=== PATIENT | female | born 1955 | race Caucasian/White ===

== ENCOUNTER → 2017-09-19 06:44 | Outpatient (CLI) | payer BC, SELFPAY ==
--- NOTE | 2017-09-19 10:00 | ECHOCS_ITS ---
Reason For Study: chest pain Procedure This was a 2D Doppler, Color Flow transthoracic echocardiogram. The exam was of poor technical quality due to body habitus. The study was technically difficult. Contrast injection was performed. Exam performed in department. Left Ventricle Normal LV size. Sigmoid septum. Left ventricular systolic function is normal. The estimated ejection fraction is 65 %. Transmitral doppler flow suggestive of impaired relaxation of left ventricle. No regional wall motion abnormalities noted. Right Ventricle Normal RV size. Normal systolic function. Atria The left atrium is mildly enlarged. Normal right atrium. No doppler evidence for ASD. Mitral Valve There is mild to moderate mitral annular calcification. Extension of the mitral annular calcification onto the posterior mitral valve leaflet. Trivial mitral valve insufficiency. Tricuspid Valve Normal tricuspid valve. Trivial tricuspid valve insufficiency. Right ventricular systolic pressure estimated to be 22 mmHg. Aortic Valve Trisinus/trileaflet aortic valve. Mild focal aortic valve calcification. Pulmonic Valve The pulmonic valve is not well visualized. Great Vessels Normal sized aortic root. Pericardium/Pleural No pericardial effusion. Medication Definity0.2ml given slow IV push to enhance endocardial definition. MMode/2D Measurements & Calculations LVIDd: 4.0 cm IVSd: 1.1 cm Ao root diam: 2.7 cm LVIDs: 3.0 cm LVPWd: 1.1 cm LA dimension: 3.8 cm RVDd: 2.8 cm FS: 25.1 % LAV(MOD-bp): 49.0 ml LA A4 area: 17.4 cm2 RA A4 area: 13.7 cm2 LAV(MOD-bp) Indexed: 24.3 ml/m2 LAV(MOD-sp2): 52.5 ml LAV(MOD-sp4): 45.1 ml Doppler Measurements & Calculations MV E max christian: 70.6 cm/sec Lat Peak E' Christian: 9.3 cm/sec Med Peak E' Christian: 9.0 cm/sec MV A max christian: 100.5 cm/sec E/E' lat: 7.6 E/E' med: 7.8 MV E/A: 0.70 Ao V2 max: 157.5 cm/sec LV V1 max: 118.4 cm/sec PA V2 max: 130.3 cm/sec Ao max P.9 mmHg LV V1 max P.6 mmHg TR max christian: 220.4 cm/sec TR max P.4 mmHg Interpretation Summary The study was technically difficult. Contrast injection was performed. Left ventricular systolic function is normal. The estimated ejection fraction is 65 %. Sigmoid septum. The left atrium is mildly enlarged. There is mild to moderate mitral annular calcification. Extension of the mitral annular calcification onto the posterior mitral valve leaflet. Trivial mitral valve insufficiency. Trivial tricuspid valve insufficiency. Mild focal aortic valve calcification. Right ventricular systolic pressure estimated to be 22 mmHg. Transmitral doppler flow suggestive of impaired relaxation of left ventricle Ordering Physician: Srinath Conteh Referring Physician: Srinath Conteh Performed By: Bhumi Pineda, CORNELIUSCS, RVT
--- NOTE | 2017-09-19 16:33 | STRESSREP ---
Stress Test Report Date: 09/19/2017 Procedure: Exercise tolerance test/nuclear imaging study Indications: Chest pain Consent: Per the patient Procedure: The patient exercised on a Vaibhav protocol for 9 minutes completing stage III achieving a peak heart rate of 148 bpm (93% predicted maximal heart rate) with a peak blood pressure 182/70 mmHg and a peak MET capacity of 10 METs. The baseline ECG demonstrated normal sinus rhythm. The peak exercise ECG demonstrated no obvious ECG changes. There was a rare PVC/ventricular couplet during exercise. The functional capacity was considered good. The patient had no complaint of chest discomfort during exercise or recovery. The examination was discontinued secondary to completion of protocol. Impression: 1. Technically adequate (percent predicted maximal heart rate greater than 85%) exercise tolerance test 2. Peak exercise ECG with no obvious ECG changes 3. Rare PVCs/ventricular couplet during exercise 4. Nuclear images pending Myocardial perfusion imaging study: Technique: The patient was injected with 14.4 mCi of technetium 99m Cardiolite and subsequently rest SPECT Cardiolite nuclear imaging was obtained in the horizontal long, vertical long, and short axis views. The patient exercised on a Vaibhav protocol for 9 minutes completing stage III achieving a peak heart rate of 148 bpm (93% predicted maximal heart rate) with a peak blood pressure 182/70 mmHg and a peak MET capacity of 10 METs. The patient was injected with 44.7 mCi of technetium 99m Cardiolite and subsequently stress SPECT Cardiolite nuclear imaging was obtained in the horizontal long, vertical long, and short axis views. A gated Cardiolite study at peak stress was obtained. Interpretation: Rest and stress SPECT cardio light nuclear imaging demonstrate, status post realignment, normalization, and attenuation correction, relative uniform tracer uptake and myocardial perfusion appearing within normal limits. There is end systolic thickening and brightening. The gated Cardiolite study demonstrates myocardial thickening and inward wall motion. The reported LVEF is 75%. Impression: 1. Rest and stress SPECT current nuclear imaging demonstrating relative uniform tracer uptake and myocardial perfusion appearing within normal limits. 2. The gated Cardiolite study reports an LVEF of 75%. This note was generated with Tarisa software. Every effort was made to ensure accuracy, however, computerized laceworker mistakes may persist.
--- NOTE | 2017-09-19 16:40 | STRESSREP_ITS ---
Stress Test Report Date: 09/19/2017 Procedure: Exercise tolerance test/nuclear imaging study Indications: Chest pain Consent: Per the patient Procedure: The patient exercised on a Vaibhav protocol for 9 minutes completing stage III achieving a peak heart rate of 148 bpm (93% predicted maximal heart rate) with a peak blood pressure 182/70 mmHg and a peak MET capacity of 10 METs. The baseline ECG demonstrated normal sinus rhythm. The peak exercise ECG demonstrated no obvious ECG changes. There was a rare PVC/ventricular couplet during exercise. The functional capacity was considered good. The patient had no complaint of chest discomfort during exercise or recovery. The examination was discontinued secondary to completion of protocol. Impression: 1. Technically adequate (percent predicted maximal heart rate greater than 85% ) exercise tolerance test 2. Peak exercise ECG with no obvious ECG changes 3. Rare PVCs/ventricular couplet during exercise 4. Nuclear images pending Myocardial perfusion imaging study: Technique: The patient was injected with 14.4 mCi of technetium 99m Cardiolite and subsequently rest SPECT Cardiolite nuclear imaging was obtained in the horizontal long, vertical long, and short axis views. The patient exercised on a Vaibhav protocol for 9 minutes completing stage III achieving a peak heart rate of 148 bpm (93% predicted maximal heart rate) with a peak blood pressure 182/70 mmHg and a peak MET capacity of 10 METs. The patient was injected with 44.7 mCi of technetium 99m Cardiolite and subsequently stress SPECT Cardiolite nuclear imaging was obtained in the horizontal long, vertical long, and short axis views. A gated Cardiolite study at peak stress was obtained. Interpretation: Rest and stress SPECT cardio light nuclear imaging demonstrate, status post realignment, normalization, and attenuation correction, relative uniform tracer uptake and myocardial perfusion appearing within normal limits. There is end systolic thickening and brightening. The gated Cardiolite study demonstrates myocardial thickening and inward wall motion. The reported LVEF is 75%. Impression: 1. Rest and stress SPECT current nuclear imaging demonstrating relative uniform tracer uptake and myocardial perfusion appearing within normal limits. 2. The gated Cardiolite study reports an LVEF of 75%. This note was generated with Tripology software. Every effort was made to ensure accuracy, however, computerized soil conservation technician mistakes may persist.
== END ==
PROVIDERS: Family Provider Internal Medicine; PCP Internal Medicine; Visit Provider Internal Medicine Cardiovascular Disease
DX: R07.9 Chest pain, unspecified (principal)
CPT/HCPCS: 78452; 93017; 93306; A9500; Q9957; A4216; C8929

== ENCOUNTER → 2017-10-09 15:58 | Outpatient (CLI) | payer BC, SELFPAY ==
--- NOTE | 2017-10-09 16:07 | MRI_ITS ---
STUDY: MRI RIGHT SHOULDER REASON FOR EXAM: Right shoulder pain for 4 months, no specific injury. TECHNIQUE: Standardized fat and water weighted pulse sequences were obtained in all 3 orthogonal planes. COMPARISON: None. FINDINGS: There is mild supraspinatus tendinosis (T2 coronal images 10, 11) without discrete tendon tear. Normal infraspinatus tendon. Normal subscapularis tendon. Normal teres minor tendon. Normal supraspinatus muscle. Normal infraspinatus muscle. Normal subscapularis muscle. Normal teres minor muscle. Normal glenohumeral articulation. Normal humeral head and visualized proximal humerus. Normal biceps labral complex. There is mild tendinosis of the intracapsular long biceps tendon (T2 sagittal images 12, 13) without discrete tendon tear. Normal labrum. Normal capsulo- ligamentous complex. There is mild acromioclavicular arthrosis with mild capsular thickening effacing the subacromial fat (T2 sagittal image 15). There is a Type II morphology (curved), with a neutral orientation. There is a small volume of fluid in the anterior subacromial-subdeltoid bursa (proton-density axial images 3, 4). Normal visualized coracohumeral and coracoacromial ligaments. Normal deltoid muscle. Normal trapezius muscle. MRI/Upper Ext Joint Only(Routine) IMPRESSION: Mild supraspinatus tendinosis without demonstrated rotator cuff tear. Mild tendinosis of the long biceps tendon without demonstrated tear of the long biceps tendon. Mild acromioclavicular arthrosis. Mild subacromial-subdeltoid bursitis. Electronically Signed: Micheal Tripathi MD at 7:53 EST Tel , Service support ,
== END ==
PROVIDERS: Family Provider Internal Medicine; PCP Internal Medicine
DX: M75.41 Impingement syndrome of right shoulder (principal); S46.111A Strain of muscle, fascia and tendon of long head of biceps, right arm, initial encounter; X58.XXXA Exposure to other specified factors, initial encounter
CPT/HCPCS: 73221

== ENCOUNTER → 2017-10-25 08:52 | Outpatient (CLI) | payer BC, SELFPAY ==
--- NOTE | 2017-10-25 08:53 | HPBI_ITS ---
MAMMOGRAPHY - BILATERAL SCREENING REASON FOR EXAM: Female, 62 years old. Routine annual screening examination. PERTINENT HISTORY: Sister with breast cancer. Grandmother with breast cancer. TECHNIQUE: Digital bilateral breast patti (3D mammographic acquisition) in the CC and MLO projections. 2-D mediolateral oblique (MLO) and craniocaudad (CC) views of both breasts were obtained. CAD: Full Field Digital Mammography with Computer Added Detection was performed. COMPARISON: Comparison is made with prior study dated September 07, 2016 and January 23, 2013. FINDINGS: Breast Composition: The breasts are almost entirely fatty. There are no dominant masses or suspicious calcifications. Stable well-defined 6 mm nodule in the upper outer portion of the right breast. This most likely represents a small lymph node. No other significant abnormalities are identified. There has been no significant change since the prior study. HPBI/SCREENING MAMM (CAD), BILAT IMPRESSION: Stable bilateral screening mammogram. Yearly follow-up mammogram recommended. (A) ASSESSMENT CATEGORY: BIRADS Category 2: Benign. A letter regarding these results will be sent to the patient by the facility within 30 days. Approximately 10% of breast cancers are not detected by mammography. A normal mammogram should not delay biopsy of a clinically suspicious abnormality. [id number] Electronically Signed: Bryson Oliver MD at 12:26 EST Tel [phone], Service support ,
--- NOTE | 2017-10-25 09:13 | HPBD_ITS ---
STUDY: DUAL ENERGY X-RAY ABSORPTIOMETRY / DXA REASON FOR EXAM: Female, 62 years old. Early menopause. No loss of height. TECHNIQUE: Bone Mineral Density (BMD) measurements of lumbar spine and bilateral hips were obtained. COMPARISON: Comparison is made with prior study dated January 23, 2013. FINDINGS: Lumbar Spine (L1-L4): g/cm2 (1.024) / T-score (-1.3) / Z-score (0.1) Findings are suggestive of osteopenia with a moderate fracture risk. Left Femur Total: g/cm2 (1.179) / T-score (1.4) / Z-score (2.4) Left Femoral Neck: g/cm2 (1.111) / T-score (0.5) / Z-score (1.9) Right Femur Total: g/cm2 (1.143) / T-score (1.1) / Z-score (2.1) Right Femoral Neck: g/cm2 (1.135) / T-score (0.7) / Z-score (2.1) The T-Scores on the most recent prior examination were: Lumbar Spine (L1-L4): There has been worsening of bone density since the previous examination. Left Femur Total: which represents a worsening of 3.1%. Right Femur Total: which represents a worsening of 3.9%. HPBD/Dexa Bone Density Study (HP) IMPRESSION: The patient is considered osteopenic at the level of the lumbar spine as outlined below according to World Igor Organization (WHO) criteria with a moderate fracture risk. There has been worsening of bone density since the previous examination. Reference Information: The T-score is the number of standard deviations above or below the standard which is normal for young adults at their peak bone mineral density. The World Health Organization (WHO) interprets the T-scores as follows: Above -1 Normal bone density Between -1 and -2.5 Osteopenia Equal to / or below -2.5 Osteoporosis As a practical clinical guideline, osteopenia may be graded as follows: Mild -1 through -1.5 Moderate -1.6 through -2.0 Severe -2.1 through -2.4 The Z-score is the number of standard deviations above or below age-matched controls. A Z-score of less than -1.5 would be considered abnormal. References: 1. NIH Osteoporosis and Related Bone Diseases http://www.osteo.org 2. International Society for Clinical Densitometry http://www.iscd.org 3. National Osteoporosis Foundation http://www.nof.org Electronically Signed: Bryson Oliver MD at 15:45 EST Tel [phone], Service support ,
== END ==
PROVIDERS: Family Provider Internal Medicine; PCP Internal Medicine; Visit Provider Internal Medicine
DX: Z12.31 Encounter for screening mammogram for malignant neoplasm of breast (principal); Z78.0 Asymptomatic menopausal state
CPT/HCPCS: 77063; 77067; 77080

== ENCOUNTER 2018-01-16 13:23 | Emergency (ER) | payer BC, SELFPAY ==
[2018-01-16 13:25] VITALS: BP 159/99; PULSE 115; RESP 18; TEMP 36.8; O2SAT 97; BMI 34.7
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
[2018-01-16 14:53] VITALS: BP 161/87; PULSE 110
[2018-01-16 15:25] VITALS: BP 165/85; PULSE 109; RESP 16; O2SAT 98
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
[2018-01-16 15:35] VITALS: BP 151/89; PULSE 107; RESP 16; O2SAT 97
== END 2018-01-16 15:36 | disposition home or self-care (01) ==
PROVIDERS: Emergency Provider Emergency Medicine; Family Provider Internal Medicine; PCP Internal Medicine
DX: I10 Essential (primary) hypertension (principal); R00.0 Tachycardia, unspecified; E78.00 Pure hypercholesterolemia, unspecified; K50.90 Crohn's disease, unspecified, without complications; Z87.891 Personal history of nicotine dependence; Z79.891 Long term (current) use of opiate analgesic; Z79.899 Other long term (current) drug therapy
CPT/HCPCS: 71046; 99284; A4216

== ENCOUNTER → 2018-01-17 13:42 | Outpatient (CLI) | payer BC, SELFPAY ==
[2018-01-17 15:51] LABS: Absolute Lymphocyte Count 3.57 X10^3/ul (0.83-4.51); Basophil# 0.04 X10^3/uL; Basophil% 0.5 % (0-1); Eosinophil# 0.13 X10^3/uL; Eosinophils% 1.6 % (0-5); Hematocrit 46.9 % (37-47); Hemoglobin 15.8 g/dl (12.0-15.0); Lymphocyte # 3.57 X10^3/ul (4.0); Lymphocyte % 42.8 % (19-41); Mean Corp Hgb Conc 33.7 g/gl (32-36); Mean Corpuscular Volume 89.2 fL (81-99); Mean Platelet Vol. 9.7 fl (6.2-12.0); Monocyte# 0.64 X10^3/uL; Monocyte% 7.7 % (0-10); Neutrophil # 3.97 X10^3/uL (2.7-7.7); Neutrophil % 47.4 % (47-70); Platelet Count 275 K/mm3 (150-450); RBC Distribution Width CV 13.1 % (11.6-14.6); RBC Distribution Width SD 42.1 fl (35.1-43.9); Red Blood Count 5.26 M/mm3 (4.2-5.4); White Blood Count 8.4 K/mm3 (4.4-11.0)
[2018-01-17 16:04] LABS: POSITIVE COUNT NO; POSITIVE DIFFERENTIAL NO; POSITIVE MORPHOLOGY NO
[2018-01-17 16:27] LABS: AST(SGOT) 39 U/L (15-37); Alanine Aminotransfer ALT/SGPT 68 U/L (13-56); Albumin, Serum 3.9 g/dL (3.2-5.0); Alkaline Phosphatase 94 U/L (45-117); Anion Gap 11 (5-15); BUN 16 mg/dL (7-18); BUN/Creat Ratio 23.7 RATIO (10-20); Bilirubin, Direct 0.09 mg/dL (0.00-0.30); Calcium,Total 9.8 mg/dL (8.5-10.1); Chloride 107 mmol/L (98-107); Creatinine, Serum 0.67 mg/dL (0.55-1.02); EST Glomerular Filtration Rate 94 mL/min (>60); Est Glom Filt Rate - Afr Amer 114 mL/min (>60); Glucose 78 mg/dL (74-106); Potassium 3.6 mmol/L (3.5-5.1); Protein, Total 7.9 g/dL (6.4-8.2); Sodium Level 141 mmol/L (136-145)
[2018-01-21 03:06] LABS: QNTFERON TB Ag Minus Nil Value 0.14 IU/mL (.); QNTFERON TB Ag Value 0.18 IU/mL (.); QNTFERON TB Mitogen Value > 10.00 IU/mL (.); QNTFERON TB Nil Value 0.04 IU/mL (.)
[2018-01-21 08:49] LABS: Hep B Surface Antibodies Reactive (.); Hep C Antibodies 0.1 s/co ratio (0.0-0.9); QNTIFERON TB Gold Negative (Negative)
== END ==
PROVIDERS: Family Provider Internal Medicine; PCP Internal Medicine; Visit Provider Nurse Practitioner Family
DX: L40.0 Psoriasis vulgaris (principal); Z79.899 Other long term (current) drug therapy; L57.0 Actinic keratosis
CPT/HCPCS: 36415; 80048; 80076; 85025; 86480; 86706; 86803

== ENCOUNTER 2018-02-01 16:00 | Outpatient (RCR) | payer BC, SELFPAY ==
--- NOTE | 2017-11-21 14:22 | HP.PTEVAL_ITS ---
Patient's Visit Information VICKY ARAGON is a 62 year old F referred to Physical Therapy by Out of Town Doctor MONIQUE MARTINEZ MD with a diagnosis of ARTHRITIS OF R AC JT. R BICEPS RUPTURE. SUBACROMIAL IMPINGEMENT.. Date of Evaluation: 11/21/17 Physical Therapist: Stacy Rodrgiuez Cross - Visit Plan Frequency: 2x /Week Duration: 3 Months Plan: PHASE ONE SHOULDER REHAB AND NO AROM OF ELBOW UNTIL November. AROM OF CERVICAL SPINE, RIGHT WRIST AND HAND. PROM OF RIGHT SHOULDER AND ELBOW. WEAN FROM BRACE WHEN OK'D BY SURGEON. - Subjective Subjective: Diagnosis: Work/Leisure: CR[employer] WORK AT [employer]. 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 LIFTING UP TO ABOUT 20 LBS. A LOT OF REPETATIVE USE OF ARMS. BENDING AND TWISTING ARE INVOLVED TOO. HAS BEEN DOING THIS JOB ABOUT 22 YEARS. PATIENT PLANS TO RETURN TO THIS JOB. SHE HAS BEEN OFF WORK ABOUT 3 WEEKS AND HER TENTATIVE RTW DATE IS DEC 25 2017 ABLE. Disability: NO. Present symptoms: RIGHT ANTERIOR SHOULDER PAIN. RIGHT LATERAL SHOULDER PAIN AND IT HURTS IN THE BACK OF THE SHOULDER TOO. PATIENT REPORTS THEY ALSO RELEASED A TRIGGER THUMB LAST WEEK AND IT HURTS TOO. BASICALLY THE WHOLE SHOULDER HURTS. PATIENT DENIES NECK PAIN OTHER THAN WHERE THE SLING HITS HER NECK ON THE LEFT. DENIES FLO UE NUMBNESS OR TINGLING. Present since: PATIENT REPORTS A LONG HISTORY OF RIGHT SHOULDER PAIN OFF AND ON FOR YEARS BUT THEN SHE TORE HER BICEPS SOMETIME AROUND THE BEGINNING OF OCTOBER 2017. Pain Scale: WORST 8/10, LEAST 3/10. Currently: 4/10. Commenced as a result of: NO APPARENT REASON OTHER THAN THE DOG PULLING WHILE WALKING AND SWIMMING. Worse: ? IN THE SLING ALL THE TIME RIGHT NOW EXCEPT TO SHOWER. Better: ICE, RECLINER , PAIN MEDICINE. Disturbed sleep: YES. Previous history/Previous treatment: NO PRIOR SHOULDER PROCEEDURES BUT DID HAVE RIGHT SHOULDER INJECTIONS RECENTLY THAT ONLY HELPED TEMPORARILY. NO PT. NO CHIRO TREATMENTS ON SHOULDER. Dizziness: NO. Tinnitis: YES. Nausea: NO. Difficulty Swollowing: NO. Gait: NORMAL. Accidents: NO. Unexplained weight loss: NO. Imaging: PATIENT REPORTS THAT RIGHT SHOULDER IMAGING SINCE THE SURGERY AND PATIENT REPORTS THEY TOLD HER EVERYTING IS WHERE IT IS SUPPOSED TO BE. PMH: CRONES DZ , PSORIASIS. Recent major surgery: BOWEL RESECTION FOR CRONES. FLO KNEE SCOPES FOR TORN MENISCUS. OTHER: PATIENT IS RIGHT HAND DOMINANT. - Objective THIS PATIENT PRESENTS TO PT IN A RIGHT UE ABD SLING. SHE AMBULATES INDEP'LY WITHOUT ANY ASISTIVE DEVICES. SHE IS INDEP WITH TRANSFERS. SHE IS ABLE TO INDEP'LY DON AND DOFF SLING. SHE HAS FULL RIGHT WRIST AND HAND AROM. CERVICAL MVMT LOSS WITH AROM TESTING: FLEX - NIL, PRO - NIL, RET - MOD, EXT - MOD, FLO ROT - MIN, RIGHT SB - MIN, LEFT SB - MOD. PATIENT REPORTS A LITTLE BIT OF RIGHT NECK STRETCHING WITH LEFT SB BUT OTHERWISE NO INCREASED PAIN WITH AROM TESTING OF THE CERIVCAL SPINE. FULL PROM OF THE RIGHT ELBOW FLEX AND EXT. NO ACTIVE RIGHT ELBOW ROM TESTED PER ORDER. RIGHT SHOULDER PASSIVE FLEX TO ONLY 75 DEG TODAY IN LYING. FLO UE LIGHT TOUCH SENSATION IS INTACT AND SYMMETRICAL. PATIENT IS PLEASANT AND COOPERATIVE TO WORK WITH. - Goals Goal 1:: INCREASE FUNCTIONAL ROM OF RIGHT UE Goal Time Frame: 8-12 Weeks Goal 2:: INCREASE FUNCTIONAL STRENGTH OF RIGHT UE Goal Time Frame: 8-12 Weeks Goal 3:: IMPROVE REACHING, PUSHING, PULLING, LIFTING, FUNCTION OF THE RIGHT UE FOR SUCCESSFUL RETURN TO WORK. Goal Time Frame: 8-12 Weeks Goal 4:: INDEP HEP FOR CONTINUED IMPROVEMENT ONCE FORMAL PT CONCLUDES. Goal Time Frame: 8-12 Weeks - Rehabilitation Potential Rehabilitation Potential: Good - Anticipated Interventions Patient/Client Instruction: Educate patient on: Condition, Plan of Care, Risk Factors, Benefits of Fitness Program For the Purpose of:: To improve self management Therapeutic Exercise to Include: Postural training, Passive ROM, Active ROM, Scapular Strength/Stabilization For the Purpose of:: To decrease pain, To increase ROM Manual Therapy Techniques to Include: Soft tissue mobilization Comment: CERVICAL REGION For the Purpose of:: To decrease pain, To increase ROM, To improve nutrient delivery to tissue Cryotherapy (ice pack, ice massage): Yes - NECK AND SHOULDER For the Purpose of:: To decrease pain, To decrease swelling/inflammation Thank you for the opportunity to evaluate your patient. For Medicare and Medicare HMO plans, please review the plan of care and approve it. It will need to be FAXED BACK to us at [phone] for Medicare purposes. Please let me know if there are questions or concerns regarding this plan of care. Physician Signature: Date:
--- NOTE | 2018-03-25 12:52 | HP.PT.NRP ---
HP - Discharge Summary (1) - Patient Information VICKY ARAGON was seen in my office for initial evaluation on 11/21/17. The following Plan of Care was established for this patient: Initial Frequency: 2x /Week Initial Duration: 3 Months - Anticipated Interventions Patient/Client Instruction: Educate patient on: Condition, Plan of Care, Risk Factors, Benefits of Fitness Program For the Purpose of:: To improve self management Therapeutic Exercise to Include: Postural training, Passive ROM, Active ROM, Scapular Strength/Stabilization For the Purpose of:: To decrease pain, To increase ROM Manual Therapy Techniques to Include: Soft tissue mobilization Comment: CERVICAL REGION For the Purpose of:: To decrease pain, To increase ROM, To improve nutrient delivery to tissue Cryotherapy (ice pack, ice massage): Yes - NECK AND SHOULDER For the Purpose of:: To decrease pain, To decrease swelling/inflammation This patient was last seen in our office 02/01/18. Pertinent comments regarding their Physical therapy will appear below: This patient has not returned to Physical Therapy and is appropriate to return to MD for further follow-up as needed. At this point I will be discontinuing this patient from physical therapy. I would be happy to see this patient again in the future if found appropriate by the physician. Thank you! Stacy Johnson
== END 2018-02-01 19:00 | disposition home or self-care (01) ==
LOC: PT 16:00
PROVIDERS: Family Provider Internal Medicine; PCP Internal Medicine
DX: M19.011 Primary osteoarthritis, right shoulder (principal); S46.111D Strain of muscle, fascia and tendon of long head of biceps, right arm, subsequent encounter; M75.41 Impingement syndrome of right shoulder
CPT/HCPCS: 97014; 97110; 97140; 97162; 97164; 97530; G0283

== ENCOUNTER → 2018-03-05 09:46 | Outpatient (CLI) | payer BC, SELFPAY ==
[2018-03-05 12:18] LABS: Absolute Lymphocyte Count 2.26 X10^3/ul (0.83-4.51); Basophil# 0.06 X10^3/uL; Eosinophil# 0.14 X10^3/uL; Eosinophils% 2.3 % (0-5); Hematocrit 48.1 % (37-47); Lymphocyte # 2.26 X10^3/ul (4.0); Lymphocyte % 37.7 % (19-41); Mean Corp Hgb Conc 33.3 g/gl (32-36); Mean Corpuscular Hgb 30.4 pg (27.0-32.0); Mean Corpuscular Volume 91.4 fL (81-99); Mean Platelet Vol. 10.8 fl (6.2-12.0); Monocyte# 0.58 X10^3/uL; Monocyte% 9.7 % (0-10); Neutrophil # 2.96 X10^3/uL (2.7-7.7); Neutrophil % 49.3 % (47-70); Platelet Count 253 K/mm3 (150-450); RBC Distribution Width CV 14.4 % (11.6-14.6); RBC Distribution Width SD 46.6 fl (35.1-43.9); Red Blood Count 5.26 M/mm3 (4.2-5.4)
[2018-03-05 12:23] LABS: POSITIVE COUNT NO; POSITIVE DIFFERENTIAL NO; POSITIVE MORPHOLOGY NO
[2018-03-05 12:38] LABS: AST(SGOT) 41 U/L (15-37); Alanine Aminotransfer ALT/SGPT 82 U/L (13-56); Albumin, Serum 3.8 g/dL (3.2-5.0); Alkaline Phosphatase 80 U/L (45-117); Anion Gap 9 (5-15); BUN 11 mg/dL (7-18); BUN/Creat Ratio 14.6 RATIO (10-20); Calcium,Total 9.6 mg/dL (8.5-10.1); Chloride 104 mmol/L (98-107); Creatinine, Serum 0.76 mg/dL (0.55-1.02); EST Glomerular Filtration Rate 82 mL/min (>60); Est Glom Filt Rate - Afr Amer 100 mL/min (>60); Globulin 3.7 g/dL (2.2-4.2); Glucose 91 mg/dL (74-106); Potassium 4.1 mmol/L (3.5-5.1); Protein, Total 7.5 g/dL (6.4-8.2); Sodium Level 140 mmol/L (136-145)
== END ==
PROVIDERS: Family Provider Internal Medicine; PCP Internal Medicine
DX: K50.90 Crohn's disease, unspecified, without complications (principal); K21.9 Gastro-esophageal reflux disease without esophagitis
CPT/HCPCS: 36415; 80053; 85025

== ENCOUNTER 2018-08-03 08:18 | Emergency (ER) | payer BC, SELFPAY ==
[2018-08-03 08:19] VITALS: BP 196/83; PULSE 105; RESP 20; TEMP 36.6; O2SAT 97; BMI 34.2
[2018-08-03 08:26] VITALS: O2SAT 98
--- NOTE | 2018-08-03 08:44 | CT_ITS ---
STUDY: CTA CHEST REASON FOR EXAM: Female, 63 years old. Left-sided chest pain with radiation. History of aortic dissection. RADIATION DOSAGE (If Supplied By Facility): CTDIvol = ( 15.56 ) mGy, DLP = ( 1158.50 ) mGycm TECHNIQUE: The examination was performed with the intravenous administration of 75 ml of Isovue 370 contrast material. Post-processing of the angiographic images was performed, with multiplanar reformation and 3D reconstruction. Individualized dose optimization techniques were used for this CT. COMPARISON: None. FINDINGS: Small benign-appearing bilateral axillary lymph nodes. Normal enhancement of the main pulmonary artery and right and left pulmonary arteries. Normal enhancement of the bilateral peripheral pulmonary arteries. There is no demonstrated pulmonary embolism. Normal thoracic aorta and visualized great vessels. There is no demonstrated aortic dissection. Normal heart and pericardium. There are visualized mediastinal lymph nodes, which are within normal size limits, and with normal morphology. Normal hilar regions. Normal visualized trachea and bronchi. The lungs are well expanded. Normal pulmonary parenchyma. Normal pleura. Normal chest wall structures. Normal osseous structures. Fatty infiltration of the liver. CT/CTA Chest W/WO Contrast IMPRESSION: Normal CTA chest examination, without a demonstrated pulmonary embolism or arterial dissection. Electronically Signed: Bryson Oliver MD at 9:47 EST Tel [phone], Service support ,
--- NOTE | 2018-08-03 08:44 | CT_ITS ---
STUDY: CTA CHEST REASON FOR EXAM: Female, 63 years old. Left-sided chest pain with radiation. History of aortic dissection. RADIATION DOSAGE (If Supplied By Facility): CTDIvol = ( 15.56 ) mGy, DLP = ( 1158.50 ) mGycm TECHNIQUE: The examination was performed with the intravenous administration of 75 ml of Isovue 370 contrast material. Post-processing of the angiographic images was performed, with multiplanar reformation and 3D reconstruction. Individualized dose optimization techniques were used for this CT. COMPARISON: None. FINDINGS: Small benign-appearing bilateral axillary lymph nodes. Normal enhancement of the main pulmonary artery and right and left pulmonary arteries. Normal enhancement of the bilateral peripheral pulmonary arteries. There is no demonstrated pulmonary embolism. Normal thoracic aorta and visualized great vessels. There is no demonstrated aortic dissection. Normal heart and pericardium. There are visualized mediastinal lymph nodes, which are within normal size limits, and with normal morphology. Normal hilar regions. Normal visualized trachea and bronchi. The lungs are well expanded. Normal pulmonary parenchyma. Normal pleura. Normal chest wall structures. Normal osseous structures. Fatty infiltration of the liver. CT/CTA Abdomen W/WO Contrast IMPRESSION: Normal CTA chest examination, without a demonstrated pulmonary embolism or arterial dissection. Electronically Signed: Bryson Oliver MD at 9:47 EST Tel [phone], Service support ,
--- NOTE | 2018-08-03 08:44 | EKG12_ITS ---
Test Reason : CHEST PAIN Blood Pressure : / mmHG Vent. Rate : 100 BPM Atrial Rate : 100 BPM P-R Int : 150 ms QRS Dur : 086 ms QT Int : 372 ms P-R-T Axes : 050 029 053 degrees QTc Int : 479 ms Normal sinus rhythm Normal ECG Confirmed by WILLIAM DIAZ MD ([id number]), senior editor SEVEN SCHMIDT ([id number]) on 08/08/2018 3:35:07 PM Referred By: DC Confirmed By:WILLIAM DIAZ MD
--- NOTE | 2018-08-03 08:49 | ED.VISSUMM ---
- ER Visit Summary Date of Service: 08/03/18 Chief Complaint: Chest pain History of Present Illness: The patient is a 63 F with chest pain that the patient noticed this morning when getting ready for work. The pain has been constant. It feels like a pressure and she has noted palpitations. The pain started to radiate down to her left groin after about an hour and a half. She never had this before. Denies any other abdominal pains or GI symptoms. Denies any urinary symptoms. Denies any respiratory symptoms. No recent illnesses. No history of heart disease, PE, or dissection. She had a stress test about a year ago that she says was normal. She had a cath a long time ago that she said was okay. Non-smoker. Physical Examination: Blood pressure 196/83 and heart rate 105. Otherwise vitals unremarkable. Afebrile. Alert and oriented. No acute distress. Skin appears normal. Heart regular. Lungs clear. Abdomen soft and nontender. Back is nontender. Extremities unremarkable. No edema. No tenderness. Test Results: EKG showed sinus rhythm at a rate of 100. No sign of acute ischemia or infarction pattern. Laboratory studies and urinalysis pending. We will also check CTA to evaluate her aorta. Emergency Department Course and Treatment: Patient was placed on a monitor. She declined pain medicine. Will hold aspirin at this point as we evaluate her aorta. Will recheck her blood pressure. Hemoglobin 15.8, otherwise CBC normal. BUN 20 otherwise metabolic panel normal. Urinalysis unremarkable. Troponin normal. CT showed no evidence of PE or dissection. I reevaluated the patient. Her blood pressure was 149/77. She had a mild pain still. I do not believe this is angina or ACS. She is low risk. She had a stress test within approximately the past year. It was unremarkable. Symptoms are very atypical. I explained that we could repeat her troponin or EKG. She declined. I believe this is reasonable. I believe she is appropriate for outpatient follow-up. She will check in with her doctor. She will use lcjk-eyw-txeyogr remedies for pain. Return if she has difficulty following up or has any new or different symptoms. Treatment Plan: As above Disposition: Discharge Impression: 1. Chest wall pain This note was generated with Palingenation software. It may contain incorrect words, spelling, and punctuation that were not noted in review of the chart prior to signing ED Disposition - Plan for ED Patient: Chief Complaint: Chest Pain Referrals: Yuki Wilson DO [Primary Care Provider] -
[2018-08-03] MEDS: 0.9% Normal Saline 1,000 ML 1000 ML IV (08:57)
[2018-08-03 09:10] LABS: Bacteria 0 SEEN /hpf (None Seen); Mucous, Urine 0 SEEN /hpf (<or=2+); Red Blood Cells-Urine 0 SEEN /hpf (0-5); Squamous Epithelial Cells - UA 0 SEEN /hpf (5-10)
[2018-08-03 09:12] LABS: Color, Urine Yellow (Yellow); Glucose, Dipstick Normal (Normal); Ketone-Dipstick Negative (Negative); Leukocyte Esterase-Dipstick 100 /ul (Negative); Nitrite-Dipstick Negative (Negative); Occult Blood-Urine Negative /ul (Negative); Protein-Dipstick Negative (Negative); Urine Bilirubin Dipstick Negative (Negative); Urine Clarity Clear (Clear); Urine Urobilinogen Normal (Normal)
[2018-08-03 09:12] LABS: Absolute Lymphocyte Count 3.62 X10^3/ul (0.83-4.51); Absolute Neutrophil Count 3.2 X10^3/uL (2.0-7.7); Basophil# 0.07 X10^3/uL; Basophil% 0.9 % (0-1); Eosinophil# 0.24 X10^3/uL; Hematocrit 45.6 % (37-47); Hemoglobin 15.8 g/dl (12.0-15.0); Lymphocyte # 3.62 X10^3/ul (4.0); Lymphocyte % 45.8 % (19-41); Mean Corp Hgb Conc 34.6 g/gl (32-36); Mean Corpuscular Hgb 31.1 pg (27.0-32.0); Mean Corpuscular Volume 89.8 fL (81-99); Mean Platelet Vol. 10.4 fl (6.2-12.0); Monocyte# 0.73 X10^3/uL; Monocyte% 9.2 % (0-10); Neutrophil # 3.23 X10^3/uL (2.7-7.7); Platelet Count 278 K/mm3 (150-450); RBC Distribution Width CV 12.9 % (11.6-14.6); RBC Distribution Width SD 42.2 fl (35.1-43.9); Red Blood Count 5.08 M/mm3 (4.2-5.4); White Blood Count 7.9 K/mm3 (4.4-11.0)
[2018-08-03 09:13] LABS: POSITIVE COUNT NO; POSITIVE DIFFERENTIAL NO; POSITIVE MORPHOLOGY NO
[2018-08-03 09:18] LABS: White Blood Cells 0-5 SEEN /hpf (0-5)
[2018-08-03 09:18] LABS: Anion Gap 7 (5-15); BUN 20 mg/dL (7-18); BUN/Creat Ratio 27.1 RATIO (10-20); Calcium,Total 9.3 mg/dL (8.5-10.1); Chloride 105 mmol/L (98-107); Creatinine, Serum 0.74 mg/dL (0.55-1.02); EST Glomerular Filtration Rate 85 mL/min (>60); Est Glom Filt Rate - Afr Amer 102 mL/min (>60); Estimated Creatinine Clearance 72.85 ml/min; Glucose 89 mg/dL (74-106); Sodium Level 139 mmol/L (136-145)
[2018-08-03 09:50] VITALS: BP 149/77; PULSE 64; RESP 16; O2SAT 99
--- NOTE | 2018-08-03 10:07 | ED.DEP ---
ED Disposition - Plan for ED Patient: Chief Complaint: Chest Pain Instructions: ED Chest Pain Atypical Unkn Cause Referrals: Yuki Wilson DO [Primary Care Provider] -
[2018-08-03 10:13] VITALS: BP 156/82; PULSE 74; RESP 15; O2SAT 97
--- OUTSIDE RECORDS SUMMARY | 2018-09-18 22:00 | XMS RPT_ITS ---
:1955 Author Organization [employer] Address [address] [place] [address] Phone Care Team Providers Name Role Phone Castillo LESTER, Fito Zhao Reason for Visit Reason For Visit Description Start Date Postop - subsequent visit Preliminary reason for visit data, not yet signed by the author as of right shoulder post Right shoulder arthroscopy with debridement of degenerative labral tear; Right shoulder arthroscopic distal clavicle excision; Right shoulder arthroscopic subacromial decompression with partial acromioplasty and coracoacromial ligament release; Right shoulder open subpectoral proximal biceps tenodesis; Right trigger thumb corticosteroid injection on 11/01/2017 Preliminary reason for visit data, not yet signed by the author as of Chief Complaint Chief Complaint Description Start Date right shoulder post Right shoulder arthroscopy with debridement of degenerative labral tear; Right shoulder arthroscopic distal clavicle excision; Right shoulder arthroscopic subacromial decompression with partial acromioplasty and coracoacromial ligament release; Right shoulder open subpectoral proximal biceps tenodesis; Right trigger thumb corticosteroid injection on 11/01/2017 Preliminary chief complaint data, not yet signed by the author as of Instructions Instruction Description Start Date Please follow-up with Primary Care Physician or Retail Branch Manager for treatment or adjustment of medication regarding elevated blood pressure.Patient advised to follow-up with Primary Care Physician for BMI management. Plan of Care Type Date Detail Appointment 10:30 AM Fito Chong MD, [address] [facility], [address], [place], [address], Patient education \[email or web address]\[email or web address].pdf Medications Medication Instructions Start Stop Generic Name ND Provider Date Date NORCO 5-325 MG Take 1-2 / HYDROCODONE-ANASTACIA 97289190006 Fito A TABS tablets by 20 TAMINOPHEN Castillo LESTER mouth every 4hrs as needed for pain ZOLOFT 100 MG One tablet / SERTRALINE HCL 46751420900 Inez TABS daily 07 Degarmo RT TRAMADOL HCL 50 One tablet as / TRAMADOL HCL 82189810240 Inez MG TABS needed for pain 17 Degarmo RT METHOTREXATE take 2.5mg / METHOTREXATE 20838728057 Inez TABS Monday morning, 29 SODIUM TABS Degarmo RT 2.5mg Monday evening, 2.5mg Monday morning VOLTAREN 1 % apply liberally / DICLOFENAC 64600511739 Inez GEL to hand three 28 SODIUM Degarmo RT times daily as needed for pain HUMIRA 40 inject 0.8ml / ADALIMUMAB 33180941024 Fito A MG/0.8ML PSKT every other 29 Castillo LESTER week Conditions or Problems Problem Name Problem Onset Status Entry Provider Comment Standard Annotate Code Date Date Description 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 Fito A Arthritis of right (SNOMED 10/24 10/24 Castillo LESTER acromioclavicular acromioclavic CT) joint ular joint Rupture of 89604732 Active Fito A Rupture of tendon right long (SNOMED 09/19 09/19 Castillo LESTER of biceps, long head biceps CT) head tendon, initial encounter Subacromial 447413280 Active Fito A Subacromial impingement (SNOMED 09/19 09/19 Castillo LESTER impingement of right CT) shoulder Trigger 57848635 Active Fito A Snapping thumb finger of (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 Vital Signs Date Name Value Unit Description BMI (Body Mass 34.02 kg/m2 Body Mass Index Index) [Ratio] Preliminary vital sign data, not yet signed by the author as of BP Diastolic 87 mm[Hg] blood pressure, diastolic Preliminary vital sign data, not yet signed by the author as of BP Systolic 162 mm[Hg] blood pressure, systolic Preliminary vital sign data, not yet signed by the author as of Heart Rate 72 /min pulse rate E&M Preliminary vital sign data, not yet signed by the author as of Height 66 [in_us] height E&M Preliminary vital sign data, not yet signed by the author as of Height 168 cm height in centimeters E&M Preliminary vital sign data, not yet signed by the author as of Weight Measured 210 [lb_av] weight E&M Preliminary vital sign data, not yet signed by the author as of Weight Measured 95 kg weight in kilograms E&M Preliminary vital sign data, not yet signed by the author as of Results Date Name Value Unit Range Flag Description Office Visit: Postop - subsequent visit, Rm: MEDS REVIEW Done Documentation of current medications (procedure) Preliminary observation data, not yet signed by the author as of Preliminary observation data, not yet signed by the author as of [facility] Office Visit: Postop - 1st visit, Rm: MEDS REVIEW Done Documentation of current medications (procedure) Clinical Summary[facility] Procedures Code Procedure Name Date Entry Date [id number] Physical Therapy G8730 Pain assessment documented as positive - follow-up documented G8427 Current medications documented 1036F Tobacco screening was negative - non user G8417 BMI documented as above normal parameters - follow-up documented [id number] Patient Encounter Medications Administered No information available. Immunizations No information available. Advance Directives There may be information available, but it has not been provided by the sender. Assessments There may be information available, but it has not been provided by the sender. Review of Systems There may be information available, but it has not been provided by the sender. Family History There may be information available, but it has not been provided by the sender. History of Past Illness There may be information available, but it has not been provided by the sender. History of Present Illness There may be information available, but it has not been provided by the sender.
--- OUTSIDE RECORDS SUMMARY | 2018-09-18 22:00 | XMS RPT_ITS ---
:1955 Author Organization [email or web address] Address [address] [place] [address] Phone Care Team Providers Name Role Phone Castillo LESTER, Fito Rodriguez Unavailable Reason for Visit Reason For Visit Description Start Date Follow-up by complaint Preliminary reason for visit data, not yet signed by the author as of right shoulder Preliminary reason for visit data, not yet signed by the author as of Chief Complaint Chief Complaint Description Start Date right shoulder Preliminary chief complaint data, not yet signed by the author as of Instructions Instruction Description Start Date Patient advised to follow-up with Primary Care Physician for BMI management. Plan of Care Type Date Detail Appointment 03:00 PM Fito Chong MD, [address] [facility], [address], [place], [address], Medications Medication Instructions Start Stop Generic Name NDC Provider Date Date ZOLOFT 100 MG One tablet / SERTRALINE HCL 33196726110 Inez TABS daily 07 Degarmo RT TRAMADOL HCL 50 One tablet as / TRAMADOL HCL 88804571389 Inez MG TABS needed for pain 17 Degarmo RT METHOTREXATE take 2.5mg / METHOTREXATE 71412325493 Inez TABS Monday morning, 29 SODIUM TABS Degarmo RT 2.5mg Monday evening, 2.5mg Monday morning HUMIRA 40 inject 0.8ml / ADALIMUMAB 83586982878 Fito A MG/0.8ML PSKT every other 29 Castillo LESTER week Conditions or Problems Problem Name Problem Onset Status Entry Provider Comment Standard Annotate Code Date Date Description Arthritis of 911419988 Active Fito A Arthritis of right (SNOMED 10/24 10/24 Castillo LESTER acromioclavicular acromioclavic CT) joint ular joint Rupture of 63451143 Active Fito A Rupture of tendon right long (SNOMED 09/19 09/19 Castillo LESTER of biceps, long head biceps CT) head tendon, initial encounter Subacromial 023488263 Active Fito A Subacromial impingement (SNOMED 09/19 09/19 Castillo LESTER impingement of right CT) shoulder Trigger 40073224 Active Fito A Snapping thumb finger of (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/18 04/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 CT) Allergies, Adverse Reactions, Alerts Allergy Name Reaction Start Date Severity Status Provider Description 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 Richard LESTER Social History Concept Description Observation Name Observation Value Units Start Date Employment detail 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 Preliminary social history data, not yet signed by the author as of Vital Signs Date Name Value Unit Description BMI (Body Mass 34.02 kg/m2 Body Mass Index Index) [Ratio] Preliminary vital sign data, not yet signed by the author as of BP Diastolic 77 mm[Hg] blood pressure, diastolic Preliminary vital sign data, not yet signed by the author as of BP Systolic 139 mm[Hg] blood pressure, systolic Preliminary vital sign data, not yet signed by the author as of Heart Rate 61 /min pulse rate E&M Preliminary vital sign [...] Value Unit Range Flag Description Office Visit: Follow-up by renate, Rm: MEDS REVIEW Done Documentation of current medications (procedure) Preliminary observation data, not yet signed by the author as of Preliminary observation data, not yet signed by the author as of Clinical Summary: [facility] account number Procedures Code Procedure Name Date Entry Date G8731 Pain assessment documented as negative - follow-up not required G8427 Current medications documented 1036F Tobacco screening was negative - non user G8417 BMI documented as above normal parameters - follow-up documented G8783 Blood pressure within normal parameters - no follow-up required [id number] Patient Encounter Medications Administered No information available. [...]
--- OUTSIDE RECORDS SUMMARY | 2018-09-18 22:00 | XMS RPT_ITS ---
:11/26/1988 Author Organization [employer] Address [address] [place] [address] Phone Care Team Providers Name Role Phone Massiel WHEAT, Cass Gerardo Unavailable Reason for Visit Reason For Visit Description Start Date Postop - 1st visit Preliminary reason for visit data, not yet signed by the author as of left hand Preliminary reason for visit data, not yet signed by the author as of Chief Complaint Chief Complaint Description Start Date left hand Preliminary chief complaint data, not yet signed by the author as of Instructions Instruction Description Start Date Completed Plan of Care Type Date Detail Appointment 11:00 AM Cass Rankin PA-C, [address] [facility] [facility], [place], [address], Pending order XR HAND 3+ VWS-LT Patient education \cps-[email or web address]\[email or web address]\[email or web address] [id number] Medications Medication Instructions Start Stop Generic NDC Provider Date Date Name BACTRIM DS Take 1 tab by SULFAMETHO [id number] Cass C 800-160 MG mouth twice a XAZOLE-TRI DiBartolomeo TABS day METHOPRIM PA-C OXYCODONE-ACET Take one tab OXYCODONE- [id number] Cass Gerardo AMINOPHEN every 6 hours 0 ACETAMINOP DiBartolomeo 5-325 MG TABS for pain HEN PA-C Conditions or Problems Problem Name Problem Onset Status Entry Provider Comment Standard Annotate Code Date Date Description Laceration 731157174 Active Cass Gerardo Muscle and epl of extensor (SNOMED 11/28 11/28 DiBartolomeo tendon laceration muscle and CT) PA-C injury left thumb tendon of thumb at wrist and hand level Laceration 398219450 Active Cass Gerardo Laceration index EDC without (SNOMED 11/28 11/28 DiBartolomeo of hand and EIP foreign body CT) PA-C laceration of unspecified finger without damage to nail, subsequent encounter Laceration 356314085 Active Cass Gerardo Laceration index EDC without (SNOMED 11/28 11/28 DiBartolomeo of hand and EIP foreign body CT) PA-C laceration of left hand, subsequent encounter Open 009730294 Active Cass Gerardo Open MPJ displaced (SNOMED 11/28 11/28 DiBartolomeo fracture interarticul fracture of CT) PA-C thumb ar open neck of metacarpal fracture first neck from saw metacarpal injury bone of left hand, initial encounter Open 109593921 Active Cass Gerardo Open traumatic displaced (SNOMED 11/28 11/28 DiBartolomeo fracture of interarticul fracture of CT) PA-C proximal ar MPJ open proximal phalanx of fracture phalanx of index finger left index finger, initial encounter Contact with 866633451 Active Cass Gerardo Injury due left powered saw (SNOMED 11/28 11/28 DiBartolomeo to machinery as cause of CT) PA-C accidental injury Allergies, Adverse Reactions, Alerts Observed no known allergies at Social History Concept Description Observation Name Observation Value Units Start Date Alcohol use ETOH USE No Preliminary social history data, not yet signed by the author as of Current some day SMOK STATUS current someday smoker smoker Preliminary social history data, not yet signed by the author as of Details of drug DRUG USE No misuse behavior Preliminary social history data, not yet signed by the author as of Employment 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 Preliminary social history data, not yet signed by the author as of Vital Signs Date Name Value Unit Description BMI (Body Mass 24.48 kg/m2 Body Mass Index Index) [Ratio] Preliminary vital sign data, not yet signed by the author as of BP Diastolic 63 mm[Hg] blood pressure, diastolic Preliminary vital sign data, not yet signed by the author as of BP Systolic 130 mm[Hg] blood pressure, systolic Preliminary vital sign data, not yet signed by the author as of Heart Rate 98 /min pulse rate E&M Preliminary vital sign data, not yet signed by the author as of Height 70 [in_us] height E&M Preliminary vital sign data, not yet signed by the author as of Height 178 cm height in centimeters E&M Preliminary vital sign data, not yet signed by the author as of Weight Measured 170 [lb_av] weight E&M Preliminary vital sign data, not yet signed by the author as of Weight Measured 77 kg weight in kilograms E&M Preliminary vital sign data, not yet signed by the author as of Results Date Name Value Unit Range Flag Description Office Visit: Postop - 1st visit, Rm: MEDS REVIEW Done Documentation of current medications (procedure) Preliminary observation data, not yet signed by the author as of Preliminary observation data, not yet signed by the author as of SMOK STATUS current someday Tobacco smoker smoking status NHIS Preliminary observation data, not yet signed by the author as of Clinical Summary: Scanned History Summary DEP EXERCISE No data entered by patient, exercise history OPIATEFREQ per dayper weekper frequency of use monthper year of opiates (heroin or non-prescribed opioid pain medications) OTHDRUGHX_OB less than once Other drug use hx DEP DRUG USE No data entered by patient, drug (of abuse) use DEP ETOH USE No data entered by patient, alcohol (ethanol or ETOH) use DEP CIGAR SM less than 1 cigar per Data entered by week patient cigar smoking [place] 3 Floors housing unit size (asthma environmental history, housing) (from single family to don't know) [place] House Housing Type: apartment, house, chcf, trailer, none #DEP CHLDRN Yes Number of dependent children DEP SH MAST data entered by patient, social history, marital status 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 Employed data entered by patient, Employer Name 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 A/D Unknown brother(s) of patient alive or SISTERS PM ArthritisDiabetes - medical history non-insulin of patient's dependentOsteoporosis sister DEP DAD [facility] Diabetes - non-insulin data entered by dependent patient, father's medical history FATHER A/D father of patient is alive or DEP MOM PM High blood pressure data entered by patient, mother's medical history MOTHER A/D Alive mother of patient is alive or DEP SURGERY Hand surgery Data entered by patient, history of past surgeries Clinical Summary: Scanned ROS Summary ROS: Denies genitourinary review of systems, E&M ROS: GI Denies ROS gastrointestinal E&M ROS ENDO Denies endocrine ROS ROS:MUSCSKEL Denies ROS musculoskeletal E&M ROS: PSYCH Denies ROS psychiatric E&M ROS HEME Denies ROS hematologic/lymphatic E&M ROS SKIN Denies ROS skin E&M ROS ENT COMM Dentures ROS ENT comment ROS ENT Complains ROS ENT E&M ROS:GENERAL Denies ROS general E&M ROS: NEURO Denies ROS neurological E&M ROS:PULMON Denies ROS pulmonary E&M ROS: CARDIAC Denies ROS cardiovascular E&M Clinical Summary: [facility] SOP account number Procedures Code Procedure Name Date Entry Date G8731 Pain assessment documented as negative - follow-up not required G8427 Current medications documented [id number] Tobacco screening or cessation counseling not performed - unknown reason G8420 BMI documented within normal parameters - no follow-up plan is required G8783 Blood pressure within normal parameters - no follow-up required [facility]-[id number] Patient Encounter Medications Administered No information available. [...]
--- OUTSIDE RECORDS SUMMARY | 2018-09-18 22:01 | XMS RPT_ITS | Continuity of Care Document ---
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 Instruction: Educate patient on: Condition, Plan of Care, Risk Factors, Benefits of Fitness Program For the Purpose of:: To improve self management Therapeutic Exercise to Include: Postural training, Passive ROM, Active ROM, Scapular Strength/Stabilization For the Purpose of:: To decrease pain, To increase ROM Manual Therapy Techniques to Include: Soft tissue mobiliza tion Comment: CERVICAL REGION For the Purpose of:: To decrease pain, To increase ROM, To improve nutrient delivery to tissue Cryotherapy (ice pack, ice massage): Yes - NECK AND SHOULDER For the Purpose of:: To decrease pain, To decrease swelling/inflammation Thank you for the opportunity to evaluate your patient. For Medicare and Medicare HMO plans, please review the plan of care and approve it. It will need to be FAXED BACK to us at [phone] for Medicare purposes. Please let me know if there are questions or concerns regarding this plan of care. Physician Signature: Date: <Electronically signed by Stacy Johnson PT, Cert. MDT> 11/21/17 1422 CC: Yuki Wilson DO; OUT OF TOWN DOCTOR DT: 11/05 DAVIDE Signed For Medicare only, by signing this I certify the plan of care. Physicians Signature Date 25-Oct-2017 Dexa Bone Density Study (HP) Result: Comments: See Note; NOTES: [facility] Imaging Services [address] [place] [address] Dexa Bone Density Study (HP) MR#: [id number] Acct: [id number] Name: PAU ARAGON Rep #: [id number] : 1955 F 62 From: Bryson Oliver MD PCP: Yuki Wilson DO Status: [facility] CLI Study: Dexa Bone Density Study (HP) Date of Exam: 10/25/17 Exam# [id number] Ordering Dr: Terri Wilson DO STUDY: DUAL ENERGY X-RAY ABSORPTIOMETRY / DXA REASON FOR EXAM: Female, 62 years old. Early menopause. No loss of height. TECHNIQUE: Bone Mineral Density (BMD) measurements of lumbar spine and bilateral hips were obtained. COMPARISON: Comparison is made with prior study dated January 23, 2013. FINDINGS: Lumbar Spine (L1-L4): g/cm2 (1.024) / T-score (-1.3) / Z-score (0.1) Findings are suggestive of osteopenia with a moderate fracture risk. Left Femur Total: g/cm2 (1.179) / T-score (1.4) / Z-score (2.4) Left Femoral Neck: g/cm2 (1.111) / T-score (0.5) / Z-s core (1.9) Right Femur Total: g/cm2 (1.143) / T-score (1.1) / Z-score (2.1) Right Femoral Neck: g/cm2 (1.135) / T-score (0.7) / Z-score (2.1) The T-Scores on the most recent prior examination were: Aster mbar Spine (L1-L4): There has been worsening of bone density since the previous examination. Left Femur Total: which represents a worsening of 3.1%. Right Femur Total: which represents a worsening of 3 .9%. HPBD/Dexa Bone Density Study (HP) IMPRESSION: The patient is considered osteopenic at the level of the lumbar spine as outlined below accord ing to World Igor Organization (WHO) criteria with a moderate fracture risk. There has been worsening of bone density since the previous examination. Reference Inf ormation: The T-score is the number of standard deviations above or below the standard which is normal for young adults at their peak bone mineral density. The World Health Organization (WHO) interprets the T-scores as follows: Above -1 Normal bone density Between -1 and -2.5 Osteopenia Equal to / or below -2.5 Osteoporosis As a practical clinical guideline, osteopenia may be graded as follows: Mild -1 through -1.5 Moderate -1.6 through -2.0 Severe -2.1 through -2.4 The Z-score is the number of standard deviations above or below age-matched controls. A Z- score of less than -1.5 would be considere d abnormal. References: 1. NIH Osteoporosis and Related Bone Diseases http://www.osteo.org 2. International Society for Clinical Densitometry http://www.iscd.org 3. National Osteoporosis Foundation htt p://www.nof.org Electronically Signed: Bryson Oliver MD at 15:45 EST Tel [phone], Service support , CC: Yuki Wilson DO Customer Support Analyst: Signed 25-Oct-2017 SCREENING MAMM (CAD), BILAT Result: Comments: See Note; NOTES: [facility] Imaging Services [address] [place] [address] SCREENING MAMM (CAD), BILAT MR#: [id number] Acct: [id number] Name: PAU ARAGON Rep #: [id number] : 1955 F 62 From: Bryson Oliver MD PCP: Yuki Wilson DO Status: REG CLI Study: SCREENING MAMM (CAD), BILAT Date of Exam: 10/25/17 Exam# [id number] Ordering Dr: Yuki Wilson DO MAMMOGRAPHY - BILATERAL SCREENING REASON FOR EXAM: Female, 62 years old. Routine annual screening examination. PERTINENT HISTORY: Sister with breast cancer. Grandmother with breast cancer. TECH NIQUE: Digital bilateral breast patti (3D mammographic acquisition) in the CC and MLO projections. 2-D mediolateral oblique (MLO) and craniocaudad (CC) views of both breasts were obtained. CAD: Full Fiel d Digital Mammography with Computer Added Detection was performed. COMPARISON: Comparison is made with prior study dated September 07, 2016 and January 23, 2013. FINDINGS : Breast Composition: The breasts are almost entirely fatty. There are no dominant masses or suspicious calcifications. Stable well-defined 6 mm nodule in the upper outer portion of the right breast. T his most likely represents a small lymph node. No other significant abnormalities are identified. There has been no significant change since the prior study. HPBI/SCREENING MAMM (CAD), BILAT IMPRESSION: Stable bilateral screening mammogram. Yearly follow-up mammogram recommended. (A) ASSESSMENT CATEGORY: BI RADS Category 2: Benign. A letter regarding these results will be sent to the patient by the facility within 30 days. Approximately 10% of breast cancers are not detected by mammography. A normal mammo gram should not delay biopsy of a clinically suspicious abnormality. [id number] Electronically Signed: Bryson Oliver MD at 12:26 EST Tel [phone], Service support , Fax CC: Yuki Wilson DO Customer Support Analyst: Signed 09-Oct-2017 Upper Ext Joint Only(Routine) Result: Comments: See Note; NOTES: [facility] Imaging Services [address] [place] [address] Upper Ext Joint Only(Routine) MR#: [id number] Acct: [id number] Name: PAU ARAGON Rep #: [id number] : 1955 F 62 From: Micheal Tripathi MD PCP: Yuki Wilson DO Status: REG CLI Study: Upper Ext Joint Only(Routine) Date of Exam: 10/09/17 Exam# [id number] Ordering Dr: MONIQUE MARTINEZ STUDY: MRI RIGHT SHOULDER REASON FOR EXAM: Right shoulder pain for 4 months, no specific injury. TECHNIQUE: Standardized fat and water weighted pulse sequences were obtained in all 3 orthogonal planes . COMPARISON: None. FINDINGS: There is mild supraspinatus tendinosis (T2 coronal images 10, 11) without discrete tendon tear. Normal infraspinatus tendon. Normal armenta bscapularis tendon. Normal teres minor tendon. Normal supraspinatus muscle. Normal infraspinatus muscle. Normal subscapularis muscle. Normal teres minor muscle. Normal glenohumeral articulation. Irene l humeral head and visualized proximal humerus. Normal biceps labral complex. There is mild tendinosis of the intracapsular long biceps tendon (T2 sagittal images 12, 13) without discrete tendon tear. N ormal labrum. Normal capsulo- ligamentous complex. There is mild acromioclavicular arthrosis with mild capsular thickening effacing the subacromial fat (T2 sagittal image 15). There is a Type II morpho logy (curved), with a neutral orientation. There is a small volume of fluid in the anterior subacromial-subdeltoid bursa (proton-density axial images 3, 4). Normal visualized coracohumeral and coracoac romial ligaments. Normal deltoid muscle. Normal trapezius muscle. MRI/Upper Ext Joint Only(Routine) IMPRESSION: Mild supraspinatus tendinosis wi thout demonstrated rotator cuff tear. Mild tendinosis of the long biceps tendon without demonstrated tear of the long biceps tendon. Mild acromioclavicular arthrosis. Mild subacromial-subdeltoid burs itis. Electronically Signed: Micheal Tripathi MD at 7:53 EST Tel , Service support , CC: MONIQUE MARTINEZ; Yuki Wilson DO Customer Support Analyst: Signed 19-Sep-2017 Stress Report Result: Comments: See Note; NOTES: [facility] Cardiovascular Services [address] [place] [address] MR#: [id number] Acct: [id number] Name: PAU ARAGON Rep #: [id number] : [birth year] 62 From: Srinath Conteh MD Primary Care: Yuki Wilson DO Status: REG CLI Ordering Dr: Sex: F C Stress Test Report Date: 09/19/2017 Procedure: Exercise tolerance test/nuclear imaging study Indications: Chest pain Consent: Per the patient Procedure: The patient exercised on a Vaibhav protocol for 9 minutes completing stage III achieving a peak heart rate of 148 bpm (93% predicted maximal heart rate) with a peak blood pressure 182/70 mmHg and a peak MET capacity of 10 METs. The baseline ECG demonstrated normal sinus rhythm. The peak exercise ECG demonstrated no obvious ECG changes. Th ere was a rare PVC/ventricular couplet during exercise. The functional capacity was considered good. The patient had no complaint of chest discomfort during exercise or recovery. The examination was discontinued secondary to completion of protocol. Impression: 1. Technically adequate (percent predicted maximal heart rate greater than 85%) exercise tolerance test 2. Peak exercise ECG with no obvio us ECG changes 3. Rare PVCs/ventricular couplet during exercise 4. Nuclear images pending Myocardial perfusion imaging study: Technique: The patient was injected with 14.4 mCi of technetium 99m Cardi olite and subsequently rest SPECT Cardiolite nuclear imaging was obtained in the horizontal long, vertical long, and short axis views. The patient exercised on a Vaibhav protocol for 9 minutes completing stage III achieving a peak heart rate of 148 bpm (93% predicted maximal heart rate) with a peak blood pressure 182/70 mmHg and a peak MET capacity of 10 METs. The patient was injected with 44.7 mCi of t echnetium 99m Cardiolite and subsequently stress SPECT Cardiolite nuclear imaging was obtained in the horizontal long, vertical long, and short axis views. A gated Cardiolite study at peak stress was ob tained. Interpretation: Rest and stress SPECT cardio light nuclear imaging demonstrate, status post realignment, normalization, and attenuation correction, relative uniform tracer uptake and myocardia l perfusion appearing within normal limits. There is end systolic thickening and brightening. The gated Cardiolite study demonstrates myocardial thickening and inward wall motion. The reported LVEF is 7 5%. Impression: 1. Rest and stress SPECT current nuclear imaging demonstrating relative uniform tracer uptake and myocardial perfusion appearing within normal limits. 2. The gated Cardiolite study rep orts an LVEF of 75%. This note was generated with [employer] software. Every effort was made to ensure accuracy, however, computerized petroleum geologist mistakes may persist. 09/19/17 1640 &#6 0;Electronically signed by Srinath Conteh MD> Date Srinath Conteh MD CC: Yuki Wilson DO; Srinath Conteh MD Date Dictated: 09/19/171632 Abdirashid e Transcribed: 09/19/171632 Customer Support Analyst: PM Signed 19-Sep-2017 Echo, Complete w/ Contrast Result: Comments: See Note; NOTES: [facility] Cardiovascular Services [address] [place] [id number] Echo Complete W/ Contrast 09/19/17 0945 MR#: [id number] Acct: [id number] Name: PAU OVALLE Rep #: [id number] : 1955 62 From: Srinath Conteh MD Attending Dr: Srinath Conteh MD Status: REG CLI Ordering Dr: Srinath Conteh MD Date: 09/19/17 Location: [facility] Sex: F C Admitted: Reason For Study: chest pain Procedure This was a 2D Doppler, Color Flow transthoracic echocardiogram. The exam was of poor technical quality due to body habitus. The study was technically difficult. Contrast injection was performed. Exam performed in department. Left Ventricle Normal LV size. Sigmoid septum. Left ventricular systolic function is normal. The estimated ejection fraction is 65 %. Tr ansmitral doppler flow suggestive of impaired relaxation of left ventricle. No regional wall motion abnormalities noted. Right Ventricle Normal RV size. Normal systolic function. Atria The left atrium is mildly enlarged. Normal right atrium. No doppler evidence for ASD. Mitral Valve There is mild to moderate mitral annular calcification. Extension of the mitral annular calcification onto the engine repairer service ior mitral valve leaflet. Trivial mitral valve insufficiency. Tricuspid Valve Normal tricuspid valve. Trivial tricuspid valve insufficiency. Right ventricular systolic pressure estimated to be 22 mmHg. Aortic Valve Trisinus/trileaflet aortic valve. Mild focal aortic valve calcification. Pulmonic Valve The pulmonic valve is not well visualized. Great Vessels Normal sized aortic root. Pericardium/Pl eural No pericardial effusion. Medication Definity0.2ml given slow IV push to enhance endocardial definition. MMode/2D Measurements AND Calculations LVIDd: 4.0 cm IVSd: 1.1 cm Ao root diam: 2.7 cm LVI Ds: 3.0 cm LVPWd: 1.1 cm LA dimension: 3.8 cm RVDd: 2.8 cm FS: 25.1 % LAV(MOD-bp): 49.0 ml LA A4 area: 17.4 cm2 RA A4 ar ea: 13.7 cm2 LAV(MOD-bp) Indexed: 24.3 ml/m2 LAV(MOD-sp2): 52.5 ml LAV(MOD-sp4): 45.1 ml Doppler Measurements AND Calculations MV E max sherry: 70.6 cm/sec Lat Peak E' Sherry: 9.3 cm/sec Med Peak E' Sherry: 9.0 cm/sec MV A max sherry: 100.5 cm/sec E/E' lat: 7.6 E/E' med: 7.8 MV E/A: 0.70 Ao V2 max: 157.5 cm/sec LV V1 max: 118.4 cm/s ec PA V2 max: 130.3 cm/sec Ao max P.9 mmHg LV V1 max P.6 mmHg TR max sherry: 220.4 cm/sec TR max P.4 mmHg Int erpretation Summary The study was technically difficult. Contrast injection was performed. Left ventricular systolic function is normal. The estimated ejection fraction is 65 %. Sigmoid septum. The lef t atrium is mildly enlarged. There is mild to moderate mitral annular calcification. Extension of the mitral annular calcification onto the posterior mitral valve leaflet. Trivial mitral valve insuffici ency. Trivial tricuspid valve insufficiency. Mild focal aortic valve calcification. Right ventricular systolic pressure estimated to be 22 mmHg. Transmitral doppler flow suggestive of impaired relaxatio n of left ventricle Ordering Physician: Srinath Conteh Referring Physician: Srinath Conteh Perf ormed By: Bhumi Pineda, LIBRADO, RVT 09/19/17 1531 Date Srinath Conteh MD CC: Peyton Wilson DO; Srinath Conteh MD Date Dictated: 09/19/1745 Date Transcribed: 09/19/171531 Customer Support Analyst: Signed 30-Aug-2017 Cardiology Visit Report Result: Comments: See Note; NOTES: [address] [place] [address] OFFICE VISIT Date of Service: 08/30/17 MR#: [id number] Acct: [id number] Name: PAU ARAGON Rep #: [id number] : 1955 Provider: Srinath Conteh MD Age/Sex: 62/F [place] [facility] Status: Signed HPI Fatigue: Details: APU ARAGON, is a 62 F who presents to the office today for outpatient cardiovascular consultation. She had previously been evaluated by the [facility] with her last outpatient cardiovascular visit being on 12/02/2013. Thus it is been over 3 years since she has be en evaluated in the outpatient setting. Her graph as you recall she had undergone evaluation in the past for atypical chest discomfort she has had ECGs, transthoracic echocardiograms, exercise tolerance test, and diagnostic cardiac catheterizations. Her cardiac catheterization was performed in 2008 at which time her left ventricle was thought to be normal, her LVEF was 70%, her LAD had 10% stenosis, h er LCx and 10% stenosis, the RCA had 10-20% stenosis, and the intermediate ramus had 10-20% stenosis. She states since her last outpatient visit she has had recurrent intermittent discomforts. She desc ribes a chest pressure and burning sensation. It does not necessarily radiate out of her chest. It is not necessarily associated with shortness of breath/dyspnea, nausea, or emesis. She has had no hist ory of orthopnea or PND. There is been no near syncope or syncope. She states that she has had a history of feeling tired and fatigued at times. She also notes sometimes her lower extremities feel &amp ;#34;heavy even though she is not edematous. She requested reevaluation based upon her ongoing concerns. She had an ECG in the office today. She was noted to have sinus rhythm. She has border line low voltage QRS. She has no acute ECG findings. Intake Vital Signs08/30/17 Height 5 ft 6 in 08/30/17 Weight: 220 lb 5 oz 08/30/17 Body Mass Index (BMI) 35.5 08/30/17 Blood Pressure 144/72 Intak e Visit Reasons: Fatigue Allergies anti inflammatory medication Adverse Reaction (Unknown, Uncoded 08/30/17 14:18) Crohns Disease Medications TraMADol [Ultram (G)] 50 mg PO Q6H PRN PRN 08/08/14 [Hi story Confirmed 08/30/17] adalimumab 40 mg/0.8 mL subcutaneous syringe kit 40 mg SC Q2W 08/30/17 [History Confirmed 08/30/17] folic acid 1 mg tablet 1 mg PO QDAY 08/30/17 [History Confirmed 08/30/17] me thotrexate sodium 2.5 mg tablet 2.5 mg PO Q12H tab 08/30/17 [History Confirmed 08/30/17] minocycline 50 mg tablet 50 mg PO QDAY 08/30/17 [History Confirmed 08/30/17] sertraline 100 mg tablet 100 mg PO Q DAY tab 08/30/17 [History Confirmed 08/30/17] [facility] Medical History Hypotension (Acute) Fatigue (Acute) Hyperlipemia, mixed (Acute) Crohns disease (Acu te) Fibromyalgia (Acute) Psoriasis (Acute) RLS (restless legs syndrome) (Acute) GERD (gastroesophageal reflux disease) (Chronic) Surgical History H/O arthroscopy of right knee (Resolved) History of a rthroscopy of left knee (Resolved) History of bowel resection (Resolved) History of hysterectomy (Resolved) History of tonsillectomy (Resolved) Family History Father Myocardial infarction Mother Myocardial infarction Hypertension Social History Smoking Status: Former smoker alcohol intake: current substance use type: does not use ROS Const Con st: Positive for fatigue (Increased fatigue x 2 months, bilat legs have felt heavy); negative for weakness, weight gain, weight loss, frequent falls or excessive sweating Eyes Eyes: Negative for change in vision, blurry vision or transient loss of vision ENT ENT: Negative for dizziness, Negative for balance problems Cardio Chest Pain: Yes Frequency: other (occasional) Character: other (burning would g o with heartbeat) Onset: at rest Location: left chest Duration: minutes (couple minutes; intermittant) Exacerbation: rest Palpitations: Positive for No Edema: None Muscle aches with walking: None Resp R espiratory: Negative for SOB with activity or SOB at rest GI GI: Negative vomiting or vomiting blood/hematemesis : Negative for hematuria Musc Musc: Positive for muscle aches/ myalgia (frequent &am p;#34;cramping, like blood wasnt getting down bilat LE); negative for balance problems, muscle weakness or joint pain Skin Skin: Negative non-healing lesions or rash Neuro Neuro: Negative for w eakness, Negative for blurry vision, Negative for dizziness, Negative for lightheadedness, Negative for frequent falls, Negative for orthostatic symptoms Rolan Hematologic/Lymphatic: Negative for easy bl eeding Endo Endo: Positive for fatigue (Increased fatigue x 2 months, bilat legs have felt heavy); negative for excessive sweating Psych Psych: Negative for anxiety or depression Allergy Allergy/Immunol ogy: Negative for hives, Negative for rash Cardiology Exam Const Appearance: cooperative, healthy appearing, comfortable, no acute distress, well developed and well groomed Nutritional Appearance: ove rweit Orientation: alert, awake and oriented x3 Head Head: normal to inspection, normocephalic and atraumatic Ears: hearing grossly normal bilaterally Nose: external nose normal Face and Sinus: face s ymmetric Mouth: oral mucosae normal Teeth and gingiva: dentition normal Eyes General: appearance normal, both eyes and all related structures Eyelids: eyelids normal Conjunctivae: conjunctivae normal Pu pils: PERRL EOM: EOM intact bilaterally Neck Neck: normal visual inspection Carotids: normal carotid upstroke Chest Chest inspection: normal inspection of the chest and symmetric chest movement Ausculta tion: Bilateral: Clear to Auscultation Cardio Palpation: normal PMI Rate: regular rate Rhythm: regular rhythm Heart sounds: S1 normal and S2 normal GI GI: normal to inspection, bowel sounds present, sof t and no hepatosplenomegaly Neuro General: alert, awake and oriented x3 Skin Skin: no rashes or lesions noted Extremities Pulses: Normal: Right Radial Pulse, Left Radial Pulse Lower Extremity Edema: Non e: Bilateral Musculoskel RUE: tenderness (secondary to muscle injury) Psych Psychological: normal affect Assessment AND Plan 1. Chest pain R07.9 Plan At the present time her chest pain appears to be s omewhat atypical. She does not have all the classic features of classic underlying CAD of myocardial ischemia. However she is very concerned about her ongoing discomfort, etc. Thus it was felt reasonabl e she would be reassessed with a follow-up exercise tolerance test. Depending upon the findings she may or may not need further cardiovascular evaluation versus noncardiac evaluation. Orders Orders: 2. Fatigue R53.83 Plan She does have fatigue. Again it is unclear whether this is cardiovascular related. This will be assessed with an echocardiogram to assess her left ventricular wall motion and systol ic function. She will also have her exercise tolerance test/imaging study performed. Again depending upon the findings she may or may not need further cardiac evaluation. Orders Orders: 3. CAD (coronar y artery disease) I25.10 Plan She does have a history of CAD. In the past that was considered minimal. She should consider risk factor evaluation care as deemed appropriate. 4. Obesity E66.9 Plan Unfor tunately she remains overweight. She acknowledges this. She has been counseled on the need to adjust her diet and her activity level to try and bring her weight under better control. Plan Detail Additi onal Comments At the present time she will continue as noted above. Otherwise she will be scheduled for an outpatient visit approximately 1 year unless needed sooner. Thank you for allowing me to parti cipate in the care of your patient. Please don't hesitate to call if any issues arise. This note was generated using a voice recognition system and there may be incorrect words, spelling or punctuation that were not noted when reviewing the office note prior to saving. Follow Up 1 Year (PFM) 08/30/17 1714 <Electronically signed by Srinath Conteh MD> Date Srinath Conteh MD Cosigner Signature: Date (if applicable) CC: Yuki Wilson DO 30-Aug-2017 12 Lead EKG performed by BMS Result: Comments: See Note; NOTES: [facility] [address] [place] [address] 12 Lead EKG performed by [facility]MS 08/30/171415 MR#: [id number] Acct: [id number] Name: NEERAJ DovePAU Majano Rep #: [id number] : 1955 62 From: Srinath Conteh MD Attending Dr: rSinath Conteh MD Status: [facility] Ordering Dr: Srinath Conteh MD Date: 08/30/17 Location: [facility] [place] Sex: F C Admitted: BMS/12 Lead [place] [facility] [place] ECG Report Interpretation Sinus Rhythm Borderline low voltage QRSABNORMAL Electronically signed on 08/30/2017 at 17:51 by Srinath Conteh 08/30/17 1753 Date Srinath Conteh MD CC: Yuki Wilson DO Date Dictated: 08/30/171415 Date Transcribed: 08/30/171415 Customer Support Analyst: PM Signed 30-Aug-2017 12 Lead EKG performed by BMS Result: Comments: See Note; NOTES: [facility] [address] [place] [address] 12 Lead EKG [place] [facility] [place] 08/30/17 1416 MR#: [id number] Acct: [id number] Name: PAU NAVAS Rep #: [id number] : 1955 62 From: Srinath Conteh MD Attending Dr: Srinath Conteh MD Status: [facility] Ordering Dr: Srinath Conteh MD Date: 08/30/17 Location: [facility] [place] Sex: F C Admitted: BMS/12 [place] [facility] [place] Interpretation Sinus Rhythm Borderline low voltage QRSABNORMAL Electronically signed on 08/30/2017 at 17:51 by Srinath Conteh 09/06/17 1615 Date Srinath Conteh MD CC: Yuki Wilson DO Date Dictated: 08/30/171415 Date Transcribed: 08/30/171415 Customer Support Analyst: PM Signed 17-Jan-2017 Ribs Uni Min 3V w/PA Chest Result: Comments: See Note; NOTES: [facility] Imaging Services [address] [place] [address] Verdana 4d Ribs Uni Min 3V w/PA Chest MR#: [id number] Acct: [id number] Name: PAU ARAGON Rep #: [id number] : 1955 F 61 From: Carmina Henson MD PCP: Yuki Wilson DO Status: REG CLI Study: Ribs Uni Min 3V w/PA Chest Date of Exam: 01/17/17 Exam# [id number] Ordering Dr: Robin Dugan TIMBER ROBBER-C STUDY: X-RAY - UNILATERAL RIBS ( LEFT ) WITH CHEST REASON FOR EXAM: Female, 61 years old. Left anterior rib pain after falling. TECHNIQUE - RIBS: 4 view(s) of the ribs. TECHNIQUE - CHEST: 1 view COMPARISON: Prior ribs and chest radiograph of July 03, 2013 and a prior PA and lateral chest of April 27, 2016. FINDINGS - RIBS: Prior healed fractur es of the left fourth, fifth, sixth and seventh ribs. Negative for acute rib fracture. FINDINGS - CHEST: The lungs are clear and expanded. There is no demonstrated pleural abnormality. Normal size he art. Normal mediastinum and will. Normal visualized pulmonary arteries. Normal visualized aortic arch and descending thoracic aorta. Normal visualized thoracic spine. Normal visualized ribs, clavicles, and shoulders. There is no demonstrated abnormality of the visualized soft tissue structures of the upper abdomen. RAD/Ribs Uni Min 3V w/PA Ch est IMPRESSION: RIBS: Negative for acute rib fracture. Prior healed fractures of the fourth, fifth, sixth and seventh ribs. CHEST: Normal x-ray examination of the chest. Electronically Signed: Carmina Henson MD at 15:25 EDT , Service support , CC: Trixie Dugan; Yuki Wilson DO Customer Support Analyst: Signed 07-Sep-2016 SCREENING MAMM (CAD), BILAT Result: Comments: See Note; NOTES: [facility] Imaging Services [address] [place] [address] Verdana 4d SCREENING MAMM (CAD), BILAT MR#: [id number] Acct: [id number] Name: PAU ARAGON Rep #: [id number] : 1955 F 61 From: Bryson Oliver MD PCP: Yuki Wilson DO Status: [facility] CL Study: SCREENING MAMM (CAD), BILAT Date of Exam: 09/07/16 Exam# [id number] Ordering Dr: Yuki Ponce DO MAMMOGRAPHY - BILATERAL SCREENING REASON FOR EXAM: Female, 61 years old. Routine annual screening examination. PERTINENT HISTORY: Sister with breast cancer. Grandmother with breast ca ncer. TECHNIQUE: Digital bilateral breast patti (3D mammographic acquisition) in the CC and MLO projections. 2-D mediolateral oblique (MLO) and craniocaudad (CC) views of both breasts were obtained. CAD : Full Field Digital Mammography with Computer Added Detection was performed. COMPARISON: Comparison is made with prior study dated January 23, 2013 and December 07, 2010. FINDINGS: Breast Composition: The breasts are almost entirely fatty. There are no dominant masses or suspicious calcifications. There is a stable well-defined 4.6 mm nodule in the upper outer aspect o f the right breast. This most likely represents a small lymph node. No other significant abnormalities are identified. There has been no significant change since the prior study. HPBI/SCREENING MAMM (CAD), BILAT IMPRESSION: Stable bilateral screening mammogram. Yearly follow-up mammogram recommended. (A) SESSMENT CATEGORY: BIRADS Category 2: Benign. A letter regarding these results will be sent to the patient by the facility within 30 days. Approximately 10% of breast cancers are not detected by mammog carter. A normal mammogram should not delay biopsy of a clinically suspicious abnormality. [id number] Electronically Signed: Bryson Oliver MD at 14:52 EST Tel [phone], Service support , CC: Yuki Wilson DO Customer Support Analyst: Signed 27-Apr-2016 Chest PA and Lateral Result: Comments: See Note; NOTES: [facility] Imaging Services [address] [place] [address] Verdana 4d Chest PA and Lateral MR#: [id number] Acct: [id number] Name: PAU ARAGON Rep #: [id number] : 1955 F 61 From: Sheldon King MD PCP: Yuki Wilson DO Status: REG CLI Study: Chest PA and Lateral Date of Exam: 04/27/16 Exam# [id number] Ordering Dr: Valentin Cantu UDY: X-RAY CHEST REASON FOR EXAM: Female, 61 years old. History of pleurisy, cough TECHNIQUE: PA and lateral views of the chest. COMPARISON: 10/24/2013 FINDINGS: T he lungs are clear and expanded. There is no demonstrated pleural abnormality. There are no pleural effusions. Normal size heart. Normal mediastinum and will. Normal visualized pulmonary arteries. Norm al visualized aortic arch and descending thoracic aorta. Normal visualized thoracic spine. Normal visualized ribs, clavicles, and shoulders. There is no demonstrated abnormality of the visualized soft tissue structures of the upper abdomen. RAD/Chest PA and Lateral IMPRESSION: No active disease in the chest is demonstrated, with a stable appe arance overall. Electronically Signed: Anthony King MD at 6:21 EDT Tel , Service support [phone], CC: Valentin Cantu; Yuki Wilson DO Customer Support Analyst: Signed 09-May-2015 Discharge Instruction Result: Comments: See Note; NOTES: [facility] Medical Records Department [address] [place] [address] Discharge Instruction 05/07/15 0055 MR#: [id number] Acct: [id number] Name: PAU ARAGON Rep #: [id number] : 1955 60 From: Carl Ritter MD PCP: Yuki Wilson DO Status: DEP ER ED Disposition - Plan for ED Patient: Disposition: Home or Assisted Living Chief Complaint: Complaint Instructions: ED CYSTITIS, Female (Adult) Prescriptions: Nitrofurantoin Macrocrystals [Macrobid] 100 mg PO Q12 #14 capsule Phenazopyridine HCl [Pyridium] 200 mg PO BI D PRN PRN #10 tablet PRN Reason: Pain What to do if you have Problems For any increased pain, shortness of breath, bleeding, nausea or vomiting, chest pain, or any unexpected problems, contact y our doctor. Call [facility] ([phone]) or report to the closest Emergency Room. Call 911 if necessary. 05/09/15 1600 <Electronically signed by Carl Ritter MD> Date Carl Ritter MD Cosigner Signature (If Indicated): Date CC: Yuki Wilson DO 09-May-2015 Emergency Department Summary Result: Comments: See Note; NOTES: [facility] Medical Records Department [address] [place] [address] Emergency Department Summary MR#: [id number] Acct: [id number] Name: PAU NAVAS Rep #: [id number] : 1955 60 From: Carl Ritter MD PCP: Yuki Wilson DO Status: DEP ER DATE OF SERVICE: 05/07/2015 CHIEF COMPLAINT: Dysuria. MODE OF TRANSPORT: [employer] vehicle. HISTORY OF PRESENT ILLNESS: A 60-year-old female with a history of frequent UTIs and stated that she developed dysuria about 2 hours ago. She is having frequency and urgency without rolan turia. She denies any back pain. She does have a history of hysterectomy. PHYSICAL EXAMINATION: VITAL SIGNS: Reviewed. Afebrile. ABDOMEN: Completely benign. She is resting comfortably. EMERGENCY DEPARTMENT COURSE: At this time, I offered the patient a urinalysis, she declined this at this time. I think she likely has a clinical cystitis. She will be treated with Macrobid and Pyridium with fi rst doses in the Emergency Department. She understands she can return if her symptoms worsen despite treatment. DISPOSITION: Home. IMPRESSION: Cystitis, clinical diagnosis. Carl Ritter MD T: NTS JOB: [id number] 05/09/15 1600 <Electronically signed by Carl Ritter MD> Date Carl Ritter MD Cosigner Signa ture (If Indicated): Date CC: Yuki Wilson DO Date Dictated: 05/07/1556 Date Transcribed: 05/07/1556 Customer Support Analyst: Signed 06-May-2015 Echocardiogram Complete Result: Comments: See Note; NOTES: [facility] Cardiovascular Services [address] [place] [address] Echo Complete 05/06/15814 MR#: [id number] Acct: [id number] Name: Arturo ARAGON Rep #: [id number] : 1955 60 From: Newton Fields MD Attending Dr: Yuki Wilson DO Status: REG CLI Ordering Dr: Yuki Wilson DO Date: 05/06/15 Location: [facility] Sex: F C Admitted: Procedure This was a 2D Doppler, Color Flow transthoracic echocardiogram. Exam performed in department. Left Ventricle Normal size and thickness. The estimated ejection fraction is 65 %. No ja onal wall motion abnormalities noted. Right Ventricle Normal size and thickness. Normal systolic function. Atria Normal left atrium. Normal right atrium. Normal atrial septum. Mitral Valve The mitral valve is structurally normal. No prolapse or stenosis seen. Mild mitral annular calcification extending into the posterior leaflet. Tricuspid Valve Normal tricuspid valve. Trivial tricuspid valve insufficiency. Right ventricular systolic pressure estimated to be 28 mmHg. Aortic Valve Trisinus/trileaflet aortic valve. Mild diffuse aortic valve thickening. Pulmonic Valve Normal pulmo real valve. Great Vessels Normal aortic root. Normal arch. Normal inferior vena cava. Inferior vena cava collapse with sniff. Pericardium/Pleural No pericardial effusion. MMode/2D Measurements A ND Calculations LVIDd: 4.5 cm IVSd: 1.1 cm Ao root diam: 2.5 cm LAV(MOD-bp): 49.4 ml LVIDs: 2.4 cm LVPWd: 1.1 cm Ao root area: 5.1 cm2 LAV(MOD-bp) Indexed: 24.8 ml /m2 RVDd: 3.0 cm FS: 47.3 % LA dime nsion: 3.9 cm LAV(MOD-sp2): 41.2 ml LAV(MOD-sp4): 59.5 ml LA A4 area: 19.4 cm2 RA A4 area: 15.5 cm2 Doppler Arianne urements AND Calculations MV E max sherry: Lat Peak E' Sherry: Med Peak E' Sherry: Ao V2 max: 152.0 cm/sec 87.6 cm/sec 9.5 cm/sec 8.4 cm/sec Ao max P.2 mmHg MV A max sherry: 97.3 cm/sec MV E/A: 0.90 __ LV V1 max: 115.5 cm/sec PA V2 max: 103.8 cm/sec PI max sherry: 132.7 cm/sec TR max sherry: LV V1 max P.3 mmHg PA max P .3 mmHg PI max P.0 mmHg 237.0 cm/sec PI dec slope: TR max P.6 mmHg 109.3 cm/sec2 E/E' lat: 9.2 E/E' m ed: 10.4 Interpretation Summary The estimated ejection fraction is 65 %. Right ventricular systolic pressure estimated to be 28 mmHg. Compared to echo report dated 10/31/2013, no appreciable changes noted. Ordering Physician: Yuki Wilson Performed By: Bhumi Pineda RDCS, RVT Electro nically signed by: Newton Fields MD on 05/06/2015 12:58 PM 05/06/15 1258 Date Newton Fields MD CC: Yuki Wilson DO Date Dictated: 15 Date Transcribed: 05/06/15 1258 Customer Support Analyst: Signed 06-May-2015 Nuclear Stress Test - Treadmil Result: Comments: See Note; NOTES: [facility] Imaging Services [address] [place] [address] STRESS TEST REPORT 05/06/15 0942 MR#: [id number] Acct: [id number] Name: ОЛЬГА ARAGON Rep #: [id number] : 1955 60 From: Rodney Barrios MD Primary Care: Yuki Wilson DO Status: REG CLI Ordering Dr: Yuki Wilson DO Service Date: 05/06/15 Order Date: 05/06/15 Sex: F C DATE OF SERVICE: A 60-year-old lady with a history of chest pain. Resting EKG demonstrates sinus rhythm with a rate of 64 beats per minute. Normal intervals are noted. Resting blood pressure wa s 124/78. STRESS TEST: The patient exercised according to a regular Vaibhav protocol for a total duration of 9 minutes and 30 seconds. The maximum heart rate attained was 137 beats per minute, which was 85% of maximum predicted heart rate. The maximum workload attained was 10.9 METS. The patient maintained sinus rhythm throughout the recording. At rest, there were no ST or T-wave changes noted to suggest ischemia. At peak exercise, no ST or T-wave changes were noted to suggest ischemia. Resting blood pressure was 124/78 with a peak blood pressure of 154/72. No clinical angina was noted. HAYLEY CARDIAL PERFUSION PROTOCOL: 11.8 mCi of sestamibi was injected at rest. The patient exercised according to a regular Vaibhav protocol for a total duration of 9 minutes and 30 seconds and a workload of 1 0.9 METS. At peak exercise, 31.2 mCi of sestamibi was injected. Stress images were obtained. Stress and rest images were reconstructed and compared in the short axis, vertical long and horizontal lo ng axes. Gated images were also obtained. PERFUSION SPECT ANALYSIS: Review of the images demonstrated normal uptake of tracer noted in all areas of the myocardium. The resting images similarly demon strated normal uptake of tracer noted in all areas of the myocardium. No areas of reversibility are noted to suggest ischemia or previous infarct. GATED SPECT ANALYSIS: The gated ejection fraction is noted to be 81%. CONCLUSION: 1. Normal exercise myocardial perfusion stress test with no evidence of ischemia at a moderate workload. 2. Preserved ejection fraction. 3. Good exercise functional capacity. Rodney Barrios MD T: NTS JOB: [id number] 05/08/15 1813 <Electronically signed by Rodney Barrios MD> Date Rodney Barrios MD CC: Yuki Wilson DO Date Dictated: 05/06/15941 Date Transcribed: 05/06/15941 Customer Support Analyst: Signed 3-Sep-2015 ELECTROCARDIOGRAM, COMPLETE (ECG) ([id number]) Comments: nsr no acute changes Result: [MEASUREMENTS ANALYSIS] Date of Test: 04/23/2015 10:28:54; Heart Rate: 62; NJ Interval: 138; QRS: 88; QT Interval: 436; Corrected QT Interval (QTc): 439; P Wave [place]point: 54; QRS Wave [place]: 37; T Wave [place]: 47; Blood Pressure: 126/74 [ECG DIAGNOSTIC STATEMENTS] Date of Test: 04/23/2015 10:28:54; Summary: Sinus Rhythm WITHIN NORMAL LIMITS 08-Aug-2014 Emergency Department Summary Result: Comments: See Note; NOTES: [facility] Medical Records Department [address] [place] [address] Emergency Department Summary MR#: [id number] Acct: [id number] Name: PAU ARAGON Rep #: [id number] : 1955 59 From: Sergio Woodson MD PCP: Yuki Wilson DO Status: DEP ER DATE OF SERVICE: 08/08/2014 HISTORY OF PRESENT ILLNESS: The patient presents with dysuria , frequency, urgency and suprapubic pressure. She also complains of low back pain. Last UTI was remote. She denies fever, chills or night sweats. She does complain of nausea without vomiting. She duran s no other complaints. PHYSICAL EXAMINATION: Remarkable for suprapubic discomfort. Her exam otherwise is unremarkable. PLAN: UA is consistent with infection. Since the patient has symptoms and ur ine is consistent with infection, she was treated with Macrobid and Pyridium. Since she has not had a urinary tract infection in some time and has no history of diabetes, cultures are not indicate d. IMPRESSION: Acute cystitis. DISPOSITION: Discharge. MD Akin Aguirre C: Yuki Wilson DO T: NTS JOB: [id number] 08/08/14 0305 <Electronically signed by Sergio Woodson MD> Date Sergio Woodson MD CC: Yuki Wilson DO Date Dictated: 08/08/14 0146 Date Transcribed: 08/08/14145 Customer Support Analyst: Signed 04-Jul-2014 PT Discharge Summary Result: Comments: See Note; NOTES: [facility] [address] [place], [place] [address] Fax REHABILITATION SERVICES DISCHARGE SUMMARY MR#: [id number] Acct: [id number] Name: PAU ARAGON Rep #: [id number] : 1955 59 From: Alvaro Heard Referring Dr.: Yuki Wilson DO Status: REG RCR Eval Date: Dis charge Date: DATE OF SERVICE: REFERRING PHYSICIAN: Dr. Yuki Wilson. SUBJECTIVE: This 59-year-old female by the name of Pau Aragon who was born on 1955 was referred to physical therapy with diagnoses of neck pain, muscle spasm. The patient received a total number of 6 physical therapy sessions. She reports about 40-50 percent better overall. She states that she only has min imal pain 3-4/10 on pain scale. Our physical therapy treatment focused on manual therapy techniques to include soft tissue massage, cervical distraction, modalities, rotator cuff scapular strengtheni ng, stretching. At the time of discharge, the patient had a cervical range of motion that is minimal loss, range of motion of left shoulder with significant improvement with 150 degrees of shoulder flexion, abduction was 160 degrees, external rotation 90, internal rotation 80 degrees. Strength, manual muscle testing, rotator cuff was 4/5, infraspinatus, subscapularis, supraspinatus is 4-/5 slig ht weakness on the left side. Deltoid is 4-/5 without pain. At this point, the patient met her goals as far as independent with home program, decreasing her neck pain, increasing range of motion of her neck and shoulder, increasing her strength and function. At this point, she will be discharged from our care. She will continue with her exercises on her own. She plans to _, she may follow up with you before she leaves. At this point, she met her goals. Once again, thank you for this referral. Alvaro Heard, PT T: LEONIDES JOB: [id number] <Electronically signed by Alvaro Heard > 07/04/14 1053 CC: Signed 10-Jun-2014 Inital Evaluation - PT Result: Comments: See Note; NOTES: [facility] [address] [place], [place] [address] Fax REHABILITATION SERVICES INITIAL EVALUATION MR#: [id number] Acct: [id number] Name: PAU ARAGON Rep #: [id number] : 1955 59 From: Alvaro Heard Referring Dr.: Yuki Wilson DO Status: REG RCR Insurance: AN THEM Eval Date: DATE OF SERVICE: REFERRING PHYSICIAN: Dr. Yuki Wilson. SUBJECTIVE: This 59-year-old female by the name of Pau Aragon who was born on 1955 , was referred to [facility] therapy with diagnoses of neck pain, muscle spasms and left shoulder pain. This patient has a history of left shoulder pain about 2011, when she was involved in a skiing accident. She had consult ations Dr. Ramos, [facility], he did try physical therapy 3 years ago. As well currently, she has neck pain with spasms, tightness. She states that her shoulder pain mainly grossly greater anter ior 5- 10. It affects her mobility housework chores, ADLs, job demands. She complains of neck pain, symmetrical trapezius, scapular region. She does not describe any headaches. These symptoms are wo rse when she is bending or reading at work it increase to 10/10 as far as her shoulder strain with ADLs, functional activities above 90 degrees as well as job demands. Stretching and heat makes her s ymptoms better. Disturbs her sleep. Sleeps on her side, supine position, firm mattress. Dizziness, tinnitus, nausea, swelling negative. Upper limb is negative. Abnormality is negative. No abnormal ni ght pain or unexplained weight loss. She has no major accidents are no recent diagnostics. Last diagnostic MRI shoulder was done by Dr. Ramos over a year ago, had cortisone injection. The patient states that her goals are to be pain free, more range of motion, decreased strength. SOCIAL HISTORY: . VOCATION: She works at [employer]. 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 PAST MEDICAL HISTORY: Crohn's, osteoarthritis, colon resection, psoriasis, hysterectomy, tonsillectomy , arthroscopic bilateral knees, fibromyalgia. OBJECTIVE: POSTURE: The patient has rounded shoulders, head forward. PALPATION: Tenderness of the left upper trapezius, levator scapula, interscapular muscle group. NEUROLOGICAL: Denies numbness/tingling. Reflexes symmetrically elicited C5, C6 , C7. Myotomes intact. Range of motion of shoulder flexion left is 140 degrees, right is 170 degrees. Abduction left 140 degrees, right is 170 degrees, external rotation both 90 degrees, internal rotation left 75 degrees. Right is 80 degrees. The patient has end range pain with flexion, abduction as well as internal rotation. Her strength of upper extremities, right shoulder is grossly 4/5, comparison to the left sh oulder anterior deltoid 4-/5, lateral deltoid 3+/5, rotator cuff is 4-/5 except for subscapularis is 4/5. Biceps, triceps is 4/5, wrist flexion extensors 4/5. Melter Helper strength 35 pounds of pressure on the left, right is 42 pounds of pressure. Movement loss of cervical spine: Protrusion minimal loss, flexion minimal loss, retraction minimal loss, extension minimal to moderate loss. Side bend to t he right minimal loss, side bend to left is minimal loss. Rotation to the right minimal loss, left is minimal to moderate loss with pain. Repeated motion, flexion, no effect. Extension, no effect. Re traction increased tightness end range no worse afterwards. Rotation to the left increases pain, no worse on left side. SPECIAL TESTS: For the shoulder impingement x3 Neer Carcamo-Dale shoulder adduction. Her special tests cervical spine. Compression distraction negative. Quadrant test negative. ASSESSMENT: This patient appears to have derangement as well as some soft tissue tightness o f the upper trapezius, levator scapula as well as some postural deficits with a history of left shoulder impingement with weakness of her rotator cuff. The patient will benefit from skilled physica l therapy to address these impairments of weakness, strength and pain. PROBLEMS: 1. Decreased home exercise program. 2. Decreased posture. 3. Increased cervical pain. 4. Increase shoulder pain. 5. Decreased range of motion of left shoulder. 6. Decreased strength. 7. Decreased function. GOALS: 1. The patient will be independent with a home exercise program to self-manage symptoms. 2. The patient to have better sitting posture awareness. 3. The patient hard a time with job demands, ADLs with improvement of shoulder and neck pain. 4. The patient to decrease left shoulder pain by at l east 50% or greater to improve function with anything above 90 degrees for housework chores, ADLs, job demands. 5. The patient decreased patient to decrease neck pain by at least 50% or greater to improve function as well as sleeping postures. 6. The patient to improve range of motion of left shoulder flexion, abduction about 150 degrees or greater to improve function, especially with activiti es above 90 degrees for self-hygiene, ADLs, job demands. 7. The patient to increase strength of left shoulder by half a grade to improve function, especially rotator cuff, deltoid enabling the patie nt to use her arm for functional tasks above 90 degrees. 8. The patient to display the ability to use of left upper extremity for functional tasks as well as decreased neck pain with ADLs, housewor k chores. PLAN: Plan of care was discussed with the patient. Discussed with the patient basic anatomy of the shoulder and basic anatomy of the neck. We discussed with the patient extensively post ure, how it affects his neck and shoulder. Today, we provided the patient exercise program to include cervical retractions x10 repetitions every 2-3 hours followed by internal and external rotation w ith the orange Theraband, 2 sets of x10 repetition with handout provided. We also illustrated handouts with anatomy of shoulder, neck and back. We also illustrated the importance of posture, how it affects strength and function. We plan to see this patient twice a week for the next 4 weeks focusing on home exercise program, manual therapy techniques, posture exercise, posture training, rotator cuff, scapular strengthening, modalities. Alvaro Heard, PT T: LEONIDES JOB: [id number] <Electronically signed by Alvaro Heard > 06/10/14 1358 CC: Signed For Medicare only, by signing this I certify the plan of care. Physicians Signature Date Family History Unknown Family Member Name Dates Details Father Comments: MA, skin & bone cancer Status: Active Mother Comments: MA and HTN Status: Active Sister 1 Comments: Breast cancer Status: Active Social History Name Dates Details Non Drinker/No Alcohol Use Status: Active Non Smoker/No Tobacco Use Status: Active Tobacco use: Never smoker. Status: Active Smoking Status Name Dates Details Never smoker Vital Signs Date Test Result Details [id number] Pulse 89 /min Comments: Pattern: Regular Respiration Rate 18 /min Comments: Pattern: Unlabored O2 SAT 98 % Comments: Room air BP Systolic 142 mm[Hg] Comments: Patient Position: Sitting; Cuff Location: Left Arm; Cuff Size: Standard BP Diastolic 86 mm[Hg] Comments: Patient Position: Sitting; Cuff Location: Left Arm; Cuff Size: Standard Weight 222 lb Height 66 in Body Mass Index Calculated 35.83 kg/m2 Body Surface Area Calculated 2.09 m2 :20 Temperature 99.4 f Comments: Method: Temporal Pulse 97 /min Comments: Pattern: Regular Respiration Rate 18 /min Comments: Pattern: Unlabored O2 SAT 97 % Comments: Room air BP Systolic 142 mm[Hg] Comments: Patient Position: Sitting; Cuff Location: Left Arm; Cuff Size: Large BP Diastolic 84 mm[Hg] Comments: Patient Position: Sitting; Cuff Location: Left Arm; Cuff Size: Large Weight 222 lb Height 66 in Body Mass Index Calculated 35.83 kg/m2 Body Surface Area Calculated 2.09 m2 :28 Pulse 74 /min Comments: Pattern: Regular Respiration Rate 18 /min Comments: Pattern: Unlabored O2 SAT 95 % Comments: Room air BP Systolic 138 mm[Hg] Comments: Patient Position: Sitting; Cuff Location: Left Arm; Cuff Size: Large BP Diastolic 82 mm[Hg] Comments: Patient Position: Sitting; Cuff Location: Left Arm; Cuff Size: Large Weight 222 lb Height 66 in Body Mass Index Calculated 35.83 kg/m2 Body Surface Area Calculated 2.09 m2 :58 Pulse 91 /min Comments: Pattern: Regular Respiration Rate 18 /min Comments: Pattern: Unlabored O2 SAT 97 % Comments: Room air BP Systolic 122 mm[Hg] Comments: Patient Position: Sitting; Cuff Location: Left Arm; Cuff Size: Standard BP Diastolic 80 mm[Hg] Comments: Patient Position: Sitting; Cuff Location: Left Arm; Cuff Size: Standard Weight 209.5 lb Height 66 in Body Mass Index Calculated 33.81 kg/m2 Body Surface Area Calculated 2.04 m2 :51 Pulse 87 /min Comments: Pattern: Regular Respiration Rate 1 /min Comments: Pattern: Unlabored O2 SAT 98 % Comments: Room air BP Systolic 124 mm[Hg] Comments: Patient Position: Sitting; Cuff Location: Left Arm; Cuff Size: Large BP Diastolic 82 mm[Hg] Comments: Patient Position: Sitting; Cuff Location: Left Arm; Cuff Size: Large Weight 209.5 lb Height 66 in Body Mass Index Calculated 33.81 kg/m2 Body Surface Area Calculated 2.04 m2 :05 Pulse 84 /min Comments: Pattern: Regular Respiration Rate 18 /min Comments: Pattern: Unlabored O2 SAT 96 % Comments: Room air BP Systolic 138 mm[Hg] Comments: Patient Position: Sitting; Cuff Location: Left Arm; Cuff Size: Large BP Diastolic 90 mm[Hg] Comments: Patient Position: Sitting; Cuff Location: Left Arm; Cuff Size: Large Weight 209.5 lb Height 66 in Body Mass Index Calculated 33.81 kg/m2 Body Surface Area Calculated 2.04 m2 :52 Temperature 97 f Pulse 105 /min Comments: Pattern: Regular Respiration Rate 16 /min Comments: Pattern: Unlabored O2 SAT 98 % Comments: Room air BP Systolic 124 mm[Hg] Comments: Patient Position: Sitting; Cuff Location: Left Arm; Cuff Size: Standard BP Diastolic 80 mm[Hg] Comments: Patient Position: Sitting; Cuff Location: Left Arm; Cuff Size: Standard Weight 205.5 lb Height 66 in Body Mass Index Calculated 33.17 kg/m2 Body Surface Area Calculated 2.02 m2 :26 Pulse 92 /min Comments: Pattern: Regular Respiration Rate 18 /min Comments: Pattern: Unlabored O2 SAT 96 % Comments: Room air BP Systolic 122 mm[Hg] Comments: Patient Position: Sitting; Cuff Location: Left Arm; Cuff Size: Standard BP Diastolic 84 mm[Hg] Comments: Patient Position: Sitting; Cuff Location: Left Arm; Cuff Size: Standard Weight 203.375 lb Height 66 in Body Mass Index Calculated 32.83 kg/m2 Body Surface Area Calculated 2.01 m2 :19 Weight 192.5 lb Height 66 in Body Mass Index Calculated 31.07 kg/m2 Body Surface Area Calculated 1.97 m2 :49 Weight 192.5 lb Height 66 in Body Mass Index Calculated 31.07 kg/m2 Body Surface Area Calculated 1.97 m2 :38 Pulse 98 /min Comments: Pattern: Regular Respiration Rate 18 /min Comments: Pattern: Unlabored O2 SAT 98 % Comments: Room air BP Systolic 138 mm[Hg] Comments: Patient Position: Sitting; Cuff Location: Left Arm; Cuff Size: Large BP Diastolic 80 mm[Hg] Comments: Patient Position: Sitting; Cuff Location: Left Arm; Cuff Size: Large Weight 192.5 lb Height 66 in Body Mass Index Calculated 31.07 kg/m2 Body Surface Area Calculated 1.97 m2 :53 Pulse 75 /min Comments: Pattern: Regular Respiration Rate 18 /min Comments: Pattern: Unlabored O2 SAT 98 % Comments: Room air BP Systolic 122 mm[Hg] Comments: Patient Position: Sitting; Cuff Location: Left Arm; Cuff Size: Large BP Diastolic 70 mm[Hg] Comments: Patient Position: Sitting; Cuff Location: Left Arm; Cuff Size: Large Weight 192.5 lb Height 66 in Body Mass Index Calculated 31.07 kg/m2 Body Surface Area Calculated 1.97 m2 :13 Pulse 91 /min Comments: Pattern: Regular Respiration Rate 18 /min Comments: Pattern: Unlabored O2 SAT 97 % Comments: Room air BP Systolic 142 mm[Hg] Comments: Patient Position: Sitting; Cuff Location: Left Arm; Cuff Size: Large BP Diastolic 78 mm[Hg] Comments: Patient Position: Sitting; Cuff Location: Left Arm; Cuff Size: Large Weight 193.5 lb Height 66 in Body Mass Index Calculated 31.23 kg/m2 Body Surface Area Calculated 1.97 m2 :44 Pulse 68 /min Comments: Pattern: Regular Respiration Rate 18 /min Comments: Pattern: Unlabored O2 SAT 97 % Comments: Room air BP Systolic 122 mm[Hg] Comments: Patient Position: Sitting; Cuff Location: Left Arm; Cuff Size: Large BP Diastolic 80 mm[Hg] Comments: Patient Position: Sitting; Cuff Location: Left Arm; Cuff Size: Large Weight 192.5 lb Height 66 in Body Mass Index Calculated 31.07 kg/m2 Body Surface Area Calculated 1.97 m2 :09 Pulse 58 /min Comments: Pattern: Regular Respiration Rate 18 /min Comments: Pattern: Unlabored O2 SAT 98 % Comments: Room air BP Systolic 118 mm[Hg] Comments: Patient Position: Sitting; Cuff Location: Left Arm; Cuff Size: Large BP Diastolic 78 mm[Hg] Comments: Patient Position: Sitting; Cuff Location: Left Arm; Cuff Size: Large Weight 192.5 lb Height 66 in Body Mass Index Calculated 31.07 kg/m2 Body Surface Area Calculated 1.97 m2 :57 Pulse 73 /min Comments: Pattern: Regular Respiration Rate 20 /min Comments: Pattern: Unlabored O2 SAT 97 % Comments: Room air BP Systolic 128 mm[Hg] Comments: Patient Position: Sitting; Cuff Location: Left Arm; Cuff Size: Large BP Diastolic 88 mm[Hg] Comments: Patient Position: Sitting; Cuff Location: Left Arm; Cuff Size: Large Weight 204.125 lb Height 66 in Body Mass Index Calculated 32.95 kg/m2 Body Surface Area Calculated 2.02 m2 :22 Temperature 98.6 f Comments: Method: Oral Pulse 92 /min Comments: Pattern: Regular Respiration Rate 16 /min Comments: Pattern: Unlabored O2 SAT 97 % Comments: Room air BP Systolic 130 mm[Hg] Comments: Patient Position: Sitting; Cuff Location: Left Arm; Cuff Size: Standard BP Diastolic 80 mm[Hg] Comments: Patient Position: Sitting; Cuff Location: Left Arm; Cuff Size: Standard Weight 200 lb Height 66 in Body Mass Index Calculated 32.28 kg/m2 Body Surface Area Calculated 2 m2 :46 Pulse 68 /min Comments: Pattern: Regular Respiration Rate 18 /min Comments: Pattern: Unlabored O2 SAT 98 % Comments: Room air BP Systolic 130 mm[Hg] Comments: Patient Position: Sitting; Cuff Location: Left Arm; Cuff Size: Large BP Diastolic 80 mm[Hg] Comments: Patient Position: Sitting; Cuff Location: Left Arm; Cuff Size: Large Weight 200 lb Height 66 in Body Mass Index Calculated 32.28 kg/m2 Body Surface Area Calculated 2 m2 :24 Pulse 110 /min Comments: Pattern: Regular Respiration Rate 20 /min Comments: Pattern: Unlabored O2 SAT 98 % Comments: Room air BP Systolic 152 mm[Hg] Comments: Patient Position: Sitting; Cuff Location: Left Arm; Cuff Size: Large BP Diastolic 82 mm[Hg] Comments: Patient Position: Sitting; Cuff Location: Left Arm; Cuff Size: Large Weight 200.25 lb Height 66 in Body Mass Index Calculated 32.32 kg/m2 Body Surface Area Calculated 2 m2 :13 Temperature 97.2 f Comments: Method: Temporal Pulse 63 /min Comments: Pattern: Regular Respiration Rate 16 /min Comments: Pattern: Unlabored O2 SAT 98 % Comments: Room air BP Systolic 126 mm[Hg] Comments: Patient Position: Sitting; Cuff Location: Left Arm; Cuff Size: Standard BP Diastolic 74 mm[Hg] Comments: Patient Position: Sitting; Cuff Location: Left Arm; Cuff Size: Standard Weight 198 lb Height 66 in Body Mass Index Calculated 31.96 kg/m2 Body Surface Area Calculated 1.99 m2 :04 Temperature 98 f Comments: Method: Temporal Pulse 67 /min Comments: Pattern: Regular Respiration Rate 20 /min Comments: Pattern: Unlabored O2 SAT 99 % Comments: Room air BP Systolic 120 mm[Hg] Comments: Patient Position: Sitting; Cuff Location: Left Arm; Cuff Size: Standard BP Diastolic 78 mm[Hg] Comments: Patient Position: Sitting; Cuff Location: Left Arm; Cuff Size: Standard Weight 206 lb Height 66 in Body Mass Index Calculated 33.25 kg/m2 Body Surface Area Calculated 2.03 m2 :13 Pulse 97 /min Comments: Pattern: Regular Respiration Rate 20 /min Comments: Pattern: Unlabored O2 SAT 98 % Comments: Room air BP Systolic 158 mm[Hg] Comments: Patient Position: Sitting; Cuff Location: Left Arm; Cuff Size: Large BP Diastolic 82 mm[Hg] Comments: Patient Position: Sitting; Cuff Location: Left Arm; Cuff Size: Large Weight 206.3125 lb Height 66 in Body Mass Index Calculated 33.3 kg/m2 Body Surface Area Calculated 2.03 m2 :30 Pulse 73 /min Comments: Pattern: Regular Respiration Rate 18 /min Comments: Pattern: Unlabored O2 SAT 98 % Comments: Room air BP Systolic 122 mm[Hg] Comments: Patient Position: Sitting; Cuff Location: Left Arm; Cuff Size: Large BP Diastolic 70 mm[Hg] Comments: Patient Position: Sitting; Cuff Location: Left Arm; Cuff Size: Large Weight 203.1875 lb Height 66 in Body Mass Index Calculated 32.79 kg/m2 Body Surface Area Calculated 2.01 m2 :13 Pulse 100 /min Comments: Pattern: Regular Respiration Rate 18 /min Comments: Pattern: Unlabored O2 SAT 98 % Comments: Room air BP Systolic 128 mm[Hg] Comments: Patient Position: Sitting; Cuff Location: Left Arm; Cuff Size: Large BP Diastolic 70 mm[Hg] Comments: Patient Position: Sitting; Cuff Location: Left Arm; Cuff Size: Large Weight 201.4375 lb Height 66 in Body Mass Index Calculated 32.51 kg/m2 Body Surface Area Calculated 2.01 m2 :31 Temperature 99.6 f Comments: Method: Oral Pulse 80 /min Comments: Pattern: Regular Respiration Rate 20 /min O2 SAT 97 % Comments: Room air BP Systolic 122 mm[Hg] Comments: Patient Position: Sitting; Cuff Location: Left Arm; Cuff Size: Standard BP Diastolic 78 mm[Hg] Comments: Patient Position: Sitting; Cuff Location: Left Arm; Cuff Size: Standard Weight 208.0625 lb Height 66 in Body Mass Index Calculated 33.58 kg/m2 Body Surface Area Calculated 2.03 m2 :08 Pulse 60 /min Comments: Pattern: Regular Respiration Rate 18 /min Comments: Pattern: Unlabored BP Systolic 118 mm[Hg] Comments: Patient Position: Sitting; Cuff Location: Left Arm; Cuff Size: Large BP Diastolic 70 mm[Hg] Comments: Patient Position: Sitting; Cuff Location: Left Arm; Cuff Size: Large Weight 208.0625 lb Height 66 in Body Mass Index Calculated 33.58 kg/m2 Body Surface Area Calculated 2.03 m2 :39 Temperature 97 f Comments: Method: Oral Pulse 72 /min Comments: Pattern: Regular Respiration Rate 18 /min Comments: Pattern: Unlabored BP Systolic 124 mm[Hg] Comments: Patient Position: Sitting; Cuff Location: Left Arm; Cuff Size: Large BP Diastolic 82 mm[Hg] Comments: Patient Position: Sitting; Cuff Location: Left Arm; Cuff Size: Large Weight 203 lb Height 66 in Body Mass Index Calculated 32.76 kg/m2 Body Surface Area Calculated 2.01 m2 :51 Temperature 97.8 f Comments: Method: Tympanic Pulse 64 /min Comments: Pattern: Regular Respiration Rate 18 /min Comments: Pattern: Unlabored BP Systolic 122 mm[Hg] Comments: Patient Position: Sitting; Cuff Location: Left Arm; Cuff Size: Large BP Diastolic 80 mm[Hg] Comments: Patient Position: Sitting; Cuff Location: Left Arm; Cuff Size: Large Weight 203 lb Height 66 in Body Mass Index Calculated 32.76 kg/m2 Body Surface Area Calculated 2.01 m2 :36 Temperature 97.8 f Comments: Method: Oral Pulse 72 /min Comments: Pattern: Regular Respiration Rate 16 /min BP Systolic 126 mm[Hg] Comments: Patient Position: Sitting; Cuff Location: Left Arm; Cuff Size: Standard BP Diastolic 78 mm[Hg] Comments: Patient Position: Sitting; Cuff Location: Left Arm; Cuff Size: Standard Weight 198.375 lb Height 66 in Body Mass Index Calculated 32.02 kg/m2 Body Surface Area Calculated 1.99 m2 :56 Temperature 98.9 f Comments: Method: Oral Pulse 66 /min Comments: Pattern: Regular Respiration Rate 16 /min Comments: Pattern: Unlabored BP Systolic 118 mm[Hg] Comments: Patient Position: Sitting; Cuff Location: Left Arm; Cuff Size: Standard BP Diastolic 72 mm[Hg] Comments: Patient Position: Sitting; Cuff Location: Left Arm; Cuff Size: Standard Weight 198.375 lb Height 66 in Body Mass Index Calculated 32.02 kg/m2 Body Surface Area Calculated 1.99 m2 :20 Pulse 68 /min Comments: Pattern: Regular Respiration Rate 16 /min Comments: Pattern: Unlabored Weight 198.375 lb Height 66 in Body Mass Index Calculated 32.02 kg/m2 Body Surface Area Calculated 1.99 m2 :53 Temperature 98.9 f Comments: Method: Oral Pulse 78 /min Comments: Pattern: Regular Respiration Rate 16 /min Comments: Pattern: Unlabored BP Systolic 120 mm[Hg] Comments: Patient Position: Sitting; Cuff Location: Left Arm; Cuff Size: Standard BP Diastolic 72 mm[Hg] Comments: Patient Position: Sitting; Cuff Location: Left Arm; Cuff Size: Standard Weight 198.375 lb Height 66 in Body Mass Index Calculated 32.02 kg/m2 Body Surface Area Calculated 1.99 m2 :25 Pulse 64 /min Comments: Pattern: Regular Respiration Rate 16 /min Comments: Pattern: Unlabored BP Systolic 98 mm[Hg] Comments: Patient Position: Sitting; Cuff Location: Left Arm; Cuff Size: Large BP Diastolic 60 mm[Hg] Comments: Patient Position: Sitting; Cuff Location: Left Arm; Cuff Size: Large Weight 198.375 lb Height 66 in Body Mass Index Calculated 32.02 kg/m2 Body Surface Area Calculated 1.99 m2 :13 Temperature 97.8 f Comments: Method: Oral Pulse 60 /min Comments: Pattern: Regular Respiration Rate 18 /min Comments: Pattern: Unlabored BP Systolic 128 mm[Hg] Comments: Patient Position: Sitting; Cuff Location: Left Arm; Cuff Size: Large BP Diastolic 78 mm[Hg] Comments: Patient Position: Sitting; Cuff Location: Left Arm; Cuff Size: Large Weight 202 lb Height 66 in Body Mass Index Calculated 32.6 kg/m2 Body Surface Area Calculated 2.01 m2 :38 Temperature 98.5 f Comments: Method: Oral Pulse 68 /min Comments: Pattern: Regular Respiration Rate 20 /min Comments: Pattern: Unlabored BP Systolic 122 mm[Hg] Comments: Patient Position: Sitting; Cuff Location: Left Arm; Cuff Size: Large BP Diastolic 78 mm[Hg] Comments: Patient Position: Sitting; Cuff Location: Left Arm; Cuff Size: Large Weight 199.375 lb Height 66 in Body Mass Index Calculated 32.18 kg/m2 Body Surface Area Calculated 2 m2 :08 Respiration Rate 16 /min Comments: Pattern: Unlabored BP Systolic 120 mm[Hg] Comments: Patient Position: Sitting; Cuff Location: Left Arm; Cuff Size: Standard BP Diastolic 72 mm[Hg] Comments: Patient Position: Sitting; Cuff Location: Left Arm; Cuff Size: Standard Weight 194.5625 lb Height 66 in Body Mass Index Calculated 31.4 kg/m2 Body Surface Area Calculated 1.98 m2 :06 Temperature 97.3 f Comments: Method: Oral Pulse 66 /min Comments: Pattern: Regular Respiration Rate 17 /min O2 SAT 95 % Comments: Room air BP Systolic 128 mm[Hg] Comments: Patient Position: Sitting; Cuff Location: Left Arm; Cuff Size: Standard BP Diastolic 72 mm[Hg] Comments: Patient Position: Sitting; Cuff Location: Left Arm; Cuff Size: Standard Weight 194.5625 lb Height 66 in Body Mass Index Calculated 31.4 kg/m2 Body Surface Area Calculated 1.98 m2 :27 Temperature 97.3 f Comments: Method: Oral Pulse 68 /min Comments: Pattern: Regular Respiration Rate 16 /min Comments: Pattern: Unlabored O2 SAT 97 % Comments: Room air BP Systolic 120 mm[Hg] Comments: Patient Position: Sitting; Cuff Location: Left Arm; Cuff Size: Standard BP Diastolic 72 mm[Hg] Comments: Patient Position: Sitting; Cuff Location: Left Arm; Cuff Size: Standard Weight 194.5625 lb Height 66 in Body Mass Index Calculated 31.4 kg/m2 Body Surface Area Calculated 1.98 m2 :20 Temperature 98.2 f Comments: Method: Oral Pulse 68 /min Comments: Pattern: Regular Respiration Rate 20 /min Comments: Pattern: Unlabored BP Systolic 118 mm[Hg] Comments: Patient Position: Sitting; Cuff Location: Left Arm; Cuff Size: Large BP Diastolic 78 mm[Hg] Comments: Patient Position: Sitting; Cuff Location: Left Arm; Cuff Size: Large Weight 194.5625 lb Height 66 in Body Mass Index Calculated 31.4 kg/m2 Body Surface Area Calculated 1.98 m2 :15 Temperature 98.2 f Comments: Method: Oral Pulse 68 /min Comments: Pattern: Regular Respiration Rate 18 /min Comments: Pattern: Unlabored BP Systolic 122 mm[Hg] Comments: Patient Position: Sitting; Cuff Location: Left Arm; Cuff Size: Large BP Diastolic 78 mm[Hg] Comments: Patient Position: Sitting; Cuff Location: Left Arm; Cuff Size: Large Weight 195.5 lb Height 66 in Body Mass Index Calculated 31.55 kg/m2 Body Surface Area Calculated 1.98 m2 :57 Pulse 72 /min Comments: Pattern: Regular Respiration Rate 20 /min Comments: Pattern: Unlabored BP Systolic 118 mm[Hg] Comments: Patient Position: Sitting; Cuff Location: Left Arm; Cuff Size: Large BP Diastolic 64 mm[Hg] Comments: Patient Position: Sitting; Cuff Location: Left Arm; Cuff Size: Large Weight 201 lb Height 66 in Body Mass Index Calculated 32.44 kg/m2 Body Surface Area Calculated 2 m2 Head Circumference 0.00 cm :50 Pulse 72 /min Comments: Pattern: Regular Respiration Rate 20 /min Comments: Pattern: Unlabored BP Systolic 122 mm[Hg] Comments: Patient Position: Sitting; Cuff Location: Left Arm; Cuff Size: Large BP Diastolic 78 mm[Hg] Comments: Patient Position: Sitting; Cuff Location: Left Arm; Cuff Size: Large Weight 201 lb Height 66 in Body Mass Index Calculated 32.44 kg/m2 Body Surface Area Calculated 2 m2 Head Circumference 0.00 cm :13 Pulse 80 /min Comments: Pattern: Regular Respiration Rate 20 /min Comments: Pattern: Unlabored BP Systolic 138 mm[Hg] Comments: Patient Position: Sitting; Cuff Location: Left Arm; Cuff Size: Large BP Diastolic 82 mm[Hg] Comments: Patient Position: Sitting; Cuff Location: Left Arm; Cuff Size: Large Weight 201.0625 lb Height 66 in Body Mass Index Calculated 32.45 kg/m2 Body Surface Area Calculated 2 m2 Head Circumference 0.00 cm :20 Pulse 80 /min Comments: Pattern: Regular Respiration Rate 20 /min Comments: Pattern: Unlabored BP Systolic 122 mm[Hg] Comments: Patient Position: Sitting; Cuff Location: Left Arm; Cuff Size: Standard BP Diastolic 70 mm[Hg] Comments: Patient Position: Sitting; Cuff Location: Left Arm; Cuff Size: Standard Weight 181.3125 lb Height 66 in Body Mass Index Calculated 29.26 kg/m2 Body Surface Area Calculated 1.92 m2 Head Circumference 0.00 cm :01 Pulse 80 /min Comments: Pattern: Regular Respiration Rate 20 /min Comments: Pattern: Unlabored BP Systolic 118 mm[Hg] Comments: Patient Position: Sitting; Cuff Location: Left Arm; Cuff Size: Standard BP Diastolic 78 mm[Hg] Comments: Patient Position: Sitting; Cuff Location: Left Arm; Cuff Size: Standard Weight 183.25 lb Height 66 in Body Mass Index Calculated 29.58 kg/m2 Body Surface Area Calculated 1.93 m2 Head Circumference 0.00 cm :44 Pulse 60 /min Comments: Pattern: Regular Respiration Rate 18 /min Comments: Pattern: Unlabored BP Systolic 118 mm[Hg] Comments: Patient Position: Sitting; Cuff Location: Left Arm; Cuff Size: Standard BP Diastolic 68 mm[Hg] Comments: Patient Position: Sitting; Cuff Location: Left Arm; Cuff Size: Standard Weight 183.25 lb Height 66 in Body Mass Index Calculated 29.58 kg/m2 Body Surface Area Calculated 1.93 m2 Head Circumference 0.00 cm :56 Pulse 60 /min Comments: Pattern: Regular Respiration Rate 16 /min Comments: Pattern: Unlabored BP Systolic 118 mm[Hg] Comments: Patient Position: Sitting; Cuff Location: Left Arm; Cuff Size: Standard BP Diastolic 70 mm[Hg] Comments: Patient Position: Sitting; Cuff Location: Left Arm; Cuff Size: Standard Weight 183.25 lb Height 66 in Body Mass Index Calculated 29.58 kg/m2 Body Surface Area Calculated 1.93 m2 Head Circumference 0.00 cm :41 Pulse 64 /min Comments: Pattern: Regular Respiration Rate 16 /min Comments: Pattern: Unlabored BP Systolic 122 mm[Hg] Comments: Patient Position: Sitting; Cuff Location: Left Arm; Cuff Size: Standard BP Diastolic 68 mm[Hg] Comments: Patient Position: Sitting; Cuff Location: Left Arm; Cuff Size: Standard Weight 180.375 lb Height 66 in Body Mass Index Calculated 29.11 kg/m2 Body Surface Area Calculated 1.91 m2 Head Circumference 0.00 cm :37 Pulse 64 /min Comments: Pattern: Regular Respiration Rate 16 /min Comments: Pattern: Unlabored BP Systolic 124 mm[Hg] Comments: Patient Position: Sitting; Cuff Location: Left Arm; Cuff Size: Standard BP Diastolic 82 mm[Hg] Comments: Patient Position: Sitting; Cuff Location: Left Arm; Cuff Size: Standard Weight 180.3125 lb Height 66 in Body Mass Index Calculated 29.1 kg/m2 Body Surface Area Calculated 1.91 m2 Head Circumference 0.00 cm :14 Temperature 98.9 f Comments: Method: Undefined Pulse 88 /min Comments: Pattern: Regular Respiration Rate 16 /min Comments: Pattern: Undefined BP Systolic 132 mm[Hg] Comments: Patient Position: Undefined; Cuff Location: Undefined; Cuff Size: Undefined BP Diastolic 76 mm[Hg] Comments: Patient Position: Undefined; Cuff Location: Undefined; Cuff Size: Undefined Weight 0 lb Height 0 in Head Circumference 0.00 cm :36 Temperature 98.3 f Comments: Method: Undefined Pulse 72 /min Comments: Pattern: Regular Respiration Rate 16 /min Comments: Pattern: Undefined BP Systolic 118 mm[Hg] Comments: Patient Position: Sitting; Cuff Location: Left Arm; Cuff Size: Standard BP Diastolic 70 mm[Hg] Comments: Patient Position: Sitting; Cuff Location: Left Arm; Cuff Size: Standard Weight 193 lb Height 0 in Head Circumference 0.00 cm :10 Temperature 98.8 f Comments: Method: Undefined Pulse 72 /min Comments: Pattern: Regular Respiration Rate 16 /min Comments: Pattern: Undefined BP Systolic 140 mm[Hg] Comments: Patient Position: Sitting; Cuff Location: Left Arm; Cuff Size: Standard BP Diastolic 82 mm[Hg] Comments: Patient Position: Sitting; Cuff Location: Left Arm; Cuff Size: Standard Weight 191.3125 lb Height 0 in Head Circumference 0.00 cm Results Date Description Value Details :53 CBC W/Diff, Automated Comments: [facility] [id number] [place], [place], [id number] Absolute Lymph 2.26 {X10_3/ul} (Normal) Range: 0.83-4.51 Absolute Neut 3.0 {X10_3/uL} (Normal) Range: 2.0-7.7 IM GRAN % 0.000 % (Normal) Range: 0.0-0.9 Comments: IG% - Immature Granulocytes (promyelocytes, myelocytes andmetamyelocytes) > 1% indicates that a LEFT SHIFT is Present. BASO% 1.0 % (Normal) Range: 0-1 EO% 2.3 % (Normal) Range: 0-5 MONO% 9.7 % (Normal) Range: 0-10 LY% 37.7 % (Normal) Range: 19-41 NEUT% 49.3 % (Normal) Range: 47-70 MPV 10.8 fL (Normal) Range: 6.2-12.0 PLT 253 K/mm3 (Normal) Range: 150-450 RDW SD 46.6 fL (Abnormal) Range: 35.1-43.9 RDW CV 14.4 % (Normal) Range: 11.6-14.6 MCHC 33.3 {g/gl} (Normal) Range: 32-36 MCH 30.4 pg (Normal) Range: 27.0-32.0 MCV 91.4 fL (Normal) Range: 81-99 HCT 48.1 % (Abnormal) Range: 37-47 HGB 16.0 g/dL (Abnormal) Range: 12.0-15.0 RBC 5.26 {M/mm3} (Normal) Range: 4.2-5.4 WBC 6.0 K/mm3 (Normal) Range: 4.4-11.0 :53 Comprehensive Metabolic Profil Comments: [facility] [id number] [place], [place], [id number] GAP 9 (Normal) Range: 5-15 CO2 27.0 mmol/L (Normal) Range: 21.0-32.0 CL 104 mmol/L (Normal) Range: 98-107 K 4.1 mmol/L (Normal) Range: 3.5-5.1 NA 140 mmol/L (Normal) Range: 136-145 T BILI 0.50 mg/dL (Normal) Range: 0.20-1.00 ALT 82 U/L (Abnormal) Range: 13-56 ALK P 80 U/L (Normal) Range: 45-117 AST 41 U/L (Abnormal) Range: 15-37 CA 9.6 mg/dL (Normal) Range: 8.5-10.1 A/G 1.0 {RATIO} (Normal) Range: 0.9-2.4 GLOB 3.7 g/dL (Normal) Range: 2.2-4.2 ALB 3.8 g/dL (Normal) Range: 3.2-5.0 T PROT 7.5 g/dL (Normal) Range: 6.4-8.2 BUN/CRE 14.6 {RATIO} (Normal) Range: 10-20 EST GFR - AA 100 mL/min (Normal) Comments: GFR Calc EST GFR 82 mL/min (Normal) Comments: Non- GFR Calc CREAT,SERUM 0.76 mg/dL (Normal) Range: 0.55-1.02 Comments: The validity of the calculated GFR AND GFRAA in patients over70 years has not been determined. Clinical correlation isessential. BUN 11 mg/dL (Normal) Range: 7-18 GLU 91 mg/dL (Normal) Range: 74-106 Comments: Please note revised GLUCOSE reference range [id number]/2018. [id number] Basic Metabolic Profile (BMP) Comments: [facility] [id number] [place], [address] GAP 11 (Normal) Range: 5-15 CO2 23.0 mmol/L (Normal) Range: 21.0-32.0 CL 107 mmol/L (Normal) Range: 98-107 K 3.6 mmol/L (Normal) Range: 3.5-5.1 NA 141 mmol/L (Normal) Range: 136-145 CA 9.8 mg/dL (Normal) Range: 8.5-10.1 BUN/CRE 23.7 {RATIO} (Abnormal) Range: 10-20 EST GFR - AA 114 mL/min (Normal) Comments: GFR Calc EST GFR 94 mL/min (Normal) Comments: Non- GFR Calc CREAT,SERUM 0.67 mg/dL (Normal) Range: 0.55-1.02 Comments: The validity of the calculated GFR AND GFRAA in patients over70 years has not been determined. Clinical correlation isessential. BUN 16 mg/dL (Normal) Range: 7-18 GLU 78 mg/dL (Normal) Range: 74-106 Comments: Please note revised GLUCOSE reference range cszhldoxl49/02/2018. 27-Rni-186349:46 CBC W/Diff, Automated Comments: [facility] [address] [place], [place], [id number] Absolute Lymph 3.57 {X10_3/ul} (Normal) Range: 0.83-4.51 Absolute Neut 4.0 {X10_3/uL} (Normal) Range: 2.0-7.7 IM GRAN % 0.000 % (Normal) Range: 0.0-0.9 Comments: IG% - Immature Granulocytes (promyelocytes, myelocytes andmetamyelocytes) > 1% indicates that a LEFT SHIFT is Present. BASO% 0.5 % (Normal) Range: 0-1 EO% 1.6 % (Normal) Range: 0-5 MONO% 7.7 % (Normal) Range: 0-10 LY% 42.8 % (Abnormal) Range: 19-41 NEUT% 47.4 % (Normal) Range: 47-70 MPV 9.7 fL (Normal) Range: 6.2-12.0 PLT 275 K/mm3 (Normal) Range: 150-450 RDW SD 42.1 fL (Normal) Range: 35.1-43.9 RDW CV 13.1 % (Normal) Range: 11.6-14.6 MCHC 33.7 {g/gl} (Normal) Range: 32-36 MCH 30.0 pg (Normal) Range: 27.0-32.0 MCV 89.2 fL (Normal) Range: 81-99 HCT 46.9 % (Normal) Range: 37-47 HGB 15.8 g/dL (Abnormal) Range: 12.0-15.0 RBC 5.26 {M/mm3} (Normal) Range: 4.2-5.4 WBC 8.4 K/mm3 (Normal) Range: 4.4-11.0 79-Yda-015619:46 Hep B Surface Antibodies Comments: [facility] (refer to report for specific site)refer to report for address and phone number Hep B Ned AB Reactive (Normal) Comments: Non Reactive: Inconsistent with immunity, less than 10 mIU/mL Reactive: Consistent with immunity, greater than 9.9 mIU/mL 94-Fra-927176:46 Hepatitis C Antibodies Comments: [facility] (refer to report for specific site)refer to report for address and phone number HEP C AB 0.1 {s/co_ratio} (Normal) Range: 0.0-0.9 Comments: Negative: < 0.8 Indeterminate: 0.8 - 0.9 Positive: > 0.9 The CDC recommends that a positive HCV antibody result be followed up with a HCV Nucleic Acid Amplification test (356978).Performed at: [address] [id number] Director: Zack Jensen PhD, Phone: [phone] 25-Njt-479604:46 Liver Profile Comments: [facility] [address] [place], [place], [id number] D BILI 0.09 mg/dL (Normal) Range: 0.00-0.30 T BILI 0.70 mg/dL (Normal) Range: 0.20-1.00 ALT 68 U/L (Abnormal) Range: 13-56 ALK P 94 U/L (Normal) Range: 45-117 AST 39 U/L (Abnormal) Range: 15-37 GLOB 4.0 g/dL (Normal) Range: 2.2-4.2 ALB 3.9 g/dL (Normal) Range: 3.2-5.0 T PROT 7.9 g/dL (Normal) Range: 6.4-8.2 53-Ndm-682463:46 Quantiferon TB-Gold Comments: [facility] (refer to report for specific site)refer to report for address and phone number QFT TB INTER Comment (Normal) Comments: The QuantiFERON TB Gold (in Tube) assay is intended for useas an aid in the diagnosis of TB infection. Negativeresults suggest that there is no TB infection. In patientswith high suspicion of exposure, a negative test should berepeated. A positive test indicates infection withMycobacterium tuberculosis. Among individuals withouttuberculosis infection, a positive test may be due toexposure to M. [place] ii, M. szulgai or M. marinum. On theInternet, go to cdc.gov/tb for further details. QFT AG - NIL 0.14 {IU/mL} (Normal) QFT MITOGEN YUSUF > 10.00 {IU/mL} (Normal) QFT NIL VALUE 0.04 {IU/mL} (Normal) QFT TB AB VALUE 0.18 {IU/mL} (Normal) QFT TB POS CRIT Comment (Normal) Comments: To be considered positive a specimen should have a TB Agminus Nil value greater than or equal to 0.35 IU/mL and inaddition the TB Ag minus Nil value must be greater than orequal to 25% of the Nil value. There may be insufficientinformation in these values to differentiate between somenegative and some indeterminate test values. QFT TB GOLD Negative (Normal) Comments: The specimen received for QuantiFERON testing was incubatedby the ordering institution. Specific procedures outlinedin our Directory of Services and in the package insert forthe QuantiFERON Gold (In [facility]) test must be followed toenable for proper stimulation of cells for the productionof interferon gamma. 92-Xwv-[id number]:30 CBC W/Diff, Automated Comments: [facility] [address] [place], [place], [id number] Absolute Lymph 3.44 {X10_3/ul} (Normal) Range: 0.83-4.51 Absolute Neut 3.4 {X10_3/uL} (Normal) Range: 2.0-7.7 IM GRAN % 0.100 % (Normal) Range: 0.0-0.9 Comments: IG% - Immature Granulocytes (promyelocytes, myelocytes andmetamyelocytes) > 1% indicates that a LEFT SHIFT is Present. BASO% 1.0 % (Normal) Range: 0-1 EO% 2.1 % (Normal) Range: 0-5 MONO% 7.9 % (Normal) Range: 0-10 LY% 44.7 % (Abnormal) Range: 19-41 NEUT% 44.2 % (Abnormal) Range: 47-70 MPV 10.0 fL (Normal) Range: 6.2-12.0 PLT 266 K/mm3 (Normal) Range: 150-450 RDW SD 45.5 fL (Abnormal) Range: 35.1-43.9 RDW CV 13.4 % (Normal) Range: 11.6-14.6 MCHC 33.6 {g/gl} (Normal) Range: 32-36 MCH 31.7 pg (Normal) Range: 27.0-32.0 MCV 94.4 fL (Normal) Range: 81-99 HCT 44.1 % (Normal) Range: 37-47 HGB 14.8 g/dL (Normal) Range: 12.0-15.0 RBC 4.67 {M/mm3} (Normal) Range: 4.2-5.4 WBC 7.7 K/mm3 (Normal) Range: 4.4-11.0 42-Kre-410640:30 Comprehensive Metabolic Profil Comments: [facility] [address] [place], [address] GAP 9 (Normal) Range: 5-15 CO2 26.0 mmol/L (Normal) Range: 21.0-32.0 CL 107 mmol/L (Normal) Range: 98-107 K 3.8 mmol/L (Normal) Range: 3.5-5.1 Comments: Moderate Hemolysis, Result may be falsely increased. NA 142 mmol/L (Normal) Range: 136-145 T BILI 0.40 mg/dL (Normal) Range: 0.20-1.00 ALT 52 U/L (Normal) Range: 12-78 ALK P 114 U/L (Normal) Range: 45-117 AST 39 U/L (Abnormal) Range: 15-37 Comments: Moderate Hemolysis, Result may be falsely increased. CA 9.2 mg/dL (Normal) Range: 8.5-10.1 A/G 1.0 {RATIO} (Normal) Range: 0.9-2.4 GLOB 3.4 g/dL (Normal) Range: 2.2-4.2 ALB 3.5 g/dL (Normal) Range: 3.4-5.0 Comments: Please note revised Albumin AND Globulin reference rangeeffective 2017. T PROT 6.9 g/dL (Normal) Range: 6.4-8.2 BUN/CRE 16.3 {RATIO} (Normal) Range: 10-20 EST GFR - AA 102 mL/min (Normal) Comments: GFR Calc EST GFR 85 mL/min (Normal) Comments: Non- GFR Calc CREAT,SERUM 0.74 mg/dL (Normal) Range: 0.55-1.02 Comments: The validity of the calculated GFR AND GFRAA in patients over70 years has not been determined. Clinical correlation isessential. BUN 12 mg/dL (Normal) Range: 7-18 GLU 114 mg/dL (Abnormal) Range: 70-110 Comments: Fasting Glucose result from 110 to <126 mg/dLsuggests IMPAIRED HOMEOSTASIS per A.D.A. criteria. 16-Rif-158722:30 Quantiferon TB-Gold Comments: [facility] (refer to report for specific site)refer to report for address and phone number QFT TB INTER Comment (Normal) Comments: The QuantiFERON TB Gold (in Tube) assay is intended for useas an aid in the diagnosis of TB infection. Negativeresults suggest that there is no TB infection. In patientswith high suspicion of exposure, a negative test should berepeated. A positive test indicates infection withMycobacterium tuberculosis. Among individuals withouttuberculosis infection, a positive test may be due toexposure to M. [place] ii, M. szulgai or M. marinum. On theInternet, go to cdc.gov/tb for further details.Performed at: [address] [id number] Director: Zack Jensen PhD, Phone: [phone] QFT AG - NIL 0.04 {IU/mL} (Normal) QFT MITOGEN YUSUF > 10.00 {IU/mL} (Normal) QFT NIL VALUE 0.09 {IU/mL} (Normal) QFT TB AB VALUE 0.13 {IU/mL} (Normal) QFT TB POS CRIT Comment (Normal) Comments: To be considered positive a specimen should have a TB Agminus Nil value greater than or equal to 0.35 IU/mL and inaddition the TB Ag minus Nil value must be greater than orequal to 25% of the Nil value. There may be insufficientinformation in these values to differentiate between somenegative and some indeterminate test values. QFT TB GOLD Negative (Normal) Comments: The specimen received for QuantiFERON testing was incubatedby the ordering institution. Specific procedures outlinedin our Directory of Services and in the package insert forthe QuantiFERON Gold (In [facility]) test must be followed toenable for proper stimulation of cells for the productionof interferon gamma. :27 CBC W/Diff, Automated Comments: [facility] [address] [place], [place], [id number] Absolute Lymph 3.38 {X10_3/ul} (Normal) Range: 0.83-4.51 Absolute Neut 2.7 {X10_3/uL} (Normal) Range: 2.0-7.7 IM GRAN % 0.100 % (Normal) Range: 0.0-0.9 Comments: IG% - Immature Granulocytes (promyelocytes, myelocytes andmetamyelocytes) > 1% indicates that a LEFT SHIFT is Present. BASO% 0.8 % (Normal) Range: 0-1 EO% 4.1 % (Normal) Range: 0-5 MONO% 8.2 % (Normal) Range: 0-10 LY% 47.9 % (Abnormal) Range: 19-41 NEUT% 38.9 % (Abnormal) Range: 47-70 MPV 9.6 fL (Normal) Range: 6.2-12.0 PLT 263 K/mm3 (Normal) Range: 150-450 RDW SD 44.6 fL (Abnormal) Range: 35.1-43.9 RDW CV 13.1 % (Normal) Range: 11.6-14.6 MCHC 33.6 {g/gl} (Normal) Range: 32-36 MCH 31.2 pg (Normal) Range: 27.0-32.0 MCV 93.0 fL (Normal) Range: 81-99 HCT 43.8 % (Normal) Range: 37-47 HGB 14.7 g/dL (Normal) Range: 12.0-15.0 RBC 4.71 {M/mm3} (Normal) Range: 4.2-5.4 WBC 7.1 K/mm3 (Normal) Range: 4.4-11.0 :27 Comprehensive Metabolic Profil Comments: [facility] [address] [place], [place], [id number] GAP 7 (Normal) Range: 5-15 CO2 28.0 mmol/L (Normal) Range: 21.0-32.0 CL 105 mmol/L (Normal) Range: 98-107 K 4.6 mmol/L (Normal) Range: 3.5-5.1 NA 140 mmol/L (Normal) Range: 136-145 T BILI 0.40 mg/dL (Normal) Range: 0.20-1.00 ALT 36 U/L (Normal) Range: 12-78 ALK P 97 U/L (Normal) Range: 45-117 AST 24 U/L (Normal) Range: 15-37 CA 8.8 mg/dL (Normal) Range: 8.5-10.1 A/G 0.8 {RATIO} (Abnormal) Range: 0.9-2.4 GLOB 3.8 g/dL (Abnormal) Range: 2.3-3.5 ALB 3.2 g/dL (Abnormal) Range: 3.4-5.0 T PROT 7.0 g/dL (Normal) Range: 6.4-8.2 BUN/CRE 16.0 {RATIO} (Normal) Range: 10-20 EST GFR - AA 101 mL/min (Normal) Comments: GFR Calc EST GFR 83 mL/min (Normal) Comments: Non- GFR Calc CREAT,SERUM 0.75 mg/dL (Normal) Range: 0.55-1.02 Comments: The validity of the calculated GFR AND GFRAA in patients over70 years has not been determined. Clinical correlation isessential. BUN 12 mg/dL (Normal) Range: 7-18 GLU 87 mg/dL (Normal) Range: 70-110 :27 Lipid Profile Comments: [facility] [address] [place], [place], [id number] VLDL 38 mg/dL (Normal) Range: 5-40 LDL 74 mg/dL (Normal) Range: 0-130 HDL 60 mg/dL (Normal) Comments: The drugs N-Acetylcysteine and Metamizole may falsely deressthis assay. Reference Range HDL <40 mg/dL Low HDL Cholesterol HDL >or= 60 mg/dL High HDL Cholesterol TRIG 190 mg/dL (Normal) Comments: The drugs N-Acetylcysteine and Metamizole may falsely deressthis assay.Serum Triglycerides Reference Interval Normal <150 mg/dL Borderline high 150 - 199 mg/dL High 200 - 499 mg/dL Very High > or = 500 mg/dL CHOL 172 mg/dL (Normal) Comments: <200 mg/dL Desirable 200-240 mg/dL Borderline >240 mg/dL High Risk :27 Microalb:Creat Ratio,Random UR Comments: [facility] [address] [facility] [place], [place], [id number] MALB:CREAT 7.3 {mg/g_CRE} (Normal) MICROALBUMIN,UR 9.1 mg/L (Normal) UR CREAT 125.00 mg/dL (Normal) :27 Thyroid Stim Hormone (TSH) Comments: [facility] [address] [facility] [address] [place], [place], [address] TSH 2.09 {uIU/mL} (Normal) Range: 0.358-3.74 :27 Urinalysis, Complete Comments: How was Urine Obtained? [facility] [address] [facility] [address] [place], [place], [address] MUCUS, URINE 1+ {/hpf} (Normal) BACTERIA RARE {/hpf} (Normal) SQUAM EPI 0-5 SEEN {/hpf} (Normal) Range: 5-10 RBC-UA 0-5 SEEN {/hpf} (Normal) Range: 0-5 WBC 0-5 SEEN {/hpf} (Normal) Range: 0-5 LEUK ESTERASE 100 /ul (Abnormal) OCCULT BLOOD-UR Negative /ul (Normal) NITRITE UR Negative (Normal) UROBILI Normal mg/dL (Normal) PROT DIPSTX Negative mg/dL (Normal) pH UR 6.0 (Normal) Range: 5.0 - 8.0 SP.GR. DIPSTX 1.020 (Normal) Range: 1.002-1.030 KETONE UR Negative mg/dL (Normal) BILIRUBIN URINE Negative mg/dL (Normal) GLUCOSE, UR Normal mg/dL (Normal) CLARITY Sl. Cloudy (Normal) COLOR Yellow (Normal) :27 Vitamin B12 500 pg/mL (Normal) Comments: [facility] [address] [place], [address] Range: 211-911 :27 Vitamin D,25 Hydroxy Comments: [facility] [address] [place], [address] Vitamin D 25-OH 18.4 ng/mL (Normal) Comments: Vitamin D 25(OH) Status Range Deficiency <20 ng/mL (50nmol/L) Insuffciency 20 - 30 ng/mL (50 - 75 nmol/L) Sufficiency 30 - 100 ng/mL (75 - 250 nmol/L) Toxicity >100 ng/mL (>250 nmol/L) 65-Fxs-344205:51 HgA1C , Office (92356) HgA1C , Office 5.3 % (Normal) Range: 4.6 - 7.1 13-Ock-252705:04 VITAMIN B12 AND FOLATES Comments: PATIENT NOT FASTINGPERFORMED BY: [employer] [place] [id number] ([address]93) Folate (Folic Acid), Serum 11.6 ng/mL (Normal) Comments: A serum folate concentration of less than 3.1 ng/mL isconsidered to represent clinical deficiency. Vitamin B12 540 pg/mL (Normal) Range: 211-946 15-Lhb-175757:04 C-REACTIVE PROTEIN (65416) Comments: PATIENT NOT FASTINGPERFORMED BY: [employer] [address] [place] [id number] C-Reactive Protein, Quant 0.7 mg/L (Normal) Range: 0.0-4.9 :04 Sedimentation Rate-ESR (49710) Comments: PATIENT NOT FASTINGPERFORMED BY: [employer] [facility] [address] Labsbl[place] [id number] Sedimentation Rate-Westergren 4 mm/h (Normal) Range: 0-40 46-Fdo-287742:04 LDH (LD) (LACTATE DEHYDROGENASE) Comments: PATIENT NOT FASTINGPERFORMED BY: [facility]6370 [facility] [id number] (32635) LDH 171 [iU]/L (Normal) Range: 119-226 :04 FERRITIN (65637) Comments: PATIENT NOT FASTINGPERFORMED BY: [facility] HospitalQlzuev6750 [facility] [id number] Ferritin, Serum 83 ng/mL (Normal) Range: 15-150 95-Phh-700309:04 IRON BINDING CAPACITY (TIBC) Comments: PATIENT NOT FASTINGPERFORMED BY: [facility]6[address] [facility] [id number] (02254) Iron Saturation 28 % (Normal) Range: 15-55 Iron, Serum 79 ug/dL (Normal) Range: 27-139 UIBC 208 ug/dL (Normal) Range: 118-369 Iron Bind.Cap.(TIBC) 287 ug/dL (Normal) Range: 250-450 64-Rzh-433840:47 CBC W/Diff, Automated Comments: [facility] [address] [place], [place], [address] Absolute Lymph 2.46 {X10_3/ul} (Normal) Range: 0.83-4.51 Absolute Neut 2.1 {X10_3/uL} (Normal) Range: 2.0-7.7 IM GRAN % 0.200 % (Normal) Range: 0.0-0.9 Comments: IG% - Immature Granulocytes (promyelocytes, myelocytes andmetamyelocytes) > 1% indicates that a LEFT SHIFT is Present. BASO% 1.1 % (Abnormal) Range: 0-1 EO% 3.9 % (Normal) Range: 0-5 MONO% 12.4 % (Abnormal) Range: 0-10 LY% 44.1 % (Abnormal) Range: 19-41 NEUT% 38.3 % (Abnormal) Range: 47-70 MPV 9.9 fL (Normal) Range: 6.2-12.0 PLT 282 K/mm3 (Normal) Range: 150-450 RDW SD 48.8 fL (Abnormal) Range: 35.1-43.9 RDW CV 14.4 % (Normal) Range: 11.6-14.6 MCHC 32.7 {g/gl} (Normal) Range: 32-36 MCH 30.4 pg (Normal) Range: 27.0-32.0 MCV 93.1 fL (Normal) Range: 81-99 HCT 44.7 % (Normal) Range: 37-47 HGB 14.6 g/dL (Normal) Range: 12.0-15.0 RBC 4.80 {M/mm3} (Normal) Range: 4.2-5.4 WBC 5.6 K/mm3 (Normal) Range: 4.4-11.0 45-Puw-278293:47 Comprehensive Metabolic Profil Comments: [facility] [address] [place], [place], [address] GAP 8 (Normal) Range: 5-15 CO2 27.0 mmol/L (Normal) Range: 21.0-32.0 CL 103 mmol/L (Normal) Range: 98-107 K 4.0 mmol/L (Normal) Range: 3.5-5.1 NA 138 mmol/L (Normal) Range: 136-145 T BILI 0.50 mg/dL (Normal) Range: 0.20-1.00 ALT 67 U/L (Normal) Range: 12-78 ALK P 85 U/L (Normal) Range: 45-117 AST 35 U/L (Normal) Range: 15-37 CA 9.3 mg/dL (Normal) Range: 8.5-10.1 A/G 1.0 {RATIO} (Normal) Range: 0.9-2.4 GLOB 3.7 g/dL (Abnormal) Range: 2.3-3.5 ALB 3.8 g/dL (Normal) Range: 3.4-5.0 T PROT 7.5 g/dL (Normal) Range: 6.4-8.2 BUN/CRE 18.3 {RATIO} (Normal) Range: 10-20 EST GFR - AA 107 mL/min (Normal) Comments: GFR Calc EST GFR 89 mL/min (Normal) Comments: Non- GFR Calc CREAT,SERUM 0.71 mg/dL (Normal) Range: 0.55-1.02 Comments: The validity of the calculated GFR AND GFRAA in patients over70 years has not been determined. Clinical correlation isessential. BUN 13 mg/dL (Normal) Range: 7-18 GLU 84 mg/dL (Normal) Range: 70-110 73-Rvu-888089:14 TSH (46854) Comments: PATIENT WAS FASTINGPERFORMED BY: [employer] Bmyxkg3956 [facility] [id number] TSH 2.640 {uIU/mL} (Normal) Range: 0.450-4.500 77-Yio-047309:14 METABOLIC PANEL, COMPREHENSIVE Comments: PATIENT WAS FASTINGPERFORMED BY: [employer] Co[address]17 [facility] [id number] ([id number]) ALT (SGPT) 31 [iU]/L (Normal) Range: 0-32 AST (SGOT) 23 [iU]/L (Normal) Range: 0-40 Alkaline Phosphatase, S 87 [iU]/L (Normal) Range: 39-117 Bilirubin, Total 0.7 mg/dL (Normal) Range: 0.0-1.2 A/G Ratio 1.6 (Normal) Range: 1.1-2.5 Globulin, Total 2.6 g/dL (Normal) Range: 1.5-4.5 Albumin, Serum 4.1 g/dL (Normal) Range: 3.6-4.8 Protein, Total, Serum 6.7 g/dL (Normal) Range: 6.0-8.5 Calcium, Serum 9.7 mg/dL (Normal) Range: 8.7-10.3 Carbon Dioxide, Total 23 mmol/L (Normal) Range: 18-29 Chloride, Serum 98 mmol/L (Normal) Range: 96-106 Comments: Please note reference interval change Potassium, Serum 4.5 mmol/L (Normal) Range: 3.5-5.2 Sodium, Serum 139 mmol/L (Normal) Range: 134-144 Comments: Please note reference interval change BUN/Creatinine Ratio 17 (Normal) Range: 11-26 eGFR If Africn Am 99 mL/min/1.73 (Normal) eGFR If NonAfricn Am 86 mL/min/1.73 (Normal) Creatinine, Serum 0.75 mg/dL (Normal) Range: 0.57-1.00 BUN 13 mg/dL (Normal) Range: 8-27 Glucose, Serum 89 mg/dL (Normal) Range: 65-99 14-Gxg-773048:14 CBC W/AUTO DIFF WBC (25102) Comments: PATIENT WAS FASTINGPERFORMED BY: [facility]Co[facility] HospitalJqrnfl2868 [facility] [id number] Immature Grans (Abs) 0.0 {x10E3/uL} (Normal) Range: 0.0-0.1 Immature Granulocytes 0 % (Normal) Baso (Absolute) 0.2 {x10E3/uL} (Normal) Range: 0.0-0.2 Eos (Absolute) 0.7 {x10E3/uL} (Abnormal) Range: 0.0-0.4 Monocytes(Absolute) 1.1 {x10E3/uL} (Abnormal) Range: 0.1-0.9 Lymphs (Absolute) 2.1 {x10E3/uL} (Normal) Range: 0.7-3.1 Neutrophils (Absolute) 2.9 {x10E3/uL} (Normal) Range: 1.4-7.0 Basos 2 % (Normal) Eos 10 % (Normal) Monocytes 16 % (Normal) Lymphs 30 % (Normal) Neutrophils 42 % (Normal) Platelets 295 {x10E3/uL} (Normal) Range: 150-379 RDW 15.1 % (Normal) Range: 12.3-15.4 MCHC 33.4 g/dL (Normal) Range: 31.5-35.7 MCH 31.5 pg (Normal) Range: 26.6-33.0 MCV 94 fL (Normal) Range: 79-97 Hematocrit 38.9 % (Normal) Range: 34.0-46.6 Hemoglobin 13.0 g/dL (Normal) Range: 11.1-15.9 RBC 4.13 {x10E6/uL} (Normal) Range: 3.77-5.28 WBC 7.0 {x10E3/uL} (Normal) Range: 3.4-10.8 :14 LIPID PANEL (78056) Comments: PATIENT WAS FASTINGPERFORMED BY: [facility]aks HospitalZtfxcd4835 [facility] [id number] LDL/HDL Ratio 2.0 {ratio_units} (Normal) Range: 0.0-3.2 Comments: LDL/HDL Ratio Men Women 1/2 Avg.Risk 1.0 1.5 Av g.Risk 3.6 3.2 2X Avg.Risk 6.2 5.0 3X Avg.Risk 8.0 6.1 LDL Cholesterol Calc 106 mg/dL (Abnormal) Range: 0-99 VLDL Cholesterol Josef 41 mg/dL (Abnormal) Range: 5-40 HDL Cholesterol 54 mg/dL (Normal) Triglycerides 204 mg/dL (Abnormal) Range: 0-149 Cholesterol, Total 201 mg/dL (Abnormal) Range: 100-199 03-Lww-182438:14 CALCIFIDIOL (63676) VIT D 25 Comments: PATIENT WAS FASTINGPERFORMED BY: [facility] Iwdvsm8046 [facility] [id number] Vitamin D, 25-Hydroxy 32.7 ng/mL (Normal) Range: 30.0-100.0 Comments: Vitamin D deficiency has been defined by the [place] ofSt. [facility] Hospitalcine and an Endocrine Society practice guideline as alevel of serum 25-OH vitamin D less than 20 ng/mL (1,2).The Endocrine Society went on to further define vitamin Dinsufficiency as a level between 21 and 29 ng/mL (2).1. IOM ([place] of Medicine). 2010. Dietary reference intakes for calcium and D. [place]: The National Academies Press.2. Ness MF, Felicity MARQUEZ, Savana DURAN, et al. Evaluation, treatment, and prevention of vitamin D deficiency: an Endocrine Society clinical practice guideline. JCEM. 2010; 96(7):1911-30. 73-Tya-722935:14 VITAMIN B-12 (CYANOCOBALAMIN) Comments: PATIENT WAS FASTINGPERFORMED BY: [facility] Pkketa0897 [facility] [id number] (88938) Vitamin B12 1776 pg/mL (Abnormal) Range: 211-946 6-Lbt-525091:10 Vitamin D,25 Hydroxy Comments: [facility] [address] [place], [address] Vitamin D 25-OH 23.2 ng/mL (Normal) Comments: Vitamin D 25(OH) Status Range Deficiency <20 ng/mL (50nmol/L) Insuffciency 20 - 30 ng/mL (50 - 75 nmol/L) Sufficiency 30 - 100 ng/mL (75 - 250 nmol/L) Toxicity >100 ng/mL (>250 nmol/L) :06 CCP IgG Antibodies Comments: [facility] (refer to report for specific site)refer to report for address and phone number ANTI-CCP [id number] 19 {units} (Normal) Range: 0-19 Comments: Negative <20 Weak positive 20 - 39 Moderate positive 40 - 59 Strong positive >59Performed at: - [address] [id number] Director: Royer Casarez MD, Phone: [phone] 18-Pup-435176:14 ANTINUCLEAR ANTIBODIES DIRECT Comments: [facility] (refer to report for specific site)refer to report for address and phone number EL-DIRECT Positive (Abnormal) Comments: Performed at: - [facility] [id number] Director: Zack Jensen PhD, Phone: [phone] 10-Oht-596409:14 CBC W/Diff, Automated Comments: [facility] [address] [place], [address] Absolute Lymph 3.15 {X10_3/ul} (Normal) Range: 0.83-4.51 Absolute Neut 3.8 {X10_3/uL} (Normal) Range: 2.0-7.7 IM GRAN % 0.200 % (Normal) Range: 0.0-0.9 Comments: IG% - Immature Granulocytes (promyelocytes, myelocytes andmetamyelocytes) > 1% indicates that a LEFT SHIFT is Present. BASO% 1.1 % (Abnormal) Range: 0-1 EO% 5.4 % (Abnormal) Range: 0-5 MONO% 8.7 % (Normal) Range: 0-10 LY% 38.6 % (Normal) Range: 19-41 NEUT% 46.0 % (Abnormal) Range: 47-70 MPV 10.0 fL (Normal) Range: 6.2-12.0 PLT 288 K/mm3 (Normal) Range: 150-450 RDW SD 41.9 fL (Normal) Range: 35.1-43.9 RDW CV 13.0 % (Normal) Range: 11.6-14.6 MCHC 34.8 {g/gl} (Normal) Range: 32-36 MCH 30.9 pg (Normal) Range: 27.0-32.0 MCV 88.7 fL (Normal) Range: 81-99 HCT 45.4 % (Normal) Range: 37-47 HGB 15.8 g/dL (Abnormal) Range: 12.0-15.0 RBC 5.12 {M/mm3} (Normal) Range: 4.2-5.4 WBC 8.2 K/mm3 (Normal) Range: 4.4-11.0 [id number] Comprehensive Metabolic Profil Comments: [facility] [id number] [place], [address] GAP 9 (Normal) Range: 5-15 CO2 26.0 mmol/L (Normal) Range: 21.0-32.0 CL 104 mmol/L (Normal) Range: 98-107 K 4.2 mmol/L (Normal) Range: 3.5-5.1 NA 139 mmol/L (Normal) Range: 136-145 T BILI 0.50 mg/dL (Normal) Range: 0.20-1.00 ALT 31 U/L (Normal) Range: 12-78 ALK P 97 U/L (Normal) Range: 50-136 AST 19 U/L (Normal) Range: 15-37 CA 9.6 mg/dL (Normal) Range: 8.5-10.1 A/G 0.9 {RATIO} (Normal) Range: 0.9-2.4 GLOB 4.2 g/dL (Abnormal) Range: 2.3-3.5 ALB 3.9 g/dL (Normal) Range: 3.4-5.0 T PROT 8.1 g/dL (Normal) Range: 6.4-8.2 BUN/CRE 28.7 {RATIO} (Abnormal) Range: 10-20 EST GFR - AA 99 mL/min (Normal) Comments: GFR Calc EST GFR 82 mL/min (Normal) Comments: Non- GFR Calc CREAT,SERUM 0.77 mg/dL (Normal) Range: 0.55-1.20 Comments: The validity of the calculated GFR AND GFRAA in patients over70 years has not been determined. Clinical correlation isessential. BUN 22 mg/dL (Abnormal) Range: 7-18 GLU 79 mg/dL (Normal) Range: 70-110 [id number] Hepatitis ABC Profile Comments: [facility] (refer to report for specific site)refer to report for address and phone number COMMENT Comment (Normal) Comments: Non reactive HCV antibody screen is consistent with no HCVinfection, unless recent infection is suspected or otherevidence exists to indicate HCV infection. HCV Ab <0.1 {s/co_ratio} (Normal) Range: 0.0-0.9 Hep B Ned AB Reactive (Normal) Comments: Non Reactive: Inconsistent with immunity, less than 10 mIU/mL Reactive: Consistent with immunity, greater than 9.9 mIU/mL HEP B CORE,TOT Negative (Normal) HB CORE [id number] Negative (Normal) HB SURF AG Negative (Normal) HEP A AB,T.6726 Negative (Normal) HEP A IgM 6734 Negative (Normal) 11-Axn-436547:14 Quantiferon TB-Gold Comments: [facility] (refer to report for specific site)refer to report for address and phone number QFT TB INTER Comment (Normal) Comments: The QuantiFERON TB Gold (in Tube) assay is intended for useas an aid in the diagnosis of TB infection. Negativeresults suggest that there is no TB infection. In patientswith high suspicion of exposure, a negative test should berepeated. A positive test indicates infection withMycobacterium tuberculosis. Among individuals withouttuberculosis infection, a positive test may be due toexposure to M. [place] ii, M. szulgai or M. marinum. On theInternet, go to cdc.gov/tb for further details. QFT AG - NIL 0.13 {IU/mL} (Normal) QFT MITOGEN YUSUF > 10.00 {IU/mL} (Normal) QFT NIL VALUE 0.04 {IU/mL} (Normal) QFT TB AB VALUE 0.17 {IU/mL} (Normal) QFT TB POS CRIT Comment (Normal) Comments: To be considered positive a specimen should have a TB Agminus Nil value greater than or equal to 0.35 IU/mL and inaddition the TB Ag minus Nil value must be greater than orequal to 25% of the Nil value. There may be insufficientinformation in these values to differentiate between somenegative and some indeterminate test values. QFT TB GOLD Negative (Normal) Comments: The specimen received for QuantiFERON testing was incubatedby the ordering institution. Specific procedures outlinedin our Directory of Services and in the package insert forthe QuantiFERON Gold (In Tu be) test must be followed toenable for proper stimulation of cells for the productionof interferon gamma. 88-Rru-162609:14 URINE HISTOPLASMA ANTIGEN Comments: [facility] (refer to report for specific site)refer to report for address and phone number UR HISTO AG 1.50 EU (Normal) Comments: Reference RangeNegative 0.00 - 3.50Equivocal 3.51 - 4.50Positive >4.50Repeat testing is suggested if result does not supportclinical presentation of equiv ocal or p ositive patients.The performance characteristics of the listed assay wasvalidated by [employer]. The US FDA has notapproved or cleared this test. The results of these assaycan be used for clinical diagnosis without FDA approval.[facility] is a CLIA certified, CAP accreditedlaboratory for performing high complexity assays such asthis one.Performed at: [facility] MaidSafeSum[facility] Oaks HospitalQwujcv8194 [place], [place] [id number] Director: Zack Jensen PhD, Phone: [phone] at: E= - [facility] S[address] [place], [place] [id number] Director: Iraida Velazquez PhD, Phone: [phone] 50-Obp-917467:08 Systemic Lupus Profile Comments: PATIENT NOT FASTINGPERFORMED BY: [facility]SafeSum[facility]aks HospitalDqqlrb1061 [facility] [id number] Information: [id number] (00595) Anti-DNA (DS) Ab Qn 16 {IU/mL} (Abnormal) Range: 0-9 Comments: Negative <5 Equivocal 5 - 9 Positive >9 Sjogren's Anti-SS-B <0.2 {AI} (Normal) Range: 0.0-0.9 Sjogren's Anti-SS-A 0.2 {AI} (Normal) Range: 0.0-0.9 Antichromatin Antibodies <0.2 {AI} (Normal) Range: 0.0-0.9 RA Latex Turbid. 8.0 {IU/mL} (Normal) Range: 0.0-13.9 Grace Antibodies <0.2 {AI} (Normal) Range: 0.0-0.9 LATHE SCALPER OPERATOR Antibodies <0.2 {AI} (Normal) Range: 0.0-0.9 :51 EL (ANTINUCLEAR ANTIBODY) Comments: PATIENT NOT FASTINGPERFORMED BY: [employer]in [place] [id number]; will review on 02/14 appt (36123) EL Direct Positive (Abnormal) :51 CALCIFIDIOL (38547) VIT D 25 Comments: PATIENT NOT FASTINGPERFORMED BY: [employer] [place] [id number] Vitamin D, 25-Hydroxy 23.1 ng/mL (Abnormal) Range: 30.0-100.0 Comments: Vitamin D deficiency has been defined by the [place] of[place]icine and an Endocrine Society practice guideline as alevel of serum 25-OH vitamin D less than 20 ng/mL (1,2).The Endocrine Society went on to further define vitamin Dinsufficiency as a level between 21 and 29 ng/mL (2).1. IOM ([place] of Medicine). 2010. Dietary reference intakes for calcium and D. [place]: The National Academies Press.2. Ness MF, Felicity NC, Savana DURAN, et al. Evaluation, treatment, and prevention of vitamin D deficiency: an Endocrine Society clinical practice guideline. JCEM. 2010; 96(7):1911-30. :51 VITAMIN B-12 (CYANOCOBALAMIN) Comments: PATIENT NOT FASTINGPERFORMED BY: [employer] [place] [id number] (28436) Vitamin B12 352 pg/mL (Normal) Range: 211-946 :51 TSH (60456) Comments: PATIENT NOT FASTINGPERFORMED BY: [employer] Xlrlgi6144 [facility] [id number] TSH 1.250 {uIU/mL} (Normal) Range: 0.450-4.500 :51 SED RATE ERYTHROCYTE (00718) Comments: PATIENT NOT FASTINGPERFORMED BY: [facility] Ksxnbn0977 [facility] [id number] Sedimentation Rate-Westergren 2 mm/h (Normal) Range: 0-40 :51 RHEUMATOID FACTOR-QUANT (30360) Comments: PATIENT NOT FASTINGPERFORMED BY: [facility] Ilfjlk7591 [facility] [id number] RA Latex Turbid. <1.3 {IU/mL} (Normal) Range: 0.0-13.9 :51 METABOLIC PANEL, Comments: PATIENT NOT FASTINGPERFORMED BY: [facility] Zgjodw2619 [facility] [id number] Information: [id number] COMPREHENSIVE (48065) ALT (SGPT) 18 [iU]/L (Normal) Range: 0-32 AST (SGOT) 19 [iU]/L (Normal) Range: 0-40 Alkaline Phosphatase, S 95 [iU]/L (Normal) Range: 39-117 Bilirubin, Total 0.3 mg/dL (Normal) Range: 0.0-1.2 A/G Ratio 1.3 (Normal) Range: 1.1-2.5 Globulin, Total 2.9 g/dL (Normal) Range: 1.5-4.5 Albumin, Serum 3.9 g/dL (Normal) Range: 3.6-4.8 Protein, Total, Serum 6.8 g/dL (Normal) Range: 6.0-8.5 Calcium, Serum 9.6 mg/dL (Normal) Range: 8.7-10.3 Carbon Dioxide, Total 23 mmol/L (Normal) Range: 18-29 Chloride, Serum 103 mmol/L (Normal) Range: 97-108 Potassium, Serum 4.3 mmol/L (Normal) Range: 3.5-5.2 Sodium, Serum 142 mmol/L (Normal) Range: 134-144 BUN/Creatinine Ratio 26 (Normal) Range: 11-26 eGFR If Africn Am 116 mL/min/1.73 (Normal) eGFR If NonAfricn Am 100 mL/min/1.73 (Normal) Creatinine, Serum 0.57 mg/dL (Normal) Range: 0.57-1.00 BUN 15 mg/dL (Normal) Range: 8-27 Glucose, Serum 98 mg/dL (Normal) Range: 65-99 45-Pez-682323:51 CBC (AUTO) (85073) Comments: PATIENT NOT FASTINGPERFORMED BY: [facility] Spaxll5646 [facility] [id number] Platelets 264 {x10E3/uL} (Normal) Range: 150-379 RDW 13.0 % (Normal) Range: 12.3-15.4 MCHC 33.9 g/dL (Normal) Range: 31.5-35.7 MCH 29.9 pg (Normal) Range: 26.6-33.0 MCV 88 fL (Normal) Range: 79-97 Hematocrit 43.3 % (Normal) Range: 34.0-46.6 Hemoglobin 14.7 g/dL (Normal) Range: 11.1-15.9 RBC 4.92 {x10E6/uL} (Normal) Range: 3.77-5.28 WBC 8.6 {x10E3/uL} (Normal) Range: 3.4-10.8 04-Paz-791667:12 CBC W/Diff, Automated Comments: Test performed at:[facility] [address] [place] [address] Absolute Lymph 2.80 {X10_3/ul} (Normal) Range: 0.83-4.51 Absolute Neut 2.7 {X10_3/uL} (Normal) Range: 2.0-7.7 IM GRAN % 0.200 % (Normal) Range: 0.0-0.9 Comments: IG% - Immature Granulocytes (promyelocytes, myelocytes andmetamyelocytes) > 1% indicates that a LEFT SHIFT is Present. BASO% 1.1 % (Abnormal) Range: 0-1 EO% 4.9 % (Normal) Range: 0-5 MONO% 7.5 % (Normal) Range: 0-10 LY% 44.0 % (Abnormal) Range: 19-41 NEUT% 42.3 % (Abnormal) Range: 47-70 MPV 10.5 fL (Normal) Range: 6.2-12.0 PLT 270 K/mm3 (Normal) Range: 150-450 RDW SD 40.1 fL (Normal) Range: 35.1-43.9 RDW CV 12.7 % (Normal) Range: 11.6-14.6 MCHC 34.1 {g/gl} (Normal) Range: 32-36 MCH 29.8 pg (Normal) Range: 27.0-32.0 MCV 87.2 fL (Normal) Range: 81-99 HCT 45.1 % (Normal) Range: 37-47 HGB 15.4 g/dL (Abnormal) Range: 12.0-15.0 RBC 5.17 {M/mm3} (Normal) Range: 4.2-5.4 WBC 6.4 K/mm3 (Normal) Range: 4.4-11.0 05-Oia-676332:12 Comprehensive Metabolic Profil Comments: Test performed at:[facility] [address] [place], [place] [address] GAP 8 (Normal) Range: 5-15 CO2 24.0 mmol/L (Normal) Range: 21.0-32.0 CL 105 mmol/L (Normal) Range: 98-107 K 3.9 mmol/L (Normal) Range: 3.5-5.1 NA 137 mmol/L (Normal) Range: 136-145 T BILI 0.40 mg/dL (Normal) Range: 0.20-1.00 ALT 48 U/L (Normal) Range: 12-78 ALK P 89 U/L (Normal) Range: 50-136 AST 29 U/L (Normal) Range: 15-37 CA 9.0 mg/dL (Normal) Range: 8.5-10.1 A/G 0.9 {RATIO} (Normal) Range: 0.9-2.4 GLOB 3.8 g/dL (Abnormal) Range: 2.3-3.5 ALB 3.5 g/dL (Normal) Range: 3.4-5.0 T PROT 7.3 g/dL (Normal) Range: 6.4-8.2 BUN/CRE 15.9 {RATIO} (Normal) Range: 10-20 EST GFR - AA 112 mL/min (Normal) EST GFR 92 mL/min (Normal) CREAT,SERUM 0.69 mg/dL (Normal) Range: 0.55-1.20 Comments: Please note revised CREATININE reference range kgbhovyua46/22/2015. BUN 11 mg/dL (Normal) Range: 7-18 GLU 82 mg/dL (Normal) Range: 70-110 54-Dcu-429258:12 Hepatitis ABC Profile Comments: [facility] (refer to report for specific site)refer to report for address and phone number COMMENT Comment (Normal) Comments: Non reactive HCV antibody screen is consistent with no HCVinfection, unless recent infection is suspected or otherevidence exists to indicate HCV infection. HCV Ab 0.1 {s/co_ratio} (Normal) Range: 0.0-0.9 Hep B Ned AB Reactive (Normal) Comments: Non Reactive: Inconsistent with immunity, less than 10 mIU/mL Reactive: Consistent with immunity, greater than 9.9 mIU/mL HEP B CORE,TOT Negative (Normal) HB CORE [id number] Negative (Normal) HB SURF AG Negative (Normal) HEP A AB,T.6726 Negative (Normal) HEP A IgM 6734 Negative (Normal) 16-Qzi-333883:12 Quantiferon TB-Gold Comments: [facility] (refer to report for specific site)refer to report for address and phone number QFT TB INTER Comment (Normal) Comments: The QuantiFERON TB Gold (in Tube) assay is intended for useas an aid in the diagnosis of TB infection. Negativeresults suggest that there is no TB infection. In patientswith high suspicion of exposure, a negative test should berepeated. A positive test indicates infection withMycobacterium tuberculosis. Among individuals withouttuberculosis infection, a positive test may be due toexposure to M. [place] ii, M. szulgai or M. marinum. On theInternet, go to cdc.gov/tb for further details. QFT AG - NIL 0.02 {IU/mL} (Normal) QFT MITOGEN YUSUF > 10.00 {IU/mL} (Normal) QFT NIL VALUE 0.04 {IU/mL} (Normal) QFT TB AB VALUE 0.06 {IU/mL} (Normal) QFT TB POS CRIT Comment (Normal) Comments: To be considered positive a specimen should have a TB Agminus Nil value greater than or equal to 0.35 IU/mL and inaddition the TB Ag minus Nil value must be greater than orequal to 25% of the Nil value. There may be insufficientinformation in these values to differentiate between somenegative and some indeterminate test values. QFT TB GOLD Negative (Normal) Comments: The specimen received for QuantiFERON testing was incubatedby the ordering institution. Specific procedures outlinedin our Directory of Services and in the package insert forthe QuantiFERON Gold (In [facility]) test must be followed toenable for proper stimulation of cells for the productionof interferon gamma. 00-Oha-341854:12 URINE HISTOPLASMA ANTIGEN Comments: [facility] (refer to report for specific site)refer to report for address and phone number UR HISTO AG 0.73 EU (Normal) Comments: Reference RangeNegative 0.00 - 3.50Equivocal 3.51 - 4.50Positive >4.50Repeat testing is suggested if result does not supportclinical presentation of equiv ocal or p ositive patients.The performance characteristics of the listed assay wasvalidated by [employer]. The US FDA has notapproved or cleared this test. The results of these assaycan be used for clinical diagnosis without FDA approval.[facility] is a CLIA certified, CAP accreditedlaboratory for performing high complexity assays such asthis one.Performed at: [facility] [place] [id number] [place], [place] [id number] Director: Zack Jensen PhD, Phone: [phone] at: E= - [facility] [address] [place], [place] [id number] Director: Iraida Velazquez PhD, Phone: [phone] 2-Oxk-658687:04 VITAMIN B-12 Comments: Lot:[id number]:11/04Dose:1mlRoute:IMSite:arturo Almeida By:AMADO signed; PATIENT WAS FASTINGPERFORMED BY: [address] [id number] (CYANOCOBALAMIN) (67388) Vitamin B12 1382 pg/mL (Abnormal) Range: 211-946 7-Sxe-154095:04 MICROALBUMIN: CREATININE RATIO Comments: PATIENT WAS FASTINGPERFORMED BY: [facility]6370 [facility] [id number] (24400) AND (62998) Microalb/Creat Ratio 8.2 {mg/g_creat} (Normal) Range: 0.0-30.0 Microalbumin, Urine 17.4 ug/mL (Abnormal) Range: 0.0-17.0 Creatinine, Urine 212.7 mg/dL (Normal) Range: 15.0-278.0 1-Ems-065121:04 TSH (06169) Comments: PATIENT WAS FASTINGPERFORMED BY: [facility]6370 [facility] [id number] TSH 1.490 {uIU/mL} (Normal) Range: 0.450-4.500 :04 METABOLIC PANEL, COMPREHENSIVE Comments: PATIENT WAS FASTINGPERFORMED BY: [facility]6370 [facility] [id number] (96848) ALT (SGPT) 36 [iU]/L (Abnormal) Range: 0-32 AST (SGOT) 35 [iU]/L (Normal) Range: 0-40 Alkaline Phosphatase, S 99 [iU]/L (Normal) Range: 39-117 Bilirubin, Total 0.7 mg/dL (Normal) Range: 0.0-1.2 A/G Ratio 1.6 (Normal) Range: 1.1-2.5 Globulin, Total 2.7 g/dL (Normal) Range: 1.5-4.5 Albumin, Serum 4.3 g/dL (Normal) Range: 3.6-4.8 Protein, Total, Serum 7.0 g/dL (Normal) Range: 6.0-8.5 Calcium, Serum 10.2 mg/dL (Normal) Range: 8.7-10.3 Carbon Dioxide, Total 25 mmol/L (Normal) Range: 18-29 Chloride, Serum 99 mmol/L (Normal) Range: 97-108 Potassium, Serum 5.1 mmol/L (Normal) Range: 3.5-5.2 Sodium, Serum 139 mmol/L (Normal) Range: 134-144 BUN/Creatinine Ratio 19 (Normal) Range: 11-26 eGFR If Africn Am 109 mL/min/1.73 (Normal) eGFR If NonAfricn Am 94 mL/min/1.73 (Normal) Creatinine, Serum 0.70 mg/dL (Normal) Range: 0.57-1.00 BUN 13 mg/dL (Normal) Range: 8-27 Glucose, Serum 91 mg/dL (Normal) Range: 65-99 9-Ydu-334379:04 LIPID PANEL (70278) Comments: PATIENT WAS FASTINGPERFORMED BY: [facility]Safe[facility]aks HospitalPjoccz8353 [facility] [id number] LDL/HDL Ratio 2.1 {ratio_units} (Normal) Range: 0.0-3.2 Comments: LDL/HDL Ratio Men Women 1/2 Avg.Risk 1.0 1.5 Av g.Risk 3.6 3.2 2X Avg.Risk 6.2 5.0 3X Avg.Risk 8.0 6.1 LDL Cholesterol Calc 131 mg/dL (Abnormal) Range: 0-99 VLDL Cholesterol Josef 20 mg/dL (Normal) Range: 5-40 HDL Cholesterol 62 mg/dL (Normal) Comments: According to ATP-III Guidelines, HDL-C >59 mg/dL is considered anegative risk factor for CHD. Triglycerides 98 mg/dL (Normal) Range: 0-149 Cholesterol, Total 213 mg/dL (Abnormal) Range: 100-199 2-Zwb-404776:04 CBC W/AUTO DIFF WBC Comments: PATIENT WAS FASTINGPERFORMED BY: [facility]SafeSum[facility] HospitalGymhfn2982 [facility] [id number] Information: [id number] (28491) Immature Grans (Abs) 0.0 {x10E3/uL} (Normal) Range: 0.0-0.1 Immature Granulocytes 0 % (Normal) Baso (Absolute) 0.1 {x10E3/uL} (Normal) Range: 0.0-0.2 Eos (Absolute) 0.4 {x10E3/uL} (Normal) Range: 0.0-0.4 Monocytes(Absolute) 0.7 {x10E3/uL} (Normal) Range: 0.1-0.9 Lymphs (Absolute) 2.7 {x10E3/uL} (Normal) Range: 0.7-3.1 Neutrophils (Absolute) 2.3 {x10E3/uL} (Normal) Range: 1.4-7.0 Basos 1 % (Normal) Eos 6 % (Normal) Monocytes 12 % (Normal) Lymphs 44 % (Normal) Neutrophils 37 % (Normal) Platelets 265 {x10E3/uL} (Normal) Range: 150-379 RDW 12.9 % (Normal) Range: 12.3-15.4 MCHC 33.4 g/dL (Normal) Range: 31.5-35.7 MCH 29.0 pg (Normal) Range: 26.6-33.0 MCV 87 fL (Normal) Range: 79-97 Hematocrit 45.8 % (Normal) Range: 34.0-46.6 Hemoglobin 15.3 g/dL (Normal) Range: 11.1-15.9 RBC 5.27 {x10E6/uL} (Normal) Range: 3.77-5.28 WBC 6.1 {x10E3/uL} (Normal) Range: 3.4-10.8 :04 CALCIFIDIOL (71665) VIT D 25 Comments: PATIENT WAS FASTINGPERFORMED BY: [facility]CoSum[facility] Oaks HospitalPdrizx0263 [facility] [id number] Vitamin D, 25-Hydroxy 29.3 ng/mL (Abnormal) Range: 30.0-100.0 Comments: Vitamin D deficiency has been defined by the [place] ofSt. [facility] Hospitalcine and an Endocrine Society practice guideline as alevel of serum 25-OH vitamin D less than 20 ng/mL (1,2).The Endocrine Society went on to further define vitamin Dinsufficiency as a level between 21 and 29 ng/mL (2).1. IOM ([place] of Medicine). 2010. Dietary reference intakes for calcium and D. [place]: The National Academies Press.2. Ness MF, Felicity NC, Malcom-Tushar DURAN, et al. Evaluation, treatment, and prevention of vitamin D deficiency: an Endocrine Society clinical practice guideline. JCEM. 2010; 96(7):1911-30. 28-Qts-134443:34 CBC W/Diff, Automated Comments: Test performed at:[facility] [address] [place], [place] [id number] Absolute Lymph 3.06 {X10_3/ul} (Normal) Range: 0.83-4.51 Absolute Neut 3.4 {X10_3/uL} (Normal) Range: 2.0-7.7 IM GRAN % 0.100 % (Normal) Range: 0.0-0.9 Comments: IG% - Immature Granulocytes (promyelocytes, myelocytes andmetamyelocytes) > 1% indicates that a LEFT SHIFT is Present. BASO% 1.0 % (Normal) Range: 0-1 EO% 3.7 % (Normal) Range: 0-5 MONO% 6.4 % (Normal) Range: 0-10 LY% 42.4 % (Abnormal) Range: 19-41 NEUT% 46.4 % (Abnormal) Range: 47-70 MPV 10.3 fL (Normal) Range: 6.2-12.0 PLT 289 K/mm3 (Normal) Range: 150-450 RDW SD 40.5 fL (Normal) Range: 35.1-43.9 RDW CV 12.9 % (Normal) Range: 11.6-14.6 MCHC 33.0 {g/gl} (Normal) Range: 32-36 MCH 28.7 pg (Normal) Range: 27.0-32.0 MCV 87.1 fL (Normal) Range: 81-99 HCT 45.2 % (Normal) Range: 37-47 HGB 14.9 g/dL (Normal) Range: 12.0-15.0 RBC 5.19 {M/mm3} (Normal) Range: 4.2-5.4 WBC 7.2 K/mm3 (Normal) Range: 4.4-11.0 8-Prj-628816:05 CBC W/Diff, Automated Comments: Test performed at:[facility] [address] [place] [address] Absolute Lymph 3.30 {X10_3/ul} (Normal) Range: 0.83-4.51 Absolute Neut 2.5 {X10_3/uL} (Normal) Range: 2.0-7.7 IM GRAN % 0.100 % (Normal) Range: 0.0-0.9 Comments: IG% - Immature Granulocytes (promyelocytes, myelocytes andmetamyelocytes) > 1% indicates that a LEFT SHIFT is Present. BASO% 1.3 % (Abnormal) Range: 0-1 EO% 4.5 % (Normal) Range: 0-5 MONO% 9.6 % (Normal) Range: 0-10 LY% 48.1 % (Abnormal) Range: 19-41 NEUT% 36.4 % (Abnormal) Range: 47-70 MPV 9.7 fL (Normal) Range: 6.2-12.0 PLT 292 K/mm3 (Normal) Range: 150-450 RDW SD 40.4 fL (Normal) Range: 35.1-43.9 RDW CV 13.0 % (Normal) Range: 11.6-14.6 MCHC 33.5 {g/gl} (Normal) Range: 32-36 MCH 29.6 pg (Normal) Range: 27.0-32.0 MCV 88.4 fL (Normal) Range: 81-99 HCT 38.2 % (Normal) Range: 37-47 HGB 12.8 g/dL (Normal) Range: 12.0-15.0 RBC 4.32 {M/mm3} (Normal) Range: 4.2-5.4 WBC 6.9 K/mm3 (Normal) Range: 4.4-11.0 0-Gem-280105:05 Comprehensive Metabolic Profil Comments: Test performed at:[facility] [address] [place], [place] [address] GAP 8 (Normal) Range: 5-15 CO2 25.0 mmol/L (Normal) Range: 21.0-32.0 CL 106 mmol/L (Normal) Range: 98-107 K 3.9 mmol/L (Normal) Range: 3.5-5.1 NA 139 mmol/L (Normal) Range: 136-145 T BILI 0.50 mg/dL (Normal) Range: 0.00-4.00 ALT 55 U/L (Normal) Range: 12-78 ALK P 85 U/L (Normal) Range: 50-136 AST 38 U/L (Abnormal) Range: 15-37 CA 8.9 mg/dL (Normal) Range: 8.5-10.1 A/G 0.9 {RATIO} (Normal) Range: 0.9-2.4 GLOB 3.7 g/dL (Normal) Range: 2.7-4.2 ALB 3.4 g/dL (Normal) Range: 3.4-5.0 T PROT 7.1 g/dL (Normal) Range: 6.4-8.2 BUN/CRE 13.0 {RATIO} (Normal) Range: 10-20 EST GFR - AA 73 mL/min (Normal) EST GFR 60 mL/min (Normal) CREAT,SERUM 1.0 mg/dL (Normal) Range: 0.6-1.0 BUN 13 mg/dL (Normal) Range: 7-18 GLU 98 mg/dL (Normal) Range: 70-110 :20 Urinalysis, Complete Comments: How was Urine Obtained? CLEAN CATCHTest performed at:[facility] [address] [place], [place] [id number] CA OX CRYSTAL 2+ {/hpf} (Normal) MUCUS, URINE 0 SEEN {/hpf} (Normal) BACTERIA 0 SEEN {/hpf} (Normal) SQUAM EPI 0-5 SEEN {/hpf} Range: 5-10 (Normal) RBC-UA 0-5 SEEN {/hpf} Range: 0-5 (Normal) WBC 5-10 SEEN {/hpf} Range: 0-5 (Normal) LEUK ESTERASE 100 /ul (Abnormal) OCCULT BLOOD-UR 10 /ul (Abnormal) NITRITE UR Negative (Normal) UROBILI Normal mg/dL (Normal) PROT DIPSTX 30 mg/dL (Abnormal) pH UR 5.0 (Normal) Range: 5.0 - 8.0 SP.GR. DIPSTX 1.030 (Normal) Range: 1.002-1.030 KETONE UR 5 mg/dL (Abnormal) BILIRUBIN URINE Negative mg/dL (Normal) GLUCOSE, UR Normal mg/dL (Normal) CLARITY Sl. Cloudy (Normal) COLOR Yellow (Normal) : Vitamin B12 543 pg/mL (Normal) Comments: PATIENT NOT FASTINGPERFORMED BY: [facility] [id number] 49 Range: 211-946 :49 CALCIFIDIOL (71551) VIT D 25 Comments: PATIENT NOT FASTINGPERFORMED BY: [facility] [facility]Nov[facility] [id number] Vitamin D, 25-Hydroxy 26.8 ng/mL (Abnormal) Range: 30.0-100.0 Comments: Vitamin D deficiency has been defined by the [place] ofMedicine and an Endocrine Society practice guideline as alevel of serum 25-OH vitamin D less than 20 ng/mL (1,2).The Endocrine Society went on to further define vitamin Dinsufficiency as a level between 21 and 29 ng/mL (2).1. IOM ([place] of Medicine). 2010. Dietary reference intakes for calcium and D. [place]: The National Academies Press.2. Ness MF, Felicity MARQUEZ, Savana DURAN, et al. Evaluation, treatment, and prevention of vitamin D deficiency: an Endocrine Society clinical practice guideline. JCEM. 2010; 96(7):1911-30. :49 Folate (83079) Comments: PATIENT NOT FASTINGPERFORMED BY: CB [facility] [address]iy[address] [employer]ocoM[employer] Labsblin [place] [id number] Folate (Folic Acid), Serum >19.9 ng/mL (Normal) Comments: A serum folate concentration of less than 3.1 ng/mL isconsidered to represent clinical deficiency. :49 TSH (87042) Comments: PATIENT NOT FASTINGPERFORMED BY: CB [facility] Zheoha2187 [address] [employer]ocoM[employer] Labsblin [place] [id number] TSH 1.140 {uIU/mL} (Normal) Range: 0.450-4.500 :49 SED RATE ERYTHROCYTE (69769) Comments: PATIENT NOT FASTINGPERFORMED BY: [facility] Cwmfnb6346 [facility] HospitalDublin [place] [id number] Sedimentation Rate-Westergren 3 mm/h (Normal) Range: 0-40 :49 METABOLIC PANEL, Comments: PATIENT NOT FASTINGPERFORMED BY: CB [facility] Kczpoa4764 [address] ComputeC[facility] Hospitalin [place] [id number] Information: [id number] COMPREHENSIVE (11140) ALT (SGPT) 34 [iU]/L (Abnormal) Range: 0-32 AST (SGOT) 23 [iU]/L (Normal) Range: 0-40 Alkaline Phosphatase, S 98 [iU]/L (Normal) Range: 39-117 Bilirubin, Total 0.4 mg/dL (Normal) Range: 0.0-1.2 A/G Ratio 1.5 (Normal) Range: 1.1-2.5 Globulin, Total 2.8 g/dL (Normal) Range: 1.5-4.5 Albumin, Serum 4.3 g/dL (Normal) Range: 3.5-5.5 Protein, Total, Serum 7.1 g/dL (Normal) Range: 6.0-8.5 Calcium, Serum 10.4 mg/dL (Abnormal) Range: 8.7-10.2 Carbon Dioxide, Total 24 mmol/L (Normal) Range: 18-29 Chloride, Serum 101 mmol/L (Normal) Range: 97-108 Potassium, Serum 4.7 mmol/L (Normal) Range: 3.5-5.2 Sodium, Serum 140 mmol/L (Normal) Range: 134-144 BUN/Creatinine Ratio 13 (Normal) Range: 9-23 eGFR If Africn Am 98 mL/min/1.73 (Normal) eGFR If NonAfricn Am 85 mL/min/1.73 (Normal) Creatinine, Serum 0.77 mg/dL (Normal) Range: 0.57-1.00 BUN 10 mg/dL (Normal) Range: 6-24 Glucose, Serum 81 mg/dL (Normal) Range: 65-99 :49 C-REACTIVE PROTEIN ([id number]) Comments: PATIENT NOT FASTINGPERFORMED BY: [facility] [id number] [facility] [id number] C-Reactive Protein, Quant 0.6 mg/L (Normal) Range: 0.0-4.9 [id number] CBC (AUTO) ([id number]) Comments: PATIENT NOT FASTINGPERFORMED BY: [facility] [id number] [facility] [id number] Platelets 262 {x10E3/uL} (Normal) Range: 150-379 RDW 13.7 % (Normal) Range: 12.3-15.4 MCHC 34.8 g/dL (Normal) Range: 31.5-35.7 MCH 29.7 pg (Normal) Range: 26.6-33.0 MCV 85 fL (Normal) Range: 79-97 Hematocrit 46.9 % (Abnormal) Range: 34.0-46.6 Hemoglobin 16.3 g/dL (Abnormal) Range: 11.1-15.9 RBC 5.49 {x10E6/uL} (Abnormal) Range: 3.77-5.28 WBC 8.6 {x10E3/uL} (Normal) Range: 3.4-10.8 50-Nob-651053:49 EL (ANTINUCLEAR ANTIBODY) Comments: PATIENT NOT FASTINGPERFORMED BY: [address] [id number] ([id number]) EL Direct Negative (Normal) 75-Nfs-258670:51 HEABC tHEPCCOMM Comment (Normal) Comments: Non reactive HCV antibody screen is consistent with no HCVinfection, unless recent infection is suspected or otherevidence exists to indicate HCV infection.Performed at: [address] [id number] Director: Monique Narvaez PhD, Phone: [phone] $tHEBSAB Reactive (Normal) Comments: Non Reactive: Inconsistent with immunity,less than 10 mIU/mLReactive: Consistent with immunity,greater than 9.9 mIU/mL HEBCT Negative (Normal) tHECABR <0.1 {s/co_ratio} Range: 0.0-0.9 (Normal) HEBCM Negative (Normal) ttHEBSAG Negative (Normal) HEAM Negative (Normal) HEAT Negative (Normal) 13-Oef-905951:51 MISC (Normal) Comments: Test(s) Ordered: #[id number] URINE HISTO Comments: TEST RESULT LIMITSHistoplasma Antigen, UrineHistoplasma Antigen 0.33 EUReference RangeNegative 0.00 - 3.50Equivocal 3.51 - 4.50Positi ve > 4.50Repeat testing is suggested if result does not supportclinical presentation of equivocal or positive patients.The performance characteristics of the listed assay wasvali dated by [employer]. The [place] FDA has notapproved or cleared this test. The results of this assaycan by used for clinical diagnosis without FDA approval.[facility] is a CLIA cert ified, CAP accreditedlaboratory for performing high complexity assays such asthis one. TESTING PERFORMED AT [facility]. ORIGINAL REPORT ONFILE IN LAB CONTAINS ADDITIONAL TEST SITE INFORMATION. 27-Gpd-931353:51 QFTBINC tQFTBAGNIL 0.19 {IU/mL} (Normal) tQFTBINT Comment (Normal) Comments: The QuantiFERON TB Gold (in Tube) assay is intended for useas an aid in the diagnosis of TB infection. Negativeresults suggest that there is no TB infection. In patientswith high suspicion of exposure, a negative test should berepeated. A positive test indicates infection withMycobacterium tuberculosis. Among individuals withouttuberculosis infection, a positive test may be due toexposure to M. k[place] ii, M. szulgai or M. marinum. On theInternet, go to cdc.gov/tb for further details. tQFTBAG 0.23 {IU/mL} (Normal) tQFTBMIT > 10.00 {IU/mL} (Normal) tQFTBNIL 0.04 {IU/mL} (Normal) tQFTBGD Negative (Normal) Comments: The specimen received for QuantiFERON testing was incubatedby the ordering institution. Specific procedures outlinedin our Directory of Services and in the package insert forthe QuantiFERON Gold (In Tu be) test must be followed toenable for proper stimulation of cells for the productionof interferon gamma. tQFTBPC Comment (Normal) Comments: To be considered positive a specimen should have a TB Agminus Nil value greater than or equal to 0.35 IU/mL and inaddition the TB Ag minus Nil value must be greater than orequal to 25% of the Nil value. There may be insufficientinformation in these values to differentiate between somenegative and some indeterminate test values. 04-Sgl-716055:45 CBCD ALC 2.99 {X10_3/ul} (Normal) Range: 0.83-4.51 ANC 2.5 {X10_3/uL} (Normal) Range: 2.0-7.7 IG% 0.200 % (Normal) Range: 0.0-0.9 Comments: IG% - Immature Granulocytes (promyelocytes, myelocytes andmetamyelocytes) > 1% indicates that a LEFT SHIFT is Present. B% 1.4 % (Abnormal) Range: 0-1 E% 6.3 % (Abnormal) Range: 0-5 M% 7.8 % (Normal) Range: 0-10 L% 45.9 % (Abnormal) Range: 19-41 N% 38.4 % (Abnormal) Range: 47-70 MPV 10.3 fL (Normal) Range: 6.2-12.0 PLT 272 K/mm3 (Normal) Range: 150-450 RDWSD 40.1 fL (Normal) Range: 35.1-43.9 RDWCV 12.5 % (Normal) Range: 11.6-14.6 MCHC 33.5 {g/gl} (Normal) Range: 32-36 MCH 29.9 pg (Normal) Range: 27.0-32.0 MCV 89.2 fL (Normal) Range: 81-99 HCT 42.1 % (Normal) Range: 37-47 HGB 14.1 g/dL (Normal) Range: 12.0-15.0 RBC 4.72 {M/mm3} (Normal) Range: 4.2-5.4 WBC 6.5 K/mm3 (Normal) Range: 4.4-11.0 87-Efn-769958:45 CMP GAP 4 (Abnormal) Range: 5-15 CO2 29.0 mmol/L (Normal) Range: 21.0-32.0 CL 103 mmol/L (Normal) Range: 98-107 K 4.0 mmol/L (Normal) Range: 3.5-5.1 NA 136 mmol/L (Normal) Range: 136-145 BIT 0.60 mg/dL (Normal) Range: 0.00-1.00 ALT 40 U/L (Normal) Range: 12-78 ALK 96 U/L (Normal) Range: 45-117 AST 25 U/L (Normal) Range: 15-37 CA 9.3 mg/dL (Normal) Range: 8.5-10.1 AG 1.0 {RATIO} (Normal) Range: 0.9-2.4 GLOB 3.5 g/dL (Normal) Range: 2.7-4.2 ALB 3.5 g/dL (Normal) Range: 3.4-5.0 TPROT 7.0 g/dL (Normal) Range: 6.4-8.2 BC 17.1 {RATIO} (Normal) Range: 10-20 GFRAA 110 mL/min (Normal) GFR 91 mL/min (Normal) CREAT 0.7 mg/dL (Normal) Range: 0.6-1.0 BUN 12 mg/dL (Normal) Range: 7-18 GLU 116 mg/dL (Abnormal) Range: 70-110 Comments: Fasting Glucose result from 110 to <126 mg/dLsuggests IMPAIRED HOMEOSTASIS per A.D.A. criteria. 64-Mhk-832291:26 VITAMIN B-12 (CYANOCOBALAMIN) Comments: [id number] flowsheetMegan; PATIENT NOT FASTINGPERFORMED BY: [facility] [id number] Information: [id number] (83173) Vitamin B12 372 pg/mL (Normal) Range: 211-946 22-Jhd-861852:59 Influenza A&B Viral Comments: PATIENT NOT FASTINGPERFORMED BY: [address] [id number] Information: SRC:NOS ADD [id number] Culture ([id number]) Viral Culture,Rapid,Influenza FLUABN (Normal) Comments: Negative:No Influenza A or B detected. 14-Szg-00486:42 RIBS UNI MIN 3V W/PA CHEST Radiology Report See Note Comments: STUDY: X-RAY - UNILATERAL RIBS ( LEFT ) REASON FOR EXAM: Female, 58 years old. Continued left rib pain. TECHNIQUE: 5 views of the ribs. COMPARISON: Prior chest radiograph of March 10, 2013. (Normal) FINDINGS:Healing, nondisplaced fractures of the anterior lateral left fourth,fifthand sixth ribs and a lateral fracture of the left seventh rib. Thevisualized lung is radha ar and expanded. IMPRESSION:Healing nondisplaced fractures of the left fourth, fifth, sixth andseventhribs. Signed:Carmina Henson M.D.May 03, 2013 at 3:48:37 PM [phone] Signed TT/TT If you are the referring physician and would like to consult with theradiologist who provided this interpretation, please contact Carmina Workman M.D. at [phone]. If this radiologist is unavailable, youwillbe directed to another radiologist to assist. If you are a patient with a question regarding this report, pleasecontactyour referring physician directly. Professional Interpretation Provided By: [employer], Phone , These documents contain legally protected and confidential healthinformation intended only for the u se of the individual or entity namedabove. If you are not the intended recipient, you are hereby notifiedthatany disclosure, copying, distribution, or other use of these documents isstrictly prohibited. If you have received this information in error,pleasenotify the sender immediately and arrange for the return or destructionofthese documents. Dictated on 05/03/13 1548 by Carmina Henson MDTranscrib ed on 05/03/13 1551 by ITS IMPORTSign by Carmina Henson MD on 05/03/13 1552 Sign by: Carmina Henson MD 69-Ccf-41017:08 METABOLIC PANEL, Comments: PATIENT NOT FASTINGPERFORMED BY: [facility]Sum[facility] HospitalIimrem6314 [facility] [id number] Information: ADD [id number] AND DRAW FEE 99 0228 COMPREHENSIVE (45770) ALT (SGPT) 25 [iU]/L (Normal) Range: 0-32 AST (SGOT) 21 [iU]/L (Normal) Range: 0-40 Alkaline Phosphatase, S 91 [iU]/L (Normal) Range: 42-107 Bilirubin, Total 0.5 mg/dL (Normal) Range: 0.0-1.2 A/G Ratio 1.4 (Normal) Range: 1.1-2.5 Globulin, Total 2.9 g/dL (Normal) Range: 1.5-4.5 Albumin, Serum 4.0 g/dL (Normal) Range: 3.5-5.5 Protein, Total, Serum 6.9 g/dL (Normal) Range: 6.0-8.5 Calcium, Serum 9.9 mg/dL (Normal) Range: 8.7-10.2 Carbon Dioxide, Total 19 mmol/L (Normal) Range: 19-28 Chloride, Serum 108 mmol/L (Normal) Range: 97-108 Potassium, Serum 4.1 mmol/L (Normal) Range: 3.5-5.2 Sodium, Serum 144 mmol/L (Normal) Range: 134-144 BUN/Creatinine Ratio 19 (Normal) Range: 9-23 eGFR If Africn Am 114 mL/min/1.73 (Normal) eGFR If NonAfricn Am 99 mL/min/1.73 (Normal) Creatinine, Serum 0.63 mg/dL (Normal) Range: 0.57-1.00 BUN 12 mg/dL (Normal) Range: 6-24 Glucose, Serum 93 mg/dL (Normal) Range: 65-99 77-Lpy-26100:08 CBC (AUTO) (11712) Comments: PATIENT NOT FASTINGPERFORMED BY: [facility]CoSum[facility]aks HospitalBlgnnu1280 [facility] [id number] Platelets 284 {x10E3/uL} (Normal) Range: 155-379 Comments: Please note reference interval change RDW 13.5 % (Normal) Range: 12.3-15.4 MCHC 33.6 g/dL (Normal) Range: 31.5-35.7 MCH 28.7 pg (Normal) Range: 26.6-33.0 MCV 85 fL (Normal) Range: 79-97 Hematocrit 45.5 % (Normal) Range: 34.0-46.6 Hemoglobin 15.3 g/dL (Normal) Range: 11.1-15.9 RBC 5.34 {x10E6/uL} (Abnormal) Range: 3.77-5.28 WBC 6.3 {x10E3/uL} (Normal) Range: 3.4-10.8 Comments: Please note reference interval change :08 TSH (50422) Comments: PATIENT NOT FASTINGPERFORMED BY: [facility] Qyotkw6682 Tripathi RoadDublin [place] [id number] TSH 1.350 {uIU/mL} (Normal) Range: 0.450-4.500 :08 Vitamin D Hydroxy (58034) Comments: PATIENT NOT FASTINGPERFORMED BY: [facility] Iydcth0234 [address] [facility] HospitalDublin [place] [id number] Vitamin D, 25-Hydroxy 23.7 ng/mL (Abnormal) Range: 30.0-100.0 Comments: Vitamin D deficiency has been defined by the [place] ofMedicine and an Endocrine Society practice guideline as alevel of serum 25-OH vitamin D less than 20 ng/mL (1,2).The Endocrine Society went on to further define vitamin Dinsufficiency as a level between 21 and 29 ng/mL (2).1. IOM ([place] of Medicine). 2010. Dietary reference intakes for calcium and D. [place]: The National Academies Press.2. Ness MF, Felicity NC, Savana DURAN, et al. Evaluation, treatment, and prevention of vitamin D deficiency: an Endocrine Society clinical practice guideline. JCEM. 2010; 96(7):1911-30. :08 HEPATIC FUNCTION PANEL Comments: PATIENT NOT FASTINGPERFORMED BY: [facility] [address] [facility] [place] [id number] (60155) Bilirubin, Direct 0.13 mg/dL (Normal) Range: 0.00-0.40 :08 LIPID PANEL (75479) Comments: PATIENT NOT FASTINGPERFORMED BY: [facility] Ijwmec0289 [address] [facility] HospitalD[facility] [place] [id number] LDL/HDL Ratio 1.9 {ratio_units} (Normal) Range: 0.0-3.2 LDL Cholesterol Calc 105 mg/dL (Abnormal) Range: 0-99 VLDL Cholesterol Josef 28 mg/dL (Normal) Range: 5-40 HDL Cholesterol 55 mg/dL (Normal) Comments: According to ATP-III Guidelines, HDL-C >59 mg/dL is considered anegative risk factor for CHD. Triglycerides 140 mg/dL (Normal) Range: 0-149 Cholesterol, Total 188 mg/dL (Normal) Range: 100-199 4-Wjh-855322:20 BILAT SCRN DIGITAL & CAD Radiology Report See Note (Normal) Comments: MAMMOGRAPHY - BILATERAL SCREENING REASON FOR EXAM: Female, 57 years old. Routine annual screeningexamination. PERTINENT HISTORY: Sister with breast cancer. Grandmother with breastcancer. TECHNIQUE : Digital examination. Mediolateral oblique (MLO) andcraniocaudad (CC) views of both breasts were obtained. CAD: CAD wasperformed on this study. COMPARISON: Comparison is made with prior study date d December 07ndFebruary 2008. FINDINGS:The breast composition is almost entirely fat. Glandular tissue is lessthan 25%. There are no dominant masses or suspicious calcifications. Stablewell-def ined subcentimeter nodule in the upper outer aspect of the rightbreast. This most likely represent a small lymph node. No other significant abnormalities are identified. There has been nosignificant c hange since the prior study. IMPRESSION:Stable bilateral screening mammogram. Yearly follow-up recommended. (A) ASSESSMENT CATEGORY:BIRADS Category 2: Benign finding(s). A letter regarding these re sultswill be sent to the patient by the facility within 30 days. Approximately 10% of breast cancers are not detected by mammography. Anormal mammogram should not delay biopsy of a clinically suspiciou sabnormality. Signed:Bryson Oliver M.D.January 23, 2013 at 12:21:54 PM [phone] Signed GP/GP If you are the referring physician and would like to consult with theradiologist who p rovided this interpretation, please contact Mary Burnette at [phone]. If this radiologist is unavailable, youwill be directed to another radiologist to assist. If you are a patient with a question regarding this report, pleasecontactyour referring physician directly. Professional Interpretation Provided By: [employer], Phone , These documents contain legal ly protected and confidential healthinformation intended only for the use of the individual or entity namedabove. If you are not the intended recipient, you are hereby notifiedthatany disclosure, copyin g, distribution, or other use of these documents isstrictly prohibited. If you have received this information in error,pleasenotify the sender immediately and arrange for the return or destructionofthes e documents. Dictated on 01/23/131220 by Evie Oliver MDranscribed on 01/23/131222 by ITS IMPORTSign by Bryson Oliver MD on 01/23/131223 Sign by: Bryson Oliver MD 9-Wfs-249971:20 DEXA BONE DENSITY STUDY (HP) Radiology Report See Note (Normal) Comments: PROCEDURE: DUAL ENERGY X-RAY ABSORPTIOMETRY / DXA REASON FOR EXAM: Female, 57 years old. Early menopause. TECHNIQUE: Bone Mineral Density (BMD) measurements of lumbar spine andbilatera l hips were obtained. COMPARISON: Comparison is made with prior study dated December 07, 2010. FINDINGS: Lumbar Spine (L1-L4): g/cm2 (1.093) / T-score (-0.7) / Z- score (0.3) Left Femur Total: g/cm2 (1.217) / T-score (1.7) / Z-score (2.5)Left Femoral Neck: g/cm2 (1.086) / T-score (0.3) / Z-score (1.5)Right Femur Total: g/cm2 (1.189) / T-score (1.4) / Z-score (2.2)Right Femoral Neck: g/cm2 (1.10 7) / T-score (0.5) / Z-score (1.6) The T-Scores on the most recent prior examination were: Lumbar Spine (L1-L4): which represents a worsening of 0.9%.Left Femur Total: which represents a w orsening of 2.6%.Right Femur Total: which represents a worsening of 1.0%. IMPRESSION:The patient is considered normal, as outlined below according to WorldHealth Organization (WHO) criteria. Fract ure risk is low. Reference Information:The T-score is the number of standard deviations above or below thestandard which is normal for young adults at their peak bone mineraldensity. The World Health Or ganization (WHO) interprets the T-scores asfollows: Above -1 Normal bone densityBetween -1 and -2.5 OsteopeniaEqual to / or below -2.5 Osteoporosis As a practical clinical guideline, osteo penia may be graded as follows:Mild -1 through -1.5Moderate -1.6 through -2.0Severe -2.1 through -2.4 The Z-score is the number of standard deviations above or below age-matchedcontrols. A Z-score of less than -1.5 would be considered abnormal. References:1. NIH Osteoporosis and Related Bone Diseases http://www.osteo.org2. International Society for Clinical Densitometry http://www.iscd.org3. Marlee ional Osteoporosis Foundation http://www.nof.org Signed:Bryson Oliver M.D.January 23, 2013 at 12:29:03 PM [id number] Signed GP/GP If you are the referring physician and would like t o consult with theradiologist who provided this interpretation, please contact Mary Burnette at [phone]. If this radiologist is unavailable, youwill be directed to another radiologist to assist. If you are a patient with a question regarding this report, pleasecontactyour referring physician directly. Professional Interpretation Provided By: [employer], Phone ,Fax These documents contain legally protected and confidential healthinformation intended only for the use of the individual or entity namedabove. If you are not the intended recipient, you are hereby notifiedthatany disclosure, copying, distribution, or other use of these documents isstrictly prohibited. If you have received this information in error,pleasenotify the sender immediately and arrange for the return or destructionofthese documents. Dictated on 01/23/13 1229 by Irish Oliver MDribed on 01/23/13 1231 by ITS IMPORTSign by Bryson Oliver MD on 01/23/13 1232 Sign by: Bryson Oliver MD 9-Usb-085916:17 Metabolic Panel, Basic (59523) Comments: PATIENT NOT FASTINGPERFORMED BY: [facility] Dyruuo0602 [facility] [id number] Calcium, Serum 9.6 mg/dL (Normal) Range: 8.7-10.2 Carbon Dioxide, Total 21 mmol/L (Normal) Range: 20-32 Chloride, Serum 103 mmol/L (Normal) Range: 97-108 Potassium, Serum 4.1 mmol/L (Normal) Range: 3.5-5.2 Sodium, Serum 140 mmol/L (Normal) Range: 134-144 BUN/Creatinine Ratio 15 (Normal) Range: 9-23 eGFR If Africn Am 104 mL/min/1.73 (Normal) eGFR If NonAfricn Am 90 mL/min/1.73 (Normal) BUN 11 mg/dL (Normal) Range: 6-24 Creatinine, Serum 0.74 mg/dL (Normal) Range: 0.57-1.00 Glucose, Serum 74 mg/dL (Normal) Range: 65-99 8-Dik-772338:17 TSH (94806) Comments: PATIENT NOT FASTINGPERFORMED BY: [facility] Ymdkqa6044 [facility] [id number] TSH 1.100 {uIU/mL} (Normal) Range: 0.450-4.500 1-Ptl-132495:17 CBC with manual diff Comments: PATIENT NOT FASTINGPERFORMED BY: [facility] Wgmfjd7268 [facility] [id number] Information: [id number] ([id number]) Immature Grans (Abs) 0.0 {x10E3/uL} (Normal) Range: 0.0-0.1 Immature Granulocytes 0 % (Normal) Range: 0-2 Baso (Absolute) 0.1 {x10E3/uL} (Normal) Range: 0.0-0.2 Eos (Absolute) 0.4 {x10E3/uL} (Normal) Range: 0.0-0.4 Monocytes(Absolute) 0.4 {x10E3/uL} (Normal) Range: 0.1-1.0 Lymphs (Absolute) 3.6 {x10E3/uL} (Normal) Range: 0.7-4.5 Neutrophils (Absolute) 3.9 {x10E3/uL} (Normal) Range: 1.8-7.8 Basos 1 % (Normal) Range: 0-3 Eos 4 % (Normal) Range: 0-7 Lymphs 43 % (Normal) Range: 14-46 Monocytes 5 % (Normal) Range: 4-13 Neutrophils 47 % (Normal) Range: 40-74 Platelets 285 {x10E3/uL} (Normal) Range: 140-415 MCHC 34.0 g/dL (Normal) Range: 31.5-35.7 RDW 13.9 % (Normal) Range: 12.3-15.4 MCH 29.4 pg (Normal) Range: 26.6-33.0 MCV 86 fL (Normal) Range: 79-97 Hematocrit 45.0 % (Normal) Range: 34.0-46.6 Hemoglobin 15.3 g/dL (Normal) Range: 11.1-15.9 RBC 5.21 {x10E6/uL} (Normal) Range: 3.77-5.28 WBC 8.4 {x10E3/uL} (Normal) Range: 4.0-10.5 3-Bms-368450:17 CALCIFIDIOL (70134) VIT D 25 Comments: PATIENT NOT FASTINGPERFORMED BY: [facility]6370 [facility] [id number] Vitamin D, 25-Hydroxy 33.9 ng/mL (Normal) Range: 30.0-100.0 Comments: Vitamin D deficiency has been defined by the [place] ofMedicine and an Endocrine Society practice guideline as alevel of serum 25-OH vitamin D less than 20 ng/mL (1,2).The Endocrine Society went on to further define vitamin Dinsufficiency as a level between 21 and 29 ng/mL (2).1. IOM ([place] of Medicine). 2010. Dietary reference intakes for calcium and D. [place]: The National Academies Press.2. Felicity Caban Bischoff-Ferrari HA, et al. Evaluation, treatment, and prevention of vitamin D deficiency: an Endocrine Society clinical practice guideline. JCEM. 2010; 96(7):1911-30. :2 ZACH 22.34 ug/dL (Normal) Range: 3.09-22.40 5 Comments: Adult (AM) 4.30 - 22.40 ug/dL Adult (PM) 3.09 - 16.66 ug/dL :5 ZACH 19.32 ug/dL (Normal) Range: 3.09-22.40 5 Comments: Adult (AM) 4.30 - 22.40 ug/dL Adult (PM) 3.09 - 16.66 ug/dL :2 ZACH 6.62 ug/dL (Normal) Range: 3.09-22.40 0 Comments: Adult (AM) 4.30 - 22.40 ug/dL Adult (PM) 3.09 - 16.66 ug/dL :01 CALCIFIDIOL (89842) VIT D 25 Comments: PATIENT NOT FASTINGPERFORMED BY: [employer]6[address] [facility] [id number] Vitamin D, 25-Hydroxy 36.8 ng/mL (Normal) Range: 30.0-100.0 Comments: Vitamin D deficiency has been defined by the [place] ofMedicine and an Endocrine Society practice guideline as alevel of serum 25-OH vitamin D less than 20 ng/mL (1,2).The Endocrine Society went on to further define vitamin Dinsufficiency as a level between 21 and 29 ng/mL (2).1. IOM ([place] of Medicine). 2010. Dietary reference intakes for calcium and D. [place]: The National Academies Press.2. Felicity Caban, Savana DURAN, et al. Evaluation, treatment, and prevention of vitamin D deficiency: an Endocrine Society clinical practice guideline. JCEM. 2010; 96(7):1911-30. :01 Folate (69274) Comments: PATIENT NOT FASTINGPERFORMED BY: [facility] Ydtvea3218 [facility] [id number] Folate (Folic Acid), Serum >19.9 ng/mL (Normal) Comments: A serum folate concentration of less than 3.1 ng/mL isconsidered to represent clinical deficiency. : VITAMIN B-12 (CYANOCOBALAMIN) Comments: PATIENT NOT FASTINGPERFORMED BY: [facility] Swovrx8718 [address] [facility] [place] [id number] (95380) Vitamin B12 348 pg/mL (Normal) Range: 211-946 : TSH (74148) Comments: PATIENT NOT FASTINGPERFORMED BY: CB [facility] Xovgbb1580 [address] [facility] [place] [id number] TSH 1.240 {uIU/mL} (Normal) Range: 0.450-4.500 : SED RATE ERYTHROCYTE (56688) Comments: PATIENT NOT FASTINGPERFORMED BY: [facility] Dvjuzf1674 [address] [facility] [id number] Sedimentation Rate-Westergren 3 mm/h (Normal) Range: 0-40 : RHEUMATOID FACTOR-QUANT (53727) Comments: PATIENT NOT FASTINGPERFORMED BY: CB [facility] Goboei7197 [address] [facility] [place] [id number] RA Latex Turbid. 10.7 {IU/mL} (Normal) Range: 0.0-13.9 :01 METABOLIC PANEL, Comments: PATIENT NOT FASTINGPERFORMED BY: [facility] Adsnmt2695 [facility] [id number] Information: [id number] COMPREHENSIVE (89911) ALT (SGPT) 23 [iU]/L (Normal) Range: 0-40 AST (SGOT) 23 [iU]/L (Normal) Range: 0-40 Alkaline Phosphatase, S 91 [iU]/L (Normal) Range: 25-150 Bilirubin, Total 0.7 mg/dL (Normal) Range: 0.0-1.2 A/G Ratio 1.7 (Normal) Range: 1.1-2.5 Globulin, Total 2.5 g/dL (Normal) Range: 1.5-4.5 Albumin, Serum 4.2 g/dL (Normal) Range: 3.5-5.5 Protein, Total, Serum 6.7 g/dL (Normal) Range: 6.0-8.5 Calcium, Serum 9.6 mg/dL (Normal) Range: 8.7-10.2 Carbon Dioxide, Total 24 mmol/L (Normal) Range: 20-32 Chloride, Serum 101 mmol/L (Normal) Range: 97-108 Potassium, Serum 4.2 mmol/L (Normal) Range: 3.5-5.2 Sodium, Serum 137 mmol/L (Normal) Range: 134-144 BUN/Creatinine Ratio 23 (Normal) Range: 9-23 eGFR If Africn Am 116 mL/min/1.73 (Normal) eGFR If NonAfricn Am 101 mL/min/1.73 (Normal) Creatinine, Serum 0.61 mg/dL (Normal) Range: 0.57-1.00 BUN 14 mg/dL (Normal) Range: 6-24 Glucose, Serum 87 mg/dL (Normal) Range: 65-99 40-Zbc-942957:01 C-REACTIVE PROTEIN (69282) Comments: PATIENT NOT FASTINGPERFORMED BY: [facility] HospitalKqqegu6477 [facility] [id number] C-Reactive Protein, Quant 3.8 mg/L (Normal) Range: 0.0-4.9 :01 CBC (AUTO) (80058) Comments: PATIENT NOT FASTINGPERFORMED BY: [facility]CoSum[facility] HospitalRwvfhl5126 [facility] [id number] Platelets 264 {x10E3/uL} (Normal) Range: 140-415 RDW 15.5 % (Abnormal) Range: 12.3-15.4 MCHC 35.0 g/dL (Normal) Range: 31.5-35.7 MCH 30.4 pg (Normal) Range: 26.6-33.0 MCV 87 fL (Normal) Range: 79-97 Hematocrit 43.2 % (Normal) Range: 34.0-46.6 Hemoglobin 15.1 g/dL (Normal) Range: 11.1-15.9 RBC 4.97 {x10E6/uL} (Normal) Range: 3.77-5.28 WBC 5.6 {x10E3/uL} (Normal) Range: 4.0-10.5 0-Uhf-908207:29 Vitamin D Hydroxy (74704) Comments: PATIENT NOT FASTINGPERFORMED BY: [facility] Hjkqoo1341 [facility] [id number] Vitamin D, 25-Hydroxy 27.3 ng/mL (Abnormal) Range: 30.0-100.0 Comments: Vitamin D deficiency has been defined by the [place] ofSt[facility]cine and an Endocrine Society practice guideline as alevel of serum 25-OH vitamin D less than 20 ng/mL (1,2).The Endocrine Society went on to further define vitamin Dinsufficiency as a level between 21 and 29 ng/mL (2).1. IOM ([place] of Medicine). 2011. Dietary reference intakes for calcium and D. [place]: The National Academies Press.2. Ness MF, Felicity MARQUEZ, Savana DURAN, et al. Evaluation, treatment, and prevention of vitamin D deficiency: an Endocrine Society clinical practice guideline. JCEM. 2010; 96(7):1911-30. 8-Opt-045474:29 TSH (48235) Comments: PATIENT NOT FASTINGPERFORMED BY: [facility] Wmtfvm5836 [facility] [facility] [id number] Information: [id number] TSH 1.900 {uIU/mL} (Normal) Range: 0.450-4.500 40-Ozc-141905:06 BILAT SCRN DIGITAL & CAD Radiology Report See Note (Normal) Comments: MAMMOGRAPHY - BILATERAL SCREENING INDICATION:Female, 55 years old. Routine annual screening examination. PERTINENT HISTORY:Sister with breast cancer. Grandmother with breast cancer. TECHNIQUE:Digital examination. Mediolateral oblique (MLO) and craniocaudad (CC)views of both breasts were obtained. CAD: CAD was performed on thisstudy. COMPARISON:September 05, 2007 October 07, 2008 FINDINGS:The b reast composition is almost entirely fatty replaced. There is asmallnodule in the upper outer quadrant of the right breast which is stable. There are no masses or suspicious microcalcifications. No oth er significant abnormalities are identified. IMPRESSION:Normal bilateral screening mammogram. One year follow-up recommended. ASSESSMENT CATEGORY:BIRADS Category 2: Benign finding(s). A letter regard ing these resultswill be sent to the patient by the facility within 30 days. Approximately 10% of breast cancers are not detected by mammography. Anormal mammogram should not delay biopsy of a clinical ly suspiciousabnormality. Dictated on 12/07/10 1148 by SANTA PONCE MDTranscribed on 12/08/10106 by ITS IMPORTSign by SANTA PONCE MD on 12/08/10107 Sign by: SANTA PONCE MD 80-Sdw-211747:06 DEXA BONE DENSITY STUDY (HP) Radiology Report See Note (Normal) Comments: CLINICAL:Female, 55 years old. The patient is postmenopausal. EXAMINATION:DUAL ENERGY X-RAY ABSORPTIOMETRY / DEXA. TECHNIQUE:Bone Mineral Density (BMD) measurements of lumbar spine and bila teralhipswer e obtained using a [employer] scanner.. COMPARISON:Comparison is made with prior study dated September 05, 2007. FINDINGS: Lumbar Spine (L1- L4): g/cm2 (1.103) / T-score (-0.6) / Z-score (-0.6)Left Femur Total: g/cm2 (1.249) / T-score (1.9) / Z-score (2.1)Right Femur Total: g/cm2 (1.201) / T-score (1.5) / Z-score (1.7) Since prior study, there has been an improvement of 3.2% in the bonedensity. IMPRESSION:The patient is considered normal, as outlined above, according to WorldHealth Organization (WHO) criteria. Fracture risk is low. Reference Information:The T-score is the number of standard deviations above or below thestandard which is normal for young adults at their peak bone mineraldensity. The World Health Organization (WHO) interprets the T-scores asfollows: Above -1 Normal bone densityBetween -1 and -2.5 OsteopeniaEqual to / or below -2.5 Osteoporosis As a practical clinical guideline, osteopenia may be graded as follows:Mild -1 through -1 .5Moderate -1.6 through -2.0Severe -2.1 through -2.4 The Z-score is the number of standard deviations above or below age-matchedcontrols. A Z-score of less than -1.5 would be considered abnormal . References:1. NIH Osteoporosis and Related Bone Diseases http://www.osteo.org2. International Society for Clinical Densitometry http://www.iscd.org3. National Osteoporosis Foundation http://www.nof .org Dictated on 12/07/10 1218 by Evie Oliver MDranscribed on 12/08/10 0029 by ITS IMPORTSign by Bryson Oliver MD on 12/08/10 0030 Sign by: Bryson Oliver MD 71-Vuf-326728:59 Glucose, PP/2 Hour Comments: PATIENT NOT FASTINGPERFORMED BY: [facility] [id number] [facility] [id number] Information: [id number] 75G DRAWN@12 30PM ([id number]) Glucose, Two-Hour Postprandial 76 mg/dL (Normal) Range: 65-139 50-Kta-105145:23 LIPID PANEL (23249) Comments: PATIENT WAS FASTINGPERFORMED BY: [facility] [id number] [facility] [id number] Information: [id number] LDL Cholesterol Calc 109 mg/dL (Abnormal) Range: 0-99 LDL/HDL Ratio 1.9 {ratio_units} (Normal) Range: 0.0-3.2 VLDL Cholesterol Josef 24 mg/dL (Normal) Range: 5-40 HDL Cholesterol 57 mg/dL (Normal) Comments: According to ATP-III Guidelines, HDL-C >59 mg/dL is considered anegative risk factor for CHD. Triglycerides 118 mg/dL (Normal) Range: 0-149 Cholesterol, Total 190 mg/dL (Normal) Range: 100-199 15-Yaz-309512:23 TSH ([id number]) Comments: PATIENT WAS FASTINGPERFORMED BY: [facility] [id number] [facility] [id number] TSH 2.130 {uIU/mL} (Normal) Range: 0.450-4.500 7-Oog-118702:06 VITAMIN B-12 (CYANOCOBALAMIN) Comments: PATIENT NOT FASTINGPERFORMED BY: [facility] [id number] [facility] [place] [id number] Information: [id number] (98804) Vitamin B12 403 pg/mL (Normal) Range: 211-946 :58 BMP CL 104 mmol/L (Normal) Range: 98-107 CO2 28.0 mmol/L (Normal) Range: 21.0-32.0 GAP 6 (Normal) Range: 5-15 BUN 14 mg/dL (Normal) Range: 7-18 BUN/CRE 20.0 {RATIO} (Normal) Range: 10-20 CA 9.5 mg/dL (Normal) Range: 8.5-10.1 CREAT,SERUM 0.7 mg/dL (Normal) Range: 0.6-1.0 EST GFR 93 mL/min (Normal) EST GFR - AA 113 mL/min (Normal) GLU 96 mg/dL (Normal) Range: 70-110 K 4.3 mmol/L (Normal) Range: 3.5-5.1 NA 138 mmol/L (Normal) Range: 136-145 :58 CBCD ABSOLUTE NEUT 3.0 3/uL (Normal) Range: 2.0-7.7 BASO% 1.4 % (Abnormal) Range: 0-1 EO% 5.2 % (Abnormal) Range: 0-5 HCT 38.7 % (Normal) Range: 37-47 HGB 12.5 g/dL (Normal) Range: 12.0-16.0 LY% 30.7 % (Normal) Range: 19-41 MCH 27.7 pg (Normal) Range: 27.0-32.0 MCHC 32.3 g/dL (Normal) Range: 32-36 MCV 85.9 fL (Normal) Range: 81-99 MONO% 8.4 % (Normal) Range: 0-10 MPV 7.9 fL (Normal) Range: 6.5-12.0 NEUT% 54.3 % (Normal) Range: 47-70 PLT 328 K/mm3 (Normal) Range: 150-450 RBC 4.50 {M/mm3} (Normal) Range: 4.2-5.4 RDW 13.5 % (Normal) Range: 11.6-14.6 WBC 5.5 K/mm3 (Normal) Range: 4.4-11.0 :58 LIPID CHOL 188 mg/dL (Normal) Comments: <200 mg/dL Desirable 200-240 mg/dL Borderline >240 mg/dL High Risk HDL 51 mg/dL (Normal) Comments: Reference Range HDL <40 mg/dL Low HDL Cholesterol HDL >or= 60 mg/dL High HDL Cholesterol LDL 115 mg/dL (Normal) Range: 0-130 TRIG 111 mg/dL (Normal) Comments: Serum Triglycerides Reference Interval Normal <150 mg/dL Borderline high 150 - 199 mg/dL High 200 - 499 mg/dL Very High > or = 500 mg/dL VLDL 22 mg/dL (Normal) Range: 5-40 :58 LIVER ALB 3.6 g/dL (Normal) Range: 3.4-5.0 ALK P 82 U/L (Normal) Range: 50-136 ALT 28 U/L (Normal) Range: 12-78 Comments: Please Note: Revised Reference Range effective 09 AST 15 U/L (Normal) Range: 15-37 D BILI 0.10 mg/dL (Normal) Range: 0.00-0.30 T BILI 0.40 mg/dL (Normal) Range: 0.00-1.00 T PROT 7.1 g/dL (Normal) Range: 6.4-8.2 :58 MG 2.2 mg/dL (Normal) Range: 1.5-2.2 :58 PTT 28.9 s (Normal) Range: 25.2-36.2 :30 MYOCARD PERF SPECT REST/STRESS Radiology Report See Note (Normal) Comments: Exam Number: [id number] STRESS CARDIOLITE STUDY HISTORYThis is a 54-year-old female who presents with recurrent chest pain. TECHNIQUE The patient was injected with 12.2 mCi of Tc99m Car diolite andr esting SPECT images were acquired in the horizontal long, verticallong, and short axes views. The patient subsequently underwent stressusing a Vaibhav protocol and exercised 8 minutes and 31 seconds,reac bulmaro a peak heart rate of 150, which was 90% of maximum predicted.At peak stress, the patient was injected with 34.6 mCi of Ox86hLhzrjlladj and stress SPECT images were acquired in the horizontallong, v ertical long, and short axes views. INTERPRETATIONResting images demonstrate a mild decrease in anterior wall activitywhich is again demonstrated with stress with brightening at endsystole and normal wall motion, likely representing soft tissue/breastattenuation. The remainder of the left ventricle appears to be wellperfused both at rest and with stress. There are no significant fixeddefects to armenta ggest infarct. There were no reversible defectsdeveloping with stress to suggest inducible ischemia. Calculatedejection fraction by gated SPECT imaging was 86%, likelyoverestimated. CONCLUSION1. De crease in anterior wall activity at rest and with stress likelyrepresenting soft tissue/breast attenuation. 2. No significant fixed defects to suggest infarct. 3. No reversible defects developing wi th stress to suggest inducibleischemia. Reported By: NASIR HOBSON M.D. 15-Ogg-653272:53 BILAT SCRN DIGITAL & CAD Radiology Report See Note (Normal) Comments: Exam Number: [id number] MAMMOGRAM, BILATERAL SCREENING DIGITAL AND CAD HISTORYRoutine screening. TECHNIQUEFull field digital images were obtained in mediolateral oblique andcraniocaudal proje ctions. CAD images were reviewed. COMPARISONThe current study is compared to the examinations of Augustnd August of 2007. FINDINGSThere is a mild extent of fibroglandular parenchyma present. There isno skin thickening or retraction, architectural distortion, or clusterof suspicious microcalcifications. There is a small density in theupper outer quadrant of the right breast which is stable. If there isno suspicious palpable abnormality, followup mammogram in 1 year isrecommended. IMPRESSIONThere is no radiographic evidence of malignancy identified. FINAL ASSESSMENTBenign findings. BIRADS Category 2 . A letter regarding these results has been sent to the patient. This interpretation was rendered by a radiologist certified under theMammography Quality Standards Act of 1992 (MQSA). The mammograms w erealso examined with computer-aided detection software ([employer], [employer] Reported By: SANTA PONCE M.D. 09-Xye-33178:41 LIPID CHOL 174 mg/dL (Normal) Comments: <200 mg/dL Desirable 200-240 mg/dL Borderline >240 mg/dL High Risk HDL 58 mg/dL (Normal) Comments: Reference Range HDL <40 mg/dL Low HDL Cholesterol HDL >or= 60 mg/dL High HDL Cholesterol LDL 78 mg/dL (Normal) Range: 0-130 TRIG 188 mg/dL (Normal) Comments: Serum Triglycerides Reference Interval Normal <150 mg/dL Borderline high 150 - 199 mg/dL High 200 - 499 mg/dL Very High > or = 500 mg/dL VLDL 38 mg/dL (Normal) Range: 5-40 :41 TSH 1.11 {uIU/mL} (Normal) Range: 0.34-4.82 :41 VITAMIN B12 307 pg/mL (Normal) Range: 211-911 71-Yeq-485107:55 BILAT SCRN DIGITAL & CAD Radiology Report See Note (Normal) Comments: Exam Number: [id number] BILATERAL SCREENING DIGITAL MAMMOGRAM CLINICAL INFORMATIONRoutine screening. Bilateral digital mammography was performed as a screening exam. Standard CC and MLO views were obtai miller. Comparison is made to previous examinations of May 26, 2004 andAugust 22, 2006. FINDINGSThe overall appearance of the breasts is not significantly changed.There is largely fatty replacement with residual trabecular elementspresent. No suspicious groups of calcifications are seen. There areno areas of spiculation or distortion evident. In both breasts, thereare small densities, more numerous on the right than the left. Theseare thought to be probably not significantly changed as compared tothe previous studies although differences in technique make comparisonsomewhat difficult. Each areas would be considered probably benign. It is suggested that a bilateral study be obtained in 6 months forcomparison and documentation of stability. IMPRESSION1. There are densities bilaterally, as not ed above, which are thoughtto be probably benign and essentially stable, however, differences intechnique are present. It is suggested that a bilateral study beobtained in 6 months to confirm stability of these findings. 2. BIRADS 3, 6-month followup. A letter regarding the results has been sent to the patient. This interpretation was rendered by a radiologist certified underthe Mammography Quality Standards Act of 1992 (MQSA). The mammogramswere also examined with computer- aided detection software([employer] Reported By: IRAIDA BEYER M.D. 57-Flp-904035:54 DEXA BONE DENSITY STUDY () Radiology Report See Note (Normal) Comments: Exam Number: [id number] BONE DENSITOMETRY HISTORYScreening. TECHNIQUE Bone densitometry of the lumbar spine and left hip was performed. Thebest criteria for evaluation of osteoporosis is the T-value whichrepresents the comparison of the patient's bone mass to an expectedpeak bone mass. For most patients, the mean T-value of L1 through L4and the T-value of the total left hip are most useful. FIN DINGSIn this patient, the mean T-value of L1 through L4 is -0.9 which isnormal. Digital lateral view for evaluation of vertebral deformityonly demonstrates no obvious compression fractures. Bone licensing registration examiner aldensity is measured at 7.9% less than in 2003. The T-value of theleft femoral neck is 1. The T-value of the total left hip is 0.9which is normal. Bone mineral density is measured at 10.7% less than in 2003. IMPRESSIONBone densitometry of the lumbar spine and total left hip is withinnormal limits. Reported By: SANTA PONCE M.D. 49-Xnt-612247:20 VITAMIN B12 299 pg/mL (Normal) Range: 211-911 1-Rsg-925373:40 BRAIN/HEAD W/WO CONTRAST Radiology Report See Note (Normal) Comments: Exam Number: [id number] CT BRAIN WITHOUT CONTRAST. REASON FOR EXAMINATIONMental status changes. Confusion. TECHNIQUEContiguous transaxial scans were obtained from skull base to vertexprior to and afte r intravenous administration of ionic contrast. All images were viewed and narrow and wide window settings. COMPARISONNone. FINDINGSCT BRAIN WITHOUT AND WITH CONTRAST REASON FOR EXAM TECHNIQUEContiguo us transverse scans were obtained from the skull base tovertex prior to and after intravenous administration of iodinatedcontrast. All images are viewed at the narrow and wide windowsettings. FINDINGST here is no acute cortical infarct, hemorrhage, or mass. Ventriclesare symmetric and normal in size for age. There is no abnormalextra-axial fluid collection. Paranasal sinuses and mastoid air cells as visualized are clear. Nofocal calvarial abnormality. Mastoid air cells are clear. There is opacification of multipleethmoid air cells bilaterally and mucoperiosteal thickening involvingleft frontal a ir cell and sphenoid air cells. Maxillary sinuses areonly partially included on the study. IMPRESSION1. No acute cortical infarct, hemorrhage, or mass.2. Bilateral ethmoid left frontal and right sp henoid sinusitis. Reported By: LILLIAN POLANCO M.D. :47 Urinalysis, Office ([id number]) UA - BILIRUBIN Negative (Normal) UA - BLOOD Negative (Normal) UA - GLUCOSE Negative (Normal) UA - KETONES Negative mg/dL (Normal) UA - LEUKOCYTE ESTERASE Trace (Normal) UA - NITRITE Negative (Normal) UA - PH 5.0 (Normal) UA - PROTEIN Negative mg/dL (Normal) UA - SPECIFIC GRAVITY 1.025 (Normal) URINE UROBILINGN DIRK TIMED 2 mg/dL (Normal) :24 CBCD BASO% 1.2 % (Abnormal) Range: 0-1 EO% 5.8 % (Abnormal) Range: 0-5 HCT 39.7 % (Normal) Range: 37-47 HGB 13.8 g/dL (Normal) Range: 12.0-16.0 LY% 38.5 % (Normal) Range: 19-41 MCH 30.5 pg (Normal) Range: 27.0-32.0 MCHC 34.8 g/dL (Normal) Range: 32-36 MCV 87.8 fL (Normal) Range: 81-99 MONO% 7.7 % (Normal) Range: 0-10 MPV 7.8 fL (Normal) Range: 6.5-12.0 NEUT% 46.8 % (Abnormal) Range: 47-70 PLT 300 K/mm3 (Normal) Range: 150-450 RBC 4.52 {M/mm3} (Normal) Range: 4.2-5.4 RDW 12.4 % (Normal) Range: 11.6-14.6 WBC 6.5 K/mm3 (Normal) Range: 4.4-11.0 :07 COLON BX P-COLBX (Normal) Comments: OPERATION Colonoscopy w/ bx PRE-OPERATIVE DIAGNOSIS Crohn's TISSUE SUBMITTED Ileocolonic bx, r/o active Crohn's MICROSCOPIC DIAGNOSIS Ileocolonic biopsy: Fragments colonic mucosa with ulceration, associated acute inflammation and granulation tissue reaction. Small intestinal mucosa, no pathologhic diagnosis. SJ: 09/29/06 COMMENT Correlation with clinical and endoscopic findings is necess farideh. Reference is made to the patient's ileocolic anastomosis biopsy ([id number]) with diagnosis of fragments of small intestinal mucosa with ulceration, acute inflammation and granulation tissue re action and focal active inflammation. Reference is also made to the left colon biopsy (same number) with diagnosis of fragments of colonic mucosa, no pathologic diagnosis. GROSS DESCRIPTION Received in formalin labeled with patient name and number and designated ileocolon biopsy are multiple irregular fragments of light lock soft tissue that in aggregate measure 0.3 x 0.3 x 0.1 cm. The specime n is totally submitted in one cassette. / SJ:sherry 09/28/06 TC:2 REPORT SIGNED: JAMISON NETTLES 09/29/0607-Sep-200698-Mpw-356503:01 CBCD BASO% 0.9 % (Normal) Range: 0-1 EO% 4.7 % (Normal) Range: 0-5 HCT 42.3 % (Normal) Range: 37-47 HGB 14.5 g/dL (Normal) Range: 12.0-16.0 LY% 31.8 % (Normal) Range: 19-41 MCH 30.5 pg (Normal) Range: 27.0-32.0 MCHC 34.3 g/dL (Normal) Range: 32-36 MCV 88.8 fL (Normal) Range: 81-99 MONO% 8.3 % (Normal) Range: 0-10 MPV 7.4 fL (Normal) Range: 6.5-12.0 NEUT% 54.3 % (Normal) Range: 47-70 PLT 289 K/mm3 (Normal) Range: 150-450 RBC 4.76 {M/mm3} (Normal) Range: 4.2-5.4 RDW 12.2 % (Normal) Range: 11.6-14.6 WBC 5.4 K/mm3 (Normal) Range: 4.4-11.0 :51 PFLIP CHOL 218 mg/dL (Abnormal) Comments: <200 mg/dL Desirable 200-240 mg/dL Borderline >240 mg/dL High Risk HDL 47 mg/dL (Normal) Comments: Reference Range HDL <40 mg/dL Low HDL Cholesterol HDL >or= 60 mg/dL High HDL Cholesterol LDL 127 mg/dL (Normal) Range: 0-130 TRIG 218 mg/dL (Abnormal) Comments: Serum Triglycerides Reference Interval Normal <150 mg/dL Borderline high 150 - 199 mg/dL High 200 - 499 mg/dL Very High > or = 500 mg/dL VLDL 44 mg/dL (Abnormal) Range: 5-40 24-Vhy-647689:46 CBCD BASO% 0.8 % (Normal) Range: 0-1 EO% 1.4 % (Normal) Range: 0-5 HCT 41.0 % (Normal) Range: 37-47 HGB 14.2 g/dL (Normal) Range: 12.0-16.0 LY% 20.1 % (Normal) Range: 19-41 MCH 30.9 pg (Normal) Range: 27.0-32.0 MCHC 34.7 g/dL (Normal) Range: 32-36 MCV 89.2 fL (Normal) Range: 81-99 MONO% 5.9 % (Normal) Range: 0-10 MPV 7.4 fL (Normal) Range: 6.5-12.0 NEUT% 71.8 % (Abnormal) Range: 47-70 PLT 307 K/mm3 (Normal) Range: 150-450 RBC 4.60 {M/mm3} (Normal) Range: 4.2-5.4 RDW 13.2 % (Normal) Range: 11.6-14.6 WBC 9.6 K/mm3 (Normal) Range: 4.4-11.0 53-Utz-639199:46 LIVER ALB 3.7 g/dL (Normal) Range: 3.4-5.0 ALK P 83 U/L (Normal) Range: 50-136 ALT 34 [iU]/L (Normal) Range: 30-65 AST 22 U/L (Normal) Range: 15-37 D BILI 0.09 mg/dL (Normal) Range: 0.00-0.30 T BILI 0.55 mg/dL (Normal) Range: 0.00-1.00 T PROT 7.0 g/dL (Normal) Range: 6.4-8.2 Plan of Care Name Dates Details Instructions Elevated blood pressure reading : Follow up if no improvement or if symptoms worsen Indication: Elevated blood pressure reading Elevated blood pressure reading : Follow up in [address] Wilson Indication: Elevated blood pressure reading BMI 35.0-35.9,adult : Eprescribed prescriptions (G8553) Indication: BMI 35.0-35.9,adult Osteopenia : Reviewed Diagnostic Tests Indication: Osteopenia Osteopenia : *Bisphosphonate Education Indication: Osteopenia Osteopenia : *Calcium Education (KF) Indication: Osteopenia Chronic GERD : Diet, Exercise, and Wt loss Indication: Chronic GERD Mild coronary artery disease : Follow up in 6 months Indication: Mild coronary artery disease Chronic GERD : GERD Education Indication: Chronic GERD Psoriatic arthropathy : Reviewed Lab Indication: Psoriatic arthropathy Mixed hyperlipidemia : Cholesterol mgmt Indication: Mixed hyperlipidemia Mild coronary artery disease : Reviewed Web Press Operator Assistant Letter Indication: Mild coronary artery disease Depression : Continue Current Prescription(s) Indication: Depression Fatigue : Follow up in 2 weeks Indication: Fatigue Depression : Continue Current Prescription(s) Indication: Depression Fatigue : Reviewed Lab Indication: Fatigue Mixed hyperlipidemia : Cholesterol mgmt Indication: Mixed hyperlipidemia Chronic GERD : GERD Education Indication: Chronic GERD Crohn's disease of ileum : Reviewed Web Press Operator Assistant Letter Indication: Crohn's disease of ileum BMI 33.0-33.9,adult : Eprescribed prescriptions (G8553) Indication: BMI 33.0-33.9,adult Mixed hyperlipidemia : Follow up in 6 months Indication: Mixed hyperlipidemia Crohn's disease of ileum : Reviewed Web Press Operator Assistant Letter Indication: Crohn's disease of ileum Chronic GERD : GERD Education Indication: Chronic GERD Mixed hyperlipidemia : Cholesterol mgmt Indication: Mixed hyperlipidemia Fatigue : Reviewed Lab Indication: Fatigue Fatigue : Follow up in 1 week Indication: Fatigue Fatigue : *fatigue education Indication: Fatigue Anxiety : Follow up in 1 month Indication: Anxiety Acute bacterial conjunctivitis of both eyes : Eprescribed prescriptions ([id number]) Indication: Acute bacterial conjunctivitis of both eyes Psoriatic arthropathy : Follow up in 4 weeks- 30 mins std process appt Indication: Psoriatic arthropathy Fatigue : Follow up in 3 weeks Indication: Fatigue Fibromylgia : Fibromyalgia *: fibromyalgia Indication: Fibromylgia Fibromylgia : Eprescribed prescriptions (G8553) Indication: Fibromylgia Fibromylgia : Follow up in 7-8 weeks Indication: Fibromylgia Fatigue : Follow up in 2 weeks Indication: Fatigue Fatigue : Reviewed Lab Indication: Fatigue Fatigue : Fatigue: fatigue Indication: Fatigue Mild coronary artery disease : Follow up in 6 months Indication: Mild coronary artery disease GERD (gastroesophageal reflux disease) : GERD Education Indication: GERD (gastroesophageal reflux disease) Anxiety : Eprescribed prescriptions (G8553) Indication: Anxiety Acute sinusitis, unspecified : *URI Treatment Indication: Acute sinusitis, unspecified Acute sinusitis, unspecified : *URI Symptoms Indication: Acute sinusitis, unspecified Acute sinusitis, unspecified : *Antibiotic Usage Education - Female Indication: Acute sinusitis, unspecified Depression : Follow up in 2 months Indication: Depression Fatigue : Follow up in 1 week-- rev lab and fu on std process products Indication: Fatigue Fever : Flu (Influenza) *: influenza Indication: Fever BMI 33.0-33.9,adult : Follow up in 1 month Indication: BMI 33.0-33.9,adult GERD (gastroesophageal reflux disease) : GERD Education Indication: GERD (gastroesophageal reflux disease) Psoriatic arthropathy : Reviewed Web Press Operator Assistant Letter Indication: Psoriatic arthropathy Mixed hyperlipidemia : Cholesterol mgmt Indication: Mixed hyperlipidemia Mixed hyperlipidemia : *Cholesterol - Nonprescription Treatment Indication: Mixed hyperlipidemia Rib pain on left side : Reviewed Diagnostic Tests Indication: Rib pain on left side Well woman exam : Mammogram *: mammography Indication: Well woman exam Well woman exam : Self breast exam Indication: Well woman exam Well woman exam : *Colon Cancer Screening Indication: Well woman exam Well woman exam : *Well Female Maintenance (KF) Indication: Well woman exam Well woman exam : Pelvic/Bimanual/Rectal/Breast Exam Indication: Well woman exam Allergic rhinitis : Follow up if no improvement or if symptoms worsen Indication: Allergic rhinitis Fatigue : Follow up in 2 weeks Indication: Fatigue Acute sinusitis, unspecified : *URI Treatment Indication: Acute sinusitis, unspecified Acute sinusitis, unspecified : *URI Symptoms Indication: Acute sinusitis, unspecified Acute sinusitis, unspecified : *Antibiotic Usage Education - Female Indication: Acute sinusitis, unspecified GERD (gastroesophageal reflux disease) : GERD Education Indication: GERD (gastroesophageal reflux disease) Mixed hyperlipidemia : Reviewed Lab Indication: Mixed hyperlipidemia GERD (gastroesophageal reflux disease) : Heartburn *: gerd Indication: GERD (gastroesophageal reflux disease) Depression : Follow up in3 weeks Indication: Depression Conjunctivitis, acute : Follow up in 2 weeks Indication: Conjunctivitis, acute Well woman exam : SELF BREAST EXAM Indication: Well woman exam Well woman exam : *Colon Cancer Screening Indication: Well woman exam Well woman exam : *Well Female Maintenance (KF) Indication: Well woman exam Well woman exam : Pelvic/Bimanual/Rectal/Breast Exam Indication: Well woman exam Other vitamin B12 deficiency anemia : Diet, Exercise, and Wt loss Indication: Other vitamin B12 deficiency anemia GERD (gastroesophageal reflux disease) : GERD Education Indication: GERD (gastroesophageal reflux disease) Abnormal cardiac function test : Reviewed Diagnostic Tests Indication: Abnormal cardiac function test GERD (gastroesophageal reflux disease) : GERD Education Indication: GERD (gastroesophageal reflux disease) Mixed hyperlipidemia : CHOLESTEROL MGMT. Indication: Mixed hyperlipidemia Mixed hyperlipidemia : Cholesterol - Nonprescription Treatment Indication: Mixed hyperlipidemia Mixed hyperlipidemia : Cholesterol - Medication Side Effects Indication: Mixed hyperlipidemia Well woman exam : Colon Cancer Screening Indication: Well woman exam Well woman exam : Self Breast Exam Education Indication: Well woman exam Well woman exam : Shingles Vaccine Education 2005 Indication: Well woman exam GERD (gastroesophageal reflux disease) : GERD Education Indication: GERD (gastroesophageal reflux disease) Well woman exam : Well Female Maintenance (KF) Indication: Well woman exam Well woman exam : Self Breast Exam Education Indication: Well woman exam Well woman exam : Colon Cancer Screening Indication: Well woman exam Well woman exam : Pap/Pelvic/Bimanual/Rectal/Breast Exam was done. Indication: Well woman exam Vitamin D deficiency, unspecified : Reviewed Web Press Operator Assistant Letter Indication: Vitamin D deficiency, unspecified GERD (gastroesophageal reflux disease) : GERD Education Indication: GERD (gastroesophageal reflux disease) Acute sinusitis, unspecified : Antibiotic Usage Education - Female Indication: Acute sinusitis, unspecified Acute sinusitis, unspecified : URI Symptoms Indication: Acute sinusitis, unspecified Acute sinusitis, unspecified : URI treament Indication: Acute sinusitis, unspecified GERD (gastroesophageal reflux disease) : GERD Education Indication: GERD (gastroesophageal reflux disease) Well woman exam : Self Breast Exam Education Indication: Well woman exam Well woman exam : Pelvic/Bimanual/Rectal/Breast Exam Indication: Well woman exam Well woman exam : Well Female Maintenance (KF) Indication: Well woman exam Planned Observations CALCIFIDIOL ([id number]) VIT D 25Indication: Vitamin D deficiency, unspecified On: 85-Ska-046414:54 Request VITAMIN B-12 (CYANOCOBALAMIN) ([id number])Indication: Vitamin B12 deficiency (Renamed from Cobalamin deficiency) On: 70-Pjc-181732:54 Request TSH ([id number])Indication: Mild coronary artery disease On: 79-Mhk-600225:53 Request URINALYSIS, W/ MICRO ([id number])Indication: Mild coronary artery disease On: 30-Rex-902127:53 Request MICROALBUMIN: CREATININE RATIO ([id number]) AND ([id number])Indication: Mild coronary artery disease On: 42-Pxm-445356:53 Request METABOLIC PANEL, COMPREHENSIVE ([id number])Indication: Mild coronary artery disease On: 97-Own-502826:53 Request LIPID PANEL ([id number])Indication: Mixed hyperlipidemia On: 54-Qxn-512785:53 Request CBC W/AUTO DIFF WBC (86504)Indication: Mild coronary artery disease On: :53 Request TSH ([id number])Indication: Mild coronary artery disease On: :41 Request URINALYSIS, W/ MICRO ([id number])Indication: Mild coronary artery disease On: :41 Request MICROALBUMIN: CREATININE RATIO (68038) AND (33809)Indication: Mild coronary artery disease On: :41 Request METABOLIC PANEL, COMPREHENSIVE ([id number])Indication: Mild coronary artery disease On: :41 Request LIPID PANEL ([id number])Indication: Mixed hyperlipidemia On: :41 Request CBC W/AUTO DIFF WBC ([id number])Indication: Mild coronary artery disease On: 88-Dnd-914380:40 Request VITAMIN B-12 (CYANOCOBALAMIN) (03235)Indication: Vitamin B12 deficiency (Renamed from Cobalamin deficiency) On: 50-Osy-163218:40 Request CALCIFEDIOL ([id number])Indication: Vitamin D deficiency, unspecified On: 10-Usr-746201:40 Request VITAMIN B-12 (CYANOCOBALAMIN) ([id number])Indication: Vitamin B12 deficiency (Renamed from Cobalamin deficiency) On: 70-Plq-980722:19 Request Comments: Lot:[id number]:01/05Dose:1mlRoute:IMSite:l arm Given By:AMADO signed CALCIFIDIOL (99156) VIT D 25Indication: Vitamin D deficiency, unspecified On: 83-Tvu-856288:05 Request Comments: do in 4months HgA1C , Office ([id number])Indication: Fatigue On: 53-Vkx-835097:35 Request HEPATIC FUNCTION PANEL ([id number])Indication: Elevated liver enzymes On: 22-Hrf-792440:44 Request CALCIUM, IONIZED ([id number])Indication: Hypercalcemia On: 12-Gqz-176095:44 Request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 at the last visit. Symptoms include eye redness, eye discharge, eye pain and eye itching. Symptoms are located in the left eye and right eye. Onset was s End: 11-Jan-2016 15:32 udden. There is no known event that preceded symptom onset. The symptoms occur constantly. The patient describes this as moderate in severity.Encounter Diagnosis: Anxiety (300.00), Acute bacterial conjunctivitis of both eyes [facility] Office Visit On: 11-Dec-2015 13:41 Encounter Reason: Eye Redness - No changes in management were made at the last visit. Symptoms include eye redness, eye pain, eye itching and eye burning, while symptoms do not include eye discharge. Symptoms are located End: 11-Dec-2015 13:57 in the left eye and right eye. Onset was sudden 1 day(s) ago. There is no known event that preceded symptom onset. The symptoms occur constantly.Encounter Diagnosis: Acute bacterial conjunctivitis of both eyes, Nasal congestion [facility] Office Visit On: 01-Oct-2015 9:57 Encounter Diagnosis: Fatigue (780.79), Fibromylgia, GERD (gastroesophageal reflux disease), Insomnia (780.52) End: 01-Oct-2015 11:16 [facility] Office Visit On: 03-Sep-2015 10:54 Encounter Diagnosis: Fatigue (780.79), Insomnia (780.52), Psoriatic arthropathy End: 03-Sep-2015 12:00 [facility] Office Visit On: 12-Aug-2015 11:16 Encounter Reason: Follow up acute care visit - The patient feeling better since last seen. Patient has been compliant with instructions.Encounter Diagnosis: Fibromylgia, Insomnia (780.52), Fatigue (780.79) End: 12-Aug-2015 13:08 [facility] Office Visit On: 24-Jun-2015 11:43 Encounter Reason: Fatigue - The last clinic visit was 3 month(s) ago. No changes in management were made at the last visit. Symptoms include fatigue and weakness, while symptoms do not include poor sleep. Onset was gradu End: 24-Jun-2015 17:18 al. The symptoms occur constantly. The patient describes this as severe and worsening., [ADDITIONAL REASON] Neck Stiffness - The onset of the neck stiffness has been sudden and has been oc curring in a persistent pattern for 5 days. The course has been worsening. The neck stiffness is described as moderate to severe. Encounter Diagnosis: Fibromylgia, Fatigue (780.79), Depression [facility] Office Visit On: 10-Jun-2015 11:15 Encounter Reason: Follow up tests - Date: (05/06 stress test and labs and also labs scanned into chart)., [ADDITIONAL REASON] Fatigue - The last clinic visit was 3 month(s) ago. No changes in management wer End: 10-Jun-2015 12:11 e made at the last visit. Symptoms include fatigue and weakness, while symptoms do not include poor sleep. Onset was gradual. The symptoms occur constantly. The patient describes this as severe and worsening. , [ADDITIONAL REASON] Neck Stiffness - The onset of the neck stiffness has been sudden and has been occurring in a persistent pattern for 5 days. The course has been worsening. The neck stiffness is described as moderate to severe. Encounter Diagnosis: Fatigue (780.79), Depression, Unspecified vitamin D deficiency (268.9), Fibromylgia, Psoriasis [facility] Office Visit On: 23-Apr-2015 10:13 Encounter Reason: Follow up for chronic medical issues - The patient does not feel well, has decreased energy level and is sleeping poorly. Patient has been non- compliant with instructions. Current medication use: no chelsea End: 23-Apr-2015 12:48 e effects and non-compliant with dosing regimen. Patient sleeps 6 hours per night. Nutrition: inappropriate diet and no supplemental vitamins & iron. The medical issues the patient is following up f or include All identified problems below, depression and fibromyalgia. weight :.Encounter Diagnosis: Depression (311.), Unspecified vitamin D deficiency (268.9), GERD (530.81), Vitamin B12 deficiency anemia (281.1), Anxiety (300.00), NEED FOR PROPHYLACTIC VACCINATION AND INOCULATION AGAINST INFLUENZA (V04.81), Fibromylgia, Chest pain, Mild coronary artery disease [facility] Office Visit On: 10-Jul-2014 14:04 Encounter Reason: Sinusitis/ - The duration of the symptoms are 2 days The course has been constant. The sinusitis/ has no relieving factors. Associated features include The symptoms have been associated with ear pain, n End: 10-Jul-2014 14:52 matilde discharge/stuffy nose and sinus pain.Encounter Diagnosis: Acute sinusitis, unspecified (461.9) [facility] Visit On: 07-Jul-2014 14:08 Encounter Reason: Follow up Meds - The patient feels well with minor complaints, has good energy level and is sleeping well. Patient has been compliant with instructions. Current medication use: no side effects. Patient End: 07-Jul-2014 15:00 sleeps 9 hours per night. Nutrition: balanced diet.Encounter Diagnosis: Depression (311.), Frozen shoulder [facility] Office Visit On: 12-Jun-2014 12:30 Encounter Reason: Follow up Meds - The patient feels well with minor complaints, has good energy level and is sleeping well. Patient has been compliant with instructions. Current medication use: no side effects and compl End: 12-Jun-2014 14:46 iant with dosing regimen. Patient sleeps 6 hours per night. Nutrition: balanced diet., [ADDITIONAL REASON] Follow up tests - Date: (06/02/14 labs). Encounter Diagnosis: Arthralgia (719.4), Anxiety (300.00), Unspecified vitamin D deficiency (268.9), Polycythemia, Hypercalcemia, Elevated liver enzymes [facility] Office Visit On: 03-Jun-2014 11:17 Encounter Reason: Injections - The medication the patient is here to receive is vitamin B12 IM.Encounter Diagnosis: VITAMIN B12 DEFICIENCY (266.9) End: 04-Jun-2014 21:59 [facility] Office Visit On: 02-Jun-2014 13:10 Encounter Reason: Follow up for chronic medical issues - The patient does not feel well, has decreased energy level and is sleeping poorly. Patient has been non- compliant with instructions. Current medication use: no chelsea End: 04-Jun-2014 22:55 e effects and non-compliant with dosing regimen. Patient sleeps 6 hours per night. Nutrition: inappropriate diet and no supplemental vitamins & iron. The medical issues the patient is following up f or include All identified problems below, depression and fibromyalgia. weight :.Encounter Diagnosis: Psoriatic arthropathy (696.0), Mixed hyperlipidemia (272.2), VITAMIN B12 DEFICIENCY (266.9), Unspecified vitamin D deficiency (268.9), Crohn's disease of ileum, Fatigue (780.79), Depression (311.), Neck pain, Frozen shoulder, Muscle cramping [facility] Office Visit On: 31-Oct-2013 10:17 Encounter Reason: Injections - The medication the patient is here to receive is vitamin B12 IM.Encounter Diagnosis: VITAMIN B12 DEFICIENCY (266.9) End: 31-Oct-2013 14:56 [facility] Office Visit On: 18-Jun-2013 11:20 Encounter Reason: Flu Like Symptoms - Symptoms include fever, chills, body aches, runny nose, hoarseness, dry cough and headache. Onset was sudden. There is no known event that preceded symptom onset. The symptoms occur End: 18-Jun-2013 12:20 constantly. The patient describes this as moderate in severity and worsening. Associated symptoms include ear pain, fatigue, fever and chills, while associated symptoms do not include weakness, nausea o r vomiting. The patient is not currently being treated for this problem.Encounter Diagnosis: Fever (780.60), Bronchitis (490), Cough (786.2) [facility] Prescription Refill On: 14-May-2013 12:08 Encounter Diagnosis: SHINGLES,NEED FOR PROPHYLACTIC VACCINATION AND INOCULATION AGAINST (V05.8) End: 14-May-2013 12:10 [facility] Phone Encounter On: 06-May-2013 17:36 Encounter Diagnosis: Unspecified vitamin D deficiency (268.9) End: 06-May-2013 17:39 [facility] Office Visit On: 03-May-2013 7:02 Encounter Reason: Follow up for chronic medical issues - The patient does not feel well (thinks ribs are broken and it hurts), has decreased energy level and is sleeping poorly. Patient has been compliant with instructio End: 03-May-2013 11:06 ns. Current medication use: no side effects and compliant with dosing regimen. Patient sleeps 6 hours per night. Nutrition: inappropriate diet and no supplemental vitamins & iron. The medical issues the patient is following up for include All identified problems below and high blood pressure.Encounter Diagnosis: Depression (311.), GERD (530.81), Rib pain on left side (786.50), VITAMIN B12 DEFICIENCY (266.9), Crohn's disease of ileum (555.0), Mixed hyperlipidemia (272.2), Unspecified vitamin D deficiency (268.9), NEED FOR PROPHYLACTIC VACCINATION AND INOCULATION AGAINST INFLUENZA (V04.81), Psoriatic arthropathy (696.0), BMI 33.0-33.9, ADULT (V85.33) [facility] Office Visit On: 14-Mar-2013 10:32 Encounter Reason: Follow up ER - Reason for hospitalization note: (fall). Patient has been compliant with instructions. Current medication use: no side effects and compliant with dosing regimen. The patient does not feel End: 14-Mar-2013 11:21 well, has decreased energy level and is sleeping poorly. Patient sleeps 4 hours per night. Nutrition: balanced diet.Encounter Diagnosis: Fall (E888.9), Bruising (924.9), Rib pain on left side (786.50) [facility] Office Visit On: 08-Mar-2013 15:09 Encounter Reason: Injections - The medication the patient is here to receive is vitamin B12 IM.Encounter Diagnosis: VITAMIN B12 DEFICIENCY (266.9) End: 11-Mar-2013 11:01 [facility] Office Visit On: 23-Jan-2013 12:07 Encounter Reason: Injections - The medication the patient is here to receive is vitamin B12 IM.Encounter Diagnosis: VITAMIN B12 DEFICIENCY (266.9) End: 23-Jan-2013 12:25 [facility] Office Visit On: 31-Dec-2012 14:22 Encounter Reason: Well Women ExamEncounter Diagnosis: Well Women Exam, No Pap (V72.31) (Mammo), VITAMIN B12 DEFICIENCY (266.9) End: 31-Dec-2012 15:27 [facility] Visit On: 07-Nov-2012 11:43 Encounter Reason: Injections - The medication the patient is here to receive is vitamin B12 IM.Encounter Diagnosis: VITAMIN B12 DEFICIENCY (266.9) End: 07-Nov-2012 16:19 [facility] Office Visit On: 17-Jul-2012 11:32 Encounter Reason: Follow up acute care visit - The patient feeling better since last seen. Patient has been compliant with instructions. Current medication use: no side effects, compliant with dosing regimen and consider End: 17-Jul-2012 11:44 ed effective by patient. Patient sleeps 7 hours per night. Nutrition: balanced diet. The medical issues the patient is following up for include All identified problems below and other (sinusitis, rash).Encounter Diagnosis: Allergic Rhinitis(477.9), Acute sinusitis, unspecified (461.9) [facility] Office Visit On: 29-Jun-2012 14:49 Encounter Reason: Follow up acute care visit - The patient does not feel well and has decreased energy level. The medical issues the patient is following up for include All identified problems below and other (Staph). No End: 29-Jun-2012 15:16 te for Follow up acute care visit: Mi did culture inmy nose said it was staph infection Encounter Diagnosis: Acute sinusitis, unspecified (461.9), Fatigue (780.79) [facility] Nurse Visit On: 17-Apr-2012 14:19 Encounter Reason: Injections - The medication the patient is here to receive is vitamin B12 IM.Encounter Diagnosis: Vitamin B12 deficiency anemia (281.1) End: 17-Apr-2012 16:04 [facility] Office Visit On: 26-Mar-2012 8:45 Encounter Reason: Sinusitis/ - The duration of the symptoms are 4 weeks The course has been worsening. The sinusitis/ are relieved by nothing (claritin, humidifer, netti pot). Associated features include The symptoms hav End: 26-Mar-2012 9:11 e been associated with ear pain (bilatteral pressure), nasal discharge/stuffy nose, sinus pain, swollen lymph glands and teeth pain, while the symptoms have not been associated with cough, purulent rosario al discharge or sore throat. No previous evaluations were reported.Encounter Diagnosis: Acute sinusitis, unspecified (461.9) [facility] Visit On: 07-Mar-2012 14:49 Encounter Reason: Injections - The medication the patient is here to receive is vitamin B12 IM.Encounter Diagnosis: VITAMIN B12 DEFICIENCY (266.9) End: 09-Mar-2012 11:20 [facility] Nurse Visit On: 02-Mar-2012 14:01 Encounter Reason: Injections - The medication the patient is here to receive is vitamin B12 IM.Encounter Diagnosis: Vitamin B12 deficiency anemia (281.1) End: 02-Mar-2012 15:53 [facility] Office Visit On: 15-Feb-2012 11:23 Encounter Reason: Follow up for chronic medical issues - The patient does not feel well, has decreased energy level and is sleeping well. Patient has been compliant with instructions. Current medication use: no side effe End: 15-Feb-2012 13:41 cts and compliant with dosing regimen. Patient sleeps 7 hours per night. Nutrition: balanced diet and supplemental vitamins. The medical issues the patient is following up for include All identified pro blems below, gastric reflux, high blood pressure and high cholesterol.Encounter Diagnosis: GERD (530.81), Unspecified vitamin D deficiency (268.9), Depression (311.), Vitamin B12 deficiency anemia (281.1), Mixed hyperlipidemia (272.2), Obstructive sleep apnea (327.23), Crohn's disease of ileum (555.0), Fatigue (780.79), Psoriatic arthropathy (696.0), Hypotension, unspecified (458.9) [facility] Office Visit On: 02-Nov-2011 11:11 Encounter Reason: Injections - The medication the patient is here to receive is vitamin B12 IM.Encounter Diagnosis: VITAMIN B12 DEFICIENCY (266.9) End: 02-Nov-2011 15:29 [facility] Office Visit On: 16-Sep-2011 11:11 Encounter Reason: Depression - The last clinic visit was 6 month(s) ago. No changes in management were made at the last visit. Symptoms include loss of interest, depressed mood, fatigue, appetite change, poor sleep and i End: 16-Sep-2011 13:24 rritability, while symptoms do not include suicidal ideation, suicide attempt, poor concentration, indecisiveness or anxiety. Onset was gradual month(s) ago. There is no known event that preceded sympto m onset. The symptoms occur constantly. The patient describes this as moderate in severity and worsening.Encounter Diagnosis: Vitamin B12 deficiency anemia (281.1), Depression (311.), Unspecified vitamin D deficiency (268.9), Restless legs syndrome (RLS) (333.94) [facility] Phone Encounter On: 26-Aug-2011 14:20 Encounter Diagnosis: Unspecified vitamin D deficiency (268.9) End: 26-Aug-2011 14:22 [facility] Office Visit On: 25-Aug-2011 11:38 Encounter Reason: Depression - The last clinic visit was 6 month(s) ago. No changes in management were made at the last visit. Symptoms include loss of interest, depressed mood, fatigue, appetite change, poor sleep and i End: 25-Aug-2011 12:11 rritability, while symptoms do not include suicidal ideation, suicide attempt, poor concentration, indecisiveness or anxiety. Onset was gradual month(s) ago. There is no known event that preceded sympto m onset. The symptoms occur constantly. The patient describes this as moderate in severity and worsening.Encounter Diagnosis: Depression (311.) [facility] Office Visit On: 18-Aug-2011 14:08 Encounter Reason: Injections - The medication the patient is here to receive is vitamin B12 IM.Encounter Diagnosis: VITAMIN B12 DEFICIENCY (266.9) End: 18-Aug-2011 14:49 [facility] Office Visit On: 01-Aug-2011 12:01 Encounter Reason: Eye Redness - Symptoms are located in the left eye and right eye. Onset was sudden 4 week(s) ago. There is no known event that preceded symptom onset. The symptoms occur constantly. The patient describe End: 01-Aug-2011 12:23 s this as moderate in severity and unchanged. Associated symptoms include photophobia and lid irritation, while associated symptoms do not include headache or nausea. Presentation included eye redness and photophobia.Encounter Diagnosis: CONJUNCTIVITIS, ACUTE NOS (372.00) [facility] Office Visit On: 09-Mar-2011 11:23 Encounter Reason: Sinusitis/ - The duration of the symptoms are 1 week The course has been worsening. The sinusitis/ has no relieving factors. Associated features include The symptoms have been associated with ear pain ( End: 09-Mar-2011 12:21 bilatteral), nasal discharge/stuffy nose, sinus pain, sore throat and teeth pain, while the symptoms have not been associated with cough. No previous evaluations were reported.Encounter Diagnosis: VITAMIN B12 DEFICIENCY (266.9), Acute sinusitis, unspecified (461.9) [facility] Office Visit On: 07-Dec-2010 13:00 Encounter Reason: Injections - The medication the patient is here to receive is vitamin B12 IM.Encounter Diagnosis: Vitamin B12 deficiency anemia (281.1) End: 07-Dec-2010 13:03 [facility] Office Visit On: 03-Nov-2010 9:36 Encounter Reason: Well Women Exam - The patient feels well with minor complaints, has good energy level and is sleeping well. Pap smear: date of last pap: (2 yrs). Contraceptive history: The patient is not using any meth End: 03-Nov-2010 11:02 od of contraception at this time. The patient reports that she performs monthly self breast exam. The patient denies the use of oral contraceptives or hormone replacement therapy.Encounter Diagnosis: Well Women Exam, No Pap (V72.31) (Mammo) [facility] Office Visit On: 27-Oct-2010 11:15 Encounter Reason: Follow up for chronic medical issues - The patient feels well with minor complaints, has decreased energy level and is sleeping well. Patient has been compliant with instructions. Current medication use End: 27-Oct-2010 13:04 : no side effects, experiencing side effects (vit cause her to feel sick) and compliant with dosing regimen. Patient sleeps 7 hours per night. Nutrition: balanced diet and no supplemental vitamins & iron. The medical issues the patient is following up for include All identified problems below, depression and high blood pressure. blood pressure range :.Encounter Diagnosis: Anxiety (300.00), Arthralgia (719.4), GERD (530.81), Vitamin B12 deficiency anemia (281.1), Screening for hyperlipidemia (V77.91), Family history of diabetes mellitus (V18.0) [facility] Office Visit On: 22-Jul-2009 11:56 Encounter Reason: Follow up, Diagnostic Procedure Results - Date: (07/17/09 stress test). Encounter Diagnosis: Abnormal Cardiac Test (794.30), Chest pain (786.59) End: 22-Jul-2009 12:34 [facility] Office Visit On: 15-Jul-2009 8:05 Encounter Reason: Follow up for chronic medical issues - The patient feels well with minor complaints ,has decreased energy level and is sleeping well. Patient has been compliant with instructions. Current medication use End: 15-Jul-2009 10:47 : no side effects and compliant with dosing regimen. Patient sleeps 6 hours per night. Nutrition: balanced diet and supplemental vitamins. The medical issues the patient is following up for include All identified problems below ,gastric reflux and high cholesterol. Encounter Diagnosis: Chest pain (786.59), Mixed hyperlipidemia (272.2), GERD (530.81), Regional enteritis of large intestine (555.1), Vitamin B12 deficiency anemia (281.1), Depression (311.) [facility] Office Visit On: 01-Oct-2008 11:13 Encounter Reason: Well Women Exam - The patient does not feel well ,has decreased energy level and is sleeping poorly. Pap smear: date of last pap: (?). Contraceptive history: The patient is not using any method of contr End: 01-Oct-2008 11:37 aception at this time. Patient does not exercise. The patient reports that she performs monthly self breast exam. Calcium intake includes 1200 mg daily supplment. Previous evaluations: hysterectomy. The patient denies the use of oral contraceptives or hormone replacement therapy. Encounter Diagnosis: Well Women Exam, No Pap (V72.31) (Mammo) [facility] Nurse Visit On: 23-Jun-2008 13:25 Encounter Reason: Injections - The medication the patient is here to receive is vitamin B12 IM. history: Patient is not currently . Encounter Diagnosis: Vitamin B12 deficiency anemia (281.1) End: 23-Jun-2008 13:30 [facility] Office Visit On: 02-Jun-2008 14:06 Encounter Reason: Injections - The medication the patient is here to receive is vitamin B12 IM. Encounter Diagnosis: Vitamin B12 deficiency anemia (281.1) End: 02-Jun-2008 14:36 [facility] Office Visit On: 20-May-2008 13:37 Encounter Diagnosis: Vitamin B12 deficiency anemia (281.1) End: 20-May-2008 14:05 [facility] Nurse Visit (Non-[place]) On: 13-May-2008 12:59 Encounter Diagnosis: Vitamin B12 deficiency anemia (281.1) End: 13-May-2008 20:05 [facility] Office Visit On: 10-Apr-2008 13:18 Encounter Reason: Follow up for chronic medical issues - The patient feels well with minor complaints ,has good energy level and is sleeping well. Patient has been compliant with instructions. Current medication use: no End: 10-Apr-2008 14:48 side effects and compliant with dosing regimen. Patient sleeps 7 hours per night. Nutrition: balanced diet and supplemental vitamins. The medical issues the patient is following up for include All identified problems below and high blood pressure. Encounter Diagnosis: Vaginal Dryness (623.8), Mixed hyperlipidemia (272.2), GERD (530.81), Seborrheic dermatitis, unspecified (690.10), Vitamin B12 deficiency anemia (281.1), Anxiety (300.00), Depression (311.) [facility] Office Visit On: 26-Mar-2008 13:01 Encounter Reason: Skin changes - The onset of the skin changes has been sudden and they have been occurring in a persistent pattern for 1 months. The course has been constant. The skin changes are described as moderate. Encounter Diagnosis: End: 26-Mar-2008 13:42 Seborrheic dermatitis, unspecified (690.10), Eczema (692.9) [facility] Office Visit On: 07-Feb-2008 8:41 Encounter Reason: Follow up Meds - The patient does not feel well. Patient has been compliant with instructions. Current medication use: experiencing side effects (I get up and eat in the middle of the night and I don't End: 07-Feb-2008 9:27 realize that I did it. I cant remember anything. This all started since I have been on the sleeping med. I always feel like I am in a fog.). Encounter Diagnosis: Insomnia (780.52), GERD (530.81) [facility] Historical Summary On: 08-Nov-2007 13:00 [facility] End: 08-Nov-2007 13:01 Office Visit On: 27-Aug-2007 12:52 Encounter Reason: Well Women Exam - The patient feels well with minor complaints ,has decreased energy level and is sleeping poorly. Pap smear: date of last pap: (1 year ago). Contraceptive history: The patient is not us End: 27-Aug-2007 13:18 ing any method of contraception at this time. Patient does not exercise. The patient reports that she performs monthly self breast exam. Calcium intake includes 1200 mg daily supplment. Previous evaluat ions: hysterectomy (1992). The patient denies the use of oral contraceptives or hormone replacement therapy. Encounter Diagnosis: Well Women Exam, No Pap (V72.31) (Mammo), CROHN'S DISEASE OF ILEUM (555.0) [facility] Office Visit On: 01-Aug-2007 14:19 Encounter Diagnosis: Vitamin B12 deficiency anemia (281.1) End: 01-Aug-2007 15:11 [facility] Office Visit On: 24-Jul-2007 11:16 Encounter Diagnosis: Vitamin B12 deficiency anemia (281.1) End: 24-Jul-2007 11:40 [facility] Office Visit On: 19-Jul-2007 8:32 Encounter Reason: Follow up, Diagnostic Procedure Results - Diagnostic tests include ECHO. Date: (07-09-07). , [ADDITIONAL REASON] Follow up, Laboratory Test Results - Date: (07-02-07). Encounter Diagnosis: Vitamin B12 deficiency anemia (281.1), End: 19-Jul-2007 12:57 Unspecified vitamin D deficiency (268.9), Insomnia (780.52), Confusion(298.9), Anxiety (300.00) [facility] Office Visit On: 17-May-2007 13:34 Encounter Reason: Follow up for chronic medical issues - The patient feels well with minor complaints ,has decreased energy level and has good energy level. Patient has been compliant with instructions. Current medicatio End: 17-May-2007 14:05 n use: no side effects and compliant with dosing regimen. Patient sleeps 6 hours per night. Nutrition: balanced diet and supplemental vitamins. The medical issues the patient is following up for include All identified problems below ,depression and gastric reflux. Encounter Diagnosis: CROHN'S DISEASE OF ILEUM (555.0), Confusion(298.9), Transient visual loss (368.12), GERD (530.81), Arthralgia (719.4), Depression (311.), Vitamin B12 deficiency anemia (281.1) [facility] Office Visit On: 30-Apr-2007 16:37 Encounter Diagnosis: Dysuria (788.1) End: 30-Apr-2007 16:56 [facility] Office Visit On: 13-Oct-2006 14:14 Encounter Reason: Sinusitis/ - The duration of the symptoms are 2 days The course has been increasing. The sinusitis/ has no relieving factors. Associated features include The symptoms have been associated with nasal dis End: 13-Oct-2006 14:54 charge/stuffy nose (green) ,sinus pain ,sore throat and teeth pain. Encounter Diagnosis: Acute sinusitis, unspecified (461.9) [facility] Historical Summary On: 28-Sep-2006 15:42 [facility] End: 28-Sep-2006 15:46 Office Visit On: 23-Aug-2006 8:36 Encounter Reason: Follow up Hypertension - The patient has experienced follow up hypertension for years. The symptoms have been associated with family history of hypertension, while the symptoms have not been associated End: 23-Aug-2006 21:59 with anxiety ,excessive caffeine intake ,kidney disease or obesity. , [ADDITIONAL REASON] Follow up for chronic medical issues - The patient feels well with minor complai nts (has a cold congestion having a problem with sleep unable to sleep feels more depressed). Patient has been compliant with instructions. Current medication use: no side effects (the ambien cr is ok f or the two nights is fine then by the third night has slurred speech and does not feel well). Patient sleeps 5 hours per night. Impact of disease: emotional impact-severe. Nutrition: balanced diet. The medical issues the patient is following up for include All identified problems below ,depression ,gastric reflux and other (crohns disease, allergies, eczema). , [ADDITIONAL REASON] Follow up Meds - The patient feels well with minor complaints. Patient has been compliant with instructions. Current medication use: experiencing side effects (ambien makes her feel sedated and has slurred speech on it -- its like it doesnt wear off). Impact of disease: emotional impact-moderate (if does not sleep-- her depresssion gets worse). Nutrition: balanced diet. Encounter Diagnosis: GERD (530.81), Insomnia (780.52), Depression (311.) [facility] Office Visit On: 09-Aug-2006 11:10 Encounter Reason: Well Women Exam - The patient feels well with minor complaints (has the begnings of a cold and sore throat). Pap smear: date of last pap:. Patient does not exercise. The patient's libido is normal. The End: 09-Aug-2006 12:03 patient reports that she performs monthly self breast exam. Calcium intake includes 1500 mg daily supplement. Previous evaluations: hysterectomy (she still has her ovaries). Encounter Diagnosis: Depression (311.), Well Women Exam, No Pap (V72.31) (Mammo), Vitamin B12 deficiency anemia (281.1) [facility] Historical Summary On: 02-Aug-2006 13:16 [facility] End: 02-Aug-2006 13:31 Agustina LEONARDO/[employer]; a guarantor
--- OUTSIDE RECORDS SUMMARY | 2018-09-18 22:02 | XMS RPT_ITS ---
:1955 Author Organization OHIP Support Name Relationship Address Phone ABY ARAGON Unavailable [address] + [place] [address] WOOBR Unavailable [address] [place] [address] ABY ARAGON Unavailable [address] + [place] [address] WOOBR Unavailable [address] [place] [address] ABY ARAGON Unavailable [address] + [place] [address] WOOBR Unavailable [address] [place] [address] ABY ARAGON Unavailable [address] + [place] [address] WOOBR Unavailable [address] [place] [address] ABY ARAGON Unavailable [address] + [place] [address] WOOBR Unavailable [address] [place] [address] ABY ARAGON Unavailable [address] + [place] [address] WOOBR Unavailable [address] [place] [address] ABY ARAGON Unavailable [address] + [place] [address] WOOBR Unavailable [address] [place] [address] ABY ARAGON Unavailable [address] + [place] [address] WOOBR Unavailable [address] + [address] [place] [address] ABY ARAGON B Unavailable [address] + [place] [address] WOOBR Unavailable [address] + [address] [place] [address] ABY ARAGON B Unavailable [address] + [place] [address] WOOBR Unavailable [address] + [address] [place] [address] ABY ARAGON B Unavailable Unavailable + WOOBR Unavailable [address] + [address] [place] [address] ABY ARAGON B Unavailable [address] + [place] [address] WOOBR Unavailable [address] [place] [address] Care Team Providers Name Role Phone Katie, Yuki Primary Care Unavailable Newton Ruiz Attending Unavailable ALYCE PERRY Attending Unavailable ALYCE PERRY Referring Unavailable Katie, Yuki Primary Care Unavailable Moodashley, Srinath Attending Unavailable Moodispaw, Srinath Referring Unavailable Katie, Yuki Primary Care Unavailable ALYCE PERRY Attending Unavailable ALYCE PERRY Referring Unavailable Katie, Yuki Primary Care Unavailable Katie, Yuki Attending Unavailable Katie, Yuki Primary Care Unavailable ALYCE PERRY Attending Unavailable ALYCE PERRY Referring Unavailable Katie, Yuki Primary Care Unavailable ALYCE PERRY Consulting Unavailable Moodispaw, Srinath Attending Unavailable Moodispaw, Srinath Referring Unavailable Katie, Yuki Primary Care Unavailable ALYCE PERRY Referring Unavailable ALYCE PERRY Attending Unavailable Katie, Yuki Primary Care Unavailable Referred, Self Attending Unavailable Katie, Yuki Primary Care Unavailable Patrica Hooper Attending Unavailable Nae Velasco AUTOMOBILE CONTRACT CLERK-C Attending Unavailable Nae Velasco AUTOMOBILE CONTRACT CLERK-C Referring Unavailable Katie, Yuki Primary Care Unavailable ALYCE PERRY Attending Unavailable ALYCE PERRY Referring Unavailable [facility] Primary Care Unavailable PROBLEMS PROBLEMS DATE TYPE CONDITION / CODE ATTENDING STATUS SOURCE 08/15/2018 Unknown K50.90 - Crohn's ALYCE PERRY Active [place] disease, unspecified, Community without complications Hospital / K50.90(ICD-10) Repository 08/15/2018 Unknown R94.5 - Abnormal ALYCE PERRY Active [place] results of liver Community function studies / Hospital R94.5(ICD-10) Repository 08/15/2018 Unknown R93.5 - Abnormal ALYCE PERRY Active [place] findings on Community diagnostic imaging of Hospital other abdominal Repository regions, including retroperitoneum / R93.5(ICD-10) 08/15/2018 Unknown L40.9 - Psoriasis, ALYCE PERRY Active [place] unspecified / Community L40.9(ICD-10) Hospital Repository 03/05/2018 Unknown K21.9 - ALYCE PERRY Active [place] Gastro-esophageal [facility] reflux disease Hospital without esophagitis / Repository K21.9(ICD-10) 03/28/2018 Unknown 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 mammogram for Hospital malignant neoplasm of Repository breast / Z12.31(ICD-10) 10/25/2017 Unknown Z78.0 - Asymptomatic Katie, Active [place] menopausal state / [facility] Z78.0(ICD-10) Hospital Repository 10/09/2017 Unknown M75.41 - Impingement ALYCE PERRY Active [place] syndrome of right [facility] shoulder / Hospital M75.41(ICD-10) Repository 10/09/2017 Unknown S46.111A - Strain of ALYCE PERRY Active [place] muscle, fascia and Community tendon of [facility], right arm, Repository initial encounter / S46.111A(ICD-10) 10/25/2017 Unknown R07.9 - Chest pain, Moodispaw, Srinath Active [place] unspecified / Community R07.9(ICD-10) Hospital Repository PROCEDURES PROCEDURES No Procedure Records FoundRESULTS RESULTS ABDOMEN LIMITED Observed: 08/16/2018 Status: F Source: [place] 9:09 AM [facility] REPOSITORY [facility] Imaging Services [address] [place] [address] Abdomen Limited MR#: [id number] Acct: [id number] Name: VICKY ARAGON Rep #: [id number] : 1955 F 63 From: Malcolm Rock MD PCP: Yuki Wilson DO Status: REG CLI Study: Abdomen Limited Date of Exam: 08/16/18 Exam# [id number] Ordering Dr: GREG APPIAH STUDY: ABDOMINAL ULTRASOUND - RIGHT UPPER QUADRANT REASON FOR VISIT: Female, 63 years old. Abnormal liver enzymes. TECHNIQUE: Ultrasound evaluation of the right upper quadrant was performed with real-time and static king-scale imaging. TECHNICAL QUALITY: Adequate. COMPARISON: CT scan 08/03/2018. FINDINGS: Liver: The liver measures 15.7 cm. There is increased echogenicity consistent with fatty infiltration. The bile ducts are within normal limits. There is hepatic color flow. The direction of portal flow is hepatopetal. There is no demonstrated mass lesion. Gallbladder: Normal distended gallbladder. The gallbladder wall measures 4 mm. There is a negative sonographic Horner's sign. There is no pericholecystic fluid. There are no gallstones. Common Bile Duct (C.B.D.): The common bile duct measures 4 mm. Pancreas: Normal size of the head, body and tail of the pancreas. There is normal echogenicity of the pancreas. There is no demonstrated pancreatic mass or cyst. Right Kidney: Normal size of the right kidney. The right kidney measures 9.2 cm. Normal renal cortex. The right cortex measures 1.2 cm. There is no demonstrated renal mass or cyst. There is no right hydronephrosis. US/Abdomen Limited IMPRESSION: Thickened gallbladder wall, fatty liver, otherwise negative. Electronically Signed: Malcolm Rock MD at 11:45 EST , Service support , CC: Yuki Wilson DO; GREG APPIAH Per Diem Nurse: Signed CALPROTECTIN, STOOL Collected: 08/15/2018 Status: F Source: [place] 9:00 AM [facility] REPOSITORY TYPE CODE TESTS RESULT OUT OF REFERENCE UNITS RANGE LAB L7000.0700 0-120 ug/g Calprotectin Normal ST <16 Result Comment: Concentration Interpretation Follow-Up <16 - 50 ug/g Normal None >50 -120 ug/g Borderline Re-evaluate in 4-6 weeks >120 ug/g Abnormal Repeat as clinically indicated Performed at: - [facility] [id number] Paint Sprayer Sandblaster: Charlotte Burger MD, Phone: [phone] Performed By: #### L7000.0700 #### [facility] (refer to report for specific site) refer to report for address and phone number CBC W/DIFF, AUTOMATED Collected: 08/15/2018 Status: F Source: [place] 7:40 AM [facility] REPOSITORY TYPE CODE TESTS RESULT OUT OF RANGE REFERENCE UNITS LAB L100.1000 4.4-11.0 K/mm3 Normal WBC 6.0 LAB L100.1200 4.2-5.4 M/mm3 Normal RBC 5.04 LAB L100.1300 12.0-15.0 g/dl Normal HGB 15.0 LAB L100.1400 37-47 % Normal HCT 45.4 LAB L100.1500 81-99 fL Normal MCV 90.1 LAB L100.1600 27.0-32.0 pg Normal MCH 29.8 LAB L100.1700 32-36 g/gl Normal MCHC 33.0 LAB L100.1810 11.6-14.6 % Normal RDW CV 12.5 LAB L100.1820 35.1-43.9 fl Normal RDW SD 41.1 LAB L100.1900 150-450 K/mm3 Normal PLT 266 LAB L100.2000 6.2-12.0 fl Normal MPV 10.3 LAB L100.2100 47-70 % Low NEUT% 40.9 LAB L100.2200 19-41 % High LY% 45.1 LAB L100.2300 0-10 % Normal MONO% 8.4 LAB L100.2400 0-5 % Normal EO% 4.2 LAB L100.2500 0-1 % High BASO% 1.2 LAB L100.2550 0.0-0.9 % Normal IM GRAN % 0.200 Result Comment: IG% - Immature Granulocytes (promyelocytes, myelocytes and metamyelocytes) > 1% indicates that a LEFT SHIFT is Present. LAB L100.2620 2.0-7.7 X10 3/uL Normal Absolute Neut 2.4 LAB L100.2720 0.83-4.51 X10 3/ul Normal Absolute Lymph 2.69 Performed By: #### L100.0100 #### [facility] [address] [place], [address] COMPREHENSIVE METABOLIC Collected: 08/15/2018 Status: F [facility] 7:40 AM [facility] REPOSITORY TYPE CODE TESTS RESULT OUT OF RANGE REFERENCE UNITS LAB L501.0100 74-106 mg/dL Normal GLU 89 Result Comment: Please note revised GLUCOSE reference range effective 2017. LAB L501.1000 7-18 mg/dL Normal BUN 11 LAB L501.1100 0.55-1.02 mg/dL Normal CREAT,SERUM 0.67 Result Comment: The validity of the calculated GFR AND GFRAA in patients over 70 years has not been determined. Clinical correlation is essential. LAB L501.1110 >60 mL/min Normal EST GFR 94 Result Comment: Non- GFR Calc LAB L501.1115 >60 mL/min Normal EST GFR - AA 114 Result Comment: GFR Calc LAB L501.1300 10-20 RATIO Normal BUN/CRE 16.4 LAB L501.1500 6.4-8.2 g/dL T Normal PROT 7.4 LAB L501.1800 3.2-5.0 g/dL Normal ALB 3.5 LAB L501.1950 2.2-4.2 g/dL Normal GLOB 3.9 LAB L501.2000 0.9-2.4 RATIO Normal A/G 0.9 LAB L501.2200 8.5-10.1 mg/dL CA Normal 9.6 LAB L501.4100 15-37 U/L Normal AST 22 LAB L501.4305 45-117 U/L Normal ALK P 91 LAB L501.4405 13-56 U/L Normal ALT 32 LAB L501.4600 0.20-1.00 mg/dL T Normal BILI 0.40 LAB L501.5300 136-145 mmol/L NA Normal 140 LAB L501.5600 3.5-5.1 mmol/L K Normal 4.3 LAB L501.5900 98-107 mmol/L CL Normal 107 LAB L501.6100 21.0-32.0 mmol/L Normal CO2 25.0 LAB L501.6200 5-15 Normal GAP 8 Performed By: #### L500.4050 #### [facility] Laboratory [address] [facility] [place], [address] 12 LEAD ELECTROCARDIOGRAM Observed: 08/08/2018 Status: F Source: [place] 3:35 PM [facility] REPOSITORY [facility] Cardiovascular Services [address] [place] [address] 12 Lead EKG 08/03/18 0825 MR#: [id number] Acct: [id number] Name: VICKY ARAGNO Rep #: [id number] : 1955 63 From: Rodney Barrios MD Attending Dr: Status: DEP ER Ordering Dr: Newton Ruiz MD Date: 08/03/18 Location: ED Sex: F C Admitted: Test Reason : CHEST PAIN Blood Pressure : / mmHG Vent. Rate : 100 BPM Atrial Rate : 100 BPM P-R Int : 150 ms QRS Dur : 086 ms QT Int : 372 ms P-R-T Axes : 050 029 053 degrees QTc Int : 479 ms Normal sinus rhythm Normal ECG Confirmed by RODNEY BARRISO MD ([id number]), story editor SEVEN SCHMIDT ([id number]) on 08/08/2018 3:35:07 PM Referred By: DC Confirmed By:RODNEY BARRIOS MD 08/08/18 1535 Date Rodney Barrios MD CC: Newton Ruiz MD; Yuki Wilson DO Signed EMERGENCY DEPARTMENT Observed: 08/03/2018 Status: F Source: [place] SUMMARY 4:14 PM [facility] REPOSITORY [facility] Medical Records Department [address] [place] [address] Emergency Department Summary 08/03/18 0849 MR#: [id number] Acct: [id number] Name: VICKY ARAGON Rep #: [id number] : 1955 63 From: Newton Ruiz MD PCP: Yuki Wilson DO Status: DEP ER - ER Visit Summary Date of Service: 08/03/18 Chief Complaint: Chest pain History of Present Illness: The patient is a 63 F with chest pain that the patient noticed this morning when getting ready for work. The pain has been constant. It feels like a pressure and she has noted palpitations. The pain started to radiate down to her left groin after about an hour and a half. She never had this before. Denies any other abdominal pains or GI symptoms. Denies any urinary symptoms. Denies any respiratory symptoms. No recent illnesses. No history of heart disease, PE, or dissection. She had a stress test about a year ago that she says was normal. She had a cath a long time ago that she said was okay. Non-smoker. Physical Examination: Blood pressure 196/83 and heart rate 105. Otherwise vitals unremarkable. Afebrile. Alert and oriented. No acute distress. Skin appears normal. Heart regular. Lungs clear. Abdomen soft and nontender. Back is nontender. Extremities unremarkable. No edema. No tenderness. Test Results: EKG showed sinus rhythm at a rate of 100. No sign of acute ischemia or infarction pattern. Laboratory studies and urinalysis pending. We will also check CTA to evaluate her aorta. Emergency Department Course and Treatment: Patient was placed on a monitor. She declined pain medicine. Will hold aspirin at this point as we evaluate her aorta. Will recheck her blood pressure. Hemoglobin 15.8, otherwise CBC normal. BUN 20 otherwise metabolic panel normal. Urinalysis unremarkable. Troponin normal. CT showed no evidence of PE or dissection. I reevaluated the patient. Her blood pressure was 149/77. She had a mild pain still. I do not believe this is angina or ACS. She is low risk. She had a stress test within approximately the past year. It was unremarkable. Symptoms are very atypical. I explained that we could repeat her troponin or EKG. She declined. I believe this is reasonable. I believe she is appropriate for outpatient follow-up. She will check in with her doctor. She will use jskq-bnb-notsatl remedies for pain. Return if she has difficulty following up or has any new or different symptoms. Treatment Plan: As above Disposition: Discharge Impression: 1. Chest wall pain This note was generated with [employer] dictation software. It may contain incorrect words, spelling, and punctuation that were not noted in review of the chart prior to signing ED Disposition - Plan for ED Patient: Chief Complaint: Chest Pain Referrals: Yuki Wilson, [Primary Care Provider] - What to do if you have Problems For any increased pain, shortness of breath, bleeding, nausea or vomiting, chest pain, or any unexpected problems, contact your Primary Care Provider. Call [facility] ([phone]) or report to the closest Emergency Room. Call 911 if necessary. 08/03/18 1614 <Electronically signed by Newton Ruiz MD> Date Newton Ruiz MD Cosigner Signature (If Indicated): Date CC: Yuki Wilson DO DISCHARGE INSTRUCTION Observed: 08/03/2018 Status: F Source: [place] 4:14 PM [facility] REPOSITORY [facility] Medical Records Department [address] [place] [address] Discharge Instruction 08/03/18 1007 MR#: [id number] Acct: [id number] Name: VICKY ARAGON Rep #: [id number] : 1955 63 From: Newton Ruiz MD PCP: Yuki Wilson DO Status: DEP ER ED Disposition - Plan for ED Patient: Chief Complaint: Chest Pain Instructions: ED Chest Pain Atypical Unkn Cause Referrals: Yuki Wilson, [Primary Care Provider] - What to do if you have Problems For any increased pain, shortness of breath, bleeding, nausea or vomiting, chest pain, or any unexpected problems, contact your Primary Care Provider. Call [facility] ([phone]) or report to the closest Emergency Room. Call 911 if necessary. 08/03/18 1614 <Electronically signed by Newton Ruiz MD> Date Newton Ruiz MD Cosigner Signature (If Indicated): Date CC: Yuki Wilson DO URINALYSIS, COMPLETE Collected: 08/03/2018 Status: F Source: [place] 9:05 AM [facility] REPOSITORY Order Comment: How was Urine Obtained? SENIOR AUDITOR TO SPECIFY TYPE CODE TESTS RESULT OUT OF RANGE REFERENCE UNITS LAB L400.3000 Yellow COLOR Normal Yellow LAB L400.3050 Clear Normal CLARITY Clear LAB L400.3200 Normal mg/dl Normal GLUCOSE, UR Normal LAB L400.3300 Negative mg/dL Normal BILIRUBIN URINE Negative LAB L400.3400 Negative mg/dl Normal KETONE UR Negative LAB L400.3465 1.002-1.030 Normal SP.GR. DIPSTX 1.020 LAB L400.3550 5.0 - 8.0 pH UR Normal 6.0 LAB L400.3600 Negative mg/dl PROT Normal DIPSTX Negative LAB L400.3700 Normal mg/dl Normal UROBILI Normal LAB L400.3750 Negative Normal NITRITE UR Negative LAB L400.3780 Negative /ul Normal OCCULT BLOOD-UR Negative LAB L400.3800 Negative /ul High LEUK ESTERASE 100 LAB L400.4050 0-5 /hpf WBC Normal 0-5 SEEN LAB L400.4100 0-5 /hpf 0 Normal RBC-UA SEEN LAB L400.4150 5-10 /hpf SQUAM 0 Normal EPI SEEN LAB L400.4300 None Seen /hpf 0 Normal BACTERIA SEEN LAB L400.4350 <or=2+ /hpf 0 Normal MUCUS, URINE SEEN Performed By: #### L400.0001 #### [facility] Laboratory [address] [facility] [place], [address] CTA ABDOMEN W/WO Observed: 08/03/2018 Status: F Source: [place] CONTRAST 8:47 AM [facility] REPOSITORY [facility] Imaging Services [address] [place] [address] CTA Abdomen W/WO Contrast MR#: [id number] Acct: [id number] Name: VICKY ARAGON Rep #: [id number] : 1955 F 63 From: Bryson Oliver MD PCP: Yuki Wilson DO Status: REG ER Study: CTA Abdomen W/WO Contrast Date of Exam: 08/03/18 Exam# [id number] Ordering Dr: Newton Ruiz MD STUDY: CTA CHEST REASON FOR EXAM: Female, 63 years old. Left-sided chest pain with radiation. History of aortic dissection. RADIATION DOSAGE (If Supplied By Facility): CTDIvol = ( 15.56 ) mGy, DLP = ( 1158.50 ) mGycm TECHNIQUE: The examination was performed with the intravenous administration of 75 ml of Isovue 370 contrast material. Post-processing of the angiographic images was performed, with multiplanar reformation and 3D reconstruction. Individualized dose optimization techniques were used for this CT. COMPARISON: None. FINDINGS: Small benign-appearing bilateral axillary lymph nodes. Normal enhancement of the main pulmonary artery and right and left pulmonary arteries. Normal enhancement of the bilateral peripheral pulmonary arteries. There is no demonstrated pulmonary embolism. Normal thoracic aorta and visualized great vessels. There is no demonstrated aortic dissection. Normal heart and pericardium. There are visualized mediastinal lymph nodes, which are within normal size limits, and with normal morphology. Normal hilar regions. Normal visualized trachea and bronchi. The lungs are well expanded. Normal pulmonary parenchyma. Normal pleura. Normal chest wall structures. Normal osseous structures. Fatty infiltration of the liver. CT/CTA Abdomen W/WO Contrast IMPRESSION: Normal CTA chest examination, without a demonstrated pulmonary embolism or arterial dissection. Electronically Signed: Bryson Oliver MD at 9:47 EST Tel [phone], Service support , CC: Newton Ruiz MD; Yuki Wilson DO Per Diem Nurse: Signed CTA CHEST W/WO Observed: 08/03/2018 Status: F Source: [place] CONTRAST 8:47 AM [facility] REPOSITORY [facility] Imaging Services [address] [place] [address] CTA Chest W/WO Contrast MR#: [id number] Acct: [id number] Name: VICKY ARAGON Rep #: [id number] : 1955 F 63 From: Bryson Oliver MD PCP: Yuki Wilson DO Status: REG ER Study: CTA Chest W/WO Contrast Date of Exam: 08/03/18 Exam# [id number] Ordering Dr: Newton Ruiz MD STUDY: CTA CHEST REASON FOR EXAM: Female, 63 years old. Left-sided chest pain with radiation. History of aortic dissection. RADIATION DOSAGE (If Supplied By Facility): CTDIvol = ( 15.56 ) mGy, DLP = ( 1158.50 ) mGycm TECHNIQUE: The examination was performed with the intravenous administration of 75 ml of Isovue 370 contrast material. Post-processing of the angiographic images was performed, with multiplanar reformation and 3D reconstruction. Individualized dose optimization techniques were used for this CT. COMPARISON: None. FINDINGS: Small benign-appearing bilateral axillary lymph nodes. Normal enhancement of the main pulmonary artery and right and left pulmonary arteries. Normal enhancement of the bilateral peripheral pulmonary arteries. There is no demonstrated pulmonary embolism. Normal thoracic aorta and visualized great vessels. There is no demonstrated aortic dissection. Normal heart and pericardium. There are visualized mediastinal lymph nodes, which are within normal size limits, and with normal morphology. Normal hilar regions. Normal visualized trachea and bronchi. The lungs are well expanded. Normal pulmonary parenchyma. Normal pleura. Normal chest wall structures. Normal osseous structures. Fatty infiltration of the liver. CT/CTA Chest W/WO Contrast IMPRESSION: Normal CTA chest examination, without a demonstrated pulmonary embolism or arterial dissection. Electronically Signed: Bryson Oliver MD at 9:47 EST Tel [phone], Service support , CC: Newton Ruiz MD; Yuki Wilson DO Per Diem Nurse: Signed CBC W/DIFF, AUTOMATED Collected: 08/03/2018 Status: F Source: [place] 8:27 AM [facility] REPOSITORY TYPE CODE TESTS RESULT OUT OF RANGE REFERENCE UNITS LAB L100.1000 4.4-11.0 K/mm3 Normal WBC 7.9 LAB L100.1200 4.2-5.4 M/mm3 Normal RBC 5.08 LAB L100.1300 12.0-15.0 g/dl High HGB 15.8 LAB L100.1400 37-47 % Normal HCT 45.6 LAB L100.1500 81-99 fL Normal MCV 89.8 LAB L100.1600 27.0-32.0 pg Normal MCH 31.1 LAB L100.1700 32-36 g/gl Normal MCHC 34.6 LAB L100.1810 11.6-14.6 % Normal RDW CV 12.9 LAB L100.1820 35.1-43.9 fl Normal RDW SD 42.2 LAB L100.1900 150-450 K/mm3 Normal PLT 278 LAB L100.2000 6.2-12.0 fl Normal MPV 10.4 LAB L100.2100 47-70 % Low NEUT% 41.0 LAB L100.2200 19-41 % High LY% 45.8 LAB L100.2300 0-10 % Normal MONO% 9.2 LAB L100.2400 0-5 % Normal EO% 3.0 LAB L100.2500 0-1 % Normal BASO% 0.9 LAB L100.2550 0.0-0.9 % Normal IM GRAN % 0.100 Result Comment: IG% - Immature Granulocytes (promyelocytes, myelocytes and metamyelocytes) > 1% indicates that a LEFT SHIFT is Present. LAB L100.2620 2.0-7.7 X10 3/uL Normal Absolute Neut 3.2 LAB L100.2720 0.83-4.51 X10 3/ul Normal Absolute Lymph 3.62 Performed By: #### L100.0100 #### [facility] Laboratory [address] [place], [address] BASIC METABOLIC Collected: 08/03/2018 Status: F Source: [place] PROFILE (BMP) 8:27 AM [facility] REPOSITORY TYPE CODE TESTS RESULT OUT OF RANGE REFERENCE UNITS LAB L501.0100 74-106 mg/dL Normal GLU 89 Result Comment: Please note revised GLUCOSE reference range effective 2017. LAB L501.1000 7-18 mg/dL High BUN 20 LAB L501.1100 0.55-1.02 mg/dL Normal CREAT,SERUM 0.74 Result Comment: The validity of the calculated GFR AND GFRAA in patients over 70 years has not been determined. Clinical correlation is essential. LAB L501.1110 >60 mL/min Normal EST GFR 85 Result Comment: Non- GFR Calc LAB L501.1115 >60 mL/min Normal EST GFR - AA 102 Result Comment: GFR Calc LAB L501.1255 ml/min Normal Estimated CRCL 72.85 LAB L501.1300 10-20 RATIO High BUN/CRE 27.1 LAB L501.2200 8.5-10 mg/dL Normal .1 CA 9.3 LAB L501.5300 136-14 mmol/L Normal 5 NA 139 LAB L501.5600 3.5-5. mmol/L Normal 1 K 4.0 LAB L501.5900 98-107 mmol/L Normal CL 105 LAB L501.6100 21.0-3 mmol/L Normal 2.0 CO2 27.0 LAB L501.6200 5-15 Normal GAP 7 Performed By: #### L500.2500, L501.4010 #### [facility] Laboratory [address] [place], [address] TROPONIN-I Collected: 08/03/2018 Status: F Source: [place] 8:27 AM [facility] REPOSITORY TYPE CODE TESTS RESULT OUT OF RANGE REFERENCE UNITS LAB L501.4010 <0.045 ng/mL Normal < 0.015 TROPONIN-I Result Comment: TROPONIN-I EXPECTED VALUES <0.045 Negative 0.045 - 0.590 Consistent with Cardiac Damage > OR = 0.600 Critical Value Not every elevated troponin is indicative of [place]. These values should be used with clinical judgement in examining the patient's clinical picture for diagnosis. To establish a diagnosis of [place] versus myocardial injury, there must be a demonstrated rise and/or fall in the troponin values, in addition to ischemic symptoms, EKG changes, new regional wall motion abnormality, and/or angiographical evidence. PLEASE NOTE: REFERENCE RANGES EDITED 18 Performed By: #### L500.2500, L501.4010 #### [facility] [facility] [address] [place], [address] CBC W/DIFF, AUTOMATED Collected: 03/05/2018 Status: F Source: [place] 9:53 AM [facility] REPOSITORY TYPE CODE TESTS RESULT OUT OF RANGE REFERENCE UNITS LAB L100.1000 4.4-11.0 K/mm3 Normal WBC 6.0 LAB L100.1200 4.2-5.4 M/mm3 Normal RBC 5.26 LAB L100.1300 12.0-15.0 g/dl High HGB 16.0 LAB L100.1400 37-47 % High HCT 48.1 LAB L100.1500 81-99 fL Normal MCV 91.4 LAB L100.1600 27.0-32.0 pg Normal MCH 30.4 LAB L100.1700 32-36 g/gl Normal MCHC 33.3 LAB L100.1810 11.6-14.6 % Normal RDW CV 14.4 LAB L100.1820 35.1-43.9 fl High RDW SD 46.6 LAB L100.1900 150-450 K/mm3 Normal PLT 253 LAB L100.2000 6.2-12.0 fl Normal MPV 10.8 LAB L100.2100 47-70 % Normal NEUT% 49.3 LAB L100.2200 19-41 % Normal LY% 37.7 LAB L100.2300 0-10 % Normal MONO% 9.7 LAB L100.2400 0-5 % Normal EO% 2.3 LAB L100.2500 0-1 % Normal BASO% 1.0 LAB L100.2550 0.0-0.9 % Normal IM GRAN % 0.000 Result Comment: IG% - Immature Granulocytes (promyelocytes, myelocytes and metamyelocytes) > 1% indicates that a LEFT SHIFT is Present. LAB L100.2620 2.0-7.7 X10 3/uL Normal Absolute Neut 3.0 LAB L100.2720 0.83-4.51 X10 3/ul Normal Absolute Lymph 2.26 Performed By: #### L100.0100 #### [facility] [place], [place], [address] COMPREHENSIVE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 Mitral Valve There is mild to moderate mitral annular calcification. Extension of the mitral annular calcification onto the posterior mitral valve leaflet. Trivial mitral valve insufficiency. Tricuspid Valve Normal tricuspid valve. Trivial tricuspid valve insufficiency. Right ventricular systolic pressure estimated to be 22 mmHg. Aortic Valve Trisinus/trileaflet aortic valve. Mild focal aortic valve calcification. Pulmonic Valve The pulmonic valve is not well visualized. Great Vessels Normal sized aortic root. Pericardium/Pleural No pericardial effusion. Medication Definity0.2ml given slow IV push to enhance endocardial definition. MMode/2D Measurements AND Calculations LVIDd: 4.0 cm IVSd: 1.1 cm Ao root diam: 2.7 cm LVIDs: 3.0 cm LVPWd: 1.1 cm LA dimension: 3.8 cm RVDd: 2.8 cm FS: 25.1 % LAV(MOD-bp): 49.0 ml LA A4 area: 17.4 cm2 RA A4 area: 13.7 cm2 LAV(MOD-bp) Indexed: 24.3 ml/m2 LAV(MOD-sp2): 52.5 ml LAV(MOD-sp4): 45.1 ml Doppler Measurements AND Calculations MV E max christian: 70.6 cm/sec Lat Peak E' Christian: 9.3 cm/sec Med Peak E' Christian: 9.0 cm/sec MV A max christian: 100.5 cm/sec E/E' lat: 7.6 E/E' med: 7.8 MV E/A: 0.70 Ao V2 max: 157.5 cm/sec LV V1 max: 118.4 cm/sec PA V2 max: 130.3 cm/sec Ao max P.9 mmHg LV V1 max P.6 mmHg TR max christian: 220.4 cm/sec TR max P.4 mmHg Interpretation Summary The study was technically difficult. Contrast injection was performed. Left ventricular systolic function is normal. The estimated ejection fraction is 65 %. Sigmoid septum. The left atrium is mildly enlarged. There is mild to moderate mitral annular calcification. Extension of the mitral annular calcification onto the posterior mitral valve leaflet. Trivial mitral valve insufficiency. Trivial tricuspid valve insufficiency. Mild focal aortic valve calcification. Right ventricular systolic pressure estimated to be 22 mmHg. Transmitral doppler flow suggestive of impaired relaxation of left ventricle Ordering Physician: Srinath Conteh Referring Physician: Srinath Conteh Performed By: Bhumi Pineda, LIBRADO, RVT 09/19/17 1531 Date Srinath Conteh MD CC: Yuki Wilson DO; Srinath Conteh MD Date Dictated: 09/19/17 0945 Date Transcribed: 09/19/17 1532 Per Diem Nurse: Signed ALLERGIES ALLERGIES DATE TYPE / CODE NAME / CODE REACTION SEVERITY SOURCE Miscellaneous anti inflammatory Crohns Unknown Gene 8 Allergy/[id number]( medication Disease [facility]) Hospital Repository ENCOUNTERS ENCOUNTERS ADMIT/DISCHARGE ACCOUNT ADMITTING ENCOUNTER LOCATION SOURCE NUMBER CLASS 08/16/2018 [id number] Ambulatory Gene Gene 5 [facility] ing:US Repository 08/15/2018 [id number] Ambulatory Gene [place] 5 [facility] ing:LAB Repository 08/09/2018 [id number] Ambulatory Gene [place] 5 [facility] ing:MASS Repository 08/03/2018/ [id number] Emergency [place] Gene 8 0 [facility] ing:ED Repository 03/05/2018 [id number] Ambulatory Gene Gene 6 [facility] ing:MTLAB Repository 02/01/2018/ [id number] Ambulatory Gene [place] 8 9 [facility] ing:PT Repository 01/17/2018 [id number] Ambulatory Mangum Mangum 7 [facility] ing:MTLAB Repository 01/16/2018/ [id number] Emergency Gene Gene 8 1 [facility] ing:ED Repository 10/25/2017 [id number] Ambulatory Mang[place] Mangum 2 [facility] ing:BD Repository 10/09/2017 [id number] Ambulatory Gene [place] 8 [facility] ing:MRI Repository 09/19/2017 [id number] Ambulatory Gene [place] 9 [facility] ing:CVS Repository 09/19/2017 [id number] Ambulatory BMSBuilding:W [place] 3 [facility] Repository PAYERS PAYERS ENCOUNTER GUARANTOR PAYER SUBSCRIBER SOURCE 08/16/2018 VICKY S Primary VICKY S [place] [id number] Insurance:ANTHEMPolic SNYDERDOB: [facility] y Number: [id number] [id number] Repository [address]Ihk: ([phone]) Date:5175-82-35AN [phone] () [id number] AGUILLON [address]OF: 08/16/2018 Secondary NOT GIVENUNK Gene Insurance:SELF PAY [facility] Number: Effective Repository Date:2018-08-09 08/15/2018 VICKY S Primary VICKY S [place] [id number] Insurance:ANTHEMPolic SNYDERDOB: [facility] y Number: [id number] [id number] Repository [address]47[address]Bde: ([phone]) Date:4541-71-85FA [phone] () [id number], [place] [address]ER: 08/15/2018 Secondary NOT GIVENUNK Gene Insurance:SELF PAY [facility] Number: Effective Repository Date:2018-08-15 08/09/2018 VICKY S Primary NOT GIVENUNK [place] [id number] Insurance:SELF PAY [place] Number: Effective Repository [phone]: (330) Date:2017-11-30 [facility]-5710 () 08/03/2018 VICKY S Primary VICKY S Gene [id number] Insurance:ANTHEMPolic SNYDERDOB: [facility] y Number: [id number] [id number] Repository [address]Prv: (330) Date:9029-79-46GB [phone] () [id number] AGUILLON [address]YS: 08/03/2018 Secondary NOT GIVENUNK [place] Insurance:SELF PAY [facility] Number: Effective Repository Date:2018-08-03 03/05/2018 VICKY S Primary VICKY S [place] [id number] Insurance:ANTHEMPolic SNYDERDOB: [facility] y Number: [id number] [id number] Repository [address]Xzm: (330) Date:5765-42-60IC [phone] () [id number] AGUILLON [address]IR: 03/05/2018 Secondary NOT GIVENUNK Gene Insurance:SELF PAY [facility] Number: Effective Repository Date:2018-03-05 02/01/2018 VICKY S Primary VICKY Majano Mangum [id number] Insurance:ANTHEMPolic SNYDERDOB: [facility] y Number: [id number] [id number] Repository 150[address]Zdx: (330) Date:6760-46-12AT [phone] () [id number] [place] [address]HS: 02/01/2018 Secondary NOT GIVENUNK [place] Insurance:SELF PAY [facility] Number: Effective Repository Date:2017-11-14 01/17/2018 VICKY S Primary VICKY S [place] [id number] Insurance:ANTHEMPolic SNYDERDOB: [facility] y Number: [id number] [place] [id number] Repository [address]16[address]Zqn: ([phone]) Date:1930-29-03GM BOX [facility]0615 () [id number] [place] [address]JE: 01/17/2018 Secondary NOT GIVENUNK [place] Insurance:SELF PAY [facility] Number: Effective Repository Date:2018-01-17 01/16/2018 VICKY S Primary VICKY S Gene [id number] Insurance:ANTHEMPolic SNYDERDOB: [facility] y Number: [id number] [id number] Repository [address]Idv: ([phone]) Date:0527-74-98WU [phone] () [id number] [place] [address]WO: 01/16/2018 Secondary NOT GIVENUNK Mang[place] Insurance:SELF PAY [facility] Number: Effective Repository Date:2018-01-16 10/25/2017 VICKY S Primary VICKY S [place]um [id number] Insurance:ANTHEMPolic SNYDERDOB: [facility] y Number: [id number] [place] [id number] Repository [address]Iqr: (330) Date:3130-25-26BH [phone] () [id number] AGUILLON [address]SN: 10/25/2017 Secondary NOT GIVENUNK [place] Insurance:SELF [facility] Effective Repository Date:2017-09-18 10/09/2017 VICKY S Primary VICKY S Gene [id number] Insurance:ANTHEMPolic SNYDERDOB: [facility] y Number: [id number] [place] [id number] Repository [address]Qjv: (330) Date:7941-68-00OT [phone] () [id number] AGUILLON [address]YR: 10/09/2017 Secondary NOT GIVENUNK Mang[place] Insurance:SELF PAY [facility] Number: Effective Repository Date:2017-10-03 09/19/2017 VICKY S Primary VICKY S Gene [id number] Insurance:ANTHEMPolic SNYDERDOB: [facility] y Number: [id number] [place] [id number] Repository [address]Cfh: (330) Date:9121-02-25VC [phone] () [id number] AGUILLON [address]LF: 09/19/2017 Secondary NOT GIVENUNK Mangum Insurance:SELF PAY [facility] Number: Effective Repository Date:2017-08-30 09/19/2017 VICKY S Primary VICKY S Mangum [id number] Insurance:ANTHEMPolic SNYDERDOB: [facility] y Number: [id number] [place], [place] [id number] Repository [address]Rqn: (330) Date:5019-56-56TM [phone] () [id number] AGUILLON [address]DH: 09/19/2017 Secondary NOT GIVENUNK Gene Insurance:SELF PAY [facility] Number: Effective Repository Date:2017-09-19
== END 2018-08-03 10:14 | disposition home or self-care (01) ==
PROVIDERS: Emergency Provider Emergency Medicine; Family Provider Internal Medicine; PCP Internal Medicine
DX: R07.89 Other chest pain (principal); R10.32 Left lower quadrant pain; R00.2 Palpitations; K50.90 Crohn's disease, unspecified, without complications; L40.9 Psoriasis, unspecified
CPT/HCPCS: 71275; 74175; 80048; 81001; 84484; 85025; 93005; 96360; 99284; J7030; Q9967; A4216

== ENCOUNTER → 2018-08-15 07:34 | Outpatient (CLI) | payer BC, SELFPAY ==
[2018-08-03 08:19] VITALS: BMI 34.2
[2018-08-15 09:03] LABS: Absolute Lymphocyte Count 2.69 X10^3/ul (0.83-4.51); Absolute Neutrophil Count 2.4 X10^3/uL (2.0-7.7); Basophil# 0.07 X10^3/uL; Basophil% 1.2 % (0-1); Eosinophil# 0.25 X10^3/uL; Eosinophils% 4.2 % (0-5); Hematocrit 45.4 % (37-47); Lymphocyte # 2.69 X10^3/ul (4.0); Lymphocyte % 45.1 % (19-41); Mean Corpuscular Hgb 29.8 pg (27.0-32.0); Mean Corpuscular Volume 90.1 fL (81-99); Mean Platelet Vol. 10.3 fl (6.2-12.0); Monocyte% 8.4 % (0-10); Neutrophil # 2.44 X10^3/uL (2.7-7.7); Neutrophil % 40.9 % (47-70); Platelet Count 266 K/mm3 (150-450); RBC Distribution Width CV 12.5 % (11.6-14.6); RBC Distribution Width SD 41.1 fl (35.1-43.9); Red Blood Count 5.04 M/mm3 (4.2-5.4)
[2018-08-15 09:08] LABS: POSITIVE COUNT NO; POSITIVE DIFFERENTIAL NO; POSITIVE MORPHOLOGY NO
[2018-08-15 09:42] LABS: ALB/GLOB Ratio 0.9 RATIO (0.9-2.4); AST(SGOT) 22 U/L (15-37); Alanine Aminotransfer ALT/SGPT 32 U/L (13-56); Albumin, Serum 3.5 g/dL (3.2-5.0); Alkaline Phosphatase 91 U/L (45-117); Anion Gap 8 (5-15); BUN 11 mg/dL (7-18); BUN/Creat Ratio 16.4 RATIO (10-20); Calcium,Total 9.6 mg/dL (8.5-10.1); Chloride 107 mmol/L (98-107); Creatinine, Serum 0.67 mg/dL (0.55-1.02); EST Glomerular Filtration Rate 94 mL/min (>60); Est Glom Filt Rate - Afr Amer 114 mL/min (>60); Globulin 3.9 g/dL (2.2-4.2); Glucose 89 mg/dL (74-106); Potassium 4.3 mmol/L (3.5-5.1); Protein, Total 7.4 g/dL (6.4-8.2); Sodium Level 140 mmol/L (136-145)
[2018-08-19 12:57] LABS: Calprotectin, Stool <16 ug/g (0-120)
== END ==
PROVIDERS: Family Provider Internal Medicine; PCP Internal Medicine
DX: K50.90 Crohn's disease, unspecified, without complications (principal); R94.5 Abnormal results of liver function studies; R93.5 Abnormal findings on diagnostic imaging of other abdominal regions, including retroperitoneum; L40.9 Psoriasis, unspecified
CPT/HCPCS: 36415; 80053; 83993; 85025

== ENCOUNTER → 2018-08-16 09:03 | Outpatient (CLI) | payer BC, SELFPAY ==
[2018-08-03 08:19] VITALS: BMI 34.2
--- NOTE | 2018-08-16 09:08 | US_ITS ---
STUDY: ABDOMINAL ULTRASOUND - RIGHT UPPER QUADRANT REASON FOR VISIT: Female, 63 years old. Abnormal liver enzymes. TECHNIQUE: Ultrasound evaluation of the right upper quadrant was performed with real-time and static king-scale imaging. TECHNICAL QUALITY: Adequate. COMPARISON: CT scan 08/03/2018. FINDINGS: Liver: The liver measures 15.7 cm. There is increased echogenicity consistent with fatty infiltration. The bile ducts are within normal limits. There is hepatic color flow. The direction of portal flow is hepatopetal. There is no demonstrated mass lesion. Gallbladder: Normal distended gallbladder. The gallbladder wall measures 4 mm. There is a negative sonographic Horner's sign. There is no pericholecystic fluid. There are no gallstones. Common Bile Duct (C.B.D.): The common bile duct measures 4 mm. Pancreas: Normal size of the head, body and tail of the pancreas. There is normal echogenicity of the pancreas. There is no demonstrated pancreatic mass or cyst. Right Kidney: Normal size of the right kidney. The right kidney measures 9.2 cm. Normal renal cortex. The right cortex measures 1.2 cm. There is no demonstrated renal mass or cyst. There is no right hydronephrosis. US/Abdomen Limited IMPRESSION: Thickened gallbladder wall, fatty liver, otherwise negative. Electronically Signed: Malcolm Rock MD at 11:45 EST , Service support ,
== END ==
PROVIDERS: Family Provider Internal Medicine; PCP Internal Medicine
DX: R93.5 Abnormal findings on diagnostic imaging of other abdominal regions, including retroperitoneum (principal); K50.90 Crohn's disease, unspecified, without complications; R94.5 Abnormal results of liver function studies; L40.9 Psoriasis, unspecified
CPT/HCPCS: 76705

== ENCOUNTER → 2019-02-01 | Outpatient (CLI) | payer BC, SELFPAY ==
--- NOTE | 2019-02-01 12:02 | BI_ITS ---
MAMMOGRAPHY - BILATERAL SCREENING REASON FOR EXAM: Female, 64 years old. Routine annual screening examination. PERTINENT HISTORY: Sister with breast cancer. TECHNIQUE: Digital bilateral breast jelly (3D mammographic acquisition) in the CC and MLO projections. 2-D mediolateral oblique (MLO) and craniocaudad (CC) views of both breasts were obtained. CAD: Full Field Digital Mammography with Computer Added Detection was performed. COMPARISON: Comparison is made with prior study dated October 25, 2017 and September 07, 2016. FINDINGS: Breast Composition: The breasts are almost entirely fatty. There are no dominant masses or suspicious calcifications. Stable 6 mm well-defined nodule in the upper outer portion of the right breast. No other significant abnormalities are identified. There has been no significant change since the prior study. BI/SCREEN MAMM (CAD) W/JELLY BILAT IMPRESSION: Stable bilateral screening mammogram. Yearly follow-up mammogram recommended. (A) ASSESSMENT CATEGORY: BIRADS Category 2: Benign. A letter regarding these results will be sent to the patient by the facility within 30 days. Approximately 10% of breast cancers are not detected by mammography. A normal mammogram should not delay biopsy of a clinically suspicious abnormality. [id number] Electronically Signed: Bryson Oliver, at 14:24 EDT , Service support ,
== END | disposition home or self-care (01) ==
LOC: OPBI 11:59
PROVIDERS: Family Provider Internal Medicine; PCP Internal Medicine; Referring Provider Internal Medicine; Visit Provider Internal Medicine
DX: Z12.31 Encounter for screening mammogram for malignant neoplasm of breast (principal)
CPT/HCPCS: 77063; 77067

== ENCOUNTER → 2019-03-20 | Outpatient (CLI) | payer BC, SELFPAY ==
--- NOTE | 2019-03-20 17:30 | MRI_ITS ---
STUDY: MRI RIGHT ELBOW REASON FOR EXAM: Female, 64 years old. Tennis elbow. Lateral epicondylitis. TECHNIQUE: Standardized fat and water weighted pulse sequences were obtained in all 3 orthogonal planes. COMPARISON: None. FINDINGS: There is a small volume joint effusion of the radio-capitellum articulation. Normal radial collateral ligamentous complex. There is a tendinosis of the common extensor tendon origin with a partial deep surface tear, series 6 images 07/10 and 08/09. There is adjacent lateral epicondylar edema. Normal ulnotrochlear articulation. Normal ulnar collateral ligamentous complex. Normal common flexor tendon. The cubital tunnel is normal, with a normal ulnar nerve. Normal biceps tendon and distal insertion. Normal lacertus fibrosis. Normal brachialis musculotendinous insertion. Normal triceps tendon and teno-osseous insertion. Normal olecranon process. The visualized distal humerus, proximal radius, and ulna are normal. The visualized muscles of the distal arm and proximal forearm are normal. The soft tissue structures are unremarkable. MRI/Upper Ext Joint Only(Routine) IMPRESSION: Tendinosis with partial tear of the common extensor tendon. Electronically Signed: Sheldon Murdock MD at 20:14 EDT , Service support ,
== END | disposition home or self-care (01) ==
LOC: MRI 16:55
PROVIDERS: Family Provider Internal Medicine; PCP Internal Medicine
DX: M77.11 Lateral epicondylitis, right elbow (principal)
CPT/HCPCS: 73221

== ENCOUNTER 2019-04-17 18:30 | Outpatient (RCR) | payer BC, SELFPAY ==
--- NOTE | 2019-04-17 15:30 | HP.PTEVAL ---
Patient's Visit Information VICKY ARAGON is a 64 year old F referred to Physical Therapy by MONIQUE MARTINEZ with a diagnosis of R lateral epicondylitis. Date of Evaluation: 04/05/19 Physical Therapist: Ellis Ospina DPT - Visit Plan Frequency: 1-2x /Week Duration: 4-6 Weeks Plan: Start with DN to lateral epicondyle, light wrist extensor stretching, progressing to eccentric loading. Pt. has minimal pain right now and would like to hold off on PT and see if the injection it self calms her symptoms. Pt. to call back to PT if needed. - Subjective Findings: Pt. is here today for her initial evaluation with diagnosis of R elbow lateral epicondylitis. Pt. reports having increased pain for months. Pt. had a recent injection and is no longer having any pain. Pt. reports no pain currently, but was having increased pain with gripping, lifting, and work duties. Pt. had trialed a counterforce brace, but was not giving her the relief she had expected. Pt. is pleased with her recent injection and reduction in symptoms. 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 Pt. is hopeful to maintain the reduction in her symptoms in order to complete all work and recreational activities without limtations. - Pain R lateral epicondyle Pain Intensity (Out of 10): 0 Pain Intensity Range: 0, 4 - Objective POSTURE: Pt. had slight FH posture and rounded shoulders. Pt. had normal elbow positoning. PALPATION: Pt. has no tenderness at lateral epicondyle or throuhgout R elbow. Pt. reports this would have been sore previously. NEURO: normal throughout. ROM: Pt. has full R elbow ROm without increase in symptoms. MMT: R wrist- extension 4+/5 mild increase NW,flexion 5/5 NE, elbow- sup- 5/5 NE, Pro- 5/5 NE, flexion/ext 5/5 NE. Pt. has equal financial assistant strength at 35-40#ea/. 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 - Special Tests R Elbow Valgus Stress Test - MCL Instability: Negative R Elbow Varus Stress Stest - MCL Instability: Negative R Elbow Lat Epiconylitis - as named: Negative Comments: Pt. had slight tenderness with lat epidonyle test - Goals Goal 1:: Pt. to be I with HEP. Goal Time Frame: 4-6 Weeks Goal 2:: Pt. to have no pain with all gripping, lifting, like motions. Goal Time Frame: 4-6 Weeks Goal 3:: Pt. to sleep throughout the night wihtout increase in symptoms. Goal Time Frame: 4-6 Weeks Goal 4:: Pt. to complete all work activities without increase in symptoms. Goal Time Frame: 4-6 Weeks Goal 5:: Pt. to have increased R elbow and wrist strength by 1/2 grade throughout effected musculature. Goal Time Frame: 4-6 Weeks - Rehabilitation Potential Physical Therapy Diagnosis: Pt. has signs and symptoms of lateral epicondylitis, but reduced symptoms. Pt. has overall reduced symptoms since her recent injection. Pt. has minimal weakness with mild increase in symptoms with special testing. Rehabilitation Potential: Excellent - Anticipated Interventions Patient/Client Instruction: Educate patient on: Condition, Plan of Care, Benefits of Fitness Program For the Purpose of:: To improve decision making, To facilitate caregiver knowledge, To improve self management, To prevent re-injury, To improve ability to perform tasks related to life management, To improve tolerance to ADL's Therapeutic Exercise to Include: Strength training, Power training, Postural training, Flexibilty training, Passive ROM, Active ROM For the Purpose of:: To decrease swelling/inflammation, To increase ROM, To increase oxygenation perfusion, To improve muscle performance and motor function, To improve health of tissue, To decrease soft tissue restriction Manual Therapy Techniques to Include: Functional dry needling, Soft tissue mobilization For the Purpose of:: To decrease pain, To decrease swelling/inflammation, To increase ROM Ultrasound (thermal/non thermal): Yes For the Purpose of:: To decrease pain, To decrease swelling/inflammation, To increase ROM Thank you for the opportunity to evaluate your patient. For Medicare and Medicare HMO plans, please review the plan of care and approve it. It will need to be FAXED BACK to us at [phone] for Medicare purposes. For Medicare only, by signing this I certify the plan of care. Please let me know if there are questions or concerns regarding this plan of care. Physician Signature: Date:
--- NOTE | 2019-09-24 08:27 | HP.PT.NRP ---
HP - Discharge Summary (1) - Patient Information VICKY ARAGON was seen in my office for initial evaluation on 04/05/19. The following Plan of Care was established for this patient: Initial Frequency: 1-2x /Week Initial Duration: 4-6 Weeks - Anticipated Interventions Patient/Client Instruction: Educate patient on: Condition, Plan of Care, Benefits of Fitness Program For the Purpose of:: To improve decision making, To facilitate caregiver knowledge, To improve self management, To prevent re-injury, To improve ability to perform tasks related to life management, To improve tolerance to ADL's Therapeutic Exercise to Include: Strength training, Power training, Postural training, Flexibilty training, Passive ROM, Active ROM For the Purpose of:: To decrease swelling/inflammation, To increase ROM, To increase oxygenation perfusion, To improve muscle performance and motor function, To improve health of tissue, To decrease soft tissue restriction Manual Therapy Techniques to Include: Functional dry needling, Soft tissue mobilization For the Purpose of:: To decrease pain, To decrease swelling/inflammation, To increase ROM Ultrasound (thermal/non thermal): Yes For the Purpose of:: To decrease pain, To decrease swelling/inflammation, To increase ROM This patient was last seen in our office 04/17/19. Pertinent comments regarding their Physical therapy will appear below: Pt. was seen for her lateral epicondylitis. Pt. was doign well and was to follow up with PT if needed. Pt. has not been seen in several months and will be DC from PT at this point in time. At this point I will be discontinuing this patient from physical therapy. I would be happy to see this patient again in the future if found appropriate by the physician. Thank you! Ellis Ospina, GAYET
== END 2019-04-17 19:00 | disposition home or self-care (01) ==
LOC: PT 18:30
PROVIDERS: Family Provider Internal Medicine; PCP Internal Medicine
DX: M77.11 Lateral epicondylitis, right elbow (principal)
CPT/HCPCS: 97035; 97110; 97161

== ENCOUNTER → 2019-06-17 09:19 | Outpatient (CLI) | payer BC, SELFPAY ==
--- NOTE | 2019-06-17 09:24 | CT_ITS ---
STUDY: CT BRAIN WITHOUT CONTRAST REASON FOR EXAM: Female, 64 years old. Hypertension. RADIATION DOSAGE (If Supplied By Facility): CTDIvol = ( 44.99 ) mGy, DLP = ( 812.98 ) mGycm TECHNIQUE: Transaxial CT imaging of the brain was performed without administration of intravenous contrast material. Individualized dose optimization techniques were used for this CT. COMPARISON: No relevant priors. FINDINGS: Normal soft tissue structures. Normal calvarium. Normal size ventricles and extra-axial spaces for the patient's age. Normal white matter tracts of the cerebral hemispheres. Normal basal ganglia and thalami. Normal brainstem. Normal cerebellum. There is no intracranial hemorrhage. There are no findings of an acute ischemic infarction. Partial opacification of the left maxillary sinus as well as the ethmoid sinuses. Small air-fluid level in the right sphenoid sinus. CT/Brain/Head without Contrast IMPRESSION: Normal unenhanced CT scan of the brain. Sinusitis. Electronically Signed: Bryson Oliver, at 10:22 EDT , Service support ,
== END ==
PROVIDERS: Family Provider Internal Medicine; PCP Internal Medicine; Referring Provider Internal Medicine; Visit Provider Internal Medicine
DX: I16.0 Hypertensive urgency (principal)
CPT/HCPCS: 70450

== ENCOUNTER 2019-08-25 05:53 | Emergency (ER) | payer BC, SELFPAY ==
[2019-08-25 05:54] VITALS: BP 165/63; PULSE 105; RESP 16; TEMP 37.2; O2SAT 97; BMI 33.5
[2019-08-25 05:56] VITALS: BP 165/63; PULSE 105; RESP 16; TEMP 37.2; O2SAT 97
--- NOTE | 2019-08-25 06:12 | EKG12_ITS ---
Test Reason : GEN ILLNESS Blood Pressure : / mmHG Vent. Rate : 092 BPM Atrial Rate : 092 BPM P-R Int : 144 ms QRS Dur : 082 ms QT Int : 354 ms P-R-T Axes : 051 040 052 degrees QTc Int : 437 ms Normal sinus rhythm Normal ECG Confirmed by EMILY LESTER, WILLIAM ([id number]), proposal editor MELISSA SHI ([id number]) on 08/27/2019 8:53:07 AM Referred By: BRIAN Confirmed By:WILLIAM DIAZ MD
--- NOTE | 2019-08-25 06:13 | ED.DCSUM_ITS ---
History of Present Illness Chief Complaint: Cough Informant: Patient Onset: Yesterday Context: Gradual Onset Timing: Continuous Associated Symptoms: Chills, Cough, Fever. Negative for: Rhinorrhea, Sore throat Chest Pain: None Narrative: Patient is a 64-year-old female with history of Crohn's disease, psoriasis and hypertension presenting with worsening cough. Patient states 4 to 5 weeks ago she was started on lisinopril. She started having a cough around that time. About 2 weeks ago she had what she thought was a flu with associated myalgias, cough and diarrhea. She felt that she was getting better but then over the past few days her cough has returned and worsened. Over the last 24 hours her cough is become significantly worse. She feels that she is pulling a muscle in her mid abdomen from all the coughing. She feels that she is having fevers. Her cough is nonproductive. She is coughing so much that she is having some posttussive emesis. She denies any black or blood in her vomit. She states her bowel movements been normal. She denies any urinary symptoms. She notes her has something similar and she is worried he has pneumonia. Patient has associated myalgias especially in her back and a headache. She denies any vision changes. She denies any other complaints at this time. Patient has been taking [place] cold severe for her symptoms. Past Medical History - Allergies and Home Meds Allergies/Adverse Reactions: Allergies anti inflammatory medication Adverse Reaction (Unknown, Uncoded 08/03/18 08:19) Crohns Disease Primary Care Physician: Yuki Wilson DO [Primary Care Provider] - Past Medical History: - - Crohn's disease, psoriasis, hypertension Surgical History: colectomy, tonsillectomy Lives: Spouse/ Significant Other Smoking Status: Former smoker Review of Systems General: Reports: Chills, Fever, Malaise. Denies: Sweats Cardiovascular: Denies: Chest pain, Palpitations Respiratory: Reports: Cough. Denies: Dyspnea, Dyspnea on exertion Gastrointestinal: Reports: Abdominal pain - Periumbilical?associated with coughing, Vomiting - Posttussive. Denies: Nausea, Diarrhea, Melena, Hematochezia Genitourinary: Denies: Dysuria, Hematuria, Frequency Skin: Denies: Rash Neurological: Reports: Headache. Denies: Weakness, Numbness Physical Exam Vital Signs/Narrative: Vital Signs Temp Pulse Resp BP Pulse Ox 08/25/19 05:56 98.9 F 105 H 16 165/63 H 97 08/25/19 05:54 98.9 F 105 H 16 165/63 H 97 Inital Vital Signs reviewed: Yes General: Well nourished, Well developed Head: Normocephalic, Atraumatic Eyes: Perrl, EOMI ENT: TM's clear, - - Normal oropharynx. Negative for: Rhinorrhea Neck: Supple, Nontender, No JVD Cardiovascular: Regular rate, Regular rhythm, No murmurs Respiratory: No distress, CTA bilaterally, - - Dry hacking cough during exam. Negative for: Rhonchi, Wheezing, Diminished, Decreased Air Movement Abdomen: Soft, Nondistended, Normal bowel sounds, Tender - Periumbilical, - - No palpable hernia at this time. Patient does have a midline incision that is mildly tender to palpation. She does have a proximally 1 cm superficial abrasion. Patient states she thinks she rubbed her pants on the site about a week ago. No surrounding erythema or associated fluctuance.. Negative for: No masses, Guarding, Rebound tenderness, Umbilical hernia Back: Nontender, Normal Inspection. Negative for: CVA tenderness Extremities: Nontender, No edema Skin: Normal color, No rash Neurological: Alert, Oriented x3, Cranial nerves II-XII grossly intact, Normal Strength, Normal Sensation Psychological: Normal affect Diagnostic/Tx/Re-eval Chest X-Ray - ED: 2 View, Read by ED Physician, Read by Radiologist, No Acute Disease Clinical Impression(s) from Imaging Studies Chest X-Ray 08/25/19 06:45 IMPRESSION: No evidence for acute cardiopulmonary pathology. Electronically Signed: Khanh Riggins MD at 7:04 EST , Service support , Laboratory Data 08/25/19 08/25/19 06:15 06:15 WBC 10.1 RBC 4.79 Hgb 13.9 Hct 42.1 MCV 87.9 MCH 29.0 MCHC 33.0 RDW Std Deviation 42.9 RDW Coeff of Nadia 13.4 Plt Count 255 MPV 9.8 Immature Gran % (Auto) 0.500 Neut % (Auto) 75.4 H Lymph % (Auto) 10.5 L [place] % (Auto) 11.7 H Eos % (Auto) 1.2 Baso % (Auto) 0.7 Absolute Neuts (auto) 7.6 Absolute Lymphs (auto) 1.06 Nucleated RBC % 0 Sodium 138 Potassium 4.4 Chloride 106 Carbon Dioxide 26.0 Anion Gap 6 BUN 11 Creatinine 0.97 Estim Creat Clear Calc 56.98 Est GFR (MDRD) Af Amer 75 Est GFR (MDRD) Non-Af 62 BUN/Creatinine Ratio 11.4 Glucose 98 Calcium 8.9 Troponin I < 0.015 - Rhythm Strip Rhythm Strip: Sinus Rhythm Rate: 92 Ectopy: None Fluid Bolus: NS 1000ml - Medical Decision Making Patient is evaluated for worsening cough. She is had subjective fevers. She is initially mildly tachycardic. Patient's O2 saturation is normal. She does not have increased work of breathing. She is clear breath sounds. Chest x-ray does not show acute infiltrate. CBC and lactate are normal. BMP is unremarkable. Flu swab is negative. I suspect this is a viral bronchitis. Patient is started on prednisone and Robitussin-AC to help with her symptoms. Patient denies any history of diabetes. Patient is counseled on signs and symptoms requiring return to the emergency room. Patient verbalizes agreement and understand this plan. Patient discharged home in stable and improved condition. ED Disposition - Plan for ED Patient: Disposition: Home or Assisted Living Diagnosis: Acute bronchitis Instructions: BRONCHITIS, No Antibiotic (Adult) Prescriptions: Prednisone [Deltasone] 40 mg PO DAILY #10 tab Prescription Printed Guaifenesin/Codeine [Robitussin AC] 10 ml PO Q6H PRN PRN 3 Days #100 udc PRN Reason: Cough Prescription Printed Referrals: Yuki Wilson DO [Primary Care Provider] - Additional Instructions: He did not have any signs of influenza or pneumonia today. Your lab work is otherwise normal. This is likely a viral bronchitis. Return the emergency room if you have worsening symptoms. You been started on a steroid and a cough medicine to help with your symptoms. Please follow-up with your primary care doctor later in the week.
[2019-08-25] MEDS: Acetaminophen 500 MG Tablet 1000 MG PO (06:21)
[2019-08-25 06:32] LABS: Absolute Lymphocyte Count 1.06 X10^3/uL (0.83-4.51); Absolute Neutrophil Count 7.6 X10^3/uL (2.0-7.7); Basophil# 0.07 X10^3/uL; Basophil% 0.7 % (0-1); Eosinophil# 0.12 X10^3/uL; Eosinophils% 1.2 % (0-5); Hematocrit 42.1 % (37-47); Hemoglobin 13.9 g/dL (12.0-15.0); Lymphocyte # 1.06 X10^3/ul (4.0); Lymphocyte % 10.5 % (19-41); Mean Corpuscular Volume 87.9 fL (81-99); Mean Platelet Vol. 9.8 fl (6.2-12.0); Monocyte# 1.18 X10^3/uL; Monocyte% 11.7 % (0-10); NRBC Flagged by Analyzer 0 % (0-5); Neutrophil # 7.62 X10^3/uL (2.7-7.7); Neutrophil % 75.4 % (47-70); Platelet Count 255 K/mm3 (150-450); RBC Distribution Width CV 13.4 % (11.6-14.6); RBC Distribution Width SD 42.9 fl (35.1-43.9); Red Blood Count 4.79 M/mm3 (4.2-5.4); White Blood Count 10.1 K/mm3 (4.4-11.0)
--- NOTE | 2019-08-25 06:45 | RAD_ITS ---
STUDY: X-RAY CHEST REASON FOR EXAM: Female, 64 years old. COUGH FOR 3 WEEKS TECHNIQUE: Frontal and lateral views of the chest. COMPARISON: 01/16/2018. FINDINGS: There are calcified granulomas overlying the lung betancur. Otherwise the lungs are clear and expanded. There is no demonstrated pleural abnormality. Normal size heart. Normal mediastinum and will. Normal visualized pulmonary arteries. Normal visualized aortic arch and descending thoracic aorta. There are mild degenerative changes of the thoracic spine. Normal visualized ribs, clavicles, and shoulders. There is no demonstrated abnormality of the visualized soft tissue structures of the upper abdomen. RAD/Chest PA and Lateral IMPRESSION: No evidence for acute cardiopulmonary pathology. Electronically Signed: Khanh Riggins MD at 7:04 EST , Service support ,
[2019-08-25 06:50] LABS: Anion Gap 6 (5-15); BUN 11 mg/dL (7-18); BUN/Creat Ratio 11.4 RATIO (10-20); Calcium,Total 8.9 mg/dL (8.5-10.1); Chloride 106 mmol/L (98-107); Creatinine, Serum 0.97 mg/dL (0.55-1.02); EST Glomerular Filtration Rate 62 mL/min (>60); Est Glom Filt Rate - Afr Amer 75 mL/min (>60); Estimated Creatinine Clearance 56.98 ml/min; Glucose 98 mg/dL (74-106); Potassium 4.4 mmol/L (3.5-5.1); Sodium Level 138 mmol/L (136-145)
[2019-08-25 07:19] VITALS: BP 165/63; PULSE 105; RESP 16; TEMP 37.2; O2SAT 97
[2019-08-25 07:28] LABS: Lactic Acid 1.7 mmol/L (0.4-1.9)
== END 2019-08-25 07:40 | disposition home or self-care (01) ==
PROVIDERS: Emergency Provider Emergency Medicine; Family Provider Internal Medicine; PCP Internal Medicine
DX: J20.9 Acute bronchitis, unspecified (principal); R00.0 Tachycardia, unspecified; I10 Essential (primary) hypertension; K50.90 Crohn's disease, unspecified, without complications; L40.9 Psoriasis, unspecified; Z79.899 Other long term (current) drug therapy; Z87.891 Personal history of nicotine dependence; Z90.49 Acquired absence of other specified parts of digestive tract
CPT/HCPCS: 71046; 80048; 83605; 84484; 85025; 87804; 93005; 96360; 99283; J7030

== ENCOUNTER → 2019-10-22 08:10 | Outpatient (CLI) | payer BC, SELFPAY ==
--- NOTE | 2019-10-22 08:16 | RAD_ITS ---
STUDY: X-RAY CHEST REASON FOR EXAM: Female, 64 years old. COUGH TECHNIQUE: PA and lateral views of the chest. COMPARISON: 08/25/2019 FINDINGS: The lungs are clear and expanded. There is no demonstrated pleural abnormality. Normal size heart. Normal mediastinum and will. Normal visualized pulmonary arteries. Normal visualized aortic arch and descending thoracic aorta. Normal visualized thoracic spine. Normal visualized ribs, clavicles, and shoulders. There is no demonstrated abnormality of the visualized soft tissue structures of the upper abdomen. RAD/Chest PA and Lateral IMPRESSION: Normal x-ray examination of the chest. Electronically Signed: Akash Cooper MD at 8:47 EST Tel , Service support ,
== END ==
PROVIDERS: PCP Internal Medicine; Referring Provider Nurse Practitioner; Visit Provider Nurse Practitioner
DX: R05 Cough (principal)
CPT/HCPCS: 71046

== ENCOUNTER → 2019-10-22 10:07 | Outpatient (CLI) | payer BC, SELFPAY ==
[2019-10-22 10:11] LABS: Hematocrit 45.9 % (37-47); Hemoglobin 15.3 g/dL (12.0-15.0); Mean Corp Hgb Conc 33.3 g/dL (32-36); Mean Platelet Vol. 10.4 fl (6.2-12.0); Platelet Count 250 K/mm3 (150-450); RBC Distribution Width SD 42.6 fl (35.1-43.9); White Blood Count 7.2 K/mm3 (4.4-11.0)
[2019-10-22 10:26] LABS: D-Dimer Quantitative (DVT/PE) 0.54 FEU/ug/m (0.27-0.49)
[2019-10-22 10:48] LABS: ALB/GLOB Ratio 0.9 RATIO (0.9-2.4); AST(SGOT) 22 U/L (15-37); Alanine Aminotransfer ALT/SGPT 29 U/L (13-56); Albumin, Serum 3.5 g/dL (3.2-5.0); Alkaline Phosphatase 83 U/L (45-117); Anion Gap 6 (5-15); BUN 13 mg/dL (7-18); BUN/Creat Ratio 18.7 RATIO (10-20); Calcium,Total 9.5 mg/dL (8.5-10.1); Chloride 106 mmol/L (98-107); Creatinine, Serum 0.69 mg/dL (0.55-1.02); EST Glomerular Filtration Rate 90 mL/min (>60); Est Glom Filt Rate - Afr Amer 109 mL/min (>60); Globulin 3.7 g/dL (2.2-4.2); Glucose 78 mg/dL (74-106); Potassium 4.6 mmol/L (3.5-5.1); Protein, Total 7.2 g/dL (6.4-8.2); Sodium Level 139 mmol/L (136-145)
== END ==
PROVIDERS: PCP Internal Medicine; Referring Provider Nurse Practitioner; Visit Provider Nurse Practitioner
DX: R05 Cough (principal)
CPT/HCPCS: 80053; 85027; 85379

== ENCOUNTER → 2019-10-22 11:11 | Outpatient (CLI) | payer BC, SELFPAY ==
--- NOTE | 2019-10-22 11:19 | CT_ITS ---
STUDY: CTA CHEST REASON FOR EXAM: Female, 64 years old. R/O PE. SOB AND CHEST PAIN. RECENT BRONCHITIS RADIATION DOSAGE (If Supplied By Facility): CTDIvol = ( 10.04 ) mGy, DLP = ( 549.27 ) mGycm TECHNIQUE: The examination was performed with the intravenous administration of 100ML ISOVUE 300. Post-processing of the angiographic images was performed, with multiplanar reformation and 3D reconstruction. Individualized dose optimization techniques were used for this CT. COMPARISON: None. FINDINGS: Normal enhancement of the main pulmonary artery and right and left pulmonary arteries. Normal enhancement of the bilateral peripheral pulmonary arteries. There is no demonstrated pulmonary embolism. Normal thoracic aorta and visualized great vessels. There is no demonstrated aortic dissection. Normal heart and pericardium. Normal mediastinum. Normal hilar regions. Normal visualized trachea and bronchi. The lungs are well expanded. 4 mm noncalcified nodule right lower lobe the lungs on image 126 and follow-up CT the chest is recommended in 12 months document stability. Normal pleura. Normal chest wall structures. Normal osseous structures. Normal visualized upper abdomen. CT/CTA Chest W/WO Contrast IMPRESSION: 1. Normal CTA chest examination, without a demonstrated pulmonary embolism or arterial dissection. 2. 4 mm noncalcified right lower lobe nodule and follow-up CT the chest is recommended in 12 months document stability. Electronically Signed: Akash Cooper MD at 12:26 EST Tel , Service support ,
== END ==
PROVIDERS: PCP Internal Medicine; Referring Provider Nurse Practitioner; Visit Provider Nurse Practitioner
DX: R79.89 Other specified abnormal findings of blood chemistry (principal)
CPT/HCPCS: 71275; Q9967

== ENCOUNTER 2020-02-14 11:30 | Outpatient (RCR) | payer MEDICARE, SELFPAY ==
[2020-01-24 10:30] VITALS: BP 145/66; PULSE 58; RESP 16; TEMP 36.3; BMI 34.7
--- NOTE | 2020-01-24 16:25 | HP.PCM_ITS ---
(1) Dehiscence of external surgical wound Status: Chronic Current Visit: Yes Qualifiers: Encounter type: initial encounter Qualified Code(s): T81.31XA - Disruption of external operation (surgical) wound, not elsewhere classified, initial encounter Code(s): T81.31XA - Disruption of external operation (surgical) wound, not elsewhere classified, initial encounter (2) Atherosclerotic heart disease of [place] coronary artery without angina pectoris Status: Chronic Current Visit: Yes Qualifiers: [place] vs. transplanted heart: [place] heart Qualified Code(s): I25.10 - Atherosclerotic heart disease of [place] coronary artery without angina pectoris Code(s): I25.10 - Atherosclerotic heart disease of [place] coronary artery without angina pectoris Comment: Mild (3) Hyperlipemia, mixed Status: Acute Current Visit: Yes Code(s): E78.2 - Mixed hyperlipidemia History of Present Illness Date of Service: 01/24/20 Chief Complaint: nonhealing open wound of abdomen History of Wound: Pau is a 54 yo woman who presents to the wound healing center today for the evaluation and treatment of a nonhealing wound of her abdomen at the surgical scar from a bowel resection that she had performed in 1978. She reports that she had influenza in July and due to coughing sever joey the area popped open. She also had a another episode of respiratory symptoms with a severe cough in August which further prevented the wound from closing. She denies ever having any problems with the area in the past. She would occasionally get some scaling or irritation of the surgical scar and would use coconut oil on this. She has been using a Band-Aid on the open area for the last several months. Reports heavy drainage at times but most recently there has been small to moderate amount of drainage. She reports that it was deeper than it currently is and has improved since it occurred but has not healed completely. She denies being treated with an antibiotic or ever having a wound culture since it has been open. She denies any odor, erythema, fever or chills or systemic signs of infection. She has not had any imaging of her abdomen completed for this particular wound. She is scheduled for a CT scan on January 30 to evaluate her Crohn's colitis. 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) Mild Surgical History: colectomy, tonsillectomy Allergies/Adverse Reactions: Allergies anti inflammatory medication Adverse Reaction (Unknown, Uncoded 01/24/20 10:45) Crohns Disease Home Medications: Ambulatory Orders Medication Instructions Recorded traMADol [Ultram (G)] 50 mg PO Q6H PRN PRN 08/08/14 sertraline 100 mg tablet 100 mg PO QDAY tab 08/30/17 Amlodipine [Norvasc] 5 mg PO DAILY 08/25/19 Ustekinumab [Stelara] 90 mg SQ QWEEK 08/25/19 Atenolol 25 mg PO DAILY 01/24/20 - Family History Maternal Family History: Family History (Last Reviewed 08/30/17 @ 14:24 by Genia Mario) Father Myocardial infarction Mother Myocardial infarction Hypertension Lives: Spouse/ Significant Other Smoking Status: Former smoker Tobacco Use: Non-smoker Alcohol: None Drugs: None Review of Systems Constitutional: Denies: Chills, Fever, Weight Change Eyes: Denies: Pain, Vision Change HEENT: Denies: Difficulty Hearing, Difficulty Swallowing, Sinus Congestion Cardiovascular: Denies: Chest Pain, Palpitations Respiratory: Denies: Cough, Shortness of Breath Gastrointestinal: Denies: Diarrhea, Nausea, Vomiting Genitourinary: Denies: Dysuria, Hematuria Skin: Reports: Wounds Endocrine: Denies: Heat/ Cold Intolerance, Polydipsia, Polyuria Hematologic/ Lymphatic: Denies: Easy Bruising, Easy Bleeding - Physical Exam Vital Signs Temp Pulse Resp BP 97.4 F L 58 L 16 145/66 H 01/24/20 10:30 01/24/20 10:30 01/24/20 10:30 01/24/20 10:30 General: Alert, Oriented x3, Cooperative, No apparent distress HEENT: Atraumatic, Normocephalic Oral: Moist Mucosa Neck: Supple Lungs: Clear to auscultation, Normal air movement Abdomen: Soft, Non Tender, Obese Skin: Ulcer/ Wound Wound Measurements and Assessment WC - Nurse 1 - General Ulcer Measurement Start: 01/24/20 10:28 Freq: Status: Active Protocol: Activity Type Activity Date Activity User E-Sign Co-Sign Detail Recorded Client Recorded Date Recorded By Document 01/24/20 10:30 [facility] [id number] 01/24/20 10:40 [facility] 01/24/20 10:30 Wound Center Nurse 1 [Ulcer Assessment] #1- ABDOMEN -Combined with other wound No -Current Size (cm) - Length 1 -Current Size (cm) - Width 0.7 -Current Size (cm) - Depth 0.2 -Total Square Cm 0.7 -Date of Last Picture (Recall this 01/24/20 field) -Photo Taken Yes -Epithelialization None Present -Tunneling No -Undermining/Tunneling No -Circular Undermining No -Exudate Amt Medium -Exudate Type Serosanguineous -Wound Margin Flat & Intact -Granulation Amt Medium (34-66%) -Granulation Quality Pale,Red -Slough/Fibrin Yes -Necrosis Amt Small (1-33%) -Necrotic Tissue Type Adherent Slough -Texture (Sonam-wound Skin Appearance) Assessed -Moisture (Sonam-wound Skin Appearance Assessed, ) Maceration -Color (Sonam-wound Skin Appearance) Assessed,Palor -Temperature (Sonam-wound Skin No Abnormality Appearance) (Pt Warm) -Tenderness on Palpation (Sonam-wound No Skin Appearance) -Ulcer Cleansing Rinsed/ Irrigated with Saline -Foul Odor after Cleansing No -Anesthetic Used 5% Lidocaine Gel WC - Nurse 2 - General Ulcer CM Notes Start: 01/24/20 10:28 Freq: Status: Active Protocol: Activity Type Activity Date Activity User E-Sign Co-Sign Detail Recorded Client Recorded Date Recorded By Document 01/24/20 11:20 DV [id number] 01/24/20 11:28 DV 01/24/20 11:20 Wound Center Nurse 2 [Procedure/Treatment] -Time 11:21 -Correct Patient Yes -Correct Side, Site, Position Yes -Correct Procedure Yes -Procedure Performed Yes -Type of Procedure Debridement -Clinical Debridement Subcutaneous -Post Debridement Size (cm) - Length 0.8 -Post Debridement Size (cm) - Width 0.8 -Post Debridement Size (cm) - Depth 0.1 -Total Square Cm 0.64 -Wound/Ulcer Outcome Not Healed -Ulcer Cleansing Rinsed/ Irrigated with Saline -Foul Odor after Cleansing No -Bioengineered Tissue No -Bleeding Controlled with Pressure -Offloading No -Treatment Response Procedure Tolerated Well [See Physician Procedure note for Specifics] Pain Scale: 0-10 Numeric [Pain] -Is Patient Pain Free? Yes Psych/Mental Status: Normal Affect, Appropriate Debridement Note Post-Debridement Measurements/Treatment WC - Nurse 2 - General Ulcer CM Notes Start: 01/24/20 10:28 Freq: Status: Active Protocol: Activity Type Activity Date Activity User E-Sign Co-Sign Detail Recorded Client Recorded Date Recorded By Document 01/24/20 11:20 DV [id number] 01/24/20 11:28 DV 01/24/20 11:20 Wound Center Nurse 2 #1- ABDOMEN -Time 11:21 -Correct Patient Yes -Correct Side, Site, Position Yes -Correct Procedure Yes -Procedure Performed Yes -Type of Procedure Debridement -Clinical Debridement Subcutaneous -Post Debridement Size (cm) - Length 0.8 -Post Debridement Size (cm) - Width 0.8 -Post Debridement Size (cm) - Depth 0.1 -Total Square Cm 0.64 -Wound/Ulcer Outcome Not Healed -Ulcer Cleansing Rinsed/ Irrigated with Saline -Foul Odor after Cleansing No -Bioengineered Tissue No -Bleeding Controlled with Pressure -Offloading No -Treatment Response Procedure Tolerated Well Pain Scale: 0-10 Numeric Is Patient Pain Free? Yes Wound debrided: Abdomen Laterality: Not Applicable Type of Debridement: Excisional debridement Anesthesia Used: 4% Lidocaine Solution, 5% Lidocaine Gel Depth: Down to and including healthy tissue, in the subcutaneous layer Percentage of wound debrided: 100 Instrument Used: 5mm curette Tissue Removed: Yellow slough, devitalized tissue Severity: Fat Layer Exposed Amount of bleeding with debridement: Mild Bleeding Controlled with: Compression and gauze Patient tolerated procedure well Assessment/Plan Active Problems (Last Updated 09/07/18 @ 13:35 by Genia Mario) Dehiscence of external surgical wound (Chronic) Atherosclerotic heart disease of [place] coronary artery without angina pectoris (Chronic) Mild Hyperlipemia, mixed (Acute) Assessment: dehiscence of surgical scar Plan: Pau's wound was evaluated and debrided today. It is atypical that the scar dehisced after so ling but she does report weight gain and the coughing that she had with her illness was severe. Would consider biopsy if it is not improving as expected. Will have her dress the wound with promogran dressings daily to every other day for small to moderate drainage. Consider change to hydrogel if this is too drying. Wash with soap and water prior to dressing changes. Encouraged her to increase protein intake and consider vitamin C supplement. Avoid pressure to the area. Call with any concerns of erythema, increased drainage, odor. F/U in 1 week.
[2020-01-31 11:41] VITALS: BP 145/75; PULSE 68; RESP 18; TEMP 36.7; BMI 34.7
--- NOTE | 2020-01-31 18:27 | PN.PCM_ITS ---
(1) Dehiscence of external surgical wound Status: Chronic Qualifiers: Encounter type: initial encounter Qualified Code(s): T81.31XA - Disruption of external operation (surgical) wound, not elsewhere classified, initial encounter Code(s): T81.31XA - Disruption of external operation (surgical) wound, not elsewhere classified, initial encounter (2) Atherosclerotic heart disease of [place] coronary artery without angina pectoris Status: Chronic Qualifiers: [place] vs. transplanted heart: [place] heart Qualified Code(s): I25.10 - Atherosclerotic heart disease of [place] coronary artery without angina pectoris Code(s): I25.10 - Atherosclerotic heart disease of [place] coronary artery without angina pectoris Comment: Mild (3) Hyperlipemia, mixed Status: Acute Code(s): E78.2 - Mixed hyperlipidemia Type of Wound Date of Service: 01/31/20 Chief Complaint: nonhealing open wound of abdomen History of Wound: Pau is a 54 yo woman who presents to the wound healing center today for the evaluation and treatment of a nonhealing wound of her abdomen at the surgical scar from a bowel resection that she had performed in 1978. She reports that she had influenza in July and due to coughing severely the area popped open. She also had a another episode of respiratory symptoms with a severe cough in August which further prevented the wound from closing. She denies ever having any problems with the area in the past. She would occasionally get some scaling or irritation of the surgical scar and would use coconut oil on this. She has been using a Band-Aid on the open area for the last several months. Reports heavy drainage at times but most recently there has been small to moderate amount of drainage. She reports that it was deeper than it currently is and has improved since it occurred but has not healed completely. She denies being treated with an antibiotic or ever having a wound culture since it has been open. She denies any odor, erythema, fever or chills or systemic signs of infection. She has not had any imaging of her abdomen completed for this particular wound. She is scheduled for a CT scan on January 30 to evaluate her Crohn's colitis. Progress of Wound: Pau is here for follow up of open wound of her abdomen at old scar from bowel resection. She has been tolerating dressing with Promogran and has noticed improvement in the wound. She denies fever or chills or increased erythema or drainage. - Physical Exam Vital Signs Temp Pulse Resp BP 98.1 F 68 18 145/75 H 01/31/20 11:41 01/31/20 11:41 01/31/20 11:41 01/31/20 11:41 General: Alert, Oriented x3, Cooperative, No apparent distress HEENT: Atraumatic, Normocephalic Oral: Moist Mucosa Abdomen: Obese Skin: Ulcer/ Wound Wound Measurements and Assessment WC - Nurse 1 - General Ulcer Measurement Start: 01/24/20 10:28 Freq: Status: Active Protocol: Activity Type Activity Date Activity User E-Sign Co-Sign Detail Recorded Client Recorded Date Recorded By Document 01/31/20 11:41 RB [id number] 01/31/20 11:47 RB 01/31/20 11:41 Wound Center Nurse 1 [Ulcer Assessment] #1- ABDOMEN -Combined with other wound No -Current Size (cm) - Length 0.7 -Current Size (cm) - Width 0.5 -Current Size (cm) - Depth 0.1 -Total Square Cm 0.35 -Tunneling No -Undermining/Tunneling No -Circular Undermining No -Exudate Amt Small -Exudate Type Serosanguineous -Wound Margin Flat & Intact -Granulation Amt Medium (34-66%) -Granulation Quality [place],Red -Slough/Fibrin Yes -Necrosis Amt Small (1-33%) -Necrotic Tissue Type Adherent Slough -Structure Exposed N/A -Texture (Sonam-wound Skin Appearance) Assessed, Scarring -Moisture (Sonam-wound Skin Appearance Assessed ) -Color (Sonam-wound Skin Appearance) Assessed -Temperature (Sonam-wound Skin No Abnormality Appearance) (Pt Warm) -Tenderness on Palpation (Sonam-wound No Skin Appearance) -Ulcer Cleansing Wound Cleanser -Foul Odor after Cleansing No -Anesthetic Used 4% Lidocaine Solution WC - Nurse 2 - General Ulcer CM Notes Start: 01/24/20 10:28 Freq: Status: Active Protocol: Activity Type Activity Date Activity User E-Sign Co-Sign Detail Recorded Client Recorded Date Recorded By Document 01/31/20 12:37 DV [id number] 01/31/20 12:40 DV 01/31/20 12:37 Wound Center Nurse 2 [Procedure/Treatment] -Time 12:39 -Correct Patient Yes -Correct Side, Site, Position Yes -Correct Procedure Yes -Procedure Performed Yes -Type of Procedure Debridement -Clinical Debridement Subcutaneous -Post Debridement Size (cm) - Length 0.5 -Post Debridement Size (cm) - Width 0.4 -Post Debridement Size (cm) - Depth 0.1 -Total Square Cm 0.20 -Wound/Ulcer Outcome Not Healed -Ulcer Cleansing Rinsed/ Irrigated with Saline -Foul Odor after Cleansing No -Bioengineered Tissue No -Bleeding Controlled with Pressure -Offloading No -Treatment Response Procedure Tolerated Well [See Physician Procedure note for Specifics] Pain Scale: 0-10 Numeric [Pain] -Is Patient Pain Free? Yes Psych/Mental Status: Normal Affect, Appropriate Debridement Note Post-Debridement Measurements/Treatment WC - Nurse 2 - General Ulcer CM Notes Start: 01/24/20 10:28 Freq: Status: Active Protocol: Activity Type Activity Date Activity User E-Sign Co-Sign Detail Recorded Client Recorded Date Recorded By Document 01/24/20 11:20 DV [id number] 01/24/20 11:28 DV Document 01/31/20 12:37 DV [id number] 01/31/20 12:40 DV 01/24/20 01/31/20 11:20 12:37 Wound Center Nurse 2 #1- ABDOMEN -Time 11:21 12:39 -Correct Patient Yes Yes -Correct Side, Site, Position Yes Yes -Correct Procedure Yes Yes -Procedure Performed Yes Yes -Type of Procedure Debridement Debridement -Clinical Debridement Subcutaneous Subcutaneous -Post Debridement Size (cm) - Length 0.8 0.5 -Post Debridement Size (cm) - Width 0.8 0.4 -Post Debridement Size (cm) - Depth 0.1 0.1 -Total Square Cm 0.64 0.20 -Wound/Ulcer Outcome Not Healed Not Healed -Ulcer Cleansing Rinsed/ Rinsed/ Irrigated with Irrigated with Saline Saline -Foul Odor after Cleansing No No -Bioengineered Tissue No No -Bleeding Controlled with Pressure Pressure -Offloading No No -Treatment Response Procedure Procedure Tolerated Well Tolerated Well Pain Scale: 0-10 Numeric Is Patient Pain Free? Yes Yes Wound debrided: abdomen Laterality: Not Applicable Type of Debridement: Excisional debridement Anesthesia Used: 4% Lidocaine Solution Depth: Down to and including healthy tissue, in the subcutaneous layer Percentage of wound debrided: 100 Instrument Used: 3mm curette Tissue Removed: yellow slough, devitalized tissue Severity: Fat Layer Exposed Amount of bleeding with debridement: Mild Bleeding Controlled with: Compression and gauze Patient tolerated procedure well Assessment/Plan Assessment: dehiscence of surgical scar Plan: Pau's wound was evaluated and debrided today. It is atypical that the scar dehisced after so long but she does report weight gain and the coughing that she had with her illness was severe. Would consider biopsy if it is not improving as expected. Will have her continue to dress the wound with promogran dressings daily to every other day for small to moderate drainage. Consider change to hydrogel if this is too drying. Wash with soap and water prior to dressing changes. Encouraged her to increase protein intake and consider vitamin C supplement. Avoid pressure to the area. Call with any concerns of erythema, increased drainage, odor. F/U in 1 week.
[2020-02-14 11:30] VITALS: BP 115/54; PULSE 47; RESP 18; TEMP 36.4; BMI 34.7
--- NOTE | 2020-02-14 18:03 | PN.PCM_ITS ---
(1) Dehiscence of external surgical wound Status: Chronic Qualifiers: Encounter type: initial encounter Qualified Code(s): T81.31XA - Disruption of external operation (surgical) wound, not elsewhere classified, initial encounter Code(s): T81.31XA - Disruption of external operation (surgical) wound, not elsewhere classified, initial encounter (2) Atherosclerotic heart disease of [place] coronary artery without angina pectoris Status: Chronic Qualifiers: [place] vs. transplanted heart: [place] heart Qualified Code(s): I25.10 - Atherosclerotic heart disease of [place] coronary artery without angina pectoris Code(s): I25.10 - Atherosclerotic heart disease of [place] coronary artery without angina pectoris Comment: Mild (3) Hyperlipemia, mixed Status: Acute Code(s): E78.2 - Mixed hyperlipidemia Type of Wound Date of Service: 02/14/20 Chief Complaint: nonhealing open wound of abdomen History of Wound: Pau is a 54 yo woman who presents to the wound healing center today for the evaluation and treatment of a nonhealing wound of her abdomen at the surgical scar from a bowel resection that she had performed in 1978. She reports that she had influenza in July and due to coughing severely the area popped open. She also had a another episode of respiratory symptoms with a severe cough in August which further prevented the wound from closing. She denies ever having any problems with the area in the past. She would occasionally get some scaling or irritation of the surgical scar and would use coconut oil on this. She has been using a Band-Aid on the open area for the last several months. Reports heavy drainage at times but most recently there has been small to moderate amount of drainage. She reports that it was deeper than it currently is and has improved since it occurred but has not healed completely. She denies being treated with an antibiotic or ever having a wound culture since it has been open. She denies any odor, erythema, fever or chills or systemic signs of infection. She has not had any imaging of her abdomen completed for this particular wound. She is scheduled for a CT scan on January 30 to evaluate her Crohn's colitis. Progress of Wound: Pau is here for follow up of open wound of her abdomen at old scar from bowel resection. She has been tolerating dressing with Promogran and is healed. - Physical Exam Vital Signs Temp Pulse Resp BP 97.6 F L 47 L 18 115/54 L 06/26/20 11:30 02/14/20 11:30 02/14/20 11:30 02/14/20 11:30 General: Alert, Oriented x3, Cooperative, No apparent distress HEENT: Atraumatic, Normocephalic Oral: Moist Mucosa Abdomen: Obese Skin: Ulcer/ Wound Wound Measurements and Assessment WC - Nurse 1 - General Ulcer Measurement Start: 01/24/20 10:28 Freq: Status: Active Protocol: Activity Type Activity Date Activity User E-Sign Co-Sign Detail Recorded Client Recorded Date Recorded By Document 02/14/20 11:30 RB [id number] 02/14/20 11:32 RB 02/14/20 11:30 Wound Center Nurse 1 [Ulcer Assessment] #1- ABDOMEN -Current Size (cm) - Length 0.1 -Current Size (cm) - Width 0.1 -Current Size (cm) - Depth 0.1 -Total Square Cm 0.01 -Tunneling No -Undermining/Tunneling No -Circular Undermining No -Exudate Amt Small -Exudate Type Serosanguineous -Wound Margin Flat & Intact -Granulation Amt Large (67-100%) -Granulation Quality [place] -Slough/Fibrin Yes -Necrosis Amt Small (1-33%) -Necrotic Tissue Type Adherent Slough -Structure Exposed N/A -Texture (Sonam-wound Skin Appearance) Assessed, Scarring -Moisture (Sonam-wound Skin Appearance Assessed ) -Color (Sonam-wound Skin Appearance) Assessed -Temperature (Sonam-wound Skin No Abnormality Appearance) (Pt Warm) -Tenderness on Palpation (Sonam-wound No Skin Appearance) -Ulcer Cleansing Wound Cleanser -Foul Odor after Cleansing No -Anesthetic Used 5% Lidocaine Gel WC - Nurse 2 - General Ulcer CM Notes Start: 01/24/20 10:28 Freq: Status: Active Protocol: Activity Type Activity Date Activity User E-Sign Co-Sign Detail Recorded Client Recorded Date Recorded By Document 02/14/20 12:10 DV [id number] 02/14/20 12:17 DV 02/14/20 12:10 Wound Center Nurse 2 [Procedure/Treatment] -Time 12:14 -Correct Patient Yes -Correct Side, Site, Position Yes -Correct Procedure No -Procedure Performed No -Post Debridement Size (cm) - Length 0 -Post Debridement Size (cm) - Width 0 -Post Debridement Size (cm) - Depth 0 -Total Square Cm 0 -Wound/Ulcer Outcome Healed- Epithelialized [See Physician Procedure note for Specifics] Psych/Mental Status: Normal Affect, Appropriate Debridement Note Post-Debridement Measurements/Treatment WC - Nurse 2 - General Ulcer CM Notes Start: 01/24/20 10:28 Freq: Status: Active Protocol: Activity Type Activity Date Activity User E-Sign Co-Sign Detail Recorded Client Recorded Date Recorded By Document 01/24/20 11:20 DV [id number] 01/24/20 11:28 DV Document 01/31/20 12:37 DV [id number] 01/31/20 12:40 DV Document 02/14/20 12:10 DV [id number] 02/14/20 12:17 DV 01/24/20 01/31/20 02/14/20 11:20 12:37 12:10 Wound Center Nurse 2 #1- ABDOMEN -Time 11:21 12:39 12:14 -Correct Patient Yes Yes Yes -Correct Side, Site, Position Yes Yes Yes -Correct Procedure Yes Yes No -Procedure Performed Yes Yes No -Type of Procedure Debridement Debridement -Clinical Debridement Subcutaneous Subcutaneous -Post Debridement Size (cm) - Length 0.8 0.5 0 -Post Debridement Size (cm) - Width 0.8 0.4 0 -Post Debridement Size (cm) - Depth 0.1 0.1 0 -Total Square Cm 0.64 0.20 0 -Wound/Ulcer Outcome Not Healed Not Healed Healed- Epithelialized -Ulcer Cleansing Rinsed/ Rinsed/ Irrigated with Irrigated with Saline Saline -Foul Odor after Cleansing No No -Bioengineered Tissue No No -Bleeding Controlled with Pressure Pressure -Offloading No No -Treatment Response Procedure Procedure Tolerated Well Tolerated Well Pain Scale: 0-10 Numeric Is Patient Pain Free? Yes Yes Wound debrided: abdomen Laterality: Not Applicable No debridement was completed today - healed Assessment/Plan Assessment: dehiscence of surgical scar Plan: Pau's wound was evaluated and is healed today. She was advised to keep the area moist with vaseline or lotion to avoid cracking and breakdown of the skin. She will be discharged and will follow up as needed.
== END 2020-02-18 23:59 | disposition home or self-care (01) ==
LOC: WC 11:30
PROVIDERS: PCP Internal Medicine; Referring Provider Internal Medicine; Visit Provider Family Medicine
DX: T81.31XA Disruption of external operation (surgical) wound, not elsewhere classified, initial encounter (principal); Y83.8 Other surgical procedures as the cause of abnormal reaction of the patient, or of later complication, without mention of misadventure at the time of the procedure; I25.10 Atherosclerotic heart disease of native coronary artery without angina pectoris; E78.2 Mixed hyperlipidemia; Z79.899 Other long term (current) drug therapy; Z87.891 Personal history of nicotine dependence
CPT/HCPCS: 11042; 99212; 99213; G0463

== ENCOUNTER → 2020-04-10 16:46 | Outpatient (CLI) | payer MEDICARE, SELFPAY ==
[2020-04-10 17:28] LABS: Absolute Lymphocyte Count 3.92 X10^3/uL (0.83-4.51); Absolute Neutrophil Count 4.3 X10^3/uL (2.0-7.7); Basophil# 0.08 X10^3/uL; Basophil% 0.9 % (0-1); Eosinophil# 0.35 X10^3/uL; Eosinophils% 3.7 % (0-5); Hematocrit 39.5 % (37-47); Hemoglobin 12.9 g/dL (12.0-15.0); Lymphocyte # 3.92 X10^3/ul (4.0); Lymphocyte % 41.7 % (19-41); Mean Corp Hgb Conc 32.7 g/dL (32-36); Mean Corpuscular Hgb 28.6 pg (27.0-32.0); Mean Corpuscular Volume 87.6 fL (81-99); Mean Platelet Vol. 10.3 fl (6.2-12.0); Monocyte# 0.76 X10^3/uL; Monocyte% 8.1 % (0-10); NRBC Flagged by Analyzer 0 % (0-5); Neutrophil # 4.26 X10^3/uL (2.7-7.7); Neutrophil % 45.4 % (47-70); Platelet Count 303 K/mm3 (150-450); RBC Distribution Width CV 13.5 % (11.6-14.6); Red Blood Count 4.51 M/mm3 (4.2-5.4); White Blood Count 9.4 K/mm3 (4.4-11.0)
[2020-04-10 18:01] LABS: Anion Gap 5 (5-15); BUN 15 mg/dL (7-18); BUN/Creat Ratio 16.6 RATIO (10-20); Calcium,Total 9.3 mg/dL (8.5-10.1); Chloride 108 mmol/L (98-107); EST Glomerular Filtration Rate 67 mL/min (>60); Est Glom Filt Rate - Afr Amer 81 mL/min (>60); Glucose 99 mg/dL (74-106); Potassium 3.9 mmol/L (3.5-5.1); Sodium Level 139 mmol/L (136-145)
[2020-04-13 16:08] LABS: QNTFERON TB Mitogen Value > 10.00 IU/mL (.); QNTFERON TB Nil Value 0.07 IU/mL (.); QNTFERON TB1+ Ag Value 0.49 IU/mL (.); QNTFERON TB2+ Ag Value 0.33 IU/mL (.)
[2020-04-13 21:31] LABS: QNTIFERON TB Positive Criteria Positive (Negative)
== END ==
PROVIDERS: PCP Internal Medicine; Referring Provider Physician Assistant; Visit Provider Physician Assistant
DX: L40.0 Psoriasis vulgaris (principal); Z79.899 Other long term (current) drug therapy
CPT/HCPCS: 36415; 80048; 85025; 86480

== ENCOUNTER → 2020-06-08 14:35 | Outpatient (CLI) ==
--- NOTE | 2020-06-08 14:37 | RAD_ITS ---
STUDY: X-RAY - PELVIS AND LEFT HIP REASON FOR EXAM: Female, 65 years old. Left hip pain. History of bursitis. TECHNIQUE: 3 views of the pelvis and hip. COMPARISON: None. FINDINGS: There is a non-specific bowel gas pattern. Normal visualized soft tissue structures. There are multiple calcified phleboliths. Normal bilateral iliac wings, sacroiliac joints and visualized sacrum. Normal bilateral superior and inferior pubic rami. Normal pubic symphysis. Normal bilateral ischial tuberosities. Normal right hip. Normal visualized bowel femoral head. Normal left acetabulum. Normal left hip joint. RAD/HIP, UNI W/ Pelvis 2-3 Views IMPRESSION: Normal x-ray examination of the pelvis and left hip. Electronically Signed: Jeff Leblanc DO at 16:19 EDT Tel [phone], Service support ,
== END ==
DX: M25.552 Pain in left hip (principal)
CPT/HCPCS: 73502

== ENCOUNTER → 2020-07-09 17:20 | Outpatient (CLI) | payer MEDICARE, SELFPAY ==
--- NOTE | 2020-07-09 16:49 | BI_ITS ---
MAMMOGRAPHY - BILATERAL SCREENING REASON FOR EXAM: Female, 65 years old. Routine annual screening examination. PERTINENT HISTORY: Sister with breast cancer. Grandmother with breast cancer. TECHNIQUE: Digital bilateral breast jelly (3D mammographic acquisition) in the CC and MLO projections. 2-D mediolateral oblique (MLO) and craniocaudad (CC) views of both breasts were obtained. CAD: Full Field Digital Mammography with Computer Added Detection was performed. COMPARISON: Comparison is made with prior study dated 10/04/2018 and 10/25/2017. FINDINGS: Breast Composition: The breasts are almost entirely fatty. There are no dominant masses or suspicious calcifications. Stable 6 mm well-defined nodule in the upper-outer aspect of the right breast. This most likely represents a small lymph node. No other significant abnormalities are identified. There has been no significant change since the prior study. BI/SCREEN MAMM (CAD) W/JELLY BILAT IMPRESSION: Stable bilateral screening mammogram. Yearly follow-up mammogram recommended. (A) ASSESSMENT CATEGORY: BIRADS Category 2: Benign. A letter regarding these results will be sent to the patient by the facility within 30 days. Approximately 10% of breast cancers are not detected by mammography. A normal mammogram should not delay biopsy of a clinically suspicious abnormality. [id number] Electronically Signed: Bryson Oliver, at 8:10 EST , Service support ,
== END ==
PROVIDERS: PCP Internal Medicine; Referring Provider Internal Medicine; Visit Provider Internal Medicine
DX: Z12.31 Encounter for screening mammogram for malignant neoplasm of breast (principal); Z80.3 Family history of malignant neoplasm of breast
CPT/HCPCS: 77063; 77067

== ENCOUNTER → 2020-07-15 10:47 | Outpatient (CLI) | payer MEDICARE, SELFPAY ==
--- NOTE | 2020-07-15 10:52 | BD_ITS ---
STUDY: DUAL ENERGY X-RAY ABSORPTIOMETRY / DXA REASON FOR EXAM: Female, 65 years old. Age of jessica 32. Pat is 218# AND 65.75 and quot; a loss of 1.25 and quot; per pat. Past hx of using an HRT. Past hx of smoking. Uses steroids for Crohn''s prn.Takes calcium and a multi-vit IRR. Exercises a little. Sister has osteo. Hx of rib and ankle fx''s. TECHNIQUE: Bone Mineral Density (BMD) measurements of lumbar spine and bilateral hips were obtained. COMPARISON: Comparison is made with prior study dated 10/25/2017. FINDINGS: Lumbar Spine (L1-L4): g/cm2 (1.006) / T-score (-1.4) / Z-score (0.1) Findings are suggestive of osteopenia with a low fracture risk. Left Femur Total: g/cm2 (1.108) / T-score (0.8) / Z-score (2.0) Left Femoral Neck: g/cm2 (1.023) / T-score (-0.1) / Z-score (1.4) Right Femur Total: g/cm2 (1.135 ) / T-score (0.2) / Z-score (1.7) Right Femoral Neck: g/cm2 (1.064) / T-score (0.2) / Z-score (1.7) The T-Scores on the most recent prior examination were: Lumbar Spine (L1-L4): There has been worsening of bone density since the previous examination. Left Femur Total: which represents a worsening of 6%. Right Femur Total: which represents a worsening of 0.7%. BD/Dexa Bone Density Study IMPRESSION: The patient is considered osteopenic as outlined below according to World Igor Organization (WHO) criteria with a low fracture risk. There has been worsening of bone density since the previous examination. Reference Information: The T-score is the number of standard deviations above or below the standard which is normal for young adults at their peak bone mineral density. The World Health Organization (WHO) interprets the T-scores as follows: Above -1 Normal bone density Between -1 and -2.5 Osteopenia Equal to / or below -2.5 Osteoporosis As a practical clinical guideline, osteopenia may be graded as follows: Mild -1 through -1.5 Moderate -1.6 through -2.0 Severe -2.1 through -2.4 The Z-score is the number of standard deviations above or below age-matched controls. A Z-score of less than -1.5 would be considered abnormal. References: 1. NIH Osteoporosis and Related Bone Diseases www osteo.org 2. International Society for Clinical Densitometry www iscd.org 3. National Osteoporosis Foundation www nof.org Electronically Signed: Bryson Oliver, at 10:36 EST , Service support ,
== END ==
PROVIDERS: PCP Internal Medicine; Referring Provider Internal Medicine; Visit Provider Internal Medicine
DX: Z78.0 Asymptomatic menopausal state (principal)
CPT/HCPCS: 77080

== ENCOUNTER → 2020-08-22 08:45 | Outpatient (CLI) | payer MEDICARE, SELFPAY ==
--- NOTE | 2020-08-22 09:01 | MRI_ITS ---
STUDY: MRI RIGHT ANKLE WITHOUT CONTRAST REASON FOR EXAM: Female, 65 years old. C/O PLANTAR FASCIITIS PAIN R FOOT X 1.5 YRS TECHNIQUE: Standardized fat and water weighted pulse sequences were obtained in all 3 orthogonal planes. COMPARISON: None. FINDINGS: Normal subcutis adipose space. Normal posterior tibialis tendon. Normal flexor digitorum longus tendon. Normal flexor hallucis longus tendon. Normal peroneus longus. There is low-lying peroneal brevis muscle belly. Normal tibialis anterior tendon. Normal extensor hallucis longus tendon. Normal extensor digitorum longus tendons. Normal Achilles tendon and teno-osseous insertion. There is edema with partial tearing of the proximal central cord of the plantar fascia, series 4 images 07/06 and 08/05 . There is a plantar calcaneal spur with cancellous marrow edema consistent with a marrow stress phenomena. Normal intrinsic muscles of the rearfoot. There is interstitial edema of the anterior tibiofibular ligament of the distal tibiofibular articulation consistent with a mild partial high ankle sprain. Normal lateral ligamentous complex. Normal subtalar ligaments and sinus tarsi. Normal deltoid ligamentous complexes. Normal plantar calcaneonavicular (spring) ligament. There is small effusion of the tibiotalar articulation. There is subchondral edema of the medial talar dome. Normal subtalar articulations. Normal talonavicular articulation. Normal calcaneocuboid articulation. Normal navicular-cuneiform articulations. MRI/Lower Ext Joint Only (Routine) IMPRESSION: Plantar fascia with partial tearing. Reactive spurring and edema with stress injury of the posterior calcaneus. Electronically Signed: Sheldon Murdock MD at 15:55 EST , Service support ,
== END ==
PROVIDERS: PCP Internal Medicine; Referring Provider Podiatrist; Visit Provider Podiatrist
DX: M72.2 Plantar fascial fibromatosis (principal)
CPT/HCPCS: 73721

== ENCOUNTER 2020-08-26 17:34 | Emergency (ER) | payer MEDICARE, SELFPAY ==
[2020-08-26 17:35] VITALS: BP 143/94; PULSE 110; RESP 24; TEMP 38.6; O2SAT 98; BMI 35.4
[2020-08-26 17:37] VITALS: BP 143/94; PULSE 110; RESP 24; TEMP 38.6; O2SAT 98
--- NOTE | 2020-08-26 17:47 | ED.VIS.GEN ---
History of Present Illness Chief Complaint: Abd Pain Informant: Patient Narrative: 65-year-old female presenting with right lower quadrant abdominal pain. She states it started about 430 this afternoon. She states she ate sloppy Valentino[employer] at about 3. Patient has associated symptoms of nausea. Patient has not had a fever outpatient but arrives with a fever of 101.4. Patient states that he had a previous bowel resection for Crohn's disease. He states he has had a Crohn's flare in a long time. Patient also admits to chills, body aches. She denies change in taste or smell. No known contact with ill patients or with Covid?19. - Past Medical History (1) Hyperlipemia, mixed Status: Chronic (2) Atherosclerotic heart disease of [place] coronary artery without angina pectoris Status: Chronic Comment: Mild Past Medical History - Allergies and Home Meds Allergies/Adverse Reactions: Allergies anti inflammatory medication Adverse Reaction (Unknown, Uncoded 01/24/20 10:45) Crohns Disease Primary Care Physician: Yuki Wilson DO [Primary Care Provider] - Prior records reviewed: Yes Past Medical History: - - Reviewed in problem list, Crohn's disease Surgical History: colectomy, tonsillectomy Lives: Spouse/ Significant Other Smoking Status: Former smoker Alcohol: None Drugs: None Review of Systems General: Reports: Chills, Fever Eyes: Denies: Visual changes - bilaterally, Diplopia ENT: Denies: Rhinorrhea, Sore throat Cardiovascular: Denies: Chest pain, Palpitations Respiratory: Denies: Dyspnea, Cough, Dyspnea on exertion Gastrointestinal: Reports: Abdominal pain, Nausea. Denies: Diarrhea, Constipation Genitourinary: Denies: Dysuria, Hematuria Musculoskeletal: Reports: Myalgias. Denies: Arthralgias Skin: Denies: Rash, Abscess, Abrasions Neurological: Denies: Headache, Parasthesia, Numbness Psych: Denies: Depression, Anxiety Physical Exam Vital Signs/Narrative: Vital Signs Temp Pulse Resp BP Pulse Ox 08/26/20 17:37 101.4 F H 110 H 24 H 143/94 H 98 08/26/20 17:35 101.4 F H 110 H 24 H 143/94 H 98 Inital Vital Signs reviewed: Yes General: Well nourished, No Acute Distress Head: Normocephalic, Atraumatic Eyes: Perrl, EOMI ENT: Moist mucous membranes, No rhinorrhea Cardiovascular: Regular rate, Regular rhythm Respiratory: No distress, CTA bilaterally Abdomen: Soft, Nondistended, Tender - There is to palpation in the right lower quadrant. Extremities: Nontender, No edema Skin: Normal color, No rash. Negative for: Cyanosis, Diaphoresis Neurological: Alert, Oriented x3, Cranial nerves II-XII grossly intact Psychological: Normal affect, Normal Mood Diagnostic/Tx/Re-eval Clinical Impression(s) from Imaging Studies Abdomen/Pelvis CT 08/26/20 18:06 IMPRESSION: 1. Intermittent areas of mild wall thickening and luminal narrowing in the ileum. Question mild Crohn''s disease. There is no associated inflammatory process. 2. Distended gallbladder without other abnormality. 3. Status post hysterectomy. 4. Redundant colon without inflammatory change. Electronically Signed: Jeff Leblanc DO at 19:57 EST Tel [phone], Service support , Abdomen Ultrasound 08/26/20 20:02 IMPRESSION: 1. Well-distended gallbladder without gallstones or evidence of cholecystitis. 2. Fatty infiltration of the liver. Electronically Signed: Jeff Leblanc DO at 20:59 EST Tel [phone], Service support , Laboratory Data 08/26/20 08/26/20 18:37 18:37 WBC 11.5 H RBC 5.44 H Hgb 15.7 H Hct 47.3 H MCV 86.9 MCH 28.9 MCHC 33.2 RDW Std Deviation 42.3 RDW Coeff of Nadia 13.3 Plt Count 239 MPV 9.9 Immature Gran % (Auto) 0.300 Neut % (Auto) 82.1 H Lymph % (Auto) 9.4 L [place] % (Auto) 5.5 Eos % (Auto) 2.2 Baso % (Auto) 0.5 Absolute Neuts (auto) 9.5 H Absolute Lymphs (auto) 1.08 Nucleated RBC % 0 Sodium 139 Potassium 4.0 Chloride 110 H Carbon Dioxide 22.0 Anion Gap 7 BUN 11 Creatinine 0.90 Estim Creat Clear Calc 58.34 Est GFR (MDRD) Af Amer 81 Est GFR (MDRD) Non-Af 67 BUN/Creatinine Ratio 12.2 Glucose 101 Calcium 8.9 Total Bilirubin 0.70 AST 21 ALT 31 Alkaline Phosphatase 106 Total Protein 7.3 Albumin 3.4 Globulin 3.9 Albumin/Globulin Ratio 0.9 Lipase 75 - Medical Decision Making 65-year-old female presenting with right lower quadrant abdominal pain which started today and has been progressive. Arrival she was noted to have a fever. She has no cough or cold symptoms. No change in taste of smell. Chest pain or shortness of breath. She was treated with Tylenol. She was concerned that it could be her gallbladder however her pain seems to be lower than this. Patient's lab work obtained she has a leukocytosis of 11,000. Renal function and LFTs are normal. Patient initially had CT scan which showed mild Crohn's disease. She had also right upper quadrant ultrasound which showed gallstones but no cholecystitis. She reports no pain on gallbladder ultrasound after being treated with morphine. Patient tested negative for Covid?19 in the ER, however she was given precautions that she could possibly still have it giving testing is not perfect. Patient states that in the past he has been treated with prednisone and has had successful improvement. Patient states he has tramadol to take at home for pain if needed. Patient has a GI doctor and will make a follow-up appointment with him tomorrow. Patient is discharged home in stable condition. Impression: 1. Crohn's flare 2. Fever ED Disposition - Plan for ED Patient: Disposition: Home or Assisted Living Instructions: ED Crohn's Disease Prescriptions: Prednisone 10 mg PO UD #33 tab Transmission Status: Received by [facility]/pharmacy #[id number] Referrals: Yuki Wilson DO [Primary Care Provider] -
--- NOTE | 2020-08-26 18:06 | CT_ITS ---
STUDY: CT ABDOMEN AND PELVIS WITH CONTRAST REASON FOR EXAM: Female, 65 years old. .Normal pain. Nausea. Diarrhea. Shortness of breath and fever. History of Crohn''s disease. RADIATION DOSAGE (If Supplied By Facility): CTDIvol = ( 16.635 ) mGy, DLP = ( 1215.76 ) mGycm TECHNIQUE: Transaxial images were obtained from the dome of the diaphragm to the symphysis pubis without oral contrast. IV 100mL Isovue-370 was administered. Sagittal and coronal images were reconstructed. Individualized dose optimization techniques were used for this CT. COMPARISON: None. FINDINGS: The visualized lung bases are unremarkable. The visualized portions of the heart are within normal limits. Normal liver. Gallbladder is well-distended without wall thickening and inflammatory change or visualized gallstones. There is no biliary ductal dilatation. Normal spleen. There is fatty replacement of the pancreas without mass. Normal bilateral adrenal glands. Normal right kidney. Normal left kidney. Normal visualized ureters. Normal visualized stomach. Proximal small bowel appears normal. There are segments of luminal narrowing and wall thickening of the distal small bowel by areas of normal appearing small bowel. No evidence of inflammatory process. The terminal ileum appears grossly normal. The colon is redundant but otherwise unremarkable. There is diffuse atherosclerotic calcification of the abdominal aorta, without a demonstrated aneurysm. Normal inferior vena cava. Normal retroperitoneum. Normal urinary bladder. Normal vaginal cuff. There are multiple phleboliths without lymphadenopathy. No free air or free fluid is seen within the peritoneal cavity. Normal abdominal wall. Normal osseous structures. CT/Abdomen/Pelvis W IV Cont ONLY IMPRESSION: 1. Intermittent areas of mild wall thickening and luminal narrowing in the ileum. Question mild Crohn''s disease. There is no associated inflammatory process. 2. Distended gallbladder without other abnormality. 3. Status post hysterectomy. 4. Redundant colon without inflammatory change. Electronically Signed: Jeff Leblanc DO at 19:57 EST Tel [phone], Service support ,
[2020-08-26] MEDS: Morphine 4 MG/ML Syringe IV ×2 (18:32→20:05)
[2020-08-26] MEDS: 0.9% Normal Saline 1,000 ML 1000 ML IV (18:32)
[2020-08-26] MEDS: Ondansetron 4 MG/2 ML Vial IV (18:32)
[2020-08-26] MEDS: Acetaminophen 500 MG Tablet 1000 MG PO (18:40)
[2020-08-26 18:42] VITALS: BP 127/65; PULSE 102; RESP 20; TEMP 38.6; O2SAT 100
[2020-08-26 18:53] LABS: Absolute Lymphocyte Count 1.08 X10^3/uL (0.83-4.51); Absolute Neutrophil Count 9.5 X10^3/uL (2.0-7.7); Basophil# 0.06 X10^3/uL; Basophil% 0.5 % (0-1); Eosinophil# 0.25 X10^3/uL; Eosinophils% 2.2 % (0-5); Hematocrit 47.3 % (37-47); Hemoglobin 15.7 g/dL (12.0-15.0); Lymphocyte # 1.08 X10^3/ul (4.0); Lymphocyte % 9.4 % (19-41); Mean Corp Hgb Conc 33.2 g/dL (32-36); Mean Corpuscular Hgb 28.9 pg (27.0-32.0); Mean Corpuscular Volume 86.9 fL (81-99); Mean Platelet Vol. 9.9 fl (6.2-12.0); Monocyte# 0.63 X10^3/uL; Monocyte% 5.5 % (0-10); NRBC Flagged by Analyzer 0 % (0-5); Neutrophil # 9.45 X10^3/uL (2.7-7.7); Neutrophil % 82.1 % (47-70); Platelet Count 239 K/mm3 (150-450); RBC Distribution Width CV 13.3 % (11.6-14.6); RBC Distribution Width SD 42.3 fl (35.1-43.9); Red Blood Count 5.44 M/mm3 (4.2-5.4); White Blood Count 11.5 K/mm3 (4.4-11.0)
[2020-08-26 19:05] LABS: BUN 11 mg/dL (7-18); Estimated Creatinine Clearance 58.34 ml/min; Glucose 101 mg/dL (74-106)
[2020-08-26 19:06] LABS: ALB/GLOB Ratio 0.9 RATIO (0.9-2.4); AST(SGOT) 21 U/L (15-37); Alanine Aminotransfer ALT/SGPT 31 U/L (13-56); Albumin, Serum 3.4 g/dL (3.2-5.0); Alkaline Phosphatase 106 U/L (45-117); Anion Gap 7 (5-15); BUN/Creat Ratio 12.2 RATIO (10-20); Calcium,Total 8.9 mg/dL (8.5-10.1); Chloride 110 mmol/L (98-107); EST Glomerular Filtration Rate 67 mL/min (>60); Est Glom Filt Rate - Afr Amer 81 mL/min (>60); Globulin 3.9 g/dL (2.2-4.2); Lipase 75 U/L (73-393); Protein, Total 7.3 g/dL (6.4-8.2); Sodium Level 139 mmol/L (136-145)
[2020-08-26 20:00] VITALS: BP 114/63; PULSE 100; RESP 20; TEMP 37.6; O2SAT 96
--- NOTE | 2020-08-26 20:02 | US_ITS ---
STUDY: ABDOMINAL ULTRASOUND - RIGHT UPPER QUADRANT REASON FOR VISIT: Female, 65 years old abdominal pain. TECHNIQUE: Ultrasound evaluation of the right upper quadrant was performed with real-time and static king-scale imaging. TECHNICAL QUALITY: Adequate. COMPARISON: CT of the abdomen and pelvis, 08/26/2020. FINDINGS: Liver: The liver measures 15.6 cm. There is increased echogenicity consistent with fatty infiltration. The bile ducts are within normal limits. There is hepatic color flow. The direction of portal flow is hepatopetal. The questionable hypodensity along the inferior aspect of segment 3 of the liver. Question small area of focal fatty sparing. Gallbladder: The gallbladder is well distended. The gallbladder wall measures 2 mm. There is a negative sonographic Horner''s sign. There is no pericholecystic fluid. There are no gallstones. Common Bile Duct (C.B.D.): The common bile duct measures 5 mm. Pancreas: Normal size of the head, body and proximal tail of the pancreas. The distal tail is obscured. There is normal echogenicity of the pancreas. There is no demonstrated pancreatic mass or cyst. Right Kidney: Normal size of the right kidney. The right kidney measures 9.6 cm. Normal renal cortex. The right cortex measures 1.4 cm. There is no demonstrated renal mass or cyst. There is no right hydronephrosis. US/Abdomen Limited IMPRESSION: 1. Well-distended gallbladder without gallstones or evidence of cholecystitis. 2. Fatty infiltration of the liver. Electronically Signed: Jeff Leblanc DO at 20:59 EST Tel [phone], Service support ,
[2020-08-26] MEDS: predniSONE 20 MG Tablet 60 MG PO (21:53)
[2020-08-26 21:58] VITALS: BP 143/70; PULSE 98; RESP 16
== END 2020-08-26 22:01 | disposition home or self-care (01) ==
PROVIDERS: Emergency Provider Student in an Organized Health Care Education/Training Program; PCP Internal Medicine
DX: K50.90 Crohn's disease, unspecified, without complications (principal); R50.9 Fever, unspecified; I25.10 Atherosclerotic heart disease of native coronary artery without angina pectoris; E78.2 Mixed hyperlipidemia; Z79.899 Other long term (current) drug therapy; Z87.891 Personal history of nicotine dependence; Z90.49 Acquired absence of other specified parts of digestive tract
CPT/HCPCS: 74177; 76705; 80053; 83690; 85025; 87426; 96361; 96374; 96375; 96376; 99285; J7030; Q9967; A4216; J2405

== ENCOUNTER → 2021-07-31 08:49 | Outpatient (CLI) | payer MEDICARE, SELFPAY ==
--- NOTE | 2021-07-31 08:50 | BI_ITS ---
MAMMOGRAPHY - BILATERAL SCREENING REASON FOR EXAM: Female, 66 years old. Routine annual screening examination. PERTINENT HISTORY: Sister with breast cancer. Grandmother with breast cancer. TECHNIQUE: Digital bilateral breast jelly (3D mammographic acquisition) in the CC and MLO projections. 2-D mediolateral oblique (MLO) and craniocaudad (CC) views of both breasts were obtained. CAD: Full Field Digital Mammography with Computer Added Detection was performed. COMPARISON: Comparison is made with prior examination dated 07/09/2020 and 02/01/2019. FINDINGS: Breast Composition: The breasts are almost entirely fatty. There are no dominant masses or suspicious calcifications. There is a stable 6 mm well-defined nodule in the upper outer aspect of the right breast. This most likely represents a small lymph node. No other significant abnormalities are identified. There has been no significant change since the prior study. BI/SCRN MAMM (CAD)W/JELLY BILAT IMPRESSION: Stable bilateral screening mammogram. Yearly follow-up mammogram recommended. (A) ASSESSMENT CATEGORY: BIRADS Category 2: Benign. A letter regarding these results will be sent to the patient by the facility within 30 days. Approximately 10% of breast cancers are not detected by mammography. A normal mammogram should not delay biopsy of a clinically suspicious abnormality. [id number] Electronically Signed: Bryson Oliver MD at 8:36 EST , Service support ,
== END ==
PROVIDERS: PCP Internal Medicine; Referring Provider Internal Medicine; Visit Provider Internal Medicine
DX: Z12.31 Encounter for screening mammogram for malignant neoplasm of breast (principal); Z80.3 Family history of malignant neoplasm of breast
CPT/HCPCS: 77063; 77067

== ENCOUNTER → 2021-12-24 | Outpatient (CLI) | payer MEDICARE, SELFPAY ==
[2021-12-24 14:53] LABS: Erythrocyte Sedimentation Rate 15 mm/hr (0-30)
[2021-12-24 14:57] LABS: Absolute Lymphocyte Count 3.16 X10^3/uL (0.83-4.51); Absolute Neutrophil Count 4.3 X10^3/uL (2.0-7.7); Basophil# 0.06 X10^3/uL; Basophil% 0.7 % (0-1); Eosinophil# 0.34 X10^3/uL; Eosinophils% 3.9 % (0-5); Hematocrit 37.4 % (37-47); Hemoglobin 11.1 g/dL (12.0-15.0); Lymphocyte # 3.16 X10^3/ul (0.83-4.51); Lymphocyte % 36.7 % (19-41); Mean Corp Hgb Conc 29.7 g/dL (32-36); Mean Corpuscular Hgb 21.5 pg (27.0-32.0); Mean Corpuscular Volume 72.5 fL (81-99); Mean Platelet Vol. 10.5 fl (6.2-12.0); Monocyte# 0.69 X10^3/uL; NRBC Flagged by Analyzer 0 % (0-5); Neutrophil # 4.34 X10^3/uL (2.7-7.7); Neutrophil % 50.4 % (47-70); Platelet Count 372 K/mm3 (150-450); RBC Distribution Width CV 16.5 % (11.6-14.6); RBC Distribution Width SD 42.5 fl (35.1-43.9); Red Blood Count 5.16 M/mm3 (4.2-5.4); White Blood Count 8.6 K/mm3 (4.4-11.0)
[2021-12-24 15:19] LABS: ALB/GLOB Ratio 0.9 RATIO (0.9-2.4); AST(SGOT) 22 U/L (15-37); Alanine Aminotransfer ALT/SGPT 29 U/L (13-56); Albumin, Serum 3.6 g/dL (3.2-5.0); Alkaline Phosphatase 102 U/L (45-117); Anion Gap 8 (5-15); BUN 13 mg/dL (7-18); BUN/Creat Ratio 14.4 RATIO (10-20); CRP < 2.90 mg/L (0.0-3.0); Calcium,Total 9.4 mg/dL (8.5-10.1); Chloride 108 mmol/L (98-107); EST Glomerular Filtration Rate 66 mL/min (>60); Est Glom Filt Rate - Afr Amer 80 mL/min (>60); Ferritin 6 ng/mL (8-252); Glucose 87 mg/dL (74-106); Potassium 4.1 mmol/L (3.5-5.1); Protein, Total 7.6 g/dL (6.4-8.2); Sodium Level 139 mmol/L (136-145)
[2021-12-27 14:09] LABS: Anti-Centromere B Ab <0.2 AI (0.0-0.9); Anti-Chromatin <0.2 AI (0.0-0.9); Anti-Jo <0.2 AI (0.0-0.9); Anti-Scleroderma-70 AB <0.2 AI (0.0-0.9); RNP Ab <0.2 AI (0.0-0.9); SJOGREN'S Anti-SS-A test 0.2 AI (0.0-0.9); SJOGREN'S Anti-SS-B test < 0.2 AI (0.0-0.9); Smith Ab <0.2 AI (0.0-0.9)
[2021-12-27 15:17] LABS: Anti-Mitochondrial AB <20.0 Units (0.0-20.0); Anti-dsDNA Ab 2 IU/mL (0-9)
[2022-01-02 10:07] LABS: Angiotensin Convert Enzyme 47 U/L (14-82); Cytoplasmic Ab (C-ANCA) <1:20 titer (Neg:<1:20); Endomysial Antibody IgA Negative (Negative); HEPATITIS B SURFACE AG Negative (Negative); Hep C Antibodies <0.1 s/co ratio (0.0-0.9); Hepatitis A IgM Antibody Negative (Negative); Hepatitis B Core AB IgM Negative (Negative); Immunoglobulin A 524 mg/dL (87-352); Immunoglobulin E 317 IU/mL (6-495); Immunoglobulin G 1054 mg/dL (586-1602); QNTFERON TB Mitogen Value > 10.00 IU/mL (.); QNTFERON TB Nil Value 0.04 IU/mL (.); QNTFERON TB2+ Ag Value 0.28 IU/mL (.)
[2022-01-02 11:30] LABS: Anti-Smooth Muscle ABS 8 Units (0-19); Immunoglobulin M 105 mg/dL (26-217); Perinuclear Ab (P-ANCA) <1:20 titer (Neg:<1:20); QNTIFERON TB Positive Criteria Negative (Negative); t-Transglutaminase IgA 3 U/mL (0-3)
== END | disposition home or self-care (01) ==
LOC: LAB 14:00
PROVIDERS: PCP Internal Medicine; Visit Provider Internal Medicine Gastroenterology
DX: K50.90 Crohn's disease, unspecified, without complications (principal); R53.83 Other fatigue
CPT/HCPCS: 36415; 80053; 80074; 82164; 82728; 82784; 82785; 83516; 85025; 85652; 86140; 86225; 86235; 86255; 86256; 86480

== ENCOUNTER → 2021-12-25 | Outpatient (CLI) | payer MEDICARE, SELFPAY ==
[2021-12-28 16:42] LABS: Calprotectin, Stool 97 ug/g (0-120)
== END | disposition home or self-care (01) ==
LOC: LABSPEC 08:54
PROVIDERS: PCP Internal Medicine; Visit Provider Internal Medicine Gastroenterology
DX: K50.90 Crohn's disease, unspecified, without complications (principal)
CPT/HCPCS: 83993

== ENCOUNTER → 2022-01-05 | Outpatient (CLI) | payer MEDICARE, SELFPAY ==
--- NOTE | 2022-01-05 12:53 | CDU_ITS ---
Reason For Study: Bruit Rt. Velocities/BP Lt. Velocities/BP Prox CCA 82/15 cm/sec. Prox CCA 98/17 cm/sec. Mid CCA 76/16 cm/sec. Mid CCA 72/17 cm/sec. Dist CCA 67/16 cm/sec. Dist CCA 68/17 cm/sec. Prox ICA 95/28 cm/sec. Prox ICA 76/21 cm/sec. Mid ICA 101/31 cm/sec. Mid ICA 83/29 cm/sec. Dist ICA 102/28 cm/sec. Dist ICA 105/38 cm/sec. Rt. ICA/CCA = 1.3. Lt. ICA/CCA = 1.5. Prox ECA 94/11 cm/sec. Prox ECA 123/10 cm/sec. Rt. Vert. 74/16 cm/sec. Lt. Vert. 71/18 cm/sec. Right Extracranial There is intimal thickening but no significant atherosclerotic plaque noted in the right common carotid artery. There is homogeneous, smooth atherosclerotic plaque noted in the right internal carotid artery. There is intimal thickening but no significant atherosclerotic plaque noted in the right external carotid artery. Antegrade flow is noted in the right vertebral artery. Left Extracranial There is intimal thickening but no significant atherosclerotic plaque noted in the left common carotid artery. There is intimal thickening but no significant atherosclerotic plaque noted in the left internal carotid artery. There is intimal thickening but no significant atherosclerotic plaque noted in the left external carotid artery. Antegrade flow is noted in the left vertebral artery. Procedure Carotid Duplex 32533. This is a Carotid Duplex examination using B-mode, color flow and specral Doppler. Exam performed in department. VL/Carotid Duplex Ultrasound Interpretation Summary Mild (<50%) stenosis right extracranial internal carotid. Mild (<50%) stenosis left extracranial internal carotid. Flow within the vertebral arteries is antegrade bilaterally. Ordering Physician: Srinath Conteh Referring Physician: Yuki Wilson Performed By: Shikha Carbajal, LIBRADO, RVT
== END | disposition home or self-care (01) ==
LOC: CVS 12:52
PROVIDERS: PCP Internal Medicine; Referring Provider Internal Medicine Cardiovascular Disease; Visit Provider Internal Medicine Cardiovascular Disease
DX: R42 Dizziness and giddiness (principal); R09.89 Other specified symptoms and signs involving the circulatory and respiratory systems; E78.2 Mixed hyperlipidemia; I25.10 Atherosclerotic heart disease of native coronary artery without angina pectoris
CPT/HCPCS: 93880

== ENCOUNTER → 2022-01-06 | Outpatient (CLI) | payer MEDICARE, SELFPAY | END | disposition home or self-care (01) | LOC: PSN 09:33 | PROVIDERS: PCP Internal Medicine; Referring Provider Internal Medicine Cardiovascular Disease; Visit Provider Internal Medicine Cardiovascular Disease | DX: R09.89 Other specified symptoms and signs involving the circulatory and respiratory systems (principal); R42 Dizziness and giddiness; E78.2 Mixed hyperlipidemia; I25.10 Atherosclerotic heart disease of native coronary artery without angina pectoris | CPT/HCPCS: 93225; 93226 ==

== ENCOUNTER → 2022-01-18 | Outpatient (CLI) | payer MEDICARE, SELFPAY ==
--- NOTE | 2022-01-18 09:01 | US_ITS ---
STUDY: ABDOMINAL ULTRASOUND - ELASTOGRAPHY REASON FOR VISIT: Female, 66 years old. Crohn''s disease. Fatty infiltration of the liver. TECHNIQUE: Liver stiffness measurements were obtained on a Agorafy RS 85 ultrasound machine using a CA 1-7 probe following the SRU guidelines. 3 measurements were obtained using a 2-D-SWE method. The IQR/M was 22% suggesting a quality data set. TECHNICAL QUALITY: Adequate. COMPARISON: Comparison is made with prior examination done earlier today. FINDINGS: Liver: Fatty infiltration of the liver. Median liver stiffness measured 4.5 kPa. US/Elastography Parenchyma/Organ IMPRESSION: Liver stiffness measures 4.5 kPa compatible with FO (Normal) Metavir score. Electronically Signed: Bryson Oliver MD at 13:10 EDT ,
--- NOTE | 2022-01-18 09:05 | US_ITS ---
STUDY: ABDOMINAL ULTRASOUND - RIGHT UPPER QUADRANT REASON FOR VISIT: Female, 66 years old CROHN''S DISEASE, FATTY LIVER TECHNIQUE: Ultrasound evaluation of the right upper quadrant was performed with real-time and static king-scale imaging. TECHNICAL QUALITY: Adequate. COMPARISON: Comparison is made with prior study dated 08/26/2020. FINDINGS: Liver: The liver measures 16.2 cm. There is increased echogenicity consistent with fatty infiltration. Focal fatty sparing adjacent to the gallbladder fossa. The bile ducts are within normal limits. There is hepatic color flow. The direction of portal flow is hepatopetal. There is no demonstrated mass lesion. Gallbladder: Normal distended gallbladder. The gallbladder wall measures 3 mm. There is a negative sonographic Horner''s sign. There is no pericholecystic fluid. There are no gallstones. Findings suggestive of adenomyomatosis of the gallbladder wall. Common Bile Duct (C.B.D.): The common bile duct measures 4 mm. Pancreas: Normal size of the head, body and tail of the pancreas. There is increased echogenicity of the pancreas. There is no demonstrated pancreatic mass or cyst. Right Kidney: Normal size of the right kidney. The right kidney measures 8.8 cm x 4.1 cm x 4 cm. Normal renal cortex. The right cortex measures 1.2 cm. There is a 5 mm x 4 mm x 4 mm echogenic nodule in the renal cortex suggestive of a small angiomyolipoma. There is no right hydronephrosis. US/Abdomen Limited IMPRESSION: Fatty infiltration of the liver with focal fatty sparing in the region of the gallbladder fossa. Findings suggestive of adenomyomatosis of the gallbladder lumen. Electronically Signed: Bryson Oliver MD at 13:07 EDT ,
== END | disposition home or self-care (01) ==
LOC: US 08:57
PROVIDERS: PCP Internal Medicine; Visit Provider Internal Medicine Gastroenterology
DX: K50.90 Crohn's disease, unspecified, without complications (principal)
CPT/HCPCS: 76705; 76981

== ENCOUNTER → 2022-01-24 | Outpatient (CLI) | payer MEDICARE, SELFPAY ==
--- NOTE | 2022-01-24 13:43 | ECHOCS_ITS ---
Reason For Study: Dizziness Procedure This was a 2D Doppler, Color Flow transthoracic echocardiogram. The study was technically difficult. Contrast injection was performed. Bubble study performed. Exam performed in department. Left Ventricle Normal LV size. Left ventricular systolic function is normal. The estimated ejection fraction is 65 %. No evidence for diastolic dysfunction. No regional wall motion abnormalities noted. Right Ventricle Normal RV size. Normal systolic function. Atria The left atrium is mildly enlarged. Normal right atrium. No doppler evidence for ASD. Mitral Valve There is moderate mitral annular calcification. Extension of the mitral annular calcification on the base of the posterior mitral valve leaflet. Trivial mitral valve insufficiency. Tricuspid Valve Normal tricuspid valve. Trivial tricuspid valve insufficiency. Unable to estimate RV systolic pressure/pulmonary artery pressure due to technically difficult study. Aortic Valve Trisinus/trileaflet aortic valve. Mild focal aortic valve calcification. Trivial aortic valve insufficiency. Pulmonic Valve The pulmonic valve is not well visualized. Great Vessels Normal sized aortic root. Pericardium/Pleural No pericardial effusion. Medication 20 gauge I.V. with prn adaptor inserted into left arm. Diluted definity 2ml given slow IV push to enhance endocardial definition. Performed a rapid injection of agitated mix of 9 cc saline and 1cc air to assess for atrial septal defect. MMode/2D Measurements & Calculations LVIDd: 4.7 cm FS: 48.2 % LVOT diam: 2.0 cm LVIDs: 2.4 cm RVDd: 3.1 cm LVOT area: 3.2 cm2 Ao root diam: 2.9 cm LAV(MOD-bp): 54.3 ml LA A4 area: 19.5 cm2 LA dimension: 3.3 cm LAV(MOD-bp) Indexed: 26.3 ml/m2 LAV(MOD-sp2): 53.9 ml LAV(MOD-sp4): 54.3 ml RA A4 area: 15.3 cm2 Time Measurements MV dec time: 0.27 sec Doppler Measurements & Calculations MV E max christian: 75.4 cm/sec Lat Peak E' Christian: 5.7 cm/sec Med Peak E' Christian: 6.6 cm/sec MV A max christian: 122.2 cm/sec E/E' lat: 13.3 E/E' med: 11.3 MV E/A: 0.62 MV V2 max: 125.3 cm/sec MV P1/2t max christian: 97.4 cm/sec Ao V2 max: 189.9 cm/sec MV max P.3 mmHg MV P1/2t: 69.7 msec Ao max P.4 mmHg MV V2 mean: 69.3 cm/sec MV dec slope: 409.3 cm/sec2 Ao V2 mean: 126.5 cm/sec MV mean P.3 mmHg Ao mean P.3 mmHg MV V2 VTI: 26.9 cm MVA(P1/2t): 3.2 cm2 Ao V2 VTI: 40.3 cm MVA(VTI): 3.7 cm2 ALVIN(I,D): 2.5 cm2 ALVIN(V,D): 2.4 cm2 LV V1 max: 142.9 cm/sec SV(LVOT): 100.7 ml PA V2 max: 136.8 cm/sec LV V1 max P.2 mmHg LV V1 mean P.9 mmHg LV V1 mean: 88.8 cm/sec LV V1 VTI: 31.2 cm ECHO/Echo Complete W/ Contrast Interpretation Summary The study was technically difficult. Contrast injection was performed. Left ventricular systolic function is normal. The estimated ejection fraction is 65 %. The left atrium is mildly enlarged. There is moderate mitral annular calcification. Extension of the mitral annular calcification on the base of the posterior mitr al valve leaflet. Trivial mitral valve insufficiency. Trivial tricuspid valve insufficiency. Mild focal aortic valve calcification. Trivial aortic valve insufficiency. Unable to estimate RV systolic pressure/pulmonary artery pressure due to techni lana difficult study. No evidence for diastolic dysfunction. Ordering Physician: Srinath Conteh Referring Physician: Yuki Wilson M.D. Performed By: Josef Deleon RCS
== END | disposition home or self-care (01) ==
LOC: CVS 13:41
PROVIDERS: PCP Internal Medicine; Referring Provider Internal Medicine Cardiovascular Disease; Visit Provider Internal Medicine Cardiovascular Disease
DX: I25.10 Atherosclerotic heart disease of native coronary artery without angina pectoris (principal); R42 Dizziness and giddiness
CPT/HCPCS: 93306; Q9957; A4216; C8929

== ENCOUNTER 2022-02-02 06:43 | Day surgery (SDC) | payer MEDICARE, SELFPAY ==
[2022-02-02] VITALS (7 sets, daily range): BP systolic 101–160; BP diastolic 54–76; PULSE 58–71; RESP 16; TEMP 36.2–36.8; O2SAT 97–100; BMI 34.2
[2022-02-02] MEDS: Lactated Ringers 1,000 ML 15 ML IV (07:16)
--- NOTE | 2022-02-02 07:40 | PCM.HP.BLA ---
History and Physical Date of Admission: 02/02/22 VICKY ARAGON, is a 66 F who presents to the office today for Initial consultation. Vicky established with this clinic 5.01.09 to established care for Crohn?s disease diagnosed in 1978 after a ten-year history of abdominal pain, diarrhea and a small bowel obstruction s/p resection in RLQ with diagnosis made following surgery. Previously utilized medications include Pentasa, entocort, prednisone, Azasan. The only medication which helped was prednisone. Additional diagnosis of psoriatic arthritis for which methotrexate was used [id number] (constipation) and Humira [phone] (psoriatic breakthrough symptoms and chest pain) and Stelara 2018 ? 2019 when she retired because insurance won?t cover this. Renea worked ok, but did not work as well as Arielle. TB Quantiferon Gold 8..20 Pos Crit. Feels she is having a bit of a flare, she is having 2 episodes of diarrhea in the AM without blood/mucous, RLQ tenderness, body aches and joint pain each day (tramadol, Dr. Wilson). She is not currently on a maintenance medication. Reports that she will periodically get constipation, typically when she increases her fiber intake; this makes her worried because of her obstruction history. has dementia which makes it difficult to get to [facility]. PMH includes, HTN, fatty liver, psoriasis with arthritis, rosacea. PSH ileocolic resection, rectocele repair, hysterectomy. FH include brother, son, grandson and 3 nieces/nephews with Crohn?s disease. US RUQ 7.8.19 [facility] liver coarse echotexture with increase echogenicity. Trace gallbladder sludge. Colonoscopy 8.23.19 [facility] patent end-to-side ileo-colonic anastomosis with healthy appearing mucosa; diverticulosis in entire examined colon. Biopsies without pathologic changes. US abd 1.6.21 with liver measurement 15.6cm with fatty infiltration; questionable hypodensity along inferior aspect of liver, ? focal fatty sparing ROS Const Constitutional: No fatigue, malaise, night sweats, weight change, sleep problems, abnormal sleep pattern or change in appetite ENT ENT: No difficulty swallowing, hoarseness or sore throat Cardio Cardiology: No chest pain at rest Gastro GI: No belching, bloating, change in bowel habits, change in stool character, coffee ground emesis, constipation, cramping, heartburn, difficulty swallowing, feeling full early, excessive flatus, incontinent of stools, Vomiting blood/hematemesis, Blood in stool, loose stools, Black,tarry stools, nausea/dyspepsia, pain with swallowing, vomiting or other Skin Skin: No yellowing of the eye or itchy eyes Neuro Neurology: No behavioral changes Psych Psychiatric: No abnormal sleep pattern, No anxiety, No behavioral changes, No change in appetite and No depression Endo Endocrine: No fatigue or weight change Aller/Imm Allergy/Immunologic: No itchy eyes Rolan/Lymp Hematologic/Lymphatic: No easy bleeding or easy bruising Exam Const General: cooperative and comfortable Nutritional Appearance: average body habitus and well nourished HENMD Head: normal to inspection Ears: hearing grossly normal bilaterally Nose: external nose normal Face and sinus: normal facial exam Mouth: oral mucosae normal Throat: posterior oropharynx normal Eyes General: appearance normal, both eyes and all related structures Neck Neck: normal visual inspection Chest Chest palpation & inspection: normal inspection of the chest and normal palpation of entire chest wall Resp Effort & Inspection: normal respiratory effort Auscultation: Bilateral: Clear to Auscultation Cardio Palpation: normal PMI Rate: regular rate Rhythm: regular rhythm GI Inspection: normal to inspection Auscultation: normal bowel sounds Percussion: normal to percussion Palpation: no hepatosplenomegaly Skin General: no rashes or lesions noted Neuro General: patient alert Extrem General: normal to inspection Psych Affect: normal affect Quality Reporting Tobacco Screening ([facility] 138) Smoking Status: Former smoker Assessment and Plan Assessment and Plan (1) Crohns disease: ?Status:?Acute ? ? ? Orders:?Orders: ? Comprehensive Metabolic Profil 12/24/21 ? ? ? CRP 12/24/21 ? ? ? Ferritin 12/24/21 ? ? ? CBC W/Diff, Automated 12/24/21 ? ? ? Erythrocyte Sed Rate 12/24/21 ? ? ? Anti-Mitochondrial AB 12/24/21 ? ? ? EL Comprehensive Panel 12/24/21 ? ? ? Hepatitis Panel Acute 12/24/21 ? ? ? Angiotensin Convert Enzyme 12/24/21 ? ? ? ANCA 12/24/21 ? ? ? Anti-Smooth Muscle ABS 12/24/21 ? ? ? Celiac Disease Profile 12/24/21 ? ? ? Immunoglobulin E 12/24/21 ? ? ? Immunoglobulin G 12/24/21 ? ? ? Immunoglobulin M 12/24/21 ? ? ? Quantiferon TB-Gold+ 12/24/21 ? ? ? Calprotectin, Stool Today ? ? ? Elastography Parenchyma/Organ 12/24/21 ?Plan - Dr. Chris Friend, DO: Severe Crohn's disease with resulting in an ileocolonic stricture status post ileocolic resection with [id number] anastomosis.? She has been feeling some fatigue and weakness and she is having diarrhea.? I will check a CBC, ESR, CRP we will also check immunoglobulins ED, G, M, A to see how her immune system is and if she would need any administration of immunoglobulins.? We will also check her stool calprotectin.? Depending on what we see she will likely need an upper and lower endoscopy in the future for staging purposes and to see if there is any changes in her inflammatory bowel disease since she has been off medicine for a year. (2) POE (nonalcoholic steatohepatitis): ?Status:?Acute ?Plan - Dr. Chris Friend, DO: There was some coarse echotexture noted on a previous image that she had of the liver.? We will get a FibroScan along with some autoimmune labs and viral labs to see if there is any underlying liver disease. I have re-examined the patient. There are no clinical changes since date of exam.
--- NOTE | 2022-02-02 08:00 | EGD_PTH ---
PATIENT: VICKY ARAGON LOC: EN U#:[id number] AGE/SX: 67/F ROOM: RE02/02/[address]: Dr. Aries Koch DO : 1955 BED: DIS: 02/02/2022 SPEC #: [id number] RECD: 02/02/22 10:33 STATUS: SIMI JAMES #: [id number] KRISTINA: 02/02/22 08:[address]: Aries Koch DEPT: SURGICAL PATHOLOGY RECD BY: Etelvina Pro ENTERED: 02/02/22 11:34 SP TYPE: EGD BIOPSY AV DR: Dr. Yuki Wilson DO Tissues: A - Duodenum, NOS B - Esophagus, NOS C - COLON BIOPSY D - Sigmoid colon biopsy Procedures: Special Stain Group II Surgery Specimen Level IV Alcian Blue/PAS (control) HEADER OPERATION: Colonoscopy, EGD with biopsies and hot snare (MAC) PRE-OP DIAGNOSIS: Crohn?s disease TISSUE SUBMITTED: A ? Duodenum biopsy, B ? Distal esophagus biopsy, C ? Ileocolonic anastomosis biopsy, D ? Sigmoid colon polyp MICROSCOPIC DIAGNOSIS A. Duodenum, biopsy: Fragments of duodenal mucosa with mild Charli gland hyperplasia. B. Distal esophagus, biopsy: Fragments of gastroesophageal mucosa with moderate chronic inflammation. Intestinal metaplasia (goblet cell metaplasia) not identified. See comment. C. Ileocolonic anastomosis, biopsy: Fragments of small intestine and colonic mucosa with focal ulceration, acute and chronic inflammation and granulation tissue reaction. See comment. D. Sigmoid colon polyp, biopsy: Fragments of tubular adenoma. SJ:rg 02/03/2022 COMMENT B. Alcian blue/PAS stain with matched control is used in the evaluation of the specimen. C. Focal cryptitis and crypt abscesses are noted. Granulomas are not seen. No evidence of dysplasia. Correlation with clinical, endoscopic findings and appropriate follow up are necessary. MICROSCOPIC DESCRIPTION Slides are reviewed. GROSS DESCRIPTION A - Received in fixative is one container labeled with the patient's name and designated duodenum biopsy. The specimen consists of multiple irregular fragments of light lock soft tissue that in aggregate measure 1 x 0.5 x 0.1 cm. The specimen is totally submitted in one cassette. B - Received in fixative is one container labeled with the patient's name and designated distal esophagus biopsy. The specimen consists of multiple irregular fragments of light lock soft tissue that in aggregate measure 1 x 0.2 x 0.1 cm. The specimen is totally submitted in one cassette. C - Received in fixative is one container labeled with the patient's name and designated ileocolonic anastomosis. The specimen consists of multiple irregular fragments of light lock soft tissue that in aggregate measure 1.5 x 0.6 x 0.1 cm. The specimen is totally submitted in one cassette. D - Received in fixative is one container labeled with the patient's name and designated sigmoid colon polyp. The specimen consists of multiple irregular fragments of light lock soft tissue that in aggregate measure 1.5 x 0.5 x 0.2 cm. The specimen is totally submitted in one cassette. / AM:edmund 02/02/2022 TC:2 CPT: 23544 x4, 88336
--- NOTE | 2022-02-02 08:54 | OP.EGD_ITS ---
Patient Name: Pau Jama Procedure Date: 02/02/2022 8:10 AM Date of : 1955 Age: 67 Procedure: Upper GI endoscopy Indications: Epigastric abdominal pain, Functional Dyspepsia Providers: Aries Koch DO Referring MD: Yuki Wilson Medicines: Monitored Anesthesia Care Patient Profile: This is a 67 year old female. Refer to note in patient chart for documentation of history and physical. Patient has symptoms. Complications: No immediate complications. Procedure: Pre-Anesthesia Assessment: - Prior to the procedure, a History and Physical was performed, and patient medications and allergies were reviewed. The risks and benefits of the procedure and the sedation options and risks were discussed with the patient. All questions were answered and informed consent was obtained. Patient identification and proposed procedure were verified by the physician in the pre-procedure area. Mental Status Examination: alert and oriented. Airway Examination: normal oropharyngeal airway and neck mobility. Respiratory Examination: clear to auscultation. CV Examination: normal. Prophylactic Antibiotics: The patient does not require prophylactic antibiotics. Prior Anticoagulants: The patient has taken no previous anticoagulant or antiplatelet agents. ASA Grade Assessment: II - A patient with mild systemic disease. After reviewing the risks and benefits, the patient was deemed in satisfactory condition to undergo the procedure. The anesthesia plan was to use moderate sedation / analgesia (conscious sedation). Immediately prior to administration of medications, the patient was re-assessed for adequacy to receive sedatives. The heart rate, respiratory rate, oxygen saturations, blood pressure, adequacy of pulmonary ventilation, and response to care were monitored throughout the procedure. The physical status of the patient was re-assessed after the procedure. After obtaining informed consent, the endoscope was passed under direct vision. Throughout the procedure, the patient's blood pressure, pulse, and oxygen saturations were monitored continuously. The Colonoscope was introduced through the mouth, and advanced to the second part of duodenum. The upper GI endoscopy was accomplished without difficulty. The patient tolerated the procedure well. Moderate Sedation: Moderate (conscious) sedation was personally administered by an anesthesia professional. The following parameters were monitored: oxygen saturation, heart rate, blood pressure, and response to care. Total physician intraservice time was 15 minutes. Scope In: 8:18:46 AM Scope Out: 8:24:03 AM Total Procedure Duration Time 0 hours 5 minutes 17 seconds Findings: The Z-line was irregular and was found 38 cm from the incisors. Biopsies were taken with a cold forceps for histology. Estimated blood loss was minimal. The entire examined stomach was normal. Patchy mildly erythematous mucosa without active bleeding and with no stigmata of bleeding was found in the first portion of the duodenum and in the second portion of the duodenum. Biopsies were taken with a cold forceps for histology. Verification of patient identification for the specimen was done. Estimated blood loss was minimal. Impression: - Z-line irregular, 38 cm from the incisors. Biopsied. - Normal stomach. - Erythematous duodenopathy. Biopsied. Recommendation: - Written discharge instructions were provided to the patient. - The signs and symptoms of potential delayed complications were discussed with the patient. - Patient has a contact number available for emergencies. - Return to normal activities tomorrow. - Resume previous diet. - Continue present medications. - Await pathology results. - Repeat upper endoscopy in 1 year for surveillance based on pathology results. - Return to GI clinic. Procedure Code(s): --- Professional --- 38905, Esophagogastroduodenoscopy, flexible, transoral; with biopsy, single or multiple CPT copyright 2017 [employer] [place] [employer]. All rights reserved. The codes documented in this report are preliminary and upon sole rougher review may be revised to meet current compliance requirements. Aries Koch DO 02/02/2022 8:53:37 AM This report has been signed electronically. Number of Addenda: 1 Note Initiated On: 02/02/2022 8:10 AM Addendum Number: 1 Addendum Date: 05/24/2022 6:20:32 AM MAC was used as sedation for this procedure. Aries Koch DO 05/24/2022 6:20:37 AM This report has been signed electronically.
--- NOTE | 2022-02-02 08:55 | OP.CCLET_ITS ---
05/24/2022 Yuki Wilson [address] [place] [address] Re : Upper GI endoscopy procedure for Pau Jama Dear Dr. Wilson This procedure was performed on Wednesday, February 02, 2022. My impressions and recommendations are as follows: Impressions : - Z-line irregular, 38 cm from the incisors. Biopsied. - Normal stomach. - Erythematous duodenopathy. Biopsied. Recommendations : - Written discharge instructions were provided to the patient. - The signs and symptoms of potential delayed complications were discussed with the patient. - Patient has a contact number available for emergencies. - Return to normal activities tomorrow. - Resume previous diet. - Continue present medications. - Await pathology results. - Repeat upper endoscopy in 1 year for surveillance based on pathology results. - Return to GI clinic. My findings are described in the full procedure note, which is enclosed. If I can be of further assistance, please feel free to contact me at . Sincerely, Aries Koch DO 02/02/2022 8:53:37 AM This report has been signed electronically.
--- NOTE | 2022-02-02 09:06 | OP.COLON_ITS ---
Patient Name: Pau Jama Procedure Date: 02/02/2022 8:24 AM Date of : 1955 Age: 67 Procedure: Colonoscopy Indications: Ulcerative colitis Providers: Aries Koch DO Referring MD: Yuki Wilson Medicines: Monitored Anesthesia Care Patient Profile: This is a 67 year old female. Refer to note in patient chart for documentation of history and physical. Patient has symptoms. Last Colonoscopy: within the past 3 years. Complications: No immediate complications. Procedure: Pre-Anesthesia Assessment: - Prior to the procedure, a History and Physical was performed, and patient medications and allergies were reviewed. The risks and benefits of the procedure and the sedation options and risks were discussed with the patient. All questions were answered and informed consent was obtained. Patient identification and proposed procedure were verified by the physician in the pre-procedure area. Mental Status Examination: alert and oriented. Airway Examination: normal oropharyngeal airway and neck mobility. Respiratory Examination: clear to auscultation. CV Examination: normal. Prophylactic Antibiotics: The patient does not require prophylactic antibiotics. Prior Anticoagulants: The patient has taken no previous anticoagulant or antiplatelet agents. ASA Grade Assessment: II - A patient with mild systemic disease. After reviewing the risks and benefits, the patient was deemed in satisfactory condition to undergo the procedure. The anesthesia plan was to use moderate sedation / analgesia (conscious sedation). Immediately prior to administration of medications, the patient was re-assessed for adequacy to receive sedatives. The heart rate, respiratory rate, oxygen saturations, blood pressure, adequacy of pulmonary ventilation, and response to care were monitored throughout the procedure. The physical status of the patient was re-assessed after the procedure. After I obtained informed consent, the scope was passed under direct vision. Throughout the procedure, the patient's blood pressure, pulse, and oxygen saturations were monitored continuously. The Colonoscope was introduced through the anus and advanced to the terminal ileum. The colonoscopy was performed without difficulty. The patient tolerated the procedure well. The quality of the bowel preparation was good. Scope In: 8:26:20 AM Scope Withdrawal Time 0 hours 14 minutes 11 seconds Scope Out: 8:45:34 AM Total Procedure Duration Time 0 hours 19 minutes 14 seconds Findings: The perianal and digital rectal examinations were normal. The colon (entire examined portion) appeared normal. There was evidence of a prior end-to-side colo-colonic anastomosis in the ascending colon. This was patent and was characterized by ulceration. The anastomosis was traversed after dilation. Biopsies were taken with a cold forceps for histology. Verification of patient identification for the specimen was done. Estimated blood loss was minimal. A few small-mouthed diverticula were found in the sigmoid colon. A 13 mm polyp was found in the sigmoid colon. The polyp was sessile. The polyp was removed with a hot snare. Resection and retrieval were complete. Verification of patient identification for the specimen was done. Estimated blood loss was minimal. Impression: - The entire examined colon is normal. - Patent end-to-side colo-colonic anastomosis, characterized by ulceration. Biopsied. Recommendation: - Discharge patient to home. - Resume previous diet. - Continue present medications. - Await pathology results. - Repeat colonoscopy in 2 years for surveillance based on pathology results. Procedure Code(s): --- Professional --- 70388, Colonoscopy, flexible; with biopsy, single or multiple CPT copyright 2017 [employer]. All rights reserved. The codes documented in this report are preliminary and upon art gallery director review may be revised to meet current compliance requirements. Aries Koch DO 02/02/2022 9:06:03 AM This report has been signed electronically. Number of Addenda: 1 Note Initiated On: 02/02/2022 8:24 AM Addendum Number: 1 Addendum Date: 05/24/2022 6:20:46 AM MAC was used as sedation for this procedure. Aries Koch DO 05/24/2022 6:20:52 AM This report has been signed electronically.
--- NOTE | 2022-02-02 09:07 | OP.CCLET_ITS ---
05/24/2022 Yuki Wilson [address] [place] [address] Re : Colonoscopy procedure for Pau Jama Dear Dr. Wilson This procedure was performed on Wednesday, February 02, 2022. My impressions and recommendations are as follows: Impressions : - The entire examined colon is normal. - Patent end-to-side colo-colonic anastomosis, characterized by ulceration. Biopsied. Recommendations : - Discharge patient to home. - Resume previous diet. - Continue present medications. - Await pathology results. - Repeat colonoscopy in 2 years for surveillance based on pathology results. My findings are described in the full procedure note, which is enclosed. If I can be of further assistance, please feel free to contact me at . Sincerely, Aries Koch, 02/02/2022 9:06:03 AM This report has been signed electronically.
== END 2022-02-02 09:43 | disposition home or self-care (01) ==
LOC: EN 06:44 → AC 06:44
PROVIDERS: PCP Internal Medicine; Referring Provider Internal Medicine; Visit Provider Internal Medicine Gastroenterology
PROC: 0DJD8ZZ Inspection of Lower Intestinal Tract, Via Natural or Artificial Opening Endoscopic (ICD-10-PCS; CPT 45378; principal; 2022-02-02 07:55)
DX: K51.90 Ulcerative colitis, unspecified, without complications (principal); L40.50 Arthropathic psoriasis, unspecified; D12.5 Benign neoplasm of sigmoid colon; K57.30 Diverticulosis of large intestine without perforation or abscess without bleeding; K75.81 Nonalcoholic steatohepatitis (NASH); I10 Essential (primary) hypertension; Z87.891 Personal history of nicotine dependence
CPT/HCPCS: 45385; 45380; 43239; 88305; 88313; J7120; J2405

== ENCOUNTER → 2022-04-21 | Outpatient (CLI) | payer MEDICARE, SELFPAY ==
--- NOTE | 2022-04-21 14:59 | RAD_ITS ---
STUDY: X-RAY CHEST REASON FOR EXAM: Female, 67 years old. CHEST PAIN COUGH TECHNIQUE: XR Chest 2 Views COMPARISON: 10/22/2019 FINDINGS: There is no demonstrated pleural abnormality. Normal size heart. Normal mediastinum and will. Normal visualized pulmonary arteries. Normal visualized aortic arch and descending thoracic aorta. Normal visualized thoracic spine. Normal visualized ribs, clavicles, and shoulders. There is no demonstrated abnormality of the visualized soft tissue structures of the upper abdomen. RAD/Chest PA and Lateral IMPRESSION: There are no acute findings. Electronically Signed: Edison Queen MD at 18:36 EDT ,
[2022-04-21 17:44] LABS: Absolute Lymphocyte Count 3.21 X10^3/uL (0.83-4.51); Absolute Neutrophil Count 3.4 X10^3/uL (2.0-7.7); Basophil# 0.09 X10^3/uL; Basophil% 1.2 % (0-1); Eosinophil# 0.28 X10^3/uL; Eosinophils% 3.6 % (0-5); Hematocrit 31.7 % (37-47); Hemoglobin 9.4 g/dL (12.0-15.0); Lymphocyte # 3.21 X10^3/ul (0.83-4.51); Lymphocyte % 41.5 % (19-41); Mean Corp Hgb Conc 29.7 g/dL (32-36); Mean Corpuscular Hgb 20.9 pg (27.0-32.0); Mean Corpuscular Volume 70.6 fL (81-99); Mean Platelet Vol. 9.9 fl (6.2-12.0); Monocyte# 0.74 X10^3/uL; Monocyte% 9.6 % (0-10); NRBC Flagged by Analyzer 0 % (0-5); Neutrophil % 43.8 % (47-70); Platelet Count 442 K/mm3 (150-450); RBC Distribution Width CV 18.5 % (11.6-14.6); RBC Distribution Width SD 45.5 fl (35.1-43.9); Red Blood Count 4.49 M/mm3 (4.2-5.4); White Blood Count 7.7 K/mm3 (4.4-11.0)
[2022-04-21 18:13] LABS: D-Dimer Quantitative (DVT/PE) 0.84 FEU/ug/m (0.27-0.49)
== END | disposition home or self-care (01) ==
LOC: MTLAB 14:58
PROVIDERS: PCP Internal Medicine; Referring Provider Internal Medicine; Visit Provider Internal Medicine
DX: R06.02 Shortness of breath (principal); R05.9 Cough, unspecified; R07.9 Chest pain, unspecified
CPT/HCPCS: 36415; 71046; 85025; 85379

== ENCOUNTER → 2022-04-22 | Outpatient (CLI) | payer MEDICARE, SELFPAY ==
--- NOTE | 2022-04-22 16:06 | CT_ITS ---
EXAM: CT ANGIOGRAPHY CHEST WITHOUT AND WITH INTRAVENOUS CONTRAST CLINICAL INDICATION: SOB -- elevated Ddimer TECHNIQUE: Helically acquired angiography images were obtained of the chest without and with intravenous contrast. This CT exam was performed using one or more of the following dose reduction techniques: automated exposure control, adjustment of the mA and/or kV according to patient size, and/or use of iterative reconstruction technique. This report was created using [employer] report generation technology. MIP reconstructed images were created and reviewed. CONTRAST: IV 100mL [id number]-370 RADIATION DOSE: CTDIvol = 12.22 mGy, DLP = 987.09 mGy-cm COMPARISON: None. FINDINGS: PULMONARY ARTERIES: No demonstrated pulmonary embolism or arterial dissection. AORTA: There is atherosclerotic calcification of the aortic arch with tortuosity and elongation of the aortic arch and descending thoracic aorta. Normal in caliber. No evidence of dissection. GREAT VESSELS OF AORTIC ARCH: Unremarkable. Normal in caliber. No evidence of dissection. LUNGS AND PLEURAL SPACES: Unremarkable. No mass. No consolidation or edema. No pleural effusion or thickening. No pneumothorax. HEART: There are calcifications of the coronary arteries. No pericardial effusion. No signs of right heart strain, ratio of right ventricle to left ventricle measures less than 1. MEDIASTINUM: Unremarkable. No mediastinal or hilar adenopathy. Esophagus is unremarkable. No hiatal hernia. THYROID: Unremarkable. No thyroid lesions. BONES/JOINTS: There are degenerative changes of the shoulders. There are multi-level degenerative changes of the thoracic spine. No suspicious lytic or blastic abnormality. CT/CTA Chest W/WO Contrast IMPRESSION: No demonstrated pulmonary embolism or arterial dissection. Electronically Signed: Edison Queen MD at 17:05 EDT ,
[2022-04-22 16:45] LABS: CREATININE FINGERSTICK 1.1 mg/dL (0.55-1.02)
== END | disposition home or self-care (01) ==
LOC: CT 16:05
PROVIDERS: PCP Internal Medicine; Referring Provider Internal Medicine; Visit Provider Internal Medicine
DX: R06.02 Shortness of breath (principal); R79.89 Other specified abnormal findings of blood chemistry
CPT/HCPCS: 71275; Q9967

== ENCOUNTER → 2022-05-13 | Outpatient (CLI) | payer MEDICARE, SELFPAY ==
--- NOTE | 2022-05-14 06:35 | PFT ---
INTRODUCTION: The patient is a 67-year-old female that presents for pulmonary function studies secondary to a diagnosis of wheezing. Respiratory therapy reported good patient effort. Bronchodilators were used during testing. INTERPRETATION: Forced expiration spirometry demonstrates no evidence of a large airways obstructive ventilatory defect. There was no significant response to aerosolized bronchodilators. Spirograms are of good quality and plateau normally. Body plethysmography was performed and reveals lung volumes to be within normal limits. Diffusing capacity by single breath CO is also within normal limits. IMPRESSION: Grossly normal pulmonary function studies.
== END | disposition home or self-care (01) ==
LOC: PSN 08:59
PROVIDERS: PCP Internal Medicine; Referring Provider Internal Medicine; Visit Provider Internal Medicine
DX: R06.2 Wheezing (principal)
CPT/HCPCS: 94060; 94726; 94729

== ENCOUNTER → 2022-07-19 | Outpatient (CLI) | payer MEDICARE, SELFPAY ==
[2022-07-19 09:48] LABS: Erythrocyte Sedimentation Rate 19 mm/hr (0-30)
[2022-07-19 09:51] LABS: Absolute Lymphocyte Count 2.73 X10^3/uL (0.83-4.51); Absolute Neutrophil Count 3.9 X10^3/uL (2.0-7.7); Basophil# 0.12 X10^3/uL; Basophil% 1.5 % (0-1); Eosinophil# 0.37 X10^3/uL; Eosinophils% 4.7 % (0-5); Hematocrit 35.8 % (37-47); Hemoglobin 10.5 g/dL (12.0-15.0); Lymphocyte # 2.73 X10^3/ul (0.83-4.51); Lymphocyte % 34.3 % (19-41); Mean Corp Hgb Conc 29.3 g/dL (32-36); Mean Corpuscular Hgb 20.8 pg (27.0-32.0); Mean Corpuscular Volume 70.8 fL (81-99); Mean Platelet Vol. 9.2 fl (6.2-12.0); Monocyte# 0.78 X10^3/uL; Monocyte% 9.8 % (0-10); NRBC Flagged by Analyzer 0 % (0-5); Neutrophil # 3.93 X10^3/uL (2.7-7.7); Neutrophil % 49.4 % (47-70); POSITIVE MORPHOLOGY YES; Platelet Count 427 K/mm3 (150-450); RBC Distribution Width SD 51.8 fl (35.1-43.9); Red Blood Count 5.06 M/mm3 (4.2-5.4)
[2022-07-19 09:52] LABS: Differential Indicated SCAN CRITERIA MET
[2022-07-19 10:12] LABS: Anisocytosis 1+
[2022-07-19 10:21] LABS: ALB/GLOB Ratio 0.8 RATIO (0.9-2.4); AST(SGOT) 16 U/L (15-37); Alanine Aminotransfer ALT/SGPT 24 U/L (13-56); Albumin, Serum 3.4 g/dL (3.2-5.0); Alkaline Phosphatase 99 U/L (45-117); Anion Gap 5 (5-15); BUN 10 mg/dL (7-18); BUN/Creat Ratio 12.3 RATIO (10-20); CRP < 2.90 mg/L (0.0-3.0); Calcium,Total 9.6 mg/dL (8.5-10.1); Chloride 105 mmol/L (98-107); Creatinine, Serum 0.81 mg/dL (0.55-1.02); EST Glomerular Filtration Rate 75 mL/min (>60); Est Glom Filt Rate - Afr Amer 90 mL/min (>60); Globulin 4.2 g/dL (2.2-4.2); Glucose 98 mg/dL (74-106); Potassium 4.3 mmol/L (3.5-5.1); Protein, Total 7.6 g/dL (6.4-8.2); Sodium Level 138 mmol/L (136-145)
== END | disposition home or self-care (01) ==
LOC: LAB 09:08
PROVIDERS: PCP Internal Medicine; Referring Provider Internal Medicine Gastroenterology; Visit Provider Internal Medicine Gastroenterology
DX: K50.90 Crohn's disease, unspecified, without complications (principal)
CPT/HCPCS: 36415; 80053; 85025; 85652; 86140

== ENCOUNTER → 2022-08-08 | Outpatient (CLI) | payer MEDICARE, SELFPAY ==
[2022-08-08 14:55] LABS: Absolute Lymphocyte Count 3.27 X10^3/uL (0.83-4.51); Absolute Neutrophil Count 3.2 X10^3/uL (2.0-7.7); Basophil% 1.3 % (0-1); Eosinophil# 0.32 X10^3/uL; Eosinophils% 4.2 % (0-5); Hematocrit 37.1 % (37-47); Hemoglobin 11.2 g/dL (12.0-15.0); Lymphocyte # 3.27 X10^3/ul (0.83-4.51); Lymphocyte % 43.1 % (19-41); Mean Corp Hgb Conc 30.2 g/dL (32-36); Mean Corpuscular Hgb 21.9 pg (27.0-32.0); Mean Corpuscular Volume 72.5 fL (81-99); Mean Platelet Vol. 10.1 fl (6.2-12.0); Monocyte# 0.62 X10^3/uL; Monocyte% 8.2 % (0-10); NRBC Flagged by Analyzer 0 % (0-5); Neutrophil # 3.24 X10^3/uL (2.7-7.7); Neutrophil % 42.8 % (47-70); POSITIVE MORPHOLOGY YES; Platelet Count 368 K/mm3 (150-450); RBC Distribution Width CV 23.1 % (11.6-14.6); RBC Distribution Width SD 59.5 fl (35.1-43.9); Red Blood Count 5.12 M/mm3 (4.2-5.4); White Blood Count 7.6 K/mm3 (4.4-11.0)
[2022-08-08 14:58] LABS: Differential Indicated SCAN CRITERIA MET
[2022-08-08 15:43] LABS: Differential Comment SCANNED
== END | disposition home or self-care (01) ==
LOC: LAB 13:51
PROVIDERS: PCP Internal Medicine; Visit Provider Nurse Practitioner Gerontology
DX: D64.9 Anemia, unspecified (principal)
CPT/HCPCS: 36415; 85025

== ENCOUNTER → 2022-08-29 | Outpatient (CLI) | payer MEDICARE, SELFPAY ==
[2022-08-29 16:53] LABS: Erythrocyte Sedimentation Rate 22 mm/hr (0-30)
[2022-08-29 17:33] LABS: CRP < 2.90 mg/L (0.0-3.0)
[2022-08-31 15:08] LABS: HEPATITIS B SURFACE AG Negative (Negative); Hep C Antibodies <0.1 s/co ratio (0.0-0.9); Hepatitis A IgM Antibody Negative (Negative); Hepatitis B Core AB IgM Negative (Negative); QNTFERON TB Mitogen Value > 10.00 IU/mL (.); QNTFERON TB Nil Value 0.01 IU/mL (.); QNTFERON TB1+ Ag Value 0.23 IU/mL (.)
[2022-08-31 16:00] LABS: QNTIFERON TB Positive Criteria Negative (Negative)
== END | disposition home or self-care (01) ==
LOC: LAB 15:43
PROVIDERS: PCP Internal Medicine; Visit Provider Internal Medicine Gastroenterology
DX: K50.90 Crohn's disease, unspecified, without complications (principal); R53.83 Other fatigue
CPT/HCPCS: 36415; 80074; 85652; 86140; 86480

== ENCOUNTER → 2022-08-30 | Outpatient (CLI) | payer MEDICARE, SELFPAY ==
[2022-09-01 21:57] LABS: Calprotectin, Stool <16 ug/g (0-120)
== END | disposition home or self-care (01) ==
LOC: LABSPEC 09:18
PROVIDERS: PCP Internal Medicine; Referring Provider Internal Medicine Gastroenterology; Visit Provider Internal Medicine Gastroenterology
DX: K50.90 Crohn's disease, unspecified, without complications (principal)
CPT/HCPCS: 83630; 83993

== ENCOUNTER → 2022-09-12 | Outpatient (CLI) | payer MEDICARE, SELFPAY ==
[2022-09-12 10:15] VITALS: BP 173/75; PULSE 71; RESP 16; TEMP 36.7; O2SAT 100; BMI 34.1
[2022-09-12] MEDS: 0.9% NaCl Peripheral Flush Adult/Peds IV (10:23)
[2022-09-12 13:02] VITALS: BP 164/65; PULSE 55; RESP 16; TEMP 36.3; O2SAT 100
== END | disposition home or self-care (01) ==
LOC: MEDOUTP 10:07
PROVIDERS: PCP Internal Medicine; Referring Provider Internal Medicine Gastroenterology; Visit Provider Internal Medicine Gastroenterology
DX: K50.90 Crohn's disease, unspecified, without complications (principal)
CPT/HCPCS: 96413; 96415; J7050; A4216; Q5103

== ENCOUNTER → 2022-09-26 | Outpatient (CLI) | payer MEDICARE, SELFPAY ==
[2022-09-26 10:16] VITALS: BP 136/57; PULSE 60; RESP 16; TEMP 36.6; BMI 34.4
[2022-09-26] MEDS: 0.9% NaCl Peripheral Flush Adult/Peds IV (10:19)
== END | disposition home or self-care (01) ==
LOC: MEDOUTP 10:05
PROVIDERS: PCP Internal Medicine; Referring Provider Internal Medicine Gastroenterology; Visit Provider Internal Medicine Gastroenterology
DX: K50.90 Crohn's disease, unspecified, without complications (principal)
CPT/HCPCS: 96413; 96415; J7050; A4216; Q5103

== ENCOUNTER → 2022-10-24 | Outpatient (CLI) | payer MEDICARE, SELFPAY ==
[2022-10-24 10:11] VITALS: BP 154/73; PULSE 78; RESP 16; TEMP 36.2; O2SAT 100; BMI 34.7
[2022-10-24] MEDS: 0.9% NaCl Peripheral Flush Adult/Peds IV (10:28)
== END | disposition home or self-care (01) ==
LOC: MEDOUTP 10:03
PROVIDERS: PCP Internal Medicine; Referring Provider Internal Medicine Gastroenterology; Visit Provider Internal Medicine Gastroenterology
DX: K50.90 Crohn's disease, unspecified, without complications (principal)
CPT/HCPCS: 96413; 96415; J7050; A4216; Q5103

== ENCOUNTER → 2022-12-01 | Outpatient (CLI) | payer MEDICARE, SELFPAY ==
[2022-12-01 14:22] LABS: Absolute Lymphocyte Count 3.24 X10^3/uL (0.83-4.51); Absolute Neutrophil Count 3.3 X10^3/uL (2.0-7.7); Basophil# 0.13 X10^3/uL; Basophil% 1.6 % (0-1); Eosinophil# 0.47 X10^3/uL; Eosinophils% 5.9 % (0-5); Hematocrit 41.8 % (37-47); Hemoglobin 13.2 g/dL (12.0-15.0); Lymphocyte # 3.24 X10^3/ul (0.83-4.51); Lymphocyte % 40.9 % (19-41); Mean Corp Hgb Conc 31.6 g/dL (32-36); Mean Corpuscular Hgb 23.9 pg (27.0-32.0); Mean Corpuscular Volume 75.7 fL (81-99); Monocyte# 0.73 X10^3/uL; Monocyte% 9.2 % (0-10); NRBC Flagged by Analyzer 0 % (0-5); Neutrophil # 3.34 X10^3/uL (2.7-7.7); Neutrophil % 42.3 % (47-70); Platelet Count 302 K/mm3 (150-450); RBC Distribution Width CV 17.8 % (11.6-14.6); RBC Distribution Width SD 48.3 fl (35.1-43.9); Red Blood Count 5.52 M/mm3 (4.2-5.4); White Blood Count 7.9 K/mm3 (4.4-11.0)
[2022-12-01 14:49] LABS: ALB/GLOB Ratio 0.9 RATIO (0.9-2.4); AST(SGOT) 26 U/L (15-37); Alanine Aminotransfer ALT/SGPT 30 U/L (13-56); Albumin, Serum 3.6 g/dL (3.2-5.0); Alkaline Phosphatase 84 U/L (45-117); Anion Gap 4 (5-15); BUN 11 mg/dL (7-18); BUN/Creat Ratio 11.8 RATIO (10-20); CRP < 2.90 mg/L (0.0-3.0); Calcium,Total 9.7 mg/dL (8.5-10.1); Chloride 106 mmol/L (98-107); Creatinine, Serum 0.94 mg/dL (0.55-1.02); EST Glomerular Filtration Rate 63 mL/min (>60); Est Glom Filt Rate - Afr Amer 77 mL/min (>60); Globulin 4.1 g/dL (2.2-4.2); Glucose 84 mg/dL (74-106); Potassium 4.1 mmol/L (3.5-5.1); Protein, Total 7.7 g/dL (6.4-8.2); Sodium Level 137 mmol/L (136-145)
[2022-12-01 21:37] LABS: Erythrocyte Sedimentation Rate 9 mm/hr (0-30)
[2022-12-05 13:07] LABS: Cytoplasmic Ab (C-ANCA) <1:20 titer (Neg:<1:20)
[2022-12-05 15:57] LABS: Perinuclear Ab (P-ANCA) <1:20 titer (Neg:<1:20)
== END | disposition home or self-care (01) ==
PROVIDERS: PCP Internal Medicine; Referring Provider Internal Medicine Gastroenterology; Visit Provider Internal Medicine Gastroenterology
DX: K50.90 Crohn's disease, unspecified, without complications (principal); R07.9 Chest pain, unspecified
CPT/HCPCS: 36415; 80053; 85025; 85652; 86140; 86256

== ENCOUNTER → 2022-12-02 | Outpatient (CLI) | payer MEDICARE, SELFPAY ==
[2022-12-06 15:08] LABS: Calprotectin, Stool 39 ug/g (0-120)
== END | disposition home or self-care (01) ==
LOC: LABSPEC 06:35
PROVIDERS: PCP Internal Medicine; Referring Provider Internal Medicine Gastroenterology; Visit Provider Internal Medicine Gastroenterology
DX: K50.90 Crohn's disease, unspecified, without complications (principal)
CPT/HCPCS: 83630; 83993; 87177; 87209; 87329; 87493

== ENCOUNTER 2022-12-19 10:19 | Outpatient (CLI) | payer MEDICARE, SELFPAY ==
[2022-12-19 10:29] VITALS: BP 153/86; PULSE 55; RESP 16; TEMP 35.9; O2SAT 98; BMI 34.2
[2022-12-19] MEDS: 0.9% NaCl Peripheral Flush Adult/Peds IV (10:47)
[2022-12-19] MEDS: 0.9% NaCl IVPB Med Flush (250 mL) 15 ML IV (10:51)
== END 2022-12-19 10:20 | disposition home or self-care (01) ==
LOC: MEDOUTP 10:19
PROVIDERS: PCP Internal Medicine; Referring Provider Internal Medicine Gastroenterology; Visit Provider Internal Medicine Gastroenterology
DX: K50.90 Crohn's disease, unspecified, without complications (principal)
CPT/HCPCS: 96365; 96366; J7050; A4216; Q5103

== ENCOUNTER 2023-02-13 09:52 | Outpatient (CLI) | payer MEDICARE, SELFPAY ==
[2023-02-13 10:09] VITALS: BP 150/56; PULSE 58; RESP 16; TEMP 36.3; O2SAT 100; BMI 34.2
[2023-02-13] MEDS: 0.9% NaCl Peripheral Flush Adult/Peds IV (10:15)
== END 2023-02-13 09:53 | disposition home or self-care (01) ==
LOC: MEDOUTP 09:53
PROVIDERS: PCP Internal Medicine; Referring Provider Internal Medicine Gastroenterology; Visit Provider Internal Medicine Gastroenterology
DX: K50.90 Crohn's disease, unspecified, without complications (principal)
CPT/HCPCS: 96413; 96415; J7050; A4216; Q5103

== ENCOUNTER → 2023-02-14 | Outpatient (CLI) | payer MEDICARE, SELFPAY ==
--- NOTE | 2023-02-14 13:16 | BI_ITS ---
MAMMOGRAPHY - BILATERAL SCREENING REASON FOR EXAM: Female, 68 years old. Routine annual screening examination. PERTINENT HISTORY: Sister with breast cancer. Grandmother with breast cancer. TECHNIQUE: Digital bilateral breast jelly (3D mammographic acquisition) in the CC and MLO projections. 2-D mediolateral oblique (MLO) and craniocaudad (CC) views of both breasts were obtained. CAD: Full Field Digital Mammography with Computer Added Detection was performed. COMPARISON: Comparison is made with prior study dated July 31, 2021 and July 09, 2020. FINDINGS: Breast Composition: The breasts are almost entirely fatty. There are no dominant masses or suspicious calcifications. Stable fat-containing 6 mm well-defined nodule in the upper outer aspect of the right breast suggestive of a small benign appearing intramammary lymph node. No other significant abnormalities are identified. There has been no significant change since the prior study. BI/SCRN MAMM (CAD)W/JELLY BILAT IMPRESSION: Stable bilateral screening mammogram. Yearly follow-up mammogram recommended. (A) ASSESSMENT CATEGORY: BIRADS Category 2: Benign. A letter regarding these results will be sent to the patient by the facility within 30 days. Approximately 10% of breast cancers are not detected by mammography. A normal mammogram should not delay biopsy of a clinically suspicious abnormality. [id number] Electronically Signed: Bryson Oliver MD at 14:56 EDT ,
--- NOTE | 2023-02-14 13:28 | BD_ITS ---
STUDY: DUAL ENERGY X-RAY ABSORPTIOMETRY / DXA REASON FOR EXAM: Female, 68 years old. [id number] TECHNIQUE: Bone Mineral Density (BMD) measurements of lumbar spine and bilateral hips were obtained. COMPARISON: Comparison is made with prior study July 15, 2020. FINDINGS: Lumbar Spine (L1-L4): g/cm2 (0.819) / T-score (-2.1) / Z-score (-0.1) Findings are suggestive of osteopenia with a high fracture risk. Left Femur Total: g/cm2 (1.048) / T-score (0.9) / Z-score (2.3) Left Femoral Neck: g/cm2 (0.794) / T-score (-0.5) / Z-score (1.2) Right Femur Total: g/cm2 (0.969) / T-score (0.2) / Z-score (1.6) Right Femoral Neck: g/cm2 (0.797) / T-score (-0.5) / Z-score (1.2) The T-Scores on the most recent prior examination were: Lumbar Spine (L1-L4): There has been worsening of bone density since the previous examination. Left Femur Total: which represents an improvement of 0.9%. Right Femur Total: which represents a worsening of 9%. BD/Dexa Bone Density Study IMPRESSION: The patient is considered osteopenic as outlined below according to World Igor Organization (WHO) criteria with a high fracture risk. There has been worsening of bone density since the previous examination. Reference Information: The T-score is the number of standard deviations above or below the standard which is normal for young adults at their peak bone mineral density. The World Health Organization (WHO) interprets the T-scores as follows: Above -1 Normal bone density Between -1 and -2.5 Osteopenia Equal to / or below -2.5 Osteoporosis As a practical clinical guideline, osteopenia may be graded as follows: Mild -1 through -1.5 Moderate -1.6 through -2.0 Severe -2.1 through -2.4 The Z-score is the number of standard deviations above or below age-matched controls. A Z-score of less than -1.5 would be considered abnormal. References: 1. NIH Osteoporosis and Related Bone Diseases www osteo.org 2. International Society for Clinical Densitometry www iscd.org 3. National Osteoporosis Foundation www nof.org Electronically Signed: Bryson Oliver MD at 15:47 EDT ,
== END | disposition home or self-care (01) ==
LOC: OPBD 13:14
PROVIDERS: PCP Internal Medicine; Referring Provider Internal Medicine; Visit Provider Internal Medicine
DX: Z12.31 Encounter for screening mammogram for malignant neoplasm of breast (principal); Z78.0 Asymptomatic menopausal state; Z80.3 Family history of malignant neoplasm of breast
CPT/HCPCS: 77063; 77067; 77080

== ENCOUNTER 2023-04-13 10:04 | Outpatient (CLI) | payer MEDICARE, SELFPAY ==
[2023-04-13 10:16] VITALS: BP 133/69; PULSE 53; RESP 16; TEMP 36.4; O2SAT 98; BMI 34.4
[2023-04-13] MEDS: 0.9% NaCl Peripheral Flush Adult/Peds IV (10:29)
== END 2023-04-13 10:05 | disposition home or self-care (01) ==
PROVIDERS: PCP Internal Medicine; Referring Provider Internal Medicine Gastroenterology; Visit Provider Internal Medicine Gastroenterology
DX: K50.90 Crohn's disease, unspecified, without complications (principal)
CPT/HCPCS: 96413; 96415; J7050; A4216; Q5103

== ENCOUNTER → 2023-04-26 | Outpatient (CLI) | payer MEDICARE, SELFPAY ==
[2023-04-26 14:22] LABS: Absolute Lymphocyte Count 3.47 X10^3/uL (0.83-4.51); Absolute Neutrophil Count 3.7 X10^3/uL (2.0-7.7); Basophil% 1.2 % (0-1); Eosinophils% 4.8 % (0-5); Hematocrit 46.9 % (37-47); Hemoglobin 14.7 g/dL (12.0-15.0); Lymphocyte # 3.47 X10^3/ul (0.83-4.51); Lymphocyte % 41.5 % (19-41); Mean Corp Hgb Conc 31.3 g/dL (32-36); Mean Corpuscular Hgb 25.6 pg (27.0-32.0); Mean Corpuscular Volume 81.6 fL (81-99); Mean Platelet Vol. 9.9 fl (6.2-12.0); Monocyte# 0.69 X10^3/uL; Monocyte% 8.3 % (0-10); NRBC Flagged by Analyzer 0 % (0-5); Neutrophil # 3.68 X10^3/uL (2.7-7.7); Platelet Count 307 K/mm3 (150-450); RBC Distribution Width CV 16.7 % (11.6-14.6); RBC Distribution Width SD 48.5 fl (35.1-43.9); RET-HE 31.3 pg (30-35); Red Blood Count 5.75 M/mm3 (4.2-5.4); Reticulocyte Count 1.23 % (0.5-1.5); White Blood Count 8.4 K/mm3 (4.4-11.0)
[2023-04-26 14:25] LABS: Erythrocyte Sedimentation Rate 6 mm/hr (0-30)
[2023-04-26 14:49] LABS: Vitamin B12 556 pg/mL (211-911); Vitamin D,25 Hydroxy 38.1 ng/mL
[2023-04-26 15:29] LABS: ALB/GLOB Ratio 0.9 RATIO (0.9-2.4); AST(SGOT) 21 U/L (15-37); Alanine Aminotransfer ALT/SGPT 28 U/L (13-56); Albumin, Serum 3.4 g/dL (3.2-5.0); Alkaline Phosphatase 79 U/L (45-117); Anion Gap 5 (5-15); BUN 13 mg/dL (7-18); BUN/Creat Ratio 13.9 RATIO (10-20); CRP < 2.90 mg/L (0.0-3.0); Calcium,Total 9.2 mg/dL (8.5-10.1); Chloride 108 mmol/L (98-107); Creatinine, Serum 0.94 mg/dL (0.55-1.02); EST Glomerular Filtration Rate 63 mL/min (>60); Est Glom Filt Rate - Afr Amer 77 mL/min (>60); Ferritin 11 ng/mL (8-252); Globulin 3.7 g/dL (2.2-4.2); Glucose 115 mg/dL (74-106); Iron 72 ug/dL (50-170); Iron Binding Capacity,Total 370 ug/dL (250-450); Magnesium 2.3 mg/dL (1.6-2.6); PERCENT IRON SATURATION 19.5 % (15.0-55.0); Potassium 3.8 mmol/L (3.5-5.1); Protein, Total 7.1 g/dL (6.4-8.2); Sodium Level 139 mmol/L (136-145)
[2023-04-30 11:07] LABS: Vitamin D 1,25-Dihydroxy 41.5 pg/mL (24.8-81.5)
[2023-05-05 16:09] LABS: Copper, Serum or Plasma 93 ug/dL (80-158); HEPATITIS B SURFACE AG Negative (Negative); Hep C Antibodies Non Reactive (Non Reactive); Hepatitis A IgM Antibody Negative (Negative); Hepatitis B Core AB IgM Negative (Negative); QNTFERON TB Mitogen Value > 10.00 IU/mL (.); QNTFERON TB Nil Value 0.05 IU/mL (.); QNTFERON TB1+ Ag Value 0.04 IU/mL (.); QNTFERON TB2+ Ag Value 0.04 IU/mL (.); QNTIFERON TB Positive Criteria Negative (Negative)
== END | disposition home or self-care (01) ==
PROVIDERS: PCP Internal Medicine; Referring Provider Internal Medicine Gastroenterology; Visit Provider Internal Medicine Gastroenterology
DX: K50.90 Crohn's disease, unspecified, without complications (principal); D64.9 Anemia, unspecified; R53.83 Other fatigue; Z98.890 Other specified postprocedural states
CPT/HCPCS: 36415; 80053; 80074; 82306; 82525; 82607; 82652; 82728; 82746; 83540; 83550; 83735; 85025; 85045; 85652; 86140; 86480

== ENCOUNTER → 2023-05-03 | Outpatient (CLI) | payer MEDICARE, SELFPAY ==
[2023-05-07 22:06] LABS: Calprotectin, Stool 23 ug/g (0-120)
== END | disposition home or self-care (01) ==
LOC: LABSPEC 13:13
PROVIDERS: PCP Internal Medicine; Referring Provider Internal Medicine Gastroenterology; Visit Provider Internal Medicine Gastroenterology
DX: K50.90 Crohn's disease, unspecified, without complications (principal); D64.9 Anemia, unspecified
CPT/HCPCS: 83993

== ENCOUNTER → 2023-05-24 | Outpatient (CLI) | payer MEDICARE, SELFPAY ==
--- NOTE | 2023-05-24 09:27 | MRI_ITS ---
MR Enterography Abdomen/Pelvis W/ Contrast 05/24/2023 10:47 AM COMPARISON: None available. CLINICAL HISTORY: K50.90 - Crohn''s disease, unspecified, without complications TECHNIQUE: Following oral administration of enteric contrast and administration of glucagon, multiplanar T1 and T2 weighted images along with dynamic post-gadolinium images were obtained through the abdomen and pelvis. 19 cc of IV Clariscan was used. FINDINGS: GI Tract: Few short segment loops of small bowel demonstrates circumferential wall thickening and mucosal hyperenhancement. No stricture, fistula, or obstruction. No drainable fluid collections. Liver: Unremarkable Gallbladder: Unremarkable Spleen: Unremarkable Pancreas: Unremarkable Adrenal Glands: Unremarkable Kidneys: Unremarkable Reproductive: Unremarkable. Bladder: Unremarkable Lymphadenopathy: Absent Ascites: Absent Bones: No suspicious lesions MRI/Enterography Abd/Pel IMPRESSION: Findings consistent with known Crohn''s disease. No stricture, fistula, or obstruction. No drainable fluid collections. Electronically Signed: Stefano Reagan MD at 20:25 EDT ,
[2023-05-24 10:04] VITALS: BP 156/74; PULSE 67; RESP 16; TEMP 36.3; O2SAT 98; BMI 33.7
[2023-05-24] MEDS: Glucagon 1 MG/ML Syringe IV (11:13)
[2023-05-24 11:30] VITALS: BP 174/59; PULSE 60; RESP 16; O2SAT 99
== END | disposition home or self-care (01) ==
LOC: MRI 09:23
PROVIDERS: PCP Internal Medicine; Referring Provider Internal Medicine Gastroenterology; Visit Provider Internal Medicine Gastroenterology
DX: K50.90 Crohn's disease, unspecified, without complications (principal); D64.9 Anemia, unspecified
CPT/HCPCS: 74183; 96374; A9575; A4216; J1610

== ENCOUNTER 2023-06-09 10:21 | Outpatient (CLI) | payer MEDICARE, SELFPAY ==
[2023-06-09 10:30] VITALS: BP 154/73; PULSE 68; RESP 16; TEMP 36.2; O2SAT 99; BMI 34.5
== END 2023-06-09 10:22 | disposition home or self-care (01) ==
LOC: MEDOUTP 10:21
PROVIDERS: PCP Internal Medicine; Referring Provider Internal Medicine Gastroenterology; Visit Provider Internal Medicine Gastroenterology
DX: K50.90 Crohn's disease, unspecified, without complications (principal)
CPT/HCPCS: 96365; 96366; J7050; A4216; Q5103

== ENCOUNTER 2023-08-04 10:04 | Outpatient (CLI) | payer MEDICARE, SELFPAY ==
[2023-08-04 10:27] VITALS: BP 133/73; PULSE 59; RESP 16; TEMP 35.7; O2SAT 97; BMI 34.7
[2023-08-04] MEDS: 0.9% NaCl Peripheral Flush Adult/Peds IV (11:02)
== END 2023-08-04 10:05 | disposition home or self-care (01) ==
LOC: MEDOUTP 10:04
PROVIDERS: PCP Internal Medicine; Referring Provider Internal Medicine Gastroenterology; Visit Provider Internal Medicine Gastroenterology
DX: K50.90 Crohn's disease, unspecified, without complications (principal)
CPT/HCPCS: 96413; 96415; J7050; A4216; Q5103

== ENCOUNTER → 2023-08-18 | Outpatient (CLI) | payer MEDICARE, SELFPAY ==
--- NOTE | 2023-08-18 14:07 | CT_ITS ---
INDICATION: LUNG NODULE EXAMINATION: CT CHEST WITH CONTRAST - CT Chest W/ Contrast Injection TECHNIQUE: Helically acquired images were obtained of the chest following IV contrast. A radiation dose optimization technique was used for this scan. IV Contrast dosage and agent: 100 mL of Isovue-370 RADIATION DOSAGE (If Supplied By Facility): CTDIvol = ( 10.21 ) mGy, DLP = ( 629.58 ) mGycm COMPARISON: Prior study dated: 04/22/2022 FINDINGS: LUNGS, PLEURA AND LARGE AIRWAYS: The central airways are patent. Subtle tree-in-bud nodular opacities at the periphery of the bilateral upper lobes. There is a right lower lobe 0.5 cm pulmonary nodule on series 2 image 66. Subpleural left lower lobe 0.6 cm nodule on image 70. These are both unchanged from the 04/22/2022 study. No pleural effusion or thickening. No pneumothorax. THYROID: No thyroid lesions. HEART AND PERICARDIUM: Heart size is normal. No pericardial effusion. VESSELS: Thoracic aorta is not dilated. No aortic dissection. No obvious central pulmonary embolism although this study was not performed with the pulmonary embolism protocol. Coronary artery calcifications noted. MEDIASTINUM AND KARSTEN: No mediastinal or hilar adenopathy. Esophagus is unremarkable. No hiatal hernia. UPPER ABDOMEN: No acute pathology. BONES: No suspicious lytic or blastic abnormality. Mild degenerative changes of the spine. CT/Chest WITH Contrast IMPRESSION: Tree-in-bud nodular opacities of both upper lobes likely infectious or inflammatory. These are chronic. Additional pulmonary nodules are seen in both lower lobes measuring up to 0.6 cm. These are unchanged from 04/22/2022. This suggests benign etiology. Electronically Signed: Aram Corea MD at 2:17 EST ,
[2023-08-18 14:36] LABS: CREATININE FINGERSTICK < 1.0 mg/dL (0.55-1.02)
== END | disposition home or self-care (01) ==
PROVIDERS: PCP Internal Medicine; Referring Provider Internal Medicine; Visit Provider Internal Medicine
DX: R91.1 Solitary pulmonary nodule (principal)
CPT/HCPCS: 71260; Q9967

== ENCOUNTER 2023-09-09 18:59 | Emergency (ER) | payer MEDICARE, SELFPAY ==
[2023-09-09] VITALS (7 sets, daily range): BP systolic 155–203; BP diastolic 60–98; PULSE 59–93; RESP 16–18; TEMP 36.2–36.6; O2SAT 94–100; BMI 34.9
--- NOTE | 2023-09-09 19:09 | EX.ED.DYSGE1 ---
HPI History of Present Illness Chief Complaint: Hypertension Detail of Chief Complaint: Headache Informant: patient Narrative Narrative: Patient presents secondary to headache and high blood pressure. Patient states she developed a headache last evening that was throbbing and over the posterior parietal scalp. Today has had more of a pressure-like ache. She has not taken anything for headache. She did start checking her blood pressure thinking that may be causing her headache. This morning her systolic pressures were in the 150s. This afternoon in the 170s and then just prior to arrival up into the 190s. She does not have a history of hypertension and is not on any blood pressure medication. She denies vision change. She denies chest pain or palpitations. On review of prior hospital records it appears her systolic blood pressure runs between 130s and 150s when checked at the hospital. [facility] Medical History (Updated 09/09/23 @ 21:[address] Patrica Hooper MD) Ambulates with cane Anxiety Atherosclerotic heart disease of [place] coronary artery without angina pectoris Bruit of left carotid artery Cardiology follow-up encounter Chronic GERD Crohn's disease of ileum Dermatitis Dizziness Elevated d-dimer Fatigue Fatty liver Fibromyalgia Former smoker GERD (gastroesophageal reflux disease) Gout History of echocardiogram History of Holter monitoring History of left heart catheterization (LHC) (~07/31/09) History of steroid therapy History of stress test Hypercalcemia Hypotension Lung nodule Marijuana use Mixed hyperlipidemia Near syncope Ocular migraine Osteopenia Polycythemia Psoriasis RLS (restless legs syndrome) Wears glasses Wears hearing aid Home Medications cholecalciferol (vitamin D3) 25 mcg (1,000 unit) tablet 1,000 unit PO DAILY 08/26/20 [History Last Taken Unknown] doxycycline hyclate 50 mg tablet 50 mg PO DAILY eye inflammation 08/08/22 [History Last Taken Unknown] pantoprazole 40 mg tablet,delayed release 40 mg PO DAILY #30 tabs 06/20/23 [Rx Last Taken Unknown] amlodipine 2.5 mg tablet (Norvasc) 2.5 mg PO DAILY #30 tabs 09/09/23 [Rx Last Taken Unknown] Allergy/AdvReac Type Severity Reaction Status Date / Time NSAIDS (Non-Steroidal AdvReac Other Verified 09/09/23 18:59 Anti-Inflamma Family History Father Myocardial infarction Cancer Mother Myocardial infarction Hypertension Surgical History H/O arthroscopy of right knee History of arthroscopy of left knee History of bowel resection History of colonoscopy History of hysterectomy History of shoulder surgery History of tonsillectomy Social History Smoking Status: Former smoker how long ago did patient quit smokin years ago alcohol intake: current alcohol intake frequency: holidays/special occasions only substance use type: does not use caffeine: Yes Type: coffee Number of servings: 2 ROS ROS ED Constitutional Constitutional ED: Denies chills or fever(s) Eyes Eyes: Denies change in vision or discharge from eye(s) ENT ENT ED: Denies discharge from eye(s), rhinorrhea or sore throat Cardiovascular Cardiovascular: Denies chest pain or palpitations Respiratory/Chest Respiratory/Chest: Denies cough or dyspnea Gastrointestinal Gastrointestinal: Denies abdominal pain, nausea or vomiting Genitourinary Genitourinary ED: Denies dysuria Musculoskeletal Musculoskeletal: Denies back pain, extremity pain or neck pain Integumentary Denies Abrasions or rash Neurologic Neurologic: Reports headache(s); Denies weakness Psychiatric Psychiatric: Denies anxiety or depression Allergic/Immunologic Allergic/Immunologic ED: Denies lip swelling or urticaria EXAM Physical Exam Const Vital Signs: 09/09/23 18:59 09/09/23 19:17 09/09/23 19:41 Temperature 97.1 F L Temperature Source Temporal Pulse Rate 88 86 Respiratory Rate 18 16 Respiratory Effort Normal Respiratory Pattern Normal Blood Pressure 203/92 H 180/98 H Blood Pressure Mean 129 125 Pulse Ox 100 99 Oxygen Delivery Method Room Air Room Air 09/09/23 19:42 09/09/23 19:51 09/09/23 20:14 Temperature Temperature Source Pulse Rate 61 Respiratory Rate 16 Respiratory Effort Respiratory Pattern Blood Pressure 169/80 H 179/69 H 182/79 H Blood Pressure Mean 109 105 113 Pulse Ox 97 Oxygen Delivery Method Room Air 09/09/23 21:09 09/09/23 21:50 Temperature 98 F Temperature Source Pulse Rate 93 59 L Respiratory Rate 16 16 Respiratory Effort Respiratory Pattern Blood Pressure 156/60 H 155/67 H Blood Pressure Mean 92 96 Pulse Ox 98 94 Oxygen Delivery Method Room Air Positive well nourished and well developed General Appearance ED: well developed HEENT Reports moist mucous membranes Eyes EOMs intact bilaterally Chest Wall inspection of chest normal and palpation of chest normal Resp normal respiratory effort and clear to auscultation bilaterally Cardio regular rate and regular rhythm GI non-tender Palpation: soft Extremity normal to inspection Neuro oriented x3 and no sensory deficits noted Sensorium / Orientation: alert Motor Exam: strength 5/5 throughout Psych mental status grossly normal Skin no rashes or lesions noted MDM MDM MDM Narrative Medical decision making narrative: Patient placed on electronic device monitor. EKG obtained to evaluate for cardiac arrhythmia/ischemia. IV line established. Labwork obtained to evaluate for leukocytosis, anemia, and electrolyte derangement. Chest x-ray obtained to evaluate for acute lung pathology, cardiac size, or mediastinal abnormality. Patient given Tylenol for headache along with a low-dose of labetalol for blood pressure control. Given her headache with elevated blood pressure CT of the head will be obtained to rule out bleed. History & Record Review Discussion w/independent historian: Patient Additional record(s) reviewed:: Prior labs Lab Data Attestation: I reviewed the patient's lab results. Labs: Laboratory Results - last 24 hr 09/09/23 09/09/23 11:20 19:50 WBC 9.1 RBC 5.61 H Hgb 14.9 Hct 45.4 MCV 80.9 L MCH 26.6 L MCHC 32.8 RDW Std Deviation 42.0 RDW Coeff of Nadia 14.4 Plt Count 293 MPV 9.7 Immature Gran % (Auto) 0.200 Neut % (Auto) 36.7 L Lymph % (Auto) 47.2 H [place] % (Auto) 9.2 Eos % (Auto) 5.5 H Baso % (Auto) 1.2 H Absolute Neuts (auto) 3.3 Absolute Lymphs (auto) 4.29 Nucleated RBC % 0 Sodium 138 Potassium 3.7 Chloride 107 Carbon Dioxide 23.0 Anion Gap 8 BUN 14 Creatinine 0.79 Estim Creat Clear Calc 76.82 Est GFR (MDRD) Af Amer 93 Est GFR (MDRD) Non-Af 77 BUN/Creatinine Ratio 17.7 Glucose 94 Calcium 9.9 Urine Color Straw Urine Clarity Clear Urine pH 6.5 Ur Specific [place] 1.010 Urine Protein 15 H Urine Glucose (UA) Normal Urine Ketones Negative Urine Occult Blood Negative Urine Nitrite Negative Urine Bilirubin Negative Urine Urobilinogen Normal Ur Leukocyte Esterase 25 H Urine RBC 0 SEEN Urine WBC 0-5 SEEN Ur Squamous Epith Cells 0-5 SEEN Urine Bacteria 0 SEEN Urine Mucus 0 SEEN Radiography Chest X-Ray - ED: 1 View, Read by ED Physician, Normal, Heart, Lungs and Mediastinum Diagnostic Testing: Clinical Impression(s) from Imaging Studies Chest X-Ray 09/09/23 19:50 IMPRESSION: 1. No radiographic evidence of acute cardiopulmonary disease. Electronically Signed: Randolph Boss DO at 20:08 EST , Brain CT 09/09/23 20:06 IMPRESSION: 1. No acute intracranial pathology. 2. Paranasal sinus disease. Electronically Signed: Randolph Boss DO at 20:26 EST , EKG Initial EKG: Attestation: I personally reviewed and interpreted this EKG as follows: Interpretation: Sinus Rhythm (Sinus at 71 with no acute ischemia.) Treatment and Re-Evaluation :: CBC was normal white count 9.1 with a hemoglobin of 14.9. Chemistry studies unremarkable with normal renal function. Glucose is 94. Urinalysis reveals no evidence of infection. 15 protein is noted. Portable chest x-ray per my interpretation was no acute abnormalities. No significant evidence of cardiomegaly. CT scan of the head reveals no acute process. After Tylenol and labetalol patient's blood pressures are in the 150s over 60s. I spoke with patient's primary care physician, Dr. Wilson. She would like the patient started on Norvasc 2.5 mg daily and keep a journal of her blood pressure readings. Patient is to follow-up with Dr. Wilson this coming week to review her readings and make any medication adjustments as needed. Patient voices understanding and agreement. Patient's prescription sent to local pharmacy for her. Return instructions given. Discharge Plan Triage Chief Complaint: Hypertension ED Provider: Patrica Hooper Dx/Rx/DC Orders Clinical Impression: Headache, Hypertension Instructions: Understanding Headache Pain, ED Hypertension, To Be Confirmed Prescriptions: New amlodipine [Norvasc] 2.5 mg tablet 2.5 mg PO DAILY Qty: 30 0RF No Action cholecalciferol (vitamin D3) 1,000 UNIT tablet 1,000 unit PO DAILY doxycycline hyclate 50 mg tablet 50 mg PO DAILY pantoprazole 40 mg tablet,delayed release (DR/EC) 40 mg PO DAILY Qty: 30 3RF Primary Care Provider: Yuki Wilson Referrals: Yuki Wilson DO [Primary Care Provider] - 5-7 Days Activity Restrictions/Additional Instructions: As discussed, please keep a journal of your blood pressure readings this week. Disposition Disposition: Home, Self Care Discharge Date/Time: 09/09/23 22:01
[2023-09-09] MEDS: Acetaminophen 500 MG Tablet 1000 MG PO (19:32)
[2023-09-09] MEDS: Labetalol (Prefilled) 20 MG/4 ML 10 MG IV (19:32)
[2023-09-09 19:39] LABS: Absolute Lymphocyte Count 4.29 X10^3/uL (0.83-4.51); Absolute Neutrophil Count 3.3 X10^3/uL (2.0-7.7); Basophil# 0.11 X10^3/uL; Basophil% 1.2 % (0-1); Eosinophils% 5.5 % (0-5); Hematocrit 45.4 % (37-47); Hemoglobin 14.9 g/dL (12.0-15.0); Lymphocyte # 4.29 X10^3/ul (0.83-4.51); Lymphocyte % 47.2 % (19-41); Mean Corp Hgb Conc 32.8 g/dL (32-36); Mean Corpuscular Hgb 26.6 pg (27.0-32.0); Mean Corpuscular Volume 80.9 fL (81-99); Mean Platelet Vol. 9.7 fl (6.2-12.0); Monocyte# 0.84 X10^3/uL; Monocyte% 9.2 % (0-10); NRBC Flagged by Analyzer 0 % (0-5); Neutrophil # 3.33 X10^3/uL (2.7-7.7); Neutrophil % 36.7 % (47-70); Platelet Count 293 K/mm3 (150-450); RBC Distribution Width CV 14.4 % (11.6-14.6); Red Blood Count 5.61 M/mm3 (4.2-5.4); White Blood Count 9.1 K/mm3 (4.4-11.0)
--- NOTE | 2023-09-09 19:50 | RAD_ITS ---
INDICATION: HTN EXAMINATION/TECHNIQUE: X-RAY - XR Chest 1 View COMPARISON: Chest x-ray August 15, 2023. FINDINGS: LINES/DEVICES: None. LUNGS: Symmetric normal lung volumes. No airspace opacity or abnormal interstitial pattern. No nodule or mass. No pleural effusion or pneumothorax. MEDIASTINUM AND CARDIOVASCULAR STRUCTURES: Normal size and contour of the cardiomediastinal silhouette. No evidence of pulmonary vascular congestion. BONES AND SOFT TISSUES: No fracture or focal osseous lesion. RAD/Chest 1 View (Portable) IMPRESSION: 1. No radiographic evidence of acute cardiopulmonary disease. Electronically Signed: Randolph Boss DO at 20:08 EST ,
[2023-09-09 19:52] LABS: Anion Gap 8 (5-15); BUN 14 mg/dL (7-18); BUN/Creat Ratio 17.7 RATIO (10-20); Calcium,Total 9.9 mg/dL (8.5-10.1); Chloride 107 mmol/L (98-107); Creatinine, Serum 0.79 mg/dL (0.55-1.02); EST Glomerular Filtration Rate 77 mL/min (>60); Est Glom Filt Rate - Afr Amer 93 mL/min (>60); Estimated Creatinine Clearance 76.82 ml/min; Glucose 94 mg/dL (74-106); Potassium 3.7 mmol/L (3.5-5.1); Sodium Level 138 mmol/L (136-145)
[2023-09-09 20:02] LABS: Bacteria 0 SEEN /hpf (None Seen); Mucous, Urine 0 SEEN /hpf (<or=2+); Red Blood Cells-Urine 0 SEEN /hpf (0-5)
[2023-09-09 20:05] LABS: Color, Urine Straw (Yellow); Glucose, Dipstick Normal (Normal); Ketone-Dipstick Negative (Negative); Leukocyte Esterase-Dipstick 25 /ul (Negative); Nitrite-Dipstick Negative (Negative); Occult Blood-Urine Negative /ul (Negative); Protein-Dipstick 15 mg/dl (Negative); Urine Bilirubin Dipstick Negative (Negative); Urine Clarity Clear (Clear); Urine Urobilinogen Normal (Normal); Urine pH 6.5 (5.0 - 8.0)
--- NOTE | 2023-09-09 20:06 | CT_ITS ---
INDICATION: headache, HTN EXAMINATION: CT BRAIN - CT Head or Brain W/O Contrast Injection TECHNIQUE: Multiple axial images were obtained of the head without intravenous contrast. A radiation dose optimization technique was used for this scan. IV Contrast dosage and agent: None. COMPARISON: CT head June 17, 2019. FINDINGS: BRAIN PARENCHYMA: No intra- or extra-axial hemorrhage. No intracranial mass or mass effect. [place]/white matter differentiation is maintained and there is no blurring of the basal ganglia. There is no hyperdense vessel. Posterior fossa structures are unremarkable. CSF SPACES: Appropriate for age. No hydrocephalus. Basal cisterns are patent. CALVARIUM, SKULL BASE, PARANASAL SINUSES AND MASTOID AIR CELLS: Intact calvarium and skull base. No fracture or osseous lesion. Scattered mucosal thickening paranasal sinuses. Mastoid air cells and middle ears are clear. ORBITS: Both globes, extraocular muscles, optic nerves and retrobulbar fat appear unremarkable. ASPECTS Score for Acute Strokes: 10 CT/Brain/Head without Contrast IMPRESSION: 1. No acute intracranial pathology. 2. Paranasal sinus disease. Electronically Signed: Randolph Boss DO at 20:26 EST ,
[2023-09-09 20:14] LABS: Squamous Epithelial Cells - UA 0-5 SEEN /hpf (5-10); White Blood Cells 0-5 SEEN /hpf (0-5)
[2023-09-09] MEDS: amLODIPine 2.5 MG Tablet PO (22:00)
== END 2023-09-09 22:01 | disposition home or self-care (01) ==
PROVIDERS: Emergency Provider Emergency Medicine; PCP Internal Medicine; Visit Provider Emergency Medicine
DX: R51.9 Headache, unspecified (principal); I10 Essential (primary) hypertension; I25.10 Atherosclerotic heart disease of native coronary artery without angina pectoris; E78.2 Mixed hyperlipidemia; Z79.899 Other long term (current) drug therapy; Z87.891 Personal history of nicotine dependence
CPT/HCPCS: 70450; 71045; 80048; 81001; 85025; 93005; 96374; 99285

== ENCOUNTER 2023-09-29 10:05 | Outpatient (CLI) | payer MEDICARE, SELFPAY ==
[2023-09-29 10:18] VITALS: BP 148/63; PULSE 68; RESP 16; TEMP 36.4; BMI 35.6
[2023-09-29] MEDS: 0.9% NaCl Peripheral Flush Adult/Peds IV (10:29)
[2023-09-29] MEDS: NORMAL SALINE 0.9% IV (10:41)
[2023-09-29] MEDS: INFLIXIMAB DYYB IV (10:41)
== END 2023-09-29 10:06 | disposition home or self-care (01) ==
LOC: MEDOUTP 10:07
PROVIDERS: PCP Internal Medicine; Referring Provider Internal Medicine Gastroenterology; Visit Provider Internal Medicine Gastroenterology
DX: K50.90 Crohn's disease, unspecified, without complications (principal)
CPT/HCPCS: 96413; 96415; J7050; A4216; Q5103

== ENCOUNTER → 2023-10-04 | Outpatient (CLI) | payer MEDICARE, SELFPAY | END | disposition home or self-care (01) | PROVIDERS: PCP Internal Medicine; Referring Provider Internal Medicine Gastroenterology; Visit Provider Internal Medicine Gastroenterology | DX: K50.90 Crohn's disease, unspecified, without complications (principal) | CPT/HCPCS: 36415 ==

== ENCOUNTER 2023-11-24 10:11 | Outpatient (CLI) | payer MEDICARE, SELFPAY ==
[2023-11-24 10:26] VITALS: BP 153/64; PULSE 60; RESP 16; TEMP 36.6; O2SAT 98; BMI 35.7
[2023-11-24] MEDS: INFLIXIMAB DYYB IV (11:30)
[2023-11-24] MEDS: NORMAL SALINE 0.9% IV (11:30)
== END 2023-11-24 10:12 | disposition home or self-care (01) ==
LOC: MEDOUTP 10:11
PROVIDERS: PCP Internal Medicine; Referring Provider Internal Medicine Gastroenterology; Visit Provider Internal Medicine Gastroenterology
DX: K50.90 Crohn's disease, unspecified, without complications (principal)
CPT/HCPCS: 96413; 96415; J7050; Q5103

== ENCOUNTER → 2024-01-09 | Outpatient (CLI) | payer MEDICARE, SELFPAY | END | disposition home or self-care (01) | PROVIDERS: PCP Internal Medicine; Referring Provider Internal Medicine Gastroenterology; Visit Provider Internal Medicine Gastroenterology | DX: K50.812 Crohn's disease of both small and large intestine with intestinal obstruction (principal) | CPT/HCPCS: 36415 ==

== ENCOUNTER 2024-02-16 10:05 | Outpatient (CLI) | payer MEDICARE, SELFPAY ==
[2024-02-16 10:42] VITALS: BP 141/79; PULSE 59; RESP 16; TEMP 36.4; O2SAT 96; BMI 35.2
[2024-02-16] MEDS: 0.9% NaCl Peripheral Flush Adult/Peds IV (10:53)
[2024-02-16] MEDS: NORMAL SALINE 0.9% IV (11:13)
[2024-02-16] MEDS: INFLIXIMAB DYYB IV (11:13)
== END 2024-02-16 23:59 | disposition home or self-care (01) ==
LOC: MEDOUTP 10:05
PROVIDERS: PCP Internal Medicine; Referring Provider Internal Medicine Gastroenterology; Visit Provider Internal Medicine Gastroenterology
DX: K50.90 Crohn's disease, unspecified, without complications (principal)
CPT/HCPCS: 96413; 96415; J7050; A4216; Q5103

== ENCOUNTER 2024-04-11 13:55 | Outpatient (CLI) | payer MEDICARE, SELFPAY ==
[2024-04-11 14:02] VITALS: BMI 36.2
[2024-04-11 14:09] VITALS: BP 166/93; PULSE 77; RESP 16; TEMP 36; O2SAT 99; BMI 36.2
[2024-04-11] MEDS: NORMAL SALINE 0.9% IV (14:42)
[2024-04-11] MEDS: INFLIXIMAB DYYB IV (14:42)
[2024-04-11] MEDS: 0.9% NaCl Peripheral Flush Adult/Peds IV (14:44)
== END 2024-04-11 23:59 | disposition home or self-care (01) ==
PROVIDERS: Referring Provider Internal Medicine Gastroenterology; Visit Provider Internal Medicine Gastroenterology
DX: K50.90 Crohn's disease, unspecified, without complications (principal)
CPT/HCPCS: 96413; 96415; J7050; A4216; Q5103

== ENCOUNTER 2024-05-16 17:30 | Outpatient (RCR) | payer MEDICARE, SELFPAY ==
--- NOTE | 2024-04-29 16:10 | HP.PTEVAL ---
Patient's Visit Information Visit Information Visit Information: VICKY ARAGON is a 69 year old F referred to Physical Therapy by Dr. Hai Mcduffie DO with a diagnosis of SPECIFIED ENTHESOPATHIES OF LOWER LEG. Date of Evaluation: 04/29/24 Physical Therapist: Alvaro Heard, PT, Cert MDT, OCS Visit Plan Frequency: 2x /Week Duration: 4 Weeks Plan: PT INTERVENTIONS FLEXABILITY IT BAND ,QUADS/HIP FLEXORS ,MANUAL THERAPY STM /STICK I TBAND ,US/ESTIM/CP PROXIMAL HIP FLEXOR NEED AND STRENGTHENING EX HIP AND DLS Subjective Subjective: This 69 y/o female presents to physical therapy with with right hip flexors pain. Patient seen DR Mcduffie did x-rays -,thought hip flexor tendonitis . Patient has had pain for ~ 3 months . Patient had insidious onset .Some h/o can influence codition did triathlons Patient pain anterior hip to thigh. Recommended PT no medication. Aggravating factors ascending/descending stairs ,night and initially getting up from chair. Alleviating factors rest ,moving around. Denies paresthesia/tingling -. No fall no trauma and injury and back pain. Patient condition affects QOL and function and gait. Patient goals to to decrease pain . SOCIAL: VOCATION: retired Pain Right Hip: Pain Intensity (Out of 10): 3 Pain Intensity Range: 10 Objective Objective: POSTURE: mild forward posture GAIT: reciprocal pattern PALAPTION: tender anterior hip flexor ,rectus femoris ,I TBAND , NEURO: denies paresthesia/tingling PROM: IR 40 degrees ,ER 50 degrees pain hip groin ,hip flexion 110 degrees ,abduction 50 degrees FLEXABILITY: hamstrings min tight ,quads min tight MMT: quads/hams 4/5 ( peak force) glut medius 27.2#right left 36 .2# Special Tests R Hip Scour: Negative R Hip Quadrant - Intraarticular Pathology: Positive R Hip Trendelenberg - Glut Medius: Negative Comment: questionable labral Balance/Special Test Scores Lower Extremity Functional Score: 44 Goals Goal 1:: Patient to be I with HEP for hip Goal Time Frame: 4-6 Weeks Goal 2:: Patient to improve peak force hip glut medius by 5 # to improve function. Goal Time Frame: 4-6 Weeks Goal 3:: Patient to improve improve LFES score by 5 points to improve QOL and function Goal Time Frame: 4-6 Weeks Goal 4:: Patient to demonstrate 50 % improvement with less pain and improved function Goal Time Frame: 4-6 Weeks Rehabilitation Potential Physical Therapy Diagnosis: This patient has right hip flexor tendonitis along with IT band with glut medius weakness with possible labral thus benefit from skilled PT Rehabilitation Potential: Good Anticipated Interventions Patient/Client Instruction: Educate patient on: Condition and Plan of Care For the Purpose of:: To decrease pain, To increase ROM, To improve muscle performance and motor function, To improve ability to perform ADL's, To increase tolerance to activity/condition/position, To improve ability of physical actions for home/community/work/leisure, To improve gait and locomotor functions, To improve health of tissue, To decrease soft tissue restriction, To increase flexibility/ROM, To improve endurance and To improve tolerance to ADL's Therapeutic Exercise to Include: Strength training, Endurance training, Postural training, Flexibilty training, Gait and locomotor training and Dynamic Lumbar Stabilization For the Purpose of:: To decrease pain, To increase ROM, To improve muscle performance and motor function, To improve ability to perform ADL's, To increase tolerance to activity/condition/position, To improve ability of physical actions for home/community/work/leisure, To improve health of tissue, To decrease soft tissue restriction, To increase flexibility/ROM, To improve endurance and To prevent re-injury Manual Therapy Techniques to Include: Mobilization and Soft tissue mobilization For the Purpose of:: To decrease pain, To increase ROM, To improve nutrient delivery to tissue, To increase oxygenation perfusion, To improve health of tissue, To decrease soft tissue restriction and To increase flexibility/ROM TENS: Yes IF ES: Yes Cryotherapy (ice pack, ice massage): Yes Ultrasound (thermal/non thermal): Yes For the Purpose of:: To decrease pain, To increase ROM, To improve nutrient delivery to tissue, To increase oxygenation perfusion, To improve health of tissue and To decrease soft tissue restriction Text: Thank you for the opportunity to evaluate your patient. For Medicare and Medicare HMO plans, please review the plan of care and approve it. It will need to be FAXED BACK to us at [phone] for Medicare purposes. For Medicare only, by signing this I certify the plan of care. Please let me know if there are questions or concerns regarding this plan of care. Physician Signature: Date:
--- NOTE | 2024-07-30 16:02 | HP.PT.NRP ---
Patient Information Patient Information: VICKY ARAGON was seen in my office for initial evaluation on 04/29/24. The following Plan of Care was established for this patient: POC Established Initial Frequency: 2x /Week Initial Duration: 4 Weeks Anticipated Interventions Patient/Client Instruction: Educate patient on: Condition and Plan of Care For the Purpose of:: To decrease pain, To increase ROM, To improve muscle performance and motor function, To improve ability to perform ADL's, To increase tolerance to activity/condition/position, To improve ability of physical actions for home/community/work/leisure, To improve gait and locomotor functions, To improve health of tissue, To decrease soft tissue restriction, To increase flexibility/ROM, To improve endurance and To improve tolerance to ADL's Therapeutic Exercise to Include: Strength training, Endurance training, Postural training, Flexibilty training, Gait and locomotor training and Dynamic Lumbar Stabilization For the Purpose of:: To decrease pain, To increase ROM, To improve muscle performance and motor function, To improve ability to perform ADL's, To increase tolerance to activity/condition/position, To improve ability of physical actions for home/community/work/leisure, To improve health of tissue, To decrease soft tissue restriction, To increase flexibility/ROM, To improve endurance and To prevent re-injury Manual Therapy Techniques to Include: Mobilization and Soft tissue mobilization For the Purpose of:: To decrease pain, To increase ROM, To improve nutrient delivery to tissue, To increase oxygenation perfusion, To improve health of tissue, To decrease soft tissue restriction and To increase flexibility/ROM TENS: Yes IF ES: Yes Cryotherapy (ice pack, ice massage): Yes Ultrasound (thermal/non thermal): Yes For the Purpose of:: To decrease pain, To increase ROM, To improve nutrient delivery to tissue, To increase oxygenation perfusion, To improve health of tissue and To decrease soft tissue restriction Last Seen Last Seen: This patient was last seen in our office . Pertinent comments regarding their Physical therapy will appear below: Patient was seen for PT for hip pain for stretching ,strengthening and manual therapy thus d/c At this point I will be discontinuing this patient from physical therapy. I would be happy to see this patient again in the future if found appropriate by the physician. Thank you! Alvaro Heard, PT, Cert MDT, OCS Balance/Gait/Functional tests Balance/Special Test Scores Lower Extremity Functional Score: 44
== END 2024-05-16 19:00 | disposition home or self-care (01) ==
LOC: PT 17:30
PROVIDERS: PCP Internal Medicine; Referring Provider Orthopaedic Surgery; Visit Provider Orthopaedic Surgery
DX: M76.899 Other specified enthesopathies of unspecified lower limb, excluding foot (principal)
CPT/HCPCS: 97110; 97140; 97162

== ENCOUNTER 2024-06-04 10:15 | Outpatient (CLI) | payer MEDICARE, SELFPAY ==
[2024-06-04 10:36] VITALS: BP 147/68; PULSE 67; RESP 16; TEMP 36.2; O2SAT 97; BMI 35.0
[2024-06-04] MEDS: 0.9% NaCl Peripheral Flush Adult/Peds IV (10:50)
[2024-06-04] MEDS: NORMAL SALINE 0.9% IV (10:55)
[2024-06-04] MEDS: INFLIXIMAB DYYB IV (10:55)
[2024-06-04 13:14] VITALS: BP 141/57; PULSE 78; RESP 16
== END 2024-06-04 23:59 | disposition home or self-care (01) ==
LOC: MEDOUTP 10:15
PROVIDERS: PCP Internal Medicine; Referring Provider Internal Medicine Gastroenterology; Visit Provider Internal Medicine Gastroenterology
DX: K50.90 Crohn's disease, unspecified, without complications (principal)
CPT/HCPCS: 96413; 96415; J7050; A4216; Q5103

== ENCOUNTER → 2024-06-19 | Outpatient (CLI) | payer MEDICARE, SELFPAY ==
--- NOTE | 2024-06-19 12:34 | BI_ITS ---
MAMMOGRAPHY - BILATERAL SCREENING REASON FOR EXAM: Female, 69 years old. Routine annual screening examination. PERTINENT HISTORY: Sister with breast cancer. Grandmother with breast cancer. TECHNIQUE: Digital bilateral breast jelly (3D mammographic acquisition) in the CC and MLO projections. 2-D mediolateral oblique (MLO) and craniocaudad (CC) views of both breasts were obtained. CAD: Full Field Digital Mammography with Computer Added Detection was performed. COMPARISON: Comparison is made with prior study February 14, 2023 and July 31, 2021. FINDINGS: Breast Composition: The breasts are almost entirely fatty. There are no dominant masses or suspicious calcifications. Stable 6 mm well-defined fat-containing nodule in the upper outer aspect of the right breast suggestive of a small benign appearing intramammary lymph node. No other significant abnormalities are identified. There has been no significant change since the prior study. BI/SCRN MAMM (CAD)W/JELLY BILAT IMPRESSION: Stable bilateral screening mammogram. Yearly follow-up mammogram recommended. (A) ASSESSMENT CATEGORY: BIRADS Category 2: Benign. A letter regarding these results will be sent to the patient by the facility within 30 days. Approximately 10% of breast cancers are not detected by mammography. A normal mammogram should not delay biopsy of a clinically suspicious abnormality. [id number] Electronically Signed: Bryson Oliver MD at 13:36 EDT ,
== END | disposition home or self-care (01) ==
LOC: OPBI 12:34
PROVIDERS: PCP Internal Medicine; Referring Provider Internal Medicine; Visit Provider Internal Medicine
DX: Z12.31 Encounter for screening mammogram for malignant neoplasm of breast (principal)
CPT/HCPCS: 77063; 77067

== ENCOUNTER 2024-08-02 10:06 | Outpatient (CLI) | payer MEDICARE, SELFPAY ==
[2024-08-02 10:25] VITALS: BP 121/78; PULSE 63; RESP 16; TEMP 36.2; O2SAT 99; BMI 34.9
[2024-08-02] MEDS: 0.9% NaCl Peripheral Flush Adult/Peds IV (10:33)
[2024-08-02] MEDS: NORMAL SALINE 0.9% IV (10:45)
[2024-08-02] MEDS: INFLIXIMAB DYYB IV (10:45)
== END 2024-08-02 23:59 | disposition home or self-care (01) ==
LOC: MEDOUTP 10:06
PROVIDERS: PCP Internal Medicine; Referring Provider Internal Medicine Gastroenterology; Visit Provider Internal Medicine Gastroenterology
DX: K50.90 Crohn's disease, unspecified, without complications (principal)
CPT/HCPCS: 96413; 96415; A4216; Q5103

== ENCOUNTER 2024-09-27 10:20 | Outpatient (CLI) | payer MEDICARE, SELFPAY ==
[2024-09-27 10:50] VITALS: BP 129/55; PULSE 57; RESP 14; TEMP 35.6; O2SAT 99; BMI 35.2
[2024-09-27] MEDS: 0.9% NaCl Peripheral Flush Adult/Peds IV (11:03)
[2024-09-27] MEDS: INFLIXIMAB DYYB IV (11:33)
[2024-09-27] MEDS: NORMAL SALINE 0.9% IV (11:33)
[2024-09-27 13:39] VITALS: BP 151/70; PULSE 60; RESP 16
== END 2024-09-27 23:59 | disposition home or self-care (01) ==
LOC: MEDOUTP 10:21
PROVIDERS: PCP Internal Medicine; Referring Provider Internal Medicine Gastroenterology; Visit Provider Internal Medicine Gastroenterology
DX: K50.90 Crohn's disease, unspecified, without complications (principal)
CPT/HCPCS: 96413; 96415; A4216; Q5103

== ENCOUNTER 2024-11-22 09:50 | Outpatient (CLI) | payer MEDICARE, SELFPAY ==
[2024-11-22 10:01] VITALS: BP 147/63; PULSE 65; RESP 16; TEMP 35.6; O2SAT 100; BMI 32.7
[2024-11-22] MEDS: 0.9% NaCl Peripheral Flush Adult IV (10:09)
[2024-11-22] MEDS: NORMAL SALINE 0.9% IV (10:56)
[2024-11-22] MEDS: INFLIXIMAB DYYB IV (10:56)
== END 2024-11-22 23:59 | disposition home or self-care (01) ==
LOC: MEDOUTP 09:51
PROVIDERS: PCP Internal Medicine; Referring Provider Internal Medicine Gastroenterology; Visit Provider Internal Medicine Gastroenterology
DX: K50.90 Crohn's disease, unspecified, without complications (principal)
CPT/HCPCS: 96413; 96415; A4216; Q5103

== ENCOUNTER → 2025-01-08 | Outpatient (CLI) | payer MEDICARE, SELFPAY ==
--- NOTE | 2025-01-08 10:52 | NEURO ---
NCS and/or EMG Patient Report Ordering Doctor: Yuki Wilson DATE OF SERVICE: 01/08/25 Pau presents with complaints of burning, numbness and tingling in both feet, worse over the past several months. Electrodiagnostic findings: Peroneal motor nerve demonstrates normal distal latency, amplitude and conduction velocity bilaterally. Tibial motor response is within normal limits bilaterally. Borderline prolonged sural latency noted bilaterally. Normal superficial peroneal response bilaterally. Normal peroneal F?wave bilaterally. Borderline prolonged tibial F?waves bilaterally. H?reflexes within normal limits. Needle EMG testing was performed in the lower limbs. All muscles tested showed no evidence of denervation with normal motor unit action potentials. Electrodiagnostic impression: This is a normal electrodiagnostic study of the lower limbs. There is no electrodiagnostic evidence for lumbosacral radiculopathy or peripheral polyneuropathy. Multi Select Codes Neurology Neurology Interp Codes: 20568-63 Musc test done w/n test comp (interp) (2) and 96202-00 Nrv cndj test 9-10 studies (interp)
== END | disposition home or self-care (01) ==
PROVIDERS: PCP Internal Medicine; Referring Provider Internal Medicine; Visit Provider Internal Medicine
DX: R20.2 Paresthesia of skin (principal)
CPT/HCPCS: 95886; 95911

== ENCOUNTER 2025-01-17 09:49 | Outpatient (CLI) | payer MEDICARE, SELFPAY ==
[2025-01-17 10:07] VITALS: BP 133/64; PULSE 56; RESP 16; TEMP 37; O2SAT 96; BMI 31.7
[2025-01-17] MEDS: NORMAL SALINE 0.9% IV (10:52)
[2025-01-17] MEDS: INFLIXIMAB DYYB IV (10:52)
[2025-01-17] MEDS: 0.9% NaCl IVPB Med Flush (100mL) 15 ML IV (10:52)
[2025-01-17] MEDS: 0.9% NaCl Peripheral Flush Adult IV (10:53)
[2025-01-17 13:36] VITALS: BP 139/73; PULSE 60; RESP 16; TEMP 36.7; O2SAT 97
== END 2025-01-17 23:59 | disposition home or self-care (01) ==
LOC: MEDOUTP 09:49
PROVIDERS: PCP Internal Medicine; Referring Provider Internal Medicine Gastroenterology; Visit Provider Internal Medicine Gastroenterology
DX: K50.90 Crohn's disease, unspecified, without complications (principal)
CPT/HCPCS: 96368; 96375; 96413; 96415; A4216; Q5103

== ENCOUNTER → 2025-02-06 | Outpatient (CLI) | payer MEDICARE, SELFPAY ==
--- NOTE | 2025-02-06 06:16 | CT_ITS ---
PROCEDURE: ABDOMEN/PELVIS WITH CONTRAST 02/06/2025 REASON FOR EXAM: CROHNS DISEASE TECHNIQUE: ABDOMEN/PELVIS WITH CONTRAST. Coronal and Sagittal reconstruction series were provided. ORAL CONTRAST TYPE: Readi-Cat CONTRAST: Isovue 370 VOLUME: 100 mL One or more dose reduction techniques were used (e.g., Automated exposure control, adjustment of the mA and/or kV according to patient size, use of iterative reconstruction technique. RADIATION DOSE SUMMARY: CTDlvol: 44.26 mGy DLP: 1062.87 mGycm COMPARISON: MRI enterography, 05/24/2023. FINDINGS: Lung bases: The lung bases are clear. There are no pleural effusions. The heart size is normal. There is no pericardial effusion. There is calcific vascular disease of the coronary arteries. Liver: Normal. Gallbladder: There is thickening of the wall and abnormal enhancement of the mucosa of the gallbladder, consistent with cholecystitis. No gallstones are identified. Spleen: Normal. Pancreas: Normal. Adrenals: Normal. Kidneys: There is a cortical scar in the upper pole of the left kidney and in the lower pole of the right kidney. Bladder: Normal unenhanced appearance. Field Reproductive Organs: The uterus is surgically absent. There is a 4.4 x 3.1 cystic mass in the right hemipelvis consistent with the right ovary. There is no free fluid in the pelvis. There is no pelvic or inguinal lymphadenopathy. Bowel: There is oral contrast in the distal esophagus consistent with gastroesophageal reflux. There is severe sigmoid diverticulosis without diverticulitis. Appendix: The appendix is not identified. Lymph nodes: There is no mesenteric or retroperitoneal lymphadenopathy. Vasculature: There is calcific vascular disease of the abdominal aorta. The inferior vena cava and portal venous system are normal. Abdominal wall: There are no abdominal wall defects. Bones: There are no significant bony abnormalities. CT/Abdomen/Pelvis WITH Contrast IMPRESSION: 1. No evidence of active Crohn's disease. 2. Severe sigmoid diverticulosis without diverticulitis. 3. Findings consistent with cholecystitis. 4. Other findings as noted. Recommendation: Gallbladder ultrasound. Reading Location: [id number]
[2025-02-06 06:41] LABS: CREATININE FINGERSTICK < 1.0 mg/dL (0.55-1.02); EGFR FINGERSTICK > 60.0000 mL/min (>60)
== END | disposition home or self-care (01) ==
LOC: CT 06:16
PROVIDERS: PCP Internal Medicine; Referring Provider Internal Medicine Gastroenterology; Visit Provider Internal Medicine Gastroenterology
DX: K50.812 Crohn's disease of both small and large intestine with intestinal obstruction (principal); K75.81 Nonalcoholic steatohepatitis (NASH); D64.9 Anemia, unspecified
CPT/HCPCS: 74177; Q9967

== ENCOUNTER → 2025-02-18 | Outpatient (CLI) | payer MEDICARE, SELFPAY ==
--- NOTE | 2025-02-18 12:53 | BD_ITS ---
PROCEDURE: DEXA BONE DENSITY STUDY 02/18/2025 REASON FOR EXAM: OSTEOPENIA F, age 70 y/o . TECHNIQUE: DEXA BONE DENSITY STUDY COMPARISON: DEXA scan on 02/14/2023 FINDINGS: BMD and T-SCORES Lumbar spine: 0.823 g/cm2, T-score -2.0 Levels: L1 through L4 Change from prior: No significant change in BMD.. Left femoral neck: 0.837 g/cm2, T-score -0.1 Femoral neck comparison data not recommended for monitoring change. Prior T-score -0.5 Left total hip: 1.037 g/cm2, T-score 0.8 Change from prior: No significant change in BMD.. Right femoral neck: 0.827 g/cm2, T-score -0.2 Femoral neck comparison data not recommended for monitoring change. Prior T-score -0.5 Right total hip: 1.052 g/cm2, T-score 0.9 Change from prior: Dissimilar scan types/analysis methods, showing. The World Health Organization has defined the following categories based on bone density: Normal bone density: T-score equal to or greater than -1.0 Osteopenia: T-score between -1.0 and -2.5 Osteoporosis: T-score equal to or less than -2.5 FRAX (or Comparable) Fracture Risk Assessment: 10 Year Probability of Fracture: Major Osteoporotic Fracture: 27% Hip Fracture: 2.7% (Note: FRAX is not to be reported in setting of normal range bone density, osteoporosis on DEXA, known history of osteoporosis, prior osteoporotic hip or vertebral fracture, or for any patient undergoing pharmacological treatment for bone loss.) The National Osteoporosis Foundation (NOF) recommends pharmacological treatment for patients with a FRAX 10-year risk of 3% or higher for a hip fracture, or 20% or higher for a major osteoporotic fracture, to prevent osteoporosis and reduce fracture risk. The patient does meet the pharmacological treatment recommendations for prevention of osteoporosis. BD/Dexa Bone Density Study IMPRESSION: OSTEOPENIA. Reading Location: [id number]
== END | disposition home or self-care (01) ==
PROVIDERS: PCP Internal Medicine; Referring Provider Internal Medicine Gastroenterology; Visit Provider Internal Medicine Gastroenterology
DX: M81.0 Age-related osteoporosis without current pathological fracture (principal)
CPT/HCPCS: 77080

== ENCOUNTER 2025-03-27 10:10 | Outpatient (CLI) | payer MEDICARE, SELFPAY ==
[2025-03-27 10:13] VITALS: BP 134/59; PULSE 61; RESP 16; TEMP 36.4; O2SAT 99; BMI 31.5
[2025-03-27] MEDS: 0.9% NaCl Peripheral Flush Adult IV ×2 (10:22→11:08)
[2025-03-27] MEDS: NORMAL SALINE 0.9% IV (11:08)
[2025-03-27] MEDS: 0.9% NaCl IVPB Med Flush (250 mL) 15 ML IV (11:08)
[2025-03-27] MEDS: INFLIXIMAB DYYB IV (11:08)
[2025-03-27 13:26] VITALS: BP 146/53; PULSE 72; RESP 16; TEMP 36.8; O2SAT 97
== END 2025-03-27 23:59 | disposition home or self-care (01) ==
LOC: MEDOUTP 10:10
PROVIDERS: PCP Internal Medicine; Referring Provider Internal Medicine Gastroenterology; Visit Provider Internal Medicine Gastroenterology
DX: K50.90 Crohn's disease, unspecified, without complications (principal)
CPT/HCPCS: 96413; 96415; A4216; Q5103

== ENCOUNTER 2025-05-22 10:26 | Outpatient (CLI) | payer MEDICARE, SELFPAY ==
[2025-05-22 10:45] VITALS: BP 138/68; PULSE 60; RESP 16; TEMP 35.9; O2SAT 95; BMI 31.1
[2025-05-22] MEDS: 0.9% NaCl Peripheral Flush Adult IV (10:48)
[2025-05-22] MEDS: NORMAL SALINE 0.9% IV (11:26)
[2025-05-22] MEDS: INFLIXIMAB DYYB IV (11:26)
== END 2025-05-22 23:59 | disposition home or self-care (01) ==
LOC: MEDOUTP 10:27
PROVIDERS: PCP Internal Medicine; Referring Provider Internal Medicine Gastroenterology; Visit Provider Internal Medicine Gastroenterology
DX: K50.90 Crohn's disease, unspecified, without complications (principal)
CPT/HCPCS: 96413; 96415; A4216; Q5103

== ENCOUNTER → 2025-06-17 | Outpatient (CLI) | payer MEDICARE, SELFPAY ==
[2025-06-17 10:07] LABS: Hematocrit 42.3 % (37-47); Hemoglobin 14.3 g/dL (12.0-15.0); Immature Granulocytes Count 0.010 X10^3/uL (0.0-0.0); Mean Corp Hgb Conc 33.8 g/dL (32-36); Mean Corpuscular Volume 83.8 fL (81-99); Mean Platelet Vol. 9.7 fl (6.2-12.0); NRBC Flagged by Analyzer 0 % (0-5); Platelet Count 294 K/mm3 (150-450); RBC Distribution Width CV 14.0 % (11.6-14.6); RBC Distribution Width SD 42.9 fl (35.1-43.9); Red Blood Count 5.05 M/mm3 (4.2-5.4); White Blood Count 6.0 K/mm3 (4.4-11.0)
[2025-06-17 10:41] LABS: CRP < 3.00 mg/L (0.0-3.0)
== END | disposition home or self-care (01) ==
LOC: LAB 09:25
PROVIDERS: PCP Internal Medicine; Referring Provider Internal Medicine Gastroenterology; Visit Provider Internal Medicine Gastroenterology
DX: K50.812 Crohn's disease of both small and large intestine with intestinal obstruction (principal); K50.90 Crohn's disease, unspecified, without complications
CPT/HCPCS: 36415; 85025; 85652; 86140

== ENCOUNTER → 2025-07-07 | Outpatient (CLI) | payer MEDICARE, SELFPAY ==
--- NOTE | 2025-07-07 07:45 | BI_ITS ---
EXAM: SCRN MAMM (CAD)W/JELLY BILAT DATE: 07/07/2025 CLINICAL HISTORY: F, Age 70 y/o , SCRN MAMM (CAD)W/JELLY BILAT (33087) : MAY Patient's sister and grandmother were diagnosed with breast cancer. TECHNIQUE: Procedure Code: [id number] Modality: MG Procedure: SCRN MAMM (CAD)W/JELLY BILAT COMPARISON: Prior exam(s) dated 06/19/2024, 02/14/2023. FINDINGS: TISSUE DENSITY: The breasts are almost entirely fatty. Bilateral Breast Mammographic Findings: No significant masses, calcifications or other abnormalities are identified. Benign-appearing round microcalcifications were seen in both breasts. Well-circumscribed stable isodense masses are seen in the right breast. BI/SCRN MAMM (CAD)W/JELLY BILAT IMPRESSION: Benign screening mammogram. OVERALL FINAL ASSESSMENT BI-RADS 2: BENIGN RECOMMENDATION: Routine annual follow-up in 1 Year Additional Recommendation none A letter with findings and recommendations will be mailed to the patient. Reading Location: [id number]
== END | disposition home or self-care (01) ==
PROVIDERS: PCP Internal Medicine; Referring Provider Internal Medicine; Visit Provider Internal Medicine
DX: Z12.31 Encounter for screening mammogram for malignant neoplasm of breast (principal)
CPT/HCPCS: 77063; 77067

== ENCOUNTER → 2025-07-10 | Outpatient (CLI) | payer MEDICARE, SELFPAY ==
--- NOTE | 2025-07-10 10:09 | ECHOCS_ITS ---
Reason For Study Reason For Study: Murmur Procedure This was a 2D Doppler, Color Flow transthoracic echocardiogram. The study was technically difficult. Contrast injection was performed. Exam performed in department. Left Ventricle Normal LV size. The left ventricular ejection fraction is 60 %. Stage 1 diastolic dysfunction. No regional wall motion abnormalities noted. Right Ventricle Normal RV size. Normal systolic function. Atria Normal left atrium. Normal right atrium. Mitral Valve There is moderate mitral annular calcification. There is Moderate focal posterior mitral annular calcification. Tricuspid Valve Normal tricuspid valve. Aortic Valve Trisinus/trileaflet aortic valve. Pulmonic Valve Normal pulmonic valve. Great Vessels Normal aortic root. The pulmonary artery is normal size. Inferior vena cava collapse with respiration. Pericardium/Pleural No pericardial effusion. Medication 22 gauge I.V. with prn adaptor inserted into right arm. Diluted definity 1.5ml given slow IV push to enhance endocardial definition. MMode/2D Measurements & Calculations LVIDd: 5.0 cm IVSd: 0.59 cm Ao root diam: 2.4 cm LVIDs: 2.8 cm LVPWd: 1.0 cm RVDd: 3.3 cm FS: 42.8 % LAV(MOD-bp): 54.6 ml LVAd ap4: 29.0 cm2 LVAd ap2: 28.5 cm2 LAV(MOD-bp) Indexed: 27.7 ml/m2 LVLd ap4: 8.0 cm LVLd ap2: 7.7 cm LAV(MOD-sp2): 56.1 ml EDV(MOD-sp4): 85.2 ml EDV(MOD-sp2): 85.0 ml LAV(MOD-sp4): 49.1 ml EDV(sp4-el): 89.0 ml EDV(sp2-el): 88.8 ml LVAs ap4: 13.8 cm2 LVAs ap2: 11.4 cm2 LVLs ap4: 6.1 cm LVLs ap2: 5.9 cm ESV(MOD-sp4): 25.1 ml ESV(MOD-sp2): 18.3 ml ESV(sp4-el): 26.6 ml ESV(sp2-el): 18.7 ml EF(MOD-sp4): 70.5 % EF(MOD-sp2): 78.5 % EF(sp4-el): 70.1 % SV(MOD-sp4): 60.1 ml SV(MOD-sp2): 66.7 ml SV(sp4-el): 62.4 ml SI(MOD-sp4): 30.5 ml/m2 SI(MOD-sp2): 33.9 ml/m2 LA A4 area: 18.2 cm2 LA dimension(2D): 3.7 cm RA A4 area: 16.2 cm2 TAPSE: 2.4 cm Time Measurements MV dec time: 0.42 sec Doppler Measurements & Calculations MV E max christian: 83.0 cm/sec Lat Peak E' Christian: 7.6 cm/sec Med Peak E' Christian: 6.8 cm/sec MV A max christian: 122.5 cm/sec E/E' lat: 10.9 E/E' med: 12.2 MV E/A: 0.68 MV V2 max: 133.7 cm/sec MV P1/2t max christian: 105.3 cm/sec Ao V2 max: 182.5 cm/sec MV max P.2 mmHg MV P1/2t: 145.0 msec Ao max P.3 mmHg MV V2 mean: 67.7 cm/sec MV dec slope: 212.6 cm/sec2 Ao V2 mean: 129.7 cm/sec MV mean P.2 mmHg MVA(P1/2t): 1.5 cm2 Ao mean P.5 mmHg MV V2 VTI: 43.3 cm Ao V2 VTI: 45.0 cm AV (velocity ratio): 0.80 LV V1 max: 141.4 cm/sec PA V2 max: 125.1 cm/sec LV V1 max P.0 mmHg LV V1 mean P.1 mmHg LV V1 mean: 107.4 cm/sec LV V1 VTI: 35.9 cm ECHO/Echo Complete W/ Contrast Interpretation Summary Normal LV size. The left ventricular ejection fraction is 60 %. There is Moderate focal posterior mitral annular calcification. Stage 1 diastolic dysfunction. Ordering Physician: Randolph Calles Referring Physician: Randolph Calles Performed By: Josef Deleon RCS
== END | disposition home or self-care (01) ==
LOC: CVS 09:58
PROVIDERS: PCP Internal Medicine; Referring Provider Internal Medicine Cardiovascular Disease; Visit Provider Internal Medicine Cardiovascular Disease
DX: R01.1 Cardiac murmur, unspecified (principal)
CPT/HCPCS: 93306; Q9957; A4216; C8929

== ENCOUNTER 2025-07-22 14:13 | Outpatient (CLI) | payer MEDICARE, SELFPAY ==
[2025-07-22 14:26] VITALS: BP 137/65; PULSE 62; RESP 16; TEMP 36.9; O2SAT 99
[2025-07-22] MEDS: [UNRECOGNIZED DRUG - OTHER] IV (15:14)
[2025-07-22] MEDS: NORMAL SALINE 0.9% IV (15:14)
[2025-07-22 16:32] VITALS: BP 151/67; PULSE 57; RESP 16; TEMP 36.2; O2SAT 99
== END 2025-07-22 23:59 | disposition home or self-care (01) ==
LOC: MEDOUTP 14:13
PROVIDERS: PCP Internal Medicine; Referring Provider Internal Medicine Gastroenterology; Visit Provider Internal Medicine Gastroenterology
DX: K50.90 Crohn's disease, unspecified, without complications (principal)
CPT/HCPCS: 96365; A4216; J2327

== ENCOUNTER 2025-08-19 09:39 | Outpatient (CLI) | payer MEDICARE, SELFPAY ==
[2025-08-19 09:54] VITALS: BP 150/71; PULSE 80; RESP 16; TEMP 35.7; O2SAT 100; BMI 30.9
[2025-08-19] MEDS: 0.9% NaCl Peripheral Flush Adult IV (09:57)
[2025-08-19] MEDS: 0.9% NaCl IVPB Med Flush (100mL) 15 ML IV (09:57)
[2025-08-19] MEDS: NORMAL SALINE 0.9% IV (10:27)
[2025-08-19] MEDS: [UNRECOGNIZED DRUG - OTHER] IV (10:27)
[2025-08-19 11:53] VITALS: BP 148/66; PULSE 70; RESP 16; TEMP 35.8; O2SAT 100
== END 2025-08-19 23:59 | disposition home or self-care (01) ==
LOC: MEDOUTP 09:39
PROVIDERS: PCP Internal Medicine; Referring Provider Internal Medicine Gastroenterology; Visit Provider Internal Medicine Gastroenterology
DX: K50.90 Crohn's disease, unspecified, without complications (principal)
CPT/HCPCS: 96365; A4216; J2327